=== PATIENT | female | born 1950 | race Caucasian/White ===

== ENCOUNTER → 2016-10-04 | Outpatient (CLI) | payer MEDICAID ==
[2016-10-04 07:48] LABS: Appearance,Urine Clear (Clear); Bilirubin,Urine Negative (Negative); Glucose,Urine (UA) Negative (Negative); Ketones,Urine Negative (Negative); Leukocyte Esterase,Urine Negative (Negative); Nitrite,Urine Negative (Negative); Particle Count 1905; Protein,Urine Negative (Negative); RBC,Urine 4 /hpf (0-5); Specific Gravity,Urine 1.009 (1.001-1.035); Squamous Epithelial Cell,Urine 2 /hpf (0-4); UA Billing (MACRO vs. MICRO) MICRO; Urobilinogen,Urine <2.0 mg/dL (<2.0); WBC,Urine 1 /hpf (0-5)
[2016-10-04 08:01] LABS: ALT 24 U/L (9-52); AST 27 U/L (14-36); Alkaline Phosphatase 74 U/L (38-126); Anion Gap 12 mmol/L; Blood Urea Nitrogen 8 mg/dL (7-17); Calcium 10.1 mg/dL (8.4-10.2); Carbon Dioxide 27 mmol/L (22-30); Chloride 98 mmol/L (98-107); Cholesterol 313 mg/dL (<200); Glucose 89 mg/dL (74-99); HDL Cholesterol 90 mg/dL (40-60); Non-African American GFR(MDRD) >60 (>60 ml/min/1.73 sqM); Potassium 5.2 mmol/L (3.5-5.1); Sodium 137 mmol/L (137-145); Total Bilirubin 0.6 mg/dL (0.2-1.3); Total Protein 8.3 g/dL (6.3-8.2); Triglycerides 191 mg/dL (<150)
[2016-10-04 08:05] LABS: CH 28.3; CHCM 31.3; HCT 33.6 % (34.0-46.0); HDW 2.54; HGB 10.2 gm/dL (11.4-16.0); Hypochromasia Slight; MCH 27.7 pg (25.0-35.0); MCHC 30.5 g/dL (31.0-37.0); MCV 90.7 fL (80.0-100.0); Mean Platelet Volume 6.5; RDW 13.2 % (11.5-15.5); WBC 5.9 k/uL (3.8-10.6)
== END ==
LOC: LABWHC1 07:10
PROVIDERS: ATTEND Internal Medicine
DX: Z00.00 Encounter for general adult medical examination without abnormal findings (principal); I10 Essential (primary) hypertension; M85.80 Other specified disorders of bone density and structure, unspecified site; E78.5 Hyperlipidemia, unspecified; E03.9 Hypothyroidism, unspecified
CPT/HCPCS: 36415; 80053; 80061; 81001; 82306; 84443; 85027

== ENCOUNTER → 2017-10-17 | Outpatient (CLI) | payer MEDICARE ==
[2017-10-17 07:52] LABS: ALT 25 U/L (9-52); AST 22 U/L (14-36); Albumin 4.6 g/dL (3.5-5.0); Alkaline Phosphatase 102 U/L (38-126); Anion Gap 14 mmol/L; Blood Urea Nitrogen 13 mg/dL (7-17); Calcium 9.7 mg/dL (8.4-10.2); Carbon Dioxide 26 mmol/L (22-30); Chloride 106 mmol/L (98-107); Cholesterol 303 mg/dL (<200); Glucose 85 mg/dL (74-99); HDL Cholesterol 66 mg/dL (40-60); LDL Cholesterol,Calculated 188 mg/dL (0-99); Potassium 4.7 mmol/L (3.5-5.1); Sodium 146 mmol/L (137-145); Total Bilirubin 0.5 mg/dL (0.2-1.3); Total Protein 7.9 g/dL (6.3-8.2); Triglycerides 247 mg/dL (<150)
[2017-10-17 07:56] LABS: HCT 39.7 % (34.0-46.0); HGB 12.6 gm/dL (11.4-16.0); MCH 28.4 pg (25.0-35.0); MCHC 31.6 g/dL (31.0-37.0); MCV 89.7 fL (80.0-100.0); Mean Platelet Volume 6.9; Platelet Count 380 k/uL (150-450); RBC 4.43 m/uL (3.80-5.40); WBC 5.6 k/uL (3.8-10.6)
[2017-10-17 08:41] LABS: Appearance,Urine Cloudy (Clear); Bacteria,Urine Occasional /hpf; Bilirubin,Urine Negative (Negative); Blood,Urine Small (Negative); Color,Urine Yellow; Glucose,Urine (UA) Negative (Negative); Hyaline Casts,Urine 7 /lpf (0-2); Ketones,Urine Trace (Negative); Leukocyte Esterase,Urine Trace (Negative); Mucus,Urine Occasional /hpf; Nitrite,Urine Negative (Negative); PH, Urine 6.5 (5.0-8.0); Protein,Urine 1+ (Negative); RBC,Urine 26 /hpf (0-5); Specific Gravity,Urine 1.021 (1.001-1.035); Squamous Epithelial Cell,Urine 10 /hpf (0-4); WBC,Urine 5 /hpf (0-5)
== END | disposition home or self-care (01) ==
LOC: LABWHC1 07:06
PROVIDERS: ATTEND Internal Medicine
DX: Z00.00 Encounter for general adult medical examination without abnormal findings (principal); E78.5 Hyperlipidemia, unspecified; I10 Essential (primary) hypertension
CPT/HCPCS: 36415; 80053; 80061; 81001; 84443; 85027

== ENCOUNTER → 2018-10-16 | Outpatient (CLI) | payer MEDICARE ==
[2018-10-16 08:47] LABS: HCT 39.2 % (34.0-46.0); HGB 12.4 gm/dL (11.4-16.0); MCH 30.1 pg (25.0-35.0); MCHC 31.5 g/dL (31.0-37.0); MCV 95.6 fL (80.0-100.0); Mean Platelet Volume 6.5; Platelet Count 664 k/uL (150-450); RBC 4.11 m/uL (3.80-5.40); RDW 13.2 % (11.5-15.5); WBC 14.5 k/uL (3.8-10.6)
[2018-10-16 12:56] LABS: Appearance,Urine Clear (Clear); Bilirubin,Urine Negative (Negative); Blood,Urine Negative (Negative); Color,Urine Light Yellow; Glucose,Urine (UA) Negative (Negative); Ketones,Urine Negative (Negative); Leukocyte Esterase,Urine Negative (Negative); Nitrite,Urine Negative (Negative); PH, Urine 6.5 (5.0-8.0); Protein,Urine Negative (Negative); Specific Gravity,Urine 1.005 (1.001-1.035); Urobilinogen,Urine <2.0 mg/dL (<2.0)
[2018-10-18 09:42] LABS: Albumin 4.7 g/dL (3.80-4.90); Albumin/Globulin Ratio 1.81 (1.60-3.17); Anion Gap 12.2 mmol/L (4.00-12.00); Calcium 9.4 mg/dL (8.7-10.3); Carbon Dioxide 21.8 mmol/L (21.6-31.8); Globulin 2.6 g/dL (1.6-3.3); LDL Cholesterol,Calculated 119.8 mg/dL (0.0-131.0); Potassium 4.6 mmol/L (3.5-5.5); Total Bilirubin 0.4 mg/dL (0.3-1.2); Total Protein 7.3 g/dL (6.2-8.2); VLDL Calculation 28.2 mg/dL (5.00-40.00)
== END | disposition home or self-care (01) ==
LOC: LABWHC1 08:08
PROVIDERS: ATTEND Internal Medicine
DX: E78.5 Hyperlipidemia, unspecified (principal); I10 Essential (primary) hypertension; E03.9 Hypothyroidism, unspecified
CPT/HCPCS: 36415; 80053; 80061; 81003; 85027

== ENCOUNTER → 2019-08-18 | Outpatient (CLI) | payer MEDICARE ==
--- NOTE | 2019-08-18 15:06 | ECHOS ---
STRESS ECHOCARDIOGRAM DATE OF SERVICE: 08/18/2019 INDICATIONS: Hypertension. MEDICATIONS: BASELINE HEART RATE: 68 BASELINE BLOOD PRESSURE: 134/85 MAXIMUM HEART RATE: 140 MAXIMUM BLOOD PRESSURE: 159/72 85% MPHR: 85 100% MPHR: 100 METS: 8.1 MAXIMUM STAGE REACHED: 2 TOTAL EXERCISE TIME: 7:00 CLINICAL INFORMATION: The patient was exercised for a total period of 7 minutes. Peak heart rate of 140 was achieved. Maximum blood pressure of 159/72 mmHg was noted. Resting EKG shows normal sinus rhythm with normal MI interval and QRS duration and normal ST-T waves. No ST segment depression suggestive of ischemia is noted. The baseline echocardiographic images reveal normal left ventricular chamber size with normal left ventricular systolic function. In the immediate postexercise period, normal increase in the wall thickness and contractility is noted. MMODL / IJN: [id number] /
== END | disposition home or self-care (01) ==
LOC: RADNMMAIN 08:46
PROVIDERS: ATTEND Internal Medicine
DX: I10 Essential (primary) hypertension (principal); E78.5 Hyperlipidemia, unspecified; R07.9 Chest pain, unspecified
CPT/HCPCS: 93351

== ENCOUNTER → 2020-01-16 | Outpatient (CLI) | payer MEDICARE ==
[2020-01-16 08:45] LABS: HCT 51.2 % (34.0-46.0); HGB 16.9 gm/dL (11.4-16.0); Hypochromasia Slight; MCH 33.1 pg (25.0-35.0); MCHC 32.9 g/dL (31.0-37.0); MCV 100.7 fL (80.0-100.0); Macrocytosis Slight; Platelet Count 312 k/uL (150-450); RBC 5.09 m/uL (3.80-5.40); RDW 13.6 % (11.5-15.5); WBC 7.5 k/uL (3.8-10.6)
[2020-01-16 08:58] LABS: Appearance,Urine Clear (Clear); Bilirubin,Urine Negative (Negative); Color,Urine Yellow; Glucose,Urine (UA) Negative (Negative); Ketones,Urine Negative (Negative); Protein,Urine Negative (Negative)
[2020-01-16 08:59] LABS: Blood,Urine Negative (Negative); Leukocyte Esterase,Urine Negative (Negative); Nitrite,Urine Negative (Negative); Urobilinogen,Urine <2.0 mg/dL (<2.0)
[2020-01-16 15:58] LABS: African American GFR (CKD) 76.7 (60.0-200.0); Albumin 4.5 g/dL (3.80-4.90); Albumin/Globulin Ratio 1.61 (1.60-3.17); Anion Gap 10.3 mmol/L (4.00-12.00); BUN/Creat Ratio 12.22 Ratio (12.00-20.00); Calcium 9.4 mg/dL (8.7-10.3); Carbon Dioxide 25.7 mmol/L (21.6-31.8); Chol/HDL Ratio 3.5; Globulin 2.8 g/dL (1.6-3.3); LDL Cholesterol,Calculated 116.2 mg/dL (0.0-131.0); Non-African American GFR(CKD) 66.2 (60.0-200.0); Potassium 4.4 mmol/L (3.5-5.5); Total Bilirubin 0.5 mg/dL (0.3-1.2); Total Protein 7.3 g/dL (6.2-8.2); VLDL Calculation 23.8 mg/dL (5.00-40.00)
== END | disposition home or self-care (01) ==
LOC: LABWHC1 08:08
PROVIDERS: ATTEND Internal Medicine
DX: Z00.00 Encounter for general adult medical examination without abnormal findings (principal); E78.5 Hyperlipidemia, unspecified; I10 Essential (primary) hypertension; R53.83 Other fatigue
CPT/HCPCS: 36415; 80053; 80061; 81003; 84443; 85027

== ENCOUNTER 2020-04-24 10:06 | Inpatient (IN) | payer MEDICARE ==
[2020-04-24] MEDS ORDERED: ONDANSETRON 4 MG/2 ML VIAL IVP STA (10:30)
[2020-04-24 10:54] LABS: Basophils # (A) 0.1 k/uL (0-0.2); Basophils % (A) 1 %; Eosinophils # (A) 0.2 k/uL (0-0.7); Eosinophils % (A) 2 %; HCT 53.3 % (34.0-46.0); HGB 17.2 gm/dL (11.4-16.0); Lymphocytes # (A) 2.7 k/uL (1.0-4.8); Lymphocytes % (A) 23 %; MCH 31.7 pg (25.0-35.0); MCHC 32.2 g/dL (31.0-37.0); MCV 98.4 fL (80.0-100.0); Mean Platelet Volume 7.1; Monocytes % (A) 9 %; Neutrophils # (A) 7.3 k/uL (1.3-7.7); Neutrophils % (A) 63 %; Platelet Count 407 k/uL (150-450); RBC 5.41 m/uL (3.80-5.40); RDW 13.9 % (11.5-15.5); WBC 11.7 k/uL (3.8-10.6)
--- NOTE | 2020-04-24 10:54 | ED ---
General Adult HPI - General Stated complaint: seizures Time Seen by Provider: 04/24/20 10:09 Source: patient, EMS, RN notes reviewed, old records reviewed Mode of arrival: EMS Limitations: no limitations - History of Present Illness Initial comments: 69-year-old female presenting with suspected seizure. Patient was at a local grocery store, had a witnessed seizure with postictal period according to EMS. She has a remote history of seizures, not on any antiepileptic medication. Patient's only complaint at the time of initial evaluation is nausea. She denies focal numbness or weakness. Denies headache. Denies chest pain or abdominal pain. She is able to answer questions but somewhat slow to respond.patient was incontinent of urine. - Related Data Home Medications Medication Instructions Recorded Confirmed Ascorbic Acid [Vitamin C] 500 mg PO DAILY 04/24/20 04/24/20 Benazepril/Hydrochlorothiazide 0.5 tab PO DAILY 04/24/20 04/24/20 [Benazepril-Hctz 20-12.5 mg Tab] Cholecalciferol [Vitamin D3 (25 1,000 unit PO DAILY 04/24/20 04/24/20 Mcg = 1000 Iu)] Folic Acid 0.8 mg PO DAILY 04/24/20 04/24/20 Magnesium Oxide [Magox 400] 400 mg PO DAILY 04/24/20 04/24/20 PARoxetine [Paxil] 20 mg PO DAILY 04/24/20 04/24/20 Allergies Allergy/AdvReac Type Severity Reaction Status Date / Time codeine Allergy Unknown Verified 04/24/20 11:26 Review of Systems ROS Statement: Those systems with pertinent positive or pertinent negative responses have been documented in the HPI. ROS Other: All systems not noted in ROS Statement are negative. Past Medical History Past Medical History: Seizure Disorder History of Any Multi-Drug Resistant Organisms: Unobtainable Past Surgical History: No Surgical Hx Reported Past Psychological History: No Psychological Hx Reported Smoking Status: Current every day smoker Past Alcohol Use History: Daily Past Drug Use History: None Reported General Exam Limitations: no limitations General appearance: lethargic Head exam: Present: atraumatic, normocephalic Eye exam: Present: normal appearance, PERRL ENT exam: Present: mucous membranes dry Neck exam: Present: normal inspection, tenderness Respiratory exam: Present: normal lung sounds bilaterally. Absent: respiratory distress, wheezes Cardiovascular Exam: Present: regular rate, normal rhythm GI/Abdominal exam: Present: soft. Absent: distended, tenderness, guarding Extremities exam: Present: normal inspection, normal capillary refill. Absent: pedal edema, calf tenderness Neurological exam: Present: alert, oriented X3, CN II-XII intact. Absent: motor sensory deficit Psychiatric exam: Present: normal affect, normal mood Skin exam: Present: warm, dry, intact. Absent: cyanosis, diaphoretic Course Vital Signs 04/24/20 04/24/20 10:12 11:05 Temperature 97.4 F L Pulse Rate 106 H 90 Respiratory 18 18 Rate Blood Pressure 149/104 135/96 O2 Sat by Pulse 95 96 Oximetry EKG Findings - EKG Comments: EKG Findings:: EKG: Normal sinus rhythm, ventricular rate of 98, TX interval 162, QRS duration 98, QTC 500 ms, ST segment and T-wave abnormality in the inferior leads, as well as T-wave inversion in V2, V3 V4 no acute ST segment elevation. No recent for comparison. repeat EKG, 1059, normal sinus, prolonged QT, rate of 86, TX interval 170, QRS duration 94, QTC 497, no ST segment elevation. Medical Decision Making - Medical Decision Making 69-year-old female with suspicion for seizure. Patient had urinary incontinence. There was a period of postictal confusion. By the time she arrived she is able answer questions, her only complaint is nausea. 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 EKG in the emergency Department is sinus rhythm without ST segment elevation. Workup reveals mild leukocytosis, hemoglobin 17.2.she has some hyperglycemia, CO2 is 21 likely secondary to seizure. She has is minimal troponin elevation 0.058. Vital signs remained stable while in the emergency department. She has a nonfocal neurologic exam. Head CT is performed which is negative for intracranial hemorrhage or mass effect. Chest x-rays negative for acute cardiopulmonary disease. Given his troponin elevation I did initiate heparin awaiting serial cardiac enzymes and cardiology consultation. Case is discussed with Dr. Álvarez. Patient evaluated by the admitting physician Dr. Marrero while in the emergency department. Neurology has been placed on consult. - Lab Data Result diagrams: 04/24/20 10:35 04/24/20 10:35 Lab Results 04/24/20 04/24/20 04/24/20 Range/Units 10:35 10:35 10:35 WBC 11.7 H (3.8-10.6) k/uL RBC 5.41 H (3.80-5.40) m/uL Hgb 17.2 H (11.4-16.0) gm/dL Hct 53.3 H (34.0-46.0) % MCV 98.4 (80.0-100.0) fL MCH 31.7 (25.0-35.0) pg MCHC 32.2 (31.0-37.0) g/dL RDW 13.9 (11.5-15.5) % Plt Count 407 (150-450) k/uL Neutrophils % 63 % Lymphocytes % 23 % Monocytes % 9 % Eosinophils % 2 % Basophils % 1 % Neutrophils # 7.3 (1.3-7.7) k/uL Lymphocytes # 2.7 (1.0-4.8) k/uL Monocytes # 1.0 (0-1.0) k/uL Eosinophils # 0.2 (0-0.7) k/uL Basophils # 0.1 (0-0.2) k/uL PT 10.3 (9.0-12.0) sec INR 1.0 (<1.2) APTT 21.1 L (22.0-30.0) sec Sodium 136 L (137-145) mmol/L Potassium 4.0 (3.5-5.1) mmol/L Chloride 101 (98-107) mmol/L Carbon Dioxide 21 L (22-30) mmol/L Anion Gap 14 mmol/L BUN 14 (7-17) mg/dL Creatinine 0.81 (0.52-1.04) mg/dL Est GFR (CKD-EPI)AfAm 88 (>60 ml/min/1.73 sqM) Est GFR (CKD-EPI)NonAf 76 (>60 ml/min/1.73 sqM) Glucose 179 H (74-99) mg/dL Calcium 9.5 (8.4-10.2) mg/dL Magnesium 1.9 (1.6-2.3) mg/dL Total Bilirubin 0.6 (0.2-1.3) mg/dL AST 32 (14-36) U/L ALT 16 (4-34) U/L Alkaline Phosphatase 94 (38-126) U/L Troponin I (0.000-0.034) ng/mL Total Protein 7.7 (6.3-8.2) g/dL Albumin 4.4 (3.5-5.0) g/dL 04/24/20 Range/Units 10:35 WBC (3.8-10.6) k/uL RBC (3.80-5.40) m/uL Hgb (11.4-16.0) gm/dL Hct (34.0-46.0) % MCV (80.0-100.0) fL MCH (25.0-35.0) pg MCHC (31.0-37.0) g/dL RDW (11.5-15.5) % Plt Count (150-450) k/uL Neutrophils % % Lymphocytes % % Monocytes % % Eosinophils % % Basophils % % Neutrophils # (1.3-7.7) k/uL Lymphocytes # (1.0-4.8) k/uL Monocytes # (0-1.0) k/uL Eosinophils # (0-0.7) k/uL Basophils # (0-0.2) k/uL PT (9.0-12.0) sec INR (<1.2) APTT (22.0-30.0) sec Sodium (137-145) mmol/L Potassium (3.5-5.1) mmol/L Chloride (98-107) mmol/L Carbon Dioxide (22-30) mmol/L Anion Gap mmol/L BUN (7-17) mg/dL Creatinine (0.52-1.04) mg/dL Est GFR (CKD-EPI)AfAm (>60 ml/min/1.73 sqM) Est GFR (CKD-EPI)NonAf (>60 ml/min/1.73 sqM) Glucose (74-99) mg/dL Calcium (8.4-10.2) mg/dL Magnesium (1.6-2.3) mg/dL Total Bilirubin (0.2-1.3) mg/dL AST (14-36) U/L ALT (4-34) U/L Alkaline Phosphatase (38-126) U/L Troponin I 0.058 H* (0.000-0.034) ng/mL Total Protein (6.3-8.2) g/dL Albumin (3.5-5.0) g/dL Critical Care Time Critical Care Time: Yes Total Critical Care Time: 35 Disposition Clinical Impression: Seizure, Troponin level elevated Disposition: HOME SELF-CARE Condition: Stable Is patient prescribed a controlled substance at d/c from ED?: No Referrals: None,Stated [Primary Care Provider] - 1-2 days Decision to Admit Reason: Admit from EC Decision Date: 04/24/20 Decision Time: 12:00
--- NOTE | 2020-04-24 10:54 | CT ---
EXAMINATION TYPE: CT brain wo con DATE OF EXAM: 04/24/2020 COMPARISON: None INDICATION: seizure DLP: 1040.4 mGycm, Automated exposure control for dose reduction was used. CONTRAST: None CT of the brain is performed utilizing 3 mm thick sections through the posterior fossa and 3 mm thick sections through the remaining calvarium. Study is performed within 24 hours of arrival to the hosp ital. No abnormal hyperdensity is present to suggest an acute intracranial hemorrhage. No mass lesion is evident. No acute infarcts are evident. Ventricles and sulci are appropriate for the patient age. Paranasal sinuses and mastoid air cells within the [id number] are clear. IMPRESSIONS: 1. No acute intracranial process.
--- NOTE | 2020-04-24 11:08 | XR ---
EXAMINATION TYPE: XR chest 1V portable DATE OF EXAM: 04/24/2020 COMPARISON: NONE HISTORY: Chest pain TECHNIQUE: Single frontal view of the chest is obtained. FINDINGS: There is no focal air space opacity, pleural effusion, or pneumothorax seen. The cardiac silhouette size is within normal limits. There are overlying cardiac leads. Patient is rotated. The osseous structures are intact. IMPRESSION: No acute process.
[2020-04-24 11:13] LABS: Prothrombin Time 10.3 sec (9.0-12.0)
[2020-04-24 11:17] LABS: Albumin 4.4 g/dL (3.5-5.0); Calcium 9.5 mg/dL (8.4-10.2); Magnesium 1.9 mg/dL (1.6-2.3); Total Bilirubin 0.6 mg/dL (0.2-1.3); Total Protein 7.7 g/dL (6.3-8.2)
[2020-04-24] MEDS ORDERED: METOCLOPRAMIDE 5 MG/ML 2 ML VIAL IVP STA (11:29)
[2020-04-24] MEDS ORDERED: ACETAMINOPHEN TAB 500 MG TAB PO STA (11:29)
[2020-04-24] MEDS ORDERED: SODIUM CHLORIDE 0.9% 500 ML 500 ML IV ONE (11:30)
[2020-04-24] MEDS ORDERED: ASPIRIN 325 MG TAB PO STA (11:31)
[2020-04-24] MEDS ORDERED: HEPARIN SODIUM,PORCINE 5,000 UNIT/ML 1 ML VIAL IV PRN (11:32)
[2020-04-24] MEDS ORDERED: HEPARIN SODIUM,PORCINE 5,000 UNIT/ML 1 ML VIAL IV ONE (11:32)
[2020-04-24 11:36] LABS: Partial Thromboplastin Time 21.1 sec (22.0-30.0)
[2020-04-24] MEDS ORDERED: NALOXONE 0.4 MG/ML 1 ML VIAL IV PRN (11:44)
[2020-04-24] MEDS: HEPARIN SOD,PORK IN 0.45% NACL 25,000 UNIT in 0.45% NACL 1 250ML.BAG IV SCH (13:47)
--- NOTE | 2020-04-24 13:48 | P.HPIM ---
History of Present Illness 69-year-old female was the bottom with suspected seizure patient was at the grocery store and the patient is found to have some seizure-like activity and loss consciousness patient didn't have any aura-like symptoms are loss of bowel or bladder incontinence or tongue biting. Patient was bit nauseous. Patient denied any weakness numbness. Patient was comparing of some headache which is minimal. Patient the denied any chest pain although apparently there was a concern about some he abnormal EKG that EKG was not found but the EKG that was in the ER was within normal limits except for lead [address] depression was seen although troponin is bit elevated to 0.05 repeated the second troponin which is definitely elevated significantly to 0.5 and with the some T-wave inversions in anterolateral leads and ST depression in lead 3. Patient did get an echocardiogram which showed EF of 40-45% patient probably will be started on IV heparin was some wall motion abnormality in apex. Fasting initial history ordered EEG and a neurology consult as well. Patient had history of seizure about 25 years ago and patient is presently not on antiseizure medications. She does have leukocytosis. Review of Systems REVIEW OF SYSTEMS: CONSTITUTIONAL: No fever, no malaise, no fatigue. HEENT: No recent visual problems or hearing problems. Denied any sore throat. CARDIOVASCULAR: No orthopnea, PND, no palpitations, no syncope. PULMONARY: No shortness of breath, no cough, no hemoptysis. GASTROINTESTINAL: No diarrhea, no nausea, no vomiting, no abdominal pain. NEUROLOGICAL no weakness, no numbness. HEMATOLOGICAL: Denies any bleeding or petechiae. GENITOURINARY: Denies any burning micturition, frequency, or urgency. MUSCULOSKELETAL/RHEUMATOLOGICAL: Denies any joint pain, swelling, or any muscle pain. ENDOCRINE: Denies any polyuria or polydipsia. The rest of the 14-point review of systems is negative. Past Medical History Past Medical History: Seizure Disorder History of Any Multi-Drug Resistant Organisms: Unobtainable Past Surgical History: No Surgical Hx Reported Past Psychological History: No Psychological Hx Reported Smoking Status: Current every day smoker Past Alcohol Use History: Daily Past Drug Use History: None Reported Medications and Allergies Home Medications Medication Instructions Recorded Confirmed Type Ascorbic Acid [Vitamin C] 500 mg PO DAILY 04/24/20 04/24/20 History Benazepril/Hydrochlorothiazide 0.5 tab PO DAILY 04/24/20 04/24/20 History [Benazepril-Hctz 20-12.5 mg Tab] Cholecalciferol [Vitamin D3 (25 1,000 unit PO DAILY 04/24/20 04/24/20 History Mcg = 1000 Iu)] Folic Acid 0.8 mg PO DAILY 04/24/20 04/24/20 History Magnesium Oxide [Magox 400] 400 mg PO DAILY 04/24/20 04/24/20 History PARoxetine [Paxil] 20 mg PO DAILY 04/24/20 04/24/20 History Allergies Allergy/AdvReac Type Severity Reaction Status Date / Time codeine Allergy Unknown Verified 04/24/20 11:26 Physical Exam Vitals: Vital Signs Temp Pulse Resp BP Pulse Ox 04/24/20 11:05 90 18 135/96 96 04/24/20 10:12 97.4 F L 106 H 18 149/104 95 Intake and Output 04/23/20 04/24/20 04/24/20 22:59 06:59 14:59 Other: Weight 53.07 kg PHYSICAL EXAMINATION: GENERAL: The patient is alert and oriented x3, not in any acute distress. Well developed, well nourished. HEENT: Pupils are round and equally reacting to light. EOMI. No scleral icterus. No conjunctival pallor. Normocephalic, atraumatic. No pharyngeal erythema. No thyromegaly. CARDIOVASCULAR: S1 and S2 present. No murmurs, rubs, or gallops. PULMONARY: Chest is clear to auscultation, no wheezing or crackles. ABDOMEN: Soft, nontender, nondistended, normoactive bowel sounds. No palpable organomegaly. MUSCULOSKELETAL: No joint swelling or deformity. EXTREMITIES: No cyanosis, clubbing, or pedal edema. NEUROLOGICAL: Gross neurological examination did not reveal any focal deficits. SKIN: No rashes. Results CBC & Chem 7: 04/24/20 10:35 04/24/20 10:35 Labs: Abnormal Lab Results - Last 24 Hours (Table) 04/24/20 04/24/20 04/24/20 Range/Units 10:35 10:35 10:35 WBC 11.7 H (3.8-10.6) k/uL RBC 5.41 H (3.80-5.40) m/uL Hgb 17.2 H (11.4-16.0) gm/dL Hct 53.3 H (34.0-46.0) % APTT 21.1 L (22.0-30.0) sec Sodium 136 L (137-145) mmol/L Carbon Dioxide 21 L (22-30) mmol/L Glucose 179 H (74-99) mg/dL Troponin I (0.000-0.034) ng/mL 04/24/20 04/24/20 Range/Units 10:35 12:15 WBC (3.8-10.6) k/uL RBC (3.80-5.40) m/uL Hgb (11.4-16.0) gm/dL Hct (34.0-46.0) % APTT (22.0-30.0) sec Sodium (137-145) mmol/L Carbon Dioxide (22-30) mmol/L Glucose (74-99) mg/dL Troponin I 0.058 H* 0.570 H* (0.000-0.034) ng/mL Assessment and Plan Plan: - possibility of non-ST elevation microinfarction: Patient may have any syncope and sync with the introducer seizure rather than primary seizure for non-ST elevation microinfarction patient will be can you done IV heparin cardiology will evaluate the patient. Patient will continued on IV heparin will also add beta jose and a statin -Rule out seizure: We'll obtain EEG neurology was consulted -Leukocytosis reactive from syncope at microinfarction -Depression -Hypertension
[2020-04-24] MEDS: SODIUM CHLORIDE 0.9% 1,000 ML IV SCH ×2 (13:51→23:44)
[2020-04-24 14:21] LABS: Cholesterol 250 mg/dL (<200); HDL Cholesterol 44 mg/dL (40-60); LDL Cholesterol,Calculated 136 mg/dL (0-99); Triglycerides 348 mg/dL (<150)
--- NOTE | 2020-04-24 17:19 | ECHOF ---
Referral Reason:seizure/trop elevation MEASUREMENTS -------- HEIGHT: 165.1 cm WEIGHT: 53.1 kg BP: IVSd: 1.1 cm (0.6 - 1.1) LVIDd: 4.0 cm (3.9 - 5.3) LVPWd: 1.4 cm (0.6 - 1.1) IVSs: 1.2 cm LVIDs: 3.3 cm LVPWs: 1.4 cm LA Diam: 3.6 cm (2.7 - 3.8) LAESV Index (A-L): 27.02 ml/m Ao Diam: 2.0 cm (2.0 - 3.7) AV Cusp: 1.5 cm (1.5 - 2.6) MV EXCURSION: 16.399 mm (> 18.000) MV EF SLOPE: 58 mm/s (70 - 150) EPSS: 0.3 cm MV E Yoel: 0.34 m/s MV DecT: 162 ms MV A Yoel: 0.70 m/s MV E/A Ratio: 0.49 RAP: 5.00 mmHg RVSP: 14.95 mmHg FINDINGS -------- Sinus rhythm. This was a technically good study. The left ventricular size is normal. Left ventricular wall thickness is normal. Overall left vent ricular systolic function is mild-moderately impaired with, an EF between 40 - 45 %. Apical septum LV wall motion is hypokinetic. The right ventricle is normal in size. The left atrial size is normal. The right atrial size is normal. The aortic valve is trileaflet, and appears structurally normal. No aortic stenosis or regurgitation. Mild mitral regurgitation is present. Mild tricuspid regurgitation present. Right ventricular systolic pressure is normal at < 35 mmHg. There is no pulmonic regurgitation present. The aortic root size is normal. There is no pericardial effusion. CONCLUSIONS -------- 1. The left ventricular size is normal. 2. Left ventricular wall thickness is normal. 3. Overall left ventricular systolic function is mild-moderately impaired with, an EF between 40 - 45 %. 4. Apical septum LV wall motion is hypokinetic. 5. The right ventricle is normal in size. 6. The left atrial size is normal. 7. The right atrial size is normal. 8. Mild mitral regurgitation is present. 9. Mild tricuspid regurgitation present. 10. anterior [place] SCI[employer]ACULT[employer] MEMBER: Carolina Cordoba RDCS
[2020-04-24] MEDS: METOPROLOL TARTRATE 25 MG TAB PO SCH ×3 (19:27→22:40)
[2020-04-24] MEDS: THIAMINE 100 MG TAB PO SCH (19:31)
--- NOTE | 2020-04-24 21:24 | P.CNNES ---
History of Present Illness Consult date: 04/24/20 Requesting physician: Mariusz Marrero Reason for Consult: seizure History of Present Illness: This is a 69-year-old right-handed woman with the history of a prior seizure- like episode (20 years ago) that presented to the emergency department on 04/24/2020 for suspected seizure-like activity. Today in morning between 8-9 am she was at grocery store and then had that seizure-like activity witnessed by bystanders. She had loss of consciousness. She does recall that she was at the grocery store but she doesn't recall going into the store or not. Upon waking up she denies any urinary, bowel incontinence. She denies any tongue bite or sorenes of her tongue. According to the daughter she was was informed by EMS that patient had 3 episodes of shaking of her extremity and there are one after another. But the dictated described above was a whole body jerk in or the details of her shaking episodes or the duration of it. Prior to that she can like episodes the patient denies any chest pain any diaphoresis. She does have nausea. Denies any vomiting. She denies any headache prior to the event. She denies of any weakness, numbness, any slurring or speech. Patient drinks 5 small glasses of wine daily and she's been doing it for years. Last drink was yesterday. She said that she does not get withdraws upon stopping drinking. She smokes half a pack a day for past 50 years. Workup in the hospital consisted of: Initial vitals his blood pressure of 149/104, heart rate of 106, temperature of 97.4 Fahrenheit axillary, pulse ox is [address] of the head was reported as no acute intracranial process. I personally reviewed the CT of the head and a showed moderate atrophy of bilateral frontal which is more atrophy than for her age. EKG was reported as normal sinus rhythm. There is a prolonged QT. Ventricular rate was 86. Patient the troponin is elevated and it was a 0.058 and the repeat it is a 0.570. Her initial glucose level the serum was 179. Her white blood cell is 11.7 Regarding the patient's previous episode of seizure-like activity about 20 years ago also she was shopping and that she was told that she had a shaking-like episode. She does not the details of that that. She saw a neurologist and he did a routine EEG and was normal. He placed her on the antiepileptic drug but she couldn't tolerate the vacation since that was making her sleepy and woozy. She does not recall of the antiepileptic medication. She followed up with a primary care doctor and it was felt that her episode was not a seizure-like activity but rather was that because her blood pressure was low so her seizure medication was stopped. Patient denies any seizure episodes as a child or any seizure episodes besides this episode and the one 20 years ago. Regarding the patient's history she said that the she was a product of normal vaginal delivery and was determined there is no complication. There is no family history of seizures. Review of Systems Review of system: The 12 point system was reviewed and apparent positive and negative per HPI. Past Medical History Past Medical History: Seizure Disorder History of Any Multi-Drug Resistant Organisms: Unobtainable Past Surgical History: No Surgical Hx Reported Past Psychological History: No Psychological Hx Reported Smoking Status: Current every day smoker Past Alcohol Use History: Daily Past Drug Use History: None Reported Medications and Allergies Home Medications Medication Instructions Recorded Confirmed Type Ascorbic Acid [Vitamin C] 500 mg PO DAILY 04/24/20 04/24/20 History Benazepril/Hydrochlorothiazide 0.5 tab PO DAILY 04/24/20 04/24/20 History [Benazepril-Hctz 20-12.5 mg Tab] Cholecalciferol [Vitamin D3 (25 1,000 unit PO DAILY 04/24/20 04/24/20 History Mcg = 1000 Iu)] Folic Acid 0.8 mg PO DAILY 04/24/20 04/24/20 History Magnesium Oxide [Magox 400] 400 mg PO DAILY 04/24/20 04/24/20 History PARoxetine [Paxil] 20 mg PO DAILY 04/24/20 04/24/20 History Allergies Allergy/AdvReac Type Severity Reaction Status Date / Time codeine Allergy Unknown Verified 04/24/20 11:26 Physical Examination - Vital Signs Vital Signs: Vital Signs Temp Pulse Resp BP Pulse Ox 04/24/20 11:05 90 18 135/96 96 04/24/20 10:12 97.4 F L 106 H 18 149/104 95 Intake and Output 04/23/20 04/24/20 04/24/20 22:59 06:59 14:59 Other: Weight 53.07 kg GENERAL: The patient is lying in bed and is not in acute distress. CHEST: The heart rate is regular rate rhythm. No murmurs to auscultation. No carotid bruit bilaterally. LUNG: Clear to auscultation bilaterally no wheezing noted throughout. Not labored breathing. ABDOMEN/GI: Bowel sounds present in all 4 quadrants. No tenderness to palpation throughout. NEUROLOGICAL: Higher mental function: The patient is awake, alert, oriented to self, place and time. Patient is following commands. No aphasia and no neglect. Cranial nerves: The pupils are round, equal and reactive to light and ac commodation. Visual yates are full to confrontation throughout. Extraocular movement is intact no nystagmus is noted. Facial sensation is normal to touch throughout. The facial strength is normal throughout. Hearing is normal bilaterally to hand rub. Tongue is midline and moved [id number] without any difficulty. No dysarthria is noted. Shoulder shrug is normal bilaterally. Motor: The strength is 5 over 5 throughout. Normal tone and bulk. Cerebellum: Normal finger to nose heel to chin bilaterally. Sensation: Sensation is normal to touch throughout. Reflexes (right/left): 2+ throughout except at ankles 1+ bilaterally. Plantars are downgoing bilaterally. Results Conduction study the PT is 10.3, INR is 1.0 and PTT is 21.1. - Laboratory Findings CBC and BMP: 04/24/20 10:35 04/24/20 10:35 Abnormal Lab Findings: Abnormal Labs 04/24/20 04/24/20 04/24/20 10:35 10:35 10:35 WBC 11.7 H RBC 5.41 H Hgb 17.2 H Hct 53.3 H APTT 21.1 L Sodium 136 L Carbon Dioxide 21 L Glucose 179 H Troponin I 04/24/20 04/24/20 10:35 12:15 WBC RBC Hgb Hct APTT Sodium Carbon Dioxide Glucose Troponin I 0.058 H* 0.570 H* Assessment and Plan Assessment: Episode of loss of consciousness. Possibly seizure. Another Possibility is cardiac in etiology (elevated troponin). 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 Because the patient had an episode about 20 years ago and another episode today which I cannot rule out seizure. I recommended that the patient to be started on antiepileptic drug but the patient refused. Another possibility is just because she was shaking does not always equate to seizures, possibly this could be cardiac in etiology. Recommend cardiac monitoring. 2-D echo is pending. I'll order vitamin B-12, folate. I'll start the patient on thiamine 100 mg daily. Did MRI of the brain for seizure protocol. Regarding the elevated troponin now we'll defer the management to the cardiology team. The patient was informed she cannot drive for 6 months according to the [place] law until less she is the she does not have any further episodes of loss of consciousness. She is to avoid the swimming unattended. To avoid that climbing heights or using heavy machinery. The patient was counseled on tobacco cessation as well as alcohol cessation. Upon discharge the patient needs to follow-up with a neurologist as an outpatient. Thank you for the consult. Salinas Kovacs M.D. Neuro-hospitalist Time with Patient: Greater than 30
[2020-04-24] MEDS: ATORVASTATIN 40 MG TAB PO SCH (22:22)
--- NOTE | 2020-04-24 23:35 | CONS ---
CONSULTATION Mrs. Steiner is a 69-year-old female with known history of chronic tobacco use and history of hypertension who presented to the emergency room after a seizure event. She was at [employer] when apparently she had a seizure that was witnessed, but there was no evidence of tongue biting or loss of bladder control. The patient woke up in the EMS and came into the emergency room. At the time of my evaluation she is feeling well. She denies any chest pain. She denies any dizziness or palpitation. According to her, she is active physically without any symptoms. She denies any exertional chest pain. She denies any dizziness, palpitation. No PND, orthopnea. No peripheral edema. She has no prior history of obstructive coronary artery disease. She underwent a stress test in July of this year and she had a normal stress echocardiogram. Her coronary risk factors are remarkable for hypertension and chronic tobacco use. She is nondiabetic. Her medication includes benazepril HCT 20/12.5 mg daily, vitamin D, folic acid, magnesium, Paxil and vitamin C. REVIEW OF SYSTEMS: RESPIRATORY SYSTEM: She has no recent wheezing, no cough. No history of obstructive lung disease. GI SYSTEM: No recent GI bleeding. No peptic ulcer disease. SYSTEM: No dysuria or hematuria. NERVOUS SYSTEM: Remote history of seizure, but no recent activity until today. PHYSICAL EXAMINATION: She is a 69-year-old female, alert, oriented, in no apparent distress. Blood pressure 106/80 with a heart rate in the 80s. HEAD: Normocephalic. Eyes: Sclerae anicteric. NECK: Good carotid upstroke. No bruit. No jugular venous distention. LUNGS: Clear to auscultation. HEART: Regular rate and rhythm. S1, S2. No S3. No rub appreciated. ABDOMEN: Soft, nontender. Positive bowel sounds. No organomegaly. EXTREMITIES: No edema. Intact distal pulses. LAB DATA: Cholesterol of 250, LDL of 136. Troponin 0.058 and 0.570. BUN and creatinine of 14 and 0.81. Hemoglobin of 17.2, white blood cells of 11.7. EKG revealed a sinus mechanism, normal axis intervals with nonspecific ST-T wave changes. Chest x-ray shows no evidence of infiltrate. IMPRESSION: 1. Seizure activity, witnessed according to the notes. 2. Troponin elevation. Could be related to the seizure. Rule out [id number]- elevation myocardial infarction. 3. History of hypertension. 4. Chronic tobacco use. 5. Hyperlipidemia. 6. Daily alcohol intake. RECOMMENDATIONS: I will obtain an echocardiogram with Doppler. Patient will be started on IV heparin in addition to aspirin and beta jose. Will follow her enzymes. Depending on the results of the echo, further recommendations will be made. Thank you for this consult. Will follow with you. ALEKSANDRAL / IJN: [id number] /
[2020-04-25 07:34] LABS: African American GFR (CKD) >90 (>60 ml/min/1.73 sqM); Anion Gap 5 mmol/L; Blood Urea Nitrogen 10 mg/dL (7-17); Calcium 8.4 mg/dL (8.4-10.2); Carbon Dioxide 24 mmol/L (22-30); Chloride 109 mmol/L (98-107); Glucose 96 mg/dL (74-99); Non-African American GFR(CKD) 80 (>60 ml/min/1.73 sqM); Potassium 4.1 mmol/L (3.5-5.1); Sodium 138 mmol/L (137-145)
[2020-04-25] MEDS ORDERED: LORazepam 2 MG/ML INJ IV ONE (07:45)
[2020-04-25 08:05] LABS: Basophils # (A) 0.1 k/uL (0-0.2); Basophils % (A) 1 %; Eosinophils # (A) 0.1 k/uL (0-0.7); Eosinophils % (A) 1 %; HCT 46.3 % (34.0-46.0); HGB 14.6 gm/dL (11.4-16.0); Lymphocytes # (A) 1.3 k/uL (1.0-4.8); Lymphocytes % (A) 13 %; MCH 30.7 pg (25.0-35.0); MCHC 31.5 g/dL (31.0-37.0); MCV 97.4 fL (80.0-100.0); Mean Platelet Volume 7.1; Monocytes # (A) 0.7 k/uL (0-1.0); Monocytes % (A) 6 %; Neutrophils # (A) 8.1 k/uL (1.3-7.7); Neutrophils % (A) 78 %; Platelet Count 297 k/uL (150-450); RBC 4.75 m/uL (3.80-5.40); RDW 14.4 % (11.5-15.5); WBC 10.4 k/uL (3.8-10.6)
[2020-04-25] MEDS ORDERED: SODIUM CHLORIDE 0.9% 1,000 ML in EMPTY BAG 1 BAG IV ONE (08:54)
[2020-04-25] MEDS ORDERED: ATORVASTATIN 40 MG TAB PO STA (08:54)
[2020-04-25] MEDS ORDERED: ALPRAZolam 0.25 MG TAB PO PRN (08:54)
[2020-04-25] MEDS ORDERED: ALPRAZolam 0.5 MG TAB PO PRN (08:54)
[2020-04-25] MEDS ORDERED: NITROGLYCERIN SL TABS 0.4 MG TAB SUBLINGUAL PRN (08:54)
[2020-04-25] MEDS ORDERED: ASPIRIN 325 MG TAB PO STA (08:54)
--- NOTE | 2020-04-25 09:30 | MR ---
MR brain without contrast HISTORY: Seizure protocol, seizure Multiplanar multisequence imaging obtained through the brain, correlation to CT brain April 15 Cortical atrophy is again noted. There is no restricted diffusion. Corpus callosum, pituitary, cervic al medullary junction, cerebellopontine angles are normal. Vascular flow voids are unremarkable. The orbits show symmetric appearance. Mild inflammatory change present in the ethmoid air cells, frontal sinus. Periventricular white matter shows some scattered hyperintensities on inversion recovery T2-we ighted sequences, approximately 5 lesions. IMPRESSION: Nonspecific white matter demyelination possibly related to chronic small vessel ischemia, age related atrophy. Mild sinus disease.
[2020-04-25] MEDS: lisinopriL 20 MG TAB PO SCH (09:45)
[2020-04-25] MEDS: MAGNESIUM OXIDE 400 MG TAB PO SCH (09:45)
[2020-04-25] MEDS: THIAMINE 100 MG TAB PO SCH (09:45)
[2020-04-25] MEDS: FOLIC ACID 1 MG TAB PO SCH (09:45)
[2020-04-25] MEDS: PARoxetine 20 MG TAB PO SCH (09:45)
[2020-04-25] MEDS: METOPROLOL TARTRATE 25 MG TAB PO SCH ×2 (09:45→21:08)
[2020-04-25] MEDS: SODIUM CHLORIDE 0.9% 1,000 ML IV SCH ×2 (10:01→17:47)
[2020-04-25] MEDS: ASPIRIN 81 MG PO SCH (10:05)
[2020-04-25] MEDS ORDERED: LIDOCAINE 1% INJ 10MG/ML (20 ML MDV) ONE (11:48)
[2020-04-25] MEDS ORDERED: VERAPAMIL 2.5 MG/ML 2 ML AMP ONE (11:48)
[2020-04-25] MEDS ORDERED: fentaNYL (PF) 50 MCG/ML 2 ML AMP ONE (12:08)
[2020-04-25] MEDS ORDERED: HEPARIN SODIUM 1,000 UN/ML (10ML VL) ONE (12:08)
[2020-04-25] MEDS ORDERED: IV FLUID CONTINUATION 500 ML IV ONE (12:27)
[2020-04-25] MEDS ORDERED: fentaNYL (PF) 50 MCG/ML 2 ML AMP IVP ONE (12:28)
[2020-04-25] MEDS ORDERED: LIDOCAINE 1% INJ 10MG/ML (20 ML MDV) SQ ONE (12:31)
[2020-04-25] MEDS ORDERED: VERAPAMIL SYRINGE (5 MG/10 ML) INTRAARTER ONE (12:32)
[2020-04-25] MEDS ORDERED: HEPARIN SODIUM 1,000 UN/ML (10ML VL) IV ONE (12:44)
[2020-04-25] MEDS ORDERED: IOPAMIDOL-370 125ML BTL INJ ONE (12:48)
[2020-04-25 12:51] LABS: Folate, Serum >24.0 ng/mL
[2020-04-25] MEDS ORDERED: RX INFO: IV CONTRAST WAS GIVEN 1 EACH MISC MISCELLANE PRN (13:09)
[2020-04-25] MEDS ORDERED: HEPARIN SODIUM,PORCINE 5,000 UNIT/ML 1 ML VIAL IV PRN (13:12)
[2020-04-25] MEDS ORDERED: SODIUM CHLORIDE 0.9% 1,000 ML IV SCH (13:15)
--- NOTE | 2020-04-25 13:53 | P.PN ---
Subjective Patient was admitted for evaluation of seizures. Patient is found have elevated troponins it appears like patient had acute myocardial infarction patient is undergoing cardiac catheterization today this occurred microinfarction may have led to syncope which again led to seizures. Patient had an MRI which didn't show any acute abnormality but did show some chronic microvascular ischemic changes Constitutional: Denied any fatigue denied any fever. Cardio vascular: denied any chest pain, palpitations Gastrointestinal denied any nausea vomiting Pulmonary: Denied any shortness of breath cough Neurologic denied any new focal deficits All inpatient medications were reviewed and appropriate changes in these medications as dictated in the interval history and assessment and plan. Objective - Vital Signs Vital signs: Vital Signs Temp 98.1 F 04/25/20 08:00 Pulse 81 04/25/20 08:00 Resp 19 04/25/20 08:00 BP 125/82 04/25/20 08:00 Pulse Ox 95 04/25/20 08:00 Intake & Output 04/24/20 04/25/20 04/25/20 18:59 06:59 18:59 Intake Total 490.299 218.868 Balance 490.299 218.868 Weight 53.07 kg 54.5 kg Intake: IV 150 Intake, IV Titration 490.299 68.868 Amount Heparin Sod,Pork in 0.45% 90.299 68.868 NaCl 25,000 unit In 0.45 % NaCl 1 250ml.bag @ 12 UNITS/KG/HR 6.368 mls/hr IV .Q24H TIARA Rx#: [id number] Sodium Chloride 0.9% 1, 400 000 ml @ 100 mls/hr IV . Q10H TIARA Rx#:[id number] Other: # Voids 1 - Exam PHYSICAL EXAMINATION: GENERAL: The patient is alert and oriented x3, not in any acute distress. Well developed, well nourished. HEENT: Pupils are round and equally reacting to light. EOMI. No scleral icterus. No conjunctival pallor. Normocephalic, atraumatic. No pharyngeal erythema. No thyromegaly. CARDIOVASCULAR: S1 and S2 present. No murmurs, rubs, or gallops. PULMONARY: Chest is clear to auscultation, no wheezing or crackles. ABDOMEN: Soft, nontender, nondistended, normoactive bowel sounds. No palpable organomegaly. MUSCULOSKELETAL: No joint swelling or deformity. EXTREMITIES: No cyanosis, clubbing, or pedal edema. NEUROLOGICAL: Gross neurological examination did not reveal any focal deficits. SKIN: No rashes. - Labs CBC & Chem 7: 04/25/20 07:02 04/25/20 07:02 Labs: Abnormal Lab Results - Last 24 Hours (Table) 04/24/20 04/24/20 04/25/20 Range/Units 10:35 17:46 01:25 Hct (34.0-46.0) % Neutrophils # (1.3-7.7) k/uL APTT 39.1 H (22.0-30.0) sec Chloride (98-107) mmol/L Troponin I 1.350 H* (0.000-0.034) ng/mL Triglycerides 348 H (<150) mg/dL Cholesterol 250 H (<200) mg/dL LDL Cholesterol, Calc 136 H (0-99) mg/dL 04/25/20 04/25/20 04/25/20 Range/Units 07:02 07:02 07:02 Hct 46.3 H (34.0-46.0) % Neutrophils # 8.1 H (1.3-7.7) k/uL APTT 37.9 H (22.0-30.0) sec Chloride 109 H (98-107) mmol/L Troponin I (0.000-0.034) ng/mL Triglycerides (<150) mg/dL Cholesterol (<200) mg/dL LDL Cholesterol, Calc (0-99) mg/dL Assessment and Plan Plan: - possibility of non-ST elevation microinfarction: Patient may have any syncope and sync with the introducer seizure rather than primary seizure for non-ST elevation microinfarction patient will be can you done IV heparin, patient was evaluated by cardiology and patient is undergoing cardiac catheterization ,Patient will continued on IV heparin, beta jose and a statin -Acute systolic heart failure patient doesn't have any pulmonary edema or any heart failure exacerbation is 6 acute systolic dysfunction is probably secondary to [place] -Rule out seizure: MRI as mentioned above EEG results are pending patient probably had a seizure secondary to syncope which is again from [place] -Leukocytosis reactive from syncope and myocardial infarction -Depression -Hypertension
[2020-04-25 14:00] LABS: Prothrombin Time 10.6 sec (9.0-12.0)
--- NOTE | 2020-04-25 15:01 | P.PN ---
Subjective Progress Note Date: 04/25/20 The patient was seen at bedside and she said that she's feeling better today. She denies of any weakness numbness visual disturbance. There is no further episodes of her shaking or passing out. She had a cardiac cath according to her daughter and there were told that patient showed some occlusion in the her arteries. Objective - Vital Signs Vital signs: Vital Signs Temp 98.1 F 04/25/20 08:00 Pulse 81 04/25/20 08:00 Resp 19 04/25/20 08:00 BP 125/82 04/25/20 08:00 Pulse Ox 95 04/25/20 08:00 Intake & Output 04/24/20 04/25/20 04/25/20 18:59 06:59 18:59 Intake Total 490.299 218.868 Balance 490.299 218.868 Weight 53.07 kg 54.5 kg Intake: IV 150 Intake, IV Titration 490.299 68.868 Amount Heparin Sod,Pork in 0.45% 90.299 68.868 NaCl 25,000 unit In 0.45 % NaCl 1 250ml.bag @ 12 UNITS/KG/HR 6.368 mls/hr IV .Q24H TIARA Rx#: [id number] Sodium Chloride 0.9% 1, 400 000 ml @ 100 mls/hr IV . Q10H TIARA Rx#:[id number] Other: # Voids 1 - Exam GENERAL: The patient is lying in bed and is not in acute distress. CHEST: The heart rate is regular rate rhythm. No murmurs to auscultation. No carotid bruit bilaterally. LUNG: Clear to auscultation bilaterally no wheezing noted throughout. Not labored breathing. ABDOMEN/GI: Bowel sounds present in all 4 quadrants. No tenderness to palpation throughout. NEUROLOGICAL: Higher mental function: The patient is awake, alert, oriented to self, place and time. Patient is following commands. No aphasia and no neglect. Cranial nerves: The pupils are round, equal and reactive to light and accommodation. Visual yates are full to confrontation throughout. Extraocular movement is intact no nystagmus is noted. Facial sensation is normal to touch throughout. The facial strength is normal throughout. Hearing is normal bilaterally to hand rub. Tongue is midline and moved [id number] without any difficulty. No dysarthria is noted. Shoulder shrug is normal bilaterally. Motor: The strength is 5 over 5 throughout. Normal tone and bulk. Cerebellum: Normal finger to nose heel to chin bilaterally. Sensation: Sensation is normal to touch throughout. Reflexes (right/left): 2+ throughout except at ankles 1+ bilaterally. Plantars are downgoing bilaterally. - Labs CBC & Chem 7: 04/25/20 07:02 04/25/20 07:02 Labs: Abnormal Lab Results - Last 24 Hours (Table) 04/24/20 04/25/20 04/25/20 Range/Units 17:46 01:25 07:02 Hct 46.3 H (34.0-46.0) % Neutrophils # 8.1 H (1.3-7.7) k/uL APTT 39.1 H (22.0-30.0) sec Chloride (98-107) mmol/L Troponin I 1.350 H* (0.000-0.034) ng/mL 04/25/20 04/25/20 Range/Units 07:02 07:02 Hct (34.0-46.0) % Neutrophils # (1.3-7.7) k/uL APTT 37.9 H (22.0-30.0) sec Chloride 109 H (98-107) mmol/L Troponin I (0.000-0.034) ng/mL Assessment and Plan Assessment: Episode of loss of consciousness. Is cardiac in etiology (elevated troponin). Unlikely seizure. Mild to moderate Bilateral frontal atrophy that seems disproportionate to her age Elevated troponin level Alcohol use Tobacco use Hypertension Plan: EEG: Normal. Did not show any focal slowing, epileptiform discharges or any active seizures. Patient shaken and loss of consciousness is likely due to a cardiac neurology especially with elevated troponin and the coronary occlusion. MRI of the brain (seizure protocol): Nonspecific white matter to my was possibly related to chronic small vessel ischemia, age-related atrophy. Mild sinus disease. CT of the head that seems that the patient has mild to moderate atrophy of bilateral frontal region that seemed disproportionate for age in my opinion. Therefore I feel safe not start the patient on any antiepileptic epileptic drugs. Vitamin B-12: 247 folate: More than 24 and regular blood cell folate is 543. Because the patient has low normal vitamin B12 I will start the patient on 1000 g vitamin B-12 daily. Continue thiamine 100 mg daily. 2-D echo: Was reported as left ventricle wall thickness is normal. Ejection fraction of 40-45%. Apical septal left ventricle wall motion is hypokinetic. Cardiac cath report is pending Recommend cardiac monitoring. The patient was informed she cannot drive for 6 months according to the [place] law until she does not have any further episodes of loss of consciousness (no matter if seizure vs cardiac). She is to avoid the swimming unattended. To avoid that climbing heights or using heavy machinery. The patient was counseled on tobacco cessation as well as alcohol cessation. From a neurology perspective there is no further workup. We'll sign off. Please reconsult as needed Salinas Kovacs M.D. Neuro-hospitalist Time with Patient: Greater than 30
[2020-04-25] MEDS: HEPARIN SOD,PORK IN 0.45% NACL 25,000 UNIT in 0.45% NACL 1 250ML.BAG IV SCH ×3 (16:02→21:00)
[2020-04-25] MEDS: CYANOCOBALAMIN 500 MCG TAB PO SCH (16:21)
[2020-04-25] MEDS: SPIRONOLACTONE 25 MG TAB PO SCH (16:21)
--- NOTE | 2020-04-25 16:48 | P.GSCN ---
History of Present Illness Consult date: 04/25/20 Reason for Consult: Coronary artery disease Requesting physician: Soha Álvarez History of present illness: This is a 69-year-old female patient who does not follow with the primary care physician on an outpatient basis. She has a previous medical history of hypertension, hyperlipidemia, remote seizure history, current chronic tobacco dependence, moderate daily EtOH use, and family history of heart disease. She p resented to [facility] emergency room via EMS after suspected witnessed seizure while grocery shopping. She does not recall the event, states she was picking up vitamins for hugger has been in the next thing she remembers is waking up in the ambulance. Upon presentation to the emergency room a CT of the brain was completed demonstrating no acute process, bilateral ventral lobe atrophy. Chest x-ray demonstrated no acute process, echocardiogram was completed demonstrating hypokinetic apical septum with ejection fraction 40-45%, mild mitral regurgitation, and mild tricuspid regurgitation. EKG demonstrated normal sinus rhythm with nonspecific ST changes. WBC 11.7, hemoglobin 17.2, c reatinine 0.81, troponin was slightly elevated on admission at 0.058 with elevation up to 1.350, cholesterol 250, LDL 136, triglycerides 348. The patient denies any chest pain or shortness of breath or any other symptoms attributable to heart disease. She has remained afebrile and vital signs have been stable, she is oxygenating well on room air. The patient was admitted for evaluation and treatment with consultation placed to cardiology and neurology. Per neurology the patient had a normal EEG without evidence of seizure. MRI of the brain demonstrated chronic small vessel ischemic age-related atrophy. Due to the elevation in her troponin she was recommended to undergo heart catheteriz ation which was completed today and which demonstrated left main stenosis 20%, proximal LAD stenosis 99%. Due to these findings Dr. Owens from cardiothoracic surgery was consulted for surgical revascularization recommendations. Review of Systems Review of systems was completed and was negative except as noted in the HPI Past Medical History Past Medical History: Hyperlipidemia, Hypertension, Seizure Disorder History of Any Multi-Drug Resistant Organisms: Unobtainable Past Surgical History: Appendectomy, Cholecystectomy Additional Past Surgical History / Comment(s): Gall bladder removed 35 years ago. Past Anesthesia/Blood Transfusion Reactions: No Reported Reaction Past Psychological History: Anxiety Smoking Status: Current every day smoker Past Alcohol Use History: Daily Past Drug Use History: None Reported Additional History: Smoked half a pack a day for 50 years, drinks 5-7 vodka drinks daily, denies history of withdrawal - Past Family History Mother Family Medical History: Coronary Artery Disease (CAD) Additional Family Medical History / Comment(s): of heart issues at 84. Father Family Medical History: Coronary Artery Disease (CAD) Additional Family Medical History / Comment(s): in his 70's of heart issues. Brother(s) Family Medical History: Coronary Artery Disease (CAD) Additional Family Medical History / Comment(s): Patient thinks brother was diagnosed with heart disease less than 60 years old Medications and Allergies Home Medications Medication Instructions Recorded Confirmed Type Ascorbic Acid [Vitamin C] 500 mg PO DAILY 04/24/20 04/24/20 History Benazepril/Hydrochlorothiazide 0.5 tab PO DAILY 04/24/20 04/24/20 History [Benazepril-Hctz 20-12.5 mg Tab] Cholecalciferol [Vitamin D3 (25 1,000 unit PO DAILY 04/24/20 04/24/20 History Mcg = 1000 Iu)] Folic Acid 0.8 mg PO DAILY 04/24/20 04/24/20 History Magnesium Oxide [Magox 400] 400 mg PO DAILY 04/24/20 04/24/20 History PARoxetine [Paxil] 20 mg PO DAILY 04/24/20 04/24/20 History Allergies Allergy/AdvReac Type Severity Reaction Status Date / Time codeine Allergy Unknown Verified 04/24/20 11:26 Surgical - Exam Vital Signs Temp Pulse Resp BP Pulse Ox 97.4 F L 106 H 18 149/104 95 04/24/20 10:12 04/24/20 10:12 04/24/20 10:12 04/24/20 10:12 04/24/20 10:12 - General well developed, well nourished, no distress, no pain - Eyes PERRL, normal ocular movement - ENT no hearing loss - Neck no masses, no bruits, trachea midline - Respiratory Lungs sounds diminished bilaterally. Respirations even, nonlabored. Currently on room air with oxygen saturation 95%. No chest wall deformities. No clubbing or cyanosis present. - Cardiovascular S1, S2 present. Regular rhythm, sinus rhythm on telemetry. Palpable peripheral pulses bilaterally. No edema present. No calf pain or tenderness noted. - Abdomen Abdomen: soft, non tender, bowel sounds - Genitourinary Deferred - Rectum Deferred - Integumentary no rash, no growths, no abnormal pigmentation - Neurologic normal coordination, normal sensation - Musculoskeletal normal gait, normal posture - Psychiatric oriented to time, oriented to person, oriented to place, speech is normal Results - Labs 04/25/20 07:02 04/25/20 07:02 Abnormal Lab Results - Last 24 Hours (Table) 04/24/20 04/25/20 04/25/20 Range/Units 17:46 01:25 07:02 Hct 46.3 H (34.0-46.0) % Neutrophils # 8.1 H (1.3-7.7) k/uL APTT 39.1 H (22.0-30.0) sec Chloride (98-107) mmol/L Troponin I 1.350 H* (0.000-0.034) ng/mL 04/25/20 04/25/20 Range/Units 07:02 07:02 Hct (34.0-46.0) % Neutrophils # (1.3-7.7) k/uL APTT 37.9 H (22.0-30.0) sec Chloride 109 H (98-107) mmol/L Troponin I (0.000-0.034) ng/mL Diabetes panel 04/25/20 Range/Units 07:02 Sodium 138 (137-145) mmol/L Potassium 4.1 (3.5-5.1) mmol/L Chloride 109 H (98-107) mmol/L Carbon Dioxide 24 (22-30) mmol/L BUN 10 (7-17) mg/dL Creatinine 0.77 (0.52-1.04) mg/dL Glucose 96 (74-99) mg/dL Calcium 8.4 (8.4-10.2) mg/dL Calcium panel 04/25/20 Range/Units 07:02 Calcium 8.4 (8.4-10.2) mg/dL Pituitary panel 04/25/20 Range/Units 07:02 Sodium 138 (137-145) mmol/L Potassium 4.1 (3.5-5.1) mmol/L Chloride 109 H (98-107) mmol/L Carbon Dioxide 24 (22-30) mmol/L BUN 10 (7-17) mg/dL Creatinine 0.77 (0.52-1.04) mg/dL Glucose 96 (74-99) mg/dL Calcium 8.4 (8.4-10.2) mg/dL Adrenal panel 04/25/20 Range/Units 07:02 Sodium 138 (137-145) mmol/L Potassium 4.1 (3.5-5.1) mmol/L Chloride 109 H (98-107) mmol/L Carbon Dioxide 24 (22-30) mmol/L BUN 10 (7-17) mg/dL Creatinine 0.77 (0.52-1.04) mg/dL Glucose 96 (74-99) mg/dL Calcium 8.4 (8.4-10.2) mg/dL - Imaging EKG: image reviewed Additional studies: Heart catheterization films reviewed with Dr. Owens Assessment and Plan Assessment: 1. Coronary artery disease, proximal LAD 99%, non-STEMI this admission 2. Systolic heart failure, EF 40-45% with hypokinetic apical septum, mild mitral regurgitation, mild tricuspid regurgitation 3. Hypertension 4. Hyperlipidemia, LDL 136, cholesterol 250, triglycerides 348 5. Remote seizure history 6. Current chronic tobacco dependence 7. Moderate daily EtOH use 8. Family history of heart disease Plan: The patient was seen and examined at the bedside with Dr. Owens. Chart/diagnostics reviewed. The usual perioperative course of open heart surgery was discussed in detail the patient and her daughter at the bedside, all risks and benefits were reviewed, all questions answered. The patient is agreeable to surgery. We would like patient to be maximized on medical therapy which she has not previously been on with aspirin, statin, beta jose. In addition we would like several days to have passed without the patient having had any alcohol to avoid with alcohol withdrawal postoperatively. Preoperative testing was initiated. We will calculate STS risk score once testing has been completed. Medical management of other comorbidities per primary care, cardiology. Further recommendations to be made for stenting versus surgery once preoperative testing has been completed. Thank you Dr. Álvarez for this consult. We look forward to working with you in the care of your patient. Time with Patient: Greater than 30
[2020-04-25 17:05] LABS: Magnesium 1.9 mg/dL (1.6-2.3)
--- NOTE | 2020-04-25 17:58 | US ---
EXAMINATION TYPE: US carotid duplex BILAT DATE OF EXAM: 04/25/2020 COMPARISON: NONE CLINICAL HISTORY: Pre-Op Cardiac Surgery. Pre op heart surgery EXAM MEASUREMENTS: RIGHT: Peak Systolic Velocity (PSV) cm/sec ----- Right CCA: 81.3 ----- Right ICA: 71.1 ----- Right ECA: 78.4 ICA/CCA ratio: 0.9 RIGHT: End Diastole cm/sec ----- Right CCA: 28.9 ----- Right ICA: 28.9 ----- Right ECA: 12.9 LEFT: Peak Systolic Velocity (PSV) cm/sec ----- Left CCA: 58.0 ----- Left ICA: 87.1 ----- Left ECA: 79.0 ICA/CCA ratio: 1.5 LEFT: End Diastole cm/sec ----- Left CCA: 20.2 ----- Left ICA: 33.3 ----- Left ECA: 16.0 VERTEBRALS (direction of flow): Right Vertebral: Antegrade Left Vertebral: Antegrade Rhythm: Normal IMPRESSION: There is antegrade flow in the vertebral arteries. There is some bilateral plaque format ion and images and measurements suggest up to 25% stenosis in both internal carotid arteries. Criteria for Assigning % of Stenosis / Diameter reduction (Estimation based on the indirect measurements of the internal carotid artery velocities (ICA PSV). 1. Normal (no stenosis)=ICA PSV < 125 cm/s: ratio < 2.0: ICA EDV<40 cm/s. 2. Less than 50% stenosis=ICA PSV < 125 cm/s: ratio < 2.0: ICA EDV<40 cm/s. 3. 50 to 69% stenosis=ICA PSV of 125 to 230 cm/s: ration 2.0 ? 4.0: ICA EDV 40-100 cm/s. 4. Greater than 70% stenosis to near occlusion= ICA PSV > 230 cm/s: ratio > 4.0: ICA EDV > 100 cm/s. 5. Near occlusion= ICA PSV velocities may be low or undetectable: variable ratio and ICA EDV. 6. Total occlusion=unable to detect flow.
[2020-04-25 19:25] LABS: T4, Free (Free Thyroxine) 1.06 ng/dL (0.78-2.19)
--- NOTE | 2020-04-25 19:39 | CC ---
CARDIAC CATHETERIZATION REPORT Mrs. Steiner is a 69-year-old female with known history of chronic tobacco use and hypertension who presented with a loss of consciousness and possible seizure activity. She had mild troponin elevation and her echocardiogram revealed segmental wall motion abnormality involving the anterior wall. In view of that, recommendation was made regarding cardiac catheterization. The procedure, its risks and complications were discussed with the patient, who was in full understanding and agreement. PROCEDURE DESCRIPTION: Patient was brought to the labor standards director in a fasting, semi-sedated state. After receiving fentanyl and Benadryl and achieving a moderate conscious sedated state, using Xylocaine anesthesia and Seldinger technique, a 6-Micronesian sheath was introduced in the right radial artery. Selective right and left coronary angiography was performed using 5- Micronesian 3-1/2 bend right and left Quincy catheters. Multiple views were taken of the arteries, including hemiaxial views. Following that, a 5-Micronesian tight pigtail catheter was introduced in the left ventricle and a 30-degree MALDONADO view of the left ventricle was obtained. Following that, catheter and sheath were removed. Hemostasis was obtained with deployment of a TR band. There was no immediate complication. Patient was returned to her room in stable condition. Of note, the patient received 3000 units of intravenous heparin as well as intra-arterial verapamil. There was no immediate complication. FINDINGS: FLUOROSCOPY: There was severe calcification involving the proximal and mid LAD. LEFT MAIN: This is a large-sized vessel bifurcating into left circumflex and left anterior descending artery. Left main coronary artery has no evidence of high-grade stenosis. LEFT ANTERIOR DESCENDING ARTERY: This is a large-sized vessel reaching to the apex with a wrap around the apex segment giving rise to a large diagonal branch. Before the takeoff of the diagonal branch there is a 99% stenosis. Subsequently there is severe tortuosity in the vessel with evidence of aneurysmal formation. The diagonal branch has an 80% stenosis. The rest of the vessel has no high-grade stenosis. LEFT CIRCUMFLEX: This is a nondominant vessel giving rise to 2 obtuse marginal branches. The left circumflex as well as its branches have no evidence of obstructive coronary artery disease. RIGHT CORONARY ARTERY: This is a large dominant vessel bifurcating distally into PDA and posterolateral segment and branches. The right coronary artery in mid segment has a 20% to 30% plaque. The rest of the vessel has no high-grade stenosis. LEFT VENTRICULOGRAM: Left ventriculogram was performed in 30-degree MALDONADO view and revealed severe hypokinesis to akinesis, ejection fraction of 30% to 35%. There was arrhythmia-induced mitral regurgitation. HEMODYNAMICS: There was no gradient across the aortic valve. The left ventricular end- diastolic pressure was 20 to 25 mmHg. CONCLUSION: 1. Critical stenosis involving the proximal LAD with post-stenotic dilatation and severe tortuosity with significant disease in the diagonal branch. 2. Calcified LAD. 3. Mild disease in the right coronary artery. RECOMMENDATIONS: In view of findings and anatomy, I have recommended proceeding with evaluation for possible coronary artery bypass grafting with bypass to the LAD and diagonal branch. Otherwise, high-risk angioplasty and stenting can be done. I discussed those findings with the patient and her family. They are in full understanding and agreement. Duration of sedation was 25 minutes. FINESSE / JARRET: [id number] /
[2020-04-25] MEDS: ATORVASTATIN 40 MG TAB PO SCH (21:08)
--- NOTE | 2020-04-26 00:37 | EEG ---
ELECTROENCEPHALOGRAM REPORT DATE OF SERVICE: 04/24/2020. CLINICAL HISTORY: This is a 69-year-old female with history of seizure-like episode 20 years ago that presented to the emergency department on 04/24/2020 for a seizure-like episode while she was at a grocery store. This video EEG was obtained to evaluate for seizure and epileptiform activity. RELEVANT MEDICATION: Not on centrally acting medication. EEG TYPE: A routine 21 channel EEG was performed with video using the 10-20 electrode placement system. DESCRIPTION: Wakefulness is only obtained. During wakefulness, there is a posterior dominant rhythm of [id number] voltage that is well modulated, of 10.5-11.5 hertz activity. There was no physiological stage 2 sleep activity seen. INTERICTAL AND ICTAL: None. ACTIVATION PROCEDURE: Photic stimulation did evoke a posterior driving response at low flash frequency bilaterally. Hyperventilation was not performed because of patient's history. CLINICAL INTERPRETATION: This is a normal routine awake EEG. There are no focal slowing, epileptiform discharges or seizure activity seen during the study. Clinical correlation is recommended. MMBEVERLYL / IJN: [id number] / MTDD
[2020-04-26 03:47] LABS: Hemoglobin A1C 5.7 % (4.0-6.0)
[2020-04-26 04:19] LABS: Hepatitis A Antibody IgM Non-Reactive (Non-Reactive); Hepatitis B Core IgM Non-Reactive (Non-Reactive); Hepatitis B Surface Antigen Non-Reactive (Non-Reactive); Hepatitis C IgG Antibody Non-Reactive (Non-Reactive)
[2020-04-26] MEDS: SODIUM CHLORIDE 0.9% 1,000 ML IV SCH (04:57)
[2020-04-26 05:36] LABS: Basophils # (A) 0.1 k/uL (0-0.2); Basophils % (A) 1 %; Eosinophils # (A) 0.1 k/uL (0-0.7); Eosinophils % (A) 1 %; HCT 45.1 % (34.0-46.0); Lymphocytes # (A) 1.3 k/uL (1.0-4.8); Lymphocytes % (A) 14 %; MCH 30.9 pg (25.0-35.0); MCHC 30.9 g/dL (31.0-37.0); Macrocytosis Slight; Monocytes # (A) 0.7 k/uL (0-1.0); Monocytes % (A) 8 %; Neutrophils # (A) 6.7 k/uL (1.3-7.7); Neutrophils % (A) 75 %; Platelet Count 269 k/uL (150-450); RBC 4.52 m/uL (3.80-5.40); RDW 14.3 % (11.5-15.5); WBC 8.9 k/uL (3.8-10.6)
[2020-04-26 05:56] LABS: Albumin 3.2 g/dL (3.5-5.0); Calcium 8.7 mg/dL (8.4-10.2); Potassium 4.1 mmol/L (3.5-5.1); Total Bilirubin 0.4 mg/dL (0.2-1.3); Total Protein 5.8 g/dL (6.3-8.2)
[2020-04-26 06:39] LABS: Appearance,Urine Cloudy (Clear); Bacteria,Urine Rare /hpf; Bilirubin,Urine Negative (Negative); Blood,Urine Moderate (Negative); Color,Urine Yellow; Glucose,Urine (UA) Negative (Negative); Hyaline Casts,Urine 1 /lpf (0-2); Ketones,Urine Negative (Negative); Leukocyte Esterase,Urine Negative (Negative); Mucus,Urine Rare /hpf; Nitrite,Urine Negative (Negative); Protein,Urine Negative (Negative); RBC,Urine 6 /hpf (0-5); Specific Gravity,Urine 1.016 (1.001-1.035); Squamous Epithelial Cell,Urine 12 /hpf (0-4); Urobilinogen,Urine <2.0 mg/dL (<2.0); WBC,Urine 1 /hpf (0-5)
--- NOTE | 2020-04-26 09:13 | P.PN ---
Subjective Progress Note Date: 04/26/20 Principal diagnosis: Coronary artery disease, proximal LAD 99%, non-STEMI this admission, systolic heart failure, EF 40-45% with hypokinetic apical septum, mild mitral regurgitation, mild tricuspid regurgitation, hypertension, hyperlipidemia, remote seizure history, current chronic tobacco dependence, moderate daily EtOH use, family history of heart disease. Patient is currently sitting up in bed in no acute distress. Denies any chest pain or shortness of breath or any other symptomatology right now. Per nursing patient did have an episode last night of confusion however she is alert and oriented this morning. She was seen and examined yesterday by Dr. Owens, preoperative testing was initiated, Dr. Owens did indicate to the patient and her daughter that we would offer open heart surgery if cardiology does not feel stenting is an option, however surgery would not take place until early next week to allow the patient to keep from going into DTs postoperatively. Objective - Vital Signs Vital signs: Vital Signs Temp 97.8 F 04/25/20 20:46 Pulse 66 04/26/20 03:42 Resp 17 04/26/20 03:42 BP 116/70 04/26/20 03:42 Pulse Ox 98 04/26/20 03:42 Intake & Output 04/25/20 04/26/20 04/26/20 18:59 06:59 18:59 Intake Total 218.868 541.837 120 Balance 218.868 541.837 120 Weight 56.2 kg Intake: IV 150 Intake, IV Titration 68.868 541.837 Amount Heparin Sod,Pork in 0.45% 68.868 NaCl 25,000 unit In 0.45 % NaCl 1 250ml.bag @ 12 UNITS/KG/HR 6.368 mls/hr IV .Q24H TIARA Rx#: [id number] Heparin Sod,Pork in 0.45% 91.837 NaCl 25,000 unit In 0.45 % NaCl 1 250ml.bag @ 12 UNITS/KG/HR 6.54 mls/hr IV .Q24H TIARA Rx#: [id number] Sodium Chloride 0.9% 1, 450 000 ml @ 75 mls/hr IV . [id number] TIARA Rx#:[id number] Oral 120 Other: # Voids 1 0 - Constitutional General appearance: Present: cooperative, no acute distress - Respiratory Details: Lungs sounds diminished bilaterally. Respirations even, nonlabored. Currently on room air with oxygen saturation 98%. - Cardiovascular Details: S1, S2 present. Regular rhythm, sinus rhythm on telemetry. Palpable peripheral pulses bilaterally. No edema present. No calf pain or tenderness noted. - Gastrointestinal Gastrointestinal Comment(s): Abdomen soft, nontender, nondistended. Active bowel sounds present 4 quadrants. Tolerating diet - Genitourinary Genitourinary Comment(s): Continues to void - Integumentary Integumentary Comment(s): Skin is warm and dry with evidence of good perfusion. - Neurologic Neurologic: Present: CNII-XII intact - Musculoskeletal Musculoskeletal: Present: gait normal, strength equal bilaterally - Psychiatric Psychiatric: Present: A&O x's 3, appropriate affect, intact judgment & insight - Allied health notes Allied health notes reviewed: nursing - Labs CBC & Chem 7: 04/26/20 05:00 04/26/20 05:00 Labs: Abnormal Lab Results - Last 24 Hours (Table) 04/25/20 04/25/20 04/26/20 Range/Units 07:02 18:40 05:00 MCHC 30.9 L (31.0-37.0) g/dL APTT 36.2 H (22.0-30.0) sec Sodium (137-145) mmol/L Chloride (98-107) mmol/L Total Protein (6.3-8.2) g/dL Albumin (3.5-5.0) g/dL TSH 6.140 H (0.465-4.680) mIU/L Urine Appearance (Clear) Urine Blood (Negative) Urine RBC (0-5) /hpf Ur Squamous Epith Cells (0-4) /hpf Urine Bacteria (None) /hpf Urine Mucus (None) /hpf 04/26/20 04/26/20 04/26/20 Range/Units 05:00 05:00 06:22 MCHC (31.0-37.0) g/dL APTT 37.4 H (22.0-30.0) sec Sodium 135 L (137-145) mmol/L Chloride 109 H (98-107) mmol/L Total Protein 5.8 L (6.3-8.2) g/dL Albumin 3.2 L (3.5-5.0) g/dL TSH (0.465-4.680) mIU/L Urine Appearance Cloudy H (Clear) Urine Blood Moderate H (Negative) Urine RBC 6 H (0-5) /hpf Ur Squamous Epith Cells 12 H (0-4) /hpf Urine Bacteria Rare H (None) /hpf Urine Mucus Rare H (None) /hpf Assessment and Plan Assessment: 1. Coronary artery disease, proximal LAD 99%, non-STEMI this admission 2. Systolic heart failure, EF 40-45% with hypokinetic apical septum, mild mitral regurgitation, mild tricuspid regurgitation 3. Hypertension 4. Hyperlipidemia, LDL 136, cholesterol 250, triglycerides 348 5. Remote seizure history 6. Current chronic tobacco dependence 7. Moderate daily EtOH use 8. Family history of heart disease Plan: 1. Continue aspirin, statin, beta jose, AYAKA inhibitor, IV heparin 2. Encourage incentive spirometry use. PFT to be completed today 3. Increase activity, ambulate as tolerated 4. We'll calculate STS risk score once testing is been completed 5. CIWA protocol 6. Medical management of other comorbidities per primary care service, cardiology 7. Further recommendations to be made for high risk stenting versus surgery once preoperative testing has been completed and patient is withdraw from monitor daily alcohol usage Time with Patient: Greater than 30
[2020-04-26] MEDS: lisinopriL 20 MG TAB PO SCH (09:19)
[2020-04-26] MEDS: ASPIRIN 81 MG PO SCH (09:19)
[2020-04-26] MEDS: THIAMINE 100 MG TAB PO SCH (09:19)
[2020-04-26] MEDS: CYANOCOBALAMIN 500 MCG TAB PO SCH (09:19)
[2020-04-26] MEDS: PARoxetine 20 MG TAB PO SCH (09:19)
[2020-04-26] MEDS: FOLIC ACID 1 MG TAB PO SCH (09:19)
[2020-04-26] MEDS: METOPROLOL TARTRATE 25 MG TAB PO SCH ×2 (09:19→19:56)
[2020-04-26] MEDS: MAGNESIUM OXIDE 400 MG TAB PO SCH (09:19)
[2020-04-26] MEDS: SPIRONOLACTONE 25 MG TAB PO SCH (09:21)
--- NOTE | 2020-04-26 15:36 | PN ---
PROGRESS NOTE Mrs. Steiner is a 69-year-old female with a history of hypertension, chronic tobacco use, who presented with a possible seizure, had minimal troponin elevation, but her echocardiogram showed segmental wall motion abnormality. She subsequently underwent cardiac catheterization and was found to have a complex lesion in the proximal LAD and a significant lesion in the diagonal branch. She is feeling well this morning. Her breathing is stable. She denies any dizziness or palpitation. There is no arrhythmia on the monitor. She has been evaluated by the cardiovascular surgery team and she is scheduled to undergo surgical intervention early next week. She has continued to be on aspirin once a day, Lipitor 40 mg daily, metoprolol tartrate 25 mg twice a day, lisinopril 20 mg daily, Aldactone 25 mg daily in addition to the IV heparin. PHYSICAL EXAMINATION: Blood pressure 127/70 with a heart rate in the 60s. LUNGS: Clear. HEART: Regular rate and rhythm S1, S2. No S3. No rub. ABDOMEN: Soft nontender. EXTREMITIES: No edema. Evaluation of the carotid duplex scan showed no evidence of high-grade stenosis. LAB DATA: BUN and creatinine 12 and 0.85. Potassium 4.1. IMPRESSION: 1. Probable sudden cardiac with ventricular tachycardia and non ST-segment elevation myocardial infarction. 2. Severe stenosis in the LAD and a complex lesion. 3. Ischemic cardiomyopathy. 4. Chronic tobacco use. 5. History of hypertension. 6. History of alcohol intake. RECOMMENDATION: The plan is to continue on the IV heparin until the surgical intervention. I am hopeful that she will undergo surgery early next week. In the meantime, will continue on the present therapy. MMODL / IJN: [id number] /
[2020-04-26] MEDS: ATORVASTATIN 40 MG TAB PO SCH (19:56)
[2020-04-26] MEDS: HEPARIN SOD,PORK IN 0.45% NACL 25,000 UNIT in 0.45% NACL 1 250ML.BAG IV SCH (19:56)
--- NOTE | 2020-04-26 21:09 | CONS ---
CONSULTATION PULMONARY/CRITICAL CARE CONSULTATION: DATE OF SERVICE: 04/26/2020 REASON FOR CONSULTATION: Preoperative clearance for bypass grafting. This is a 69-year-old female who apparently presented to the emergency room way back on April 24 with seizures. The patient was at a local grocery store and had a witnessed seizure and was postictal according to the EMS. She apparently has a remote history of seizures, and is not on any antiseizure medication. The patient's only complaint at the time of the initial evaluation was nausea. She denied any focal numbness or weakness. She denies any headache. She denies any chest pain or abdominal pain. She was apparently able to answer questions in the ER, but was slow to respond. Apparently the patient has had a significant workup here in the hospital, including coronary arteriography. She was found to have significant disease in the LAD and diagonal coronary artery and she apparently is being considered for bypass grafting next week. I was asked to see her because she may have some underlying COPD. She has smoked at least a pack a day for 50 years. 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 She denies any pulmonary complaints at this time. HOME MEDICATIONS: Her home medications include ascorbic acid, benazepril/hydrochlorothiazide, vitamin D3, folic acid, Mag-Ox and Paxil. ALLERGIES: CODEINE. MEDICAL HISTORY: Medical history is apparently positive only for seizure disorder and hypertension. She may have some underlying COPD. SURGICAL HISTORY: Remote. SOCIAL HISTORY: Positive for current everyday tobacco use. She has been smoking for 50 years at about a pack a day. She does admit to daily alcohol use. No illicit drug use. FAMILY HISTORY: Noncontributory. REVIEW OF SYSTEMS: CONSTITUTIONAL: Negative. NEUROLOGIC: Seizures. HEENT: Negative. CARDIOVASCULAR: Negative. PULMONARY: Negative. GI: Negative. : Negative. RHEUMATOLOGIC: Negative. IMMUNOLOGIC: Negative. ENDOCRINOLOGIC: Negative. DERMATOLOGIC: Negative. PHYSICAL EXAMINATION: VITAL SIGNS: Temperature 96.1, heart rate 64, respiratory rate 15, blood pressure 144/78, mean 100, and room-air saturation is 95%. GENERAL APPEARANCE: Appears in no acute distress. HEENT: Examination is grossly unremarkable. NECK: Supple. Full range of motion. No adenopathy. CARDIOVASCULAR EXAMINATION: Regular rhythm and rate. S1, S2 normal. LUNGS: Lungs reveal relatively clear breath sounds. Breath sounds are equal bilaterally. No wheezes or rhonchi. No crackles. ABDOMEN: Soft. Bowel sounds are heard. EXTREMITIES: Intact. No cyanosis, clubbing or edema. SKIN: Without rash. NEUROLOGIC: Neurologic examination is nonfocal. LABS: The most recent labs show a white count of 8.9, hemoglobin 14, hematocrit 45.1, platelet count normal. PTT is 40.8. Sodium 135, potassium 4.1, chloride 109, CO2 23. Anion gap is 3. BUN and creatinine were 12 and 0.85. The rest of the labs look okay. TSH was 6.140. Coronary catheterization report was reviewed. PFTs have been ordered. ASSESSMENT: 1. Coronary artery disease, with anticipated bypass grafting next week. 2. Seizure disorder, which initially brought the patient to the hospital. 3. Hypertension by history. 4. Rule out chronic obstructive pulmonary disease from chronic tobacco use. PLAN: The patient will have bedside spirometry. Additional recommendations and suggestions are forthcoming. Once the PFTs have been done, I can review them and assign the patient an operative risk. Additional recommendations and suggestions are forthcoming. MMODL / IJN: [id number] / MTDD
[2020-04-27 02:55] LABS: Basophils # (A) 0.1 k/uL (0-0.2); Basophils % (A) 1 %; Eosinophils # (A) 0.2 k/uL (0-0.7); Eosinophils % (A) 2 %; HCT 42.8 % (34.0-46.0); HGB 13.5 gm/dL (11.4-16.0); Lymphocytes # (A) 1.2 k/uL (1.0-4.8); Lymphocytes % (A) 13 %; MCH 30.8 pg (25.0-35.0); MCHC 31.5 g/dL (31.0-37.0); MCV 97.6 fL (80.0-100.0); Mean Platelet Volume 7.2; Monocytes # (A) 0.7 k/uL (0-1.0); Monocytes % (A) 8 %; Neutrophils % (A) 75 %; Platelet Count 236 k/uL (150-450); RBC 4.39 m/uL (3.80-5.40); RDW 13.7 % (11.5-15.5); WBC 9.4 k/uL (3.8-10.6)
[2020-04-27 03:36] LABS: Calcium 8.6 mg/dL (8.4-10.2); Potassium 3.7 mmol/L (3.5-5.1)
[2020-04-27] MEDS: METOPROLOL TARTRATE 25 MG TAB PO SCH ×2 (09:46→20:52)
[2020-04-27] MEDS: PARoxetine 20 MG TAB PO SCH (09:46)
[2020-04-27] MEDS: lisinopriL 20 MG TAB PO SCH (09:46)
[2020-04-27] MEDS: CYANOCOBALAMIN 500 MCG TAB PO SCH (09:46)
[2020-04-27] MEDS: ASPIRIN 81 MG PO SCH (09:46)
[2020-04-27] MEDS: FOLIC ACID 1 MG TAB PO SCH (09:47)
[2020-04-27] MEDS: MAGNESIUM OXIDE 400 MG TAB PO SCH (09:47)
[2020-04-27] MEDS: THIAMINE 100 MG TAB PO SCH (09:47)
[2020-04-27] MEDS: SPIRONOLACTONE 25 MG TAB PO SCH (09:47)
--- NOTE | 2020-04-27 10:02 | P.PN ---
<Ilene Terry - Last Filed: 04/27/20 09:56> Subjective Progress Note Date: 04/27/20 Principal diagnosis: Coronary artery disease, proximal LAD 99%, non-STEMI this admission, systolic heart failure, EF 40-45% with hypokinetic apical septum, mild mitral regurgitation, mild tricuspid regurgitation, hypertension, hyperlipidemia, remote seizure history, current chronic tobacco dependence, moderate daily EtOH use, family history of heart disease. Patient is currently sitting up in bed in no acute distress. Denies any chest pain or shortness of breath or any other symptomatology right now. No new concerns. Objective - Vital Signs Vital signs: Vital Signs Temp 96.8 F L 04/27/20 08:07 Pulse 67 04/27/20 08:07 Resp 13 04/27/20 08:07 BP 143/79 04/27/20 08:07 Pulse Ox 93 L 04/27/20 08:07 Intake & Output 04/26/20 04/27/20 04/27/20 18:59 06:59 18:59 Intake Total 197.28 178.137 0 Output Total 900 900 Balance -702.72 -721.863 0 Weight 56 kg Intake: Intake, IV Titration 77.28 178.137 Amount Heparin Sod,Pork in 0.45% 77.28 178.137 NaCl 25,000 unit In 0.45 % NaCl 1 250ml.bag @ 12 UNITS/KG/HR 6.54 mls/hr IV .Q24H TIARA Rx#: [id number] Oral 120 0 Output: Urine 900 900 Other: # Voids 0 - Constitutional General appearance: Present: cooperative, no acute distress - Respiratory Details: Lungs sounds diminished bilaterally. Respirations even, nonlabored. Currently on room air with oxygen saturation 94%. - Cardiovascular Details: S1, S2 present. Regular rhythm, sinus rhythm on telemetry. Palpable peripheral pulses bilaterally. No edema present. No calf pain or tenderness noted. - Gastrointestinal Gastrointestinal Comment(s): Abdomen soft, nontender, nondistended. Active bowel sounds present 4 quadrants. Tolerating diet - Genitourinary Genitourinary Comment(s): Continues to void - Integumentary Integumentary Comment(s): Skin is warm and dry with evidence of good perfusion. - Neurologic Neurologic: Present: CNII-XII intact - Musculoskeletal Musculoskeletal: Present: gait normal, strength equal bilaterally - Psychiatric Psychiatric: Present: A&O x's 3, appropriate affect, intact judgment & insight - Allied health notes Allied health notes reviewed: nursing - Labs CBC & Chem 7: 04/27/20 02:42 04/27/20 02:42 Labs: Abnormal Lab Results - Last 24 Hours (Table) 04/26/20 04/26/20 04/27/20 Range/Units 12:17 19:02 02:42 APTT 40.8 H 38.2 H (22.0-30.0) sec Chloride 109 H (98-107) mmol/L 04/27/20 Range/Units 02:42 APTT 62.5 H (22.0-30.0) sec Chloride (98-107) mmol/L Microbiology - Last 24 Hours (Table) 04/25/20 18:30 Nasal Screen MRSA/MSSA - Preliminary Nasal Swab Assessment and Plan Assessment: 1. Coronary artery disease, proximal LAD 99%, non-STEMI this admission 2. Systolic heart failure, EF 40-45% with hypokinetic apical septum, mild mitral regurgitation, mild tricuspid regurgitation 3. Hypertension 4. Hyperlipidemia, LDL 136, cholesterol 250, triglycerides 348 5. Remote seizure history 6. Current chronic tobacco dependence 7. Moderate daily EtOH use 8. Family history of heart disease Plan: 1. Continue aspirin, statin, beta jose, AYAKA inhibitor, IV heparin 2. Encourage incentive spirometry use. PFT to be completed today 3. Increase activity, ambulate as tolerated 4. We'll calculate STS risk score once testing is been completed 5. CIWA protocol 6. Medical management of other comorbidities per primary care service, cardiology 7. Our plan is for myocardial revascularization with standby extracorporeal circulation with left internal mammary artery and endoscopic vein harvest with Dr. Owens on Apr. This was discussed with Dr. Álvarez by Dr. Owens, as well as with the patient and her daughter in great length. 8. More recommendations to follow Time with Patient: Greater than 30 <Dino Owens - Last Filed: 04/27/20 13:51> Objective - Vital Signs Vital signs: Vital Signs Temp 97.3 F L 04/27/20 12:02 Pulse 56 L 04/27/20 12:02 Resp 16 04/27/20 12:02 BP 141/81 04/27/20 12:02 Pulse Ox 94 L 04/27/20 12:02 Intake & Output 04/26/20 04/27/20 04/27/20 18:59 06:59 18:59 Intake Total 197.28 178.137 350 Output Total 378 996 6120 Balance -702.72 -721.863 -650 Weight 56 kg Intake: Intake, IV Titration 77.28 178.137 Amount Heparin Sod,Pork in 0.45% 77.28 178.137 NaCl 25,000 unit In 0.45 % NaCl 1 250ml.bag @ 12 UNITS/KG/HR 6.54 mls/hr IV .Q24H TIARA Rx#: [id number] Oral 120 350 Output: Urine 812 606 9702 Other: # Voids 0 - Labs CBC & Chem 7: 04/27/20 02:42 04/27/20 02:42 Labs: Abnormal Lab Results - Last 24 Hours (Table) 04/26/20 04/27/20 04/27/20 Range/Units 19:02 02:42 02:42 APTT 38.2 H 62.5 H (22.0-30.0) sec Chloride 109 H (98-107) mmol/L Microbiology - Last 24 Hours (Table) 04/25/20 18:30 Nasal Screen MRSA/MSSA - Preliminary Nasal Swab Assessment and Plan Plan: As above. Patient at a high risk of post-op DT and I would like at least 7 days of ETOH cessation before proceeding with CABG. Patient stable in the interim, asymptomatic and no arrhythmia. Plan would be to perform the urgeyr on a beating heart to decrease potential neurologic complications in this lady with advanced frontal cerebral atrophy. This was discussed with her son-in-law over the phone who's an oncologist in [facility].
--- NOTE | 2020-04-27 12:29 | PN ---
PROGRESS NOTE Mrs. Steiner is a 69-year-old female who presented with evidence of sudden and was found to have a non ST-segment elevation myocardial infarction. Her echocardiogram showed segmental wall motion abnormality. She subsequently underwent cardiac catheterization and was found to have critical disease in the LAD. She is scheduled to undergo surgical intervention next week, waiting until next week because of prior history of alcohol intake. She continues to be on aspirin once a day, IV heparin, Lipitor 40 mg daily, lisinopril 20 mg daily, metoprolol tartrate 25 mg twice a day and spironolactone 25 mg daily. PHYSICAL EXAMINATION: Blood pressure running in the 130s to 140s with a heart rate in 60s. LUNGS: Clear. HEART; Regular rate and rhythm. S1, S2. No S3. No rub. ABDOMEN: Soft, nontender. EXTREMITIES: No edema. IMPRESSION: 1. Sudden cardiac tests with a non ST-segment elevation myocardial infarction and severe obstructive disease in the LAD and diagonal branch. 2. Ischemic cardiomyopathy. 3. Prior history of smoking. 4. Prior history of alcohol intake. 5. History of hypertension. RECOMMENDATION: We will continue the IV heparin and awaiting surgical intervention next week. MMODL / IJN: [id number] /
--- NOTE | 2020-04-27 14:44 | P.PN ---
Subjective Progress Note Date: 04/27/20 Principal diagnosis: Symptomatic coronary artery disease On 04/27/2020 patient seen in follow-up on selective care unit. Of note patient was admitted to the hospital on 04/24/2020 when she had a witnessed seizure in the local grocery store. Patient does have history of seizures, hypertension, hyperlipidemia, chronic and ongoing tobacco dependence, moderate daily EtOH use, and family history of heart disease. CT of the brain was negative, it did show bilateral ventral lobe atrophy, chest x-ray showed no acute process, echocardiogram revealed severely impaired left ventricular systolic function, and an ejection fraction of 40-45%, mild mitral regurgitation, and mild tricuspid regurgitation, patient had cardiac catheterization which revealed critical stenosis of the proximal LAD of 90% and the diagonal branch. Left main had 20% stenosis, and EF was 35%, with LVEDP of 25. Patient was recommended surgical intervention, CT surgery was consulted, currently patient is undergoing preop evaluation with plans for coronary artery bypass grafting surgery next week. Patient denies any shortness of breath, denies any chest pain currently, she still awaiting a bedside PFT, she's had no acute events overnight. She is not on any maintenance inhalers on outpatient basis, today's labs have been noted, she is on heparin infusion. Objective - Vital Signs Vital signs: Vital Signs Temp 97.3 F L 04/27/20 12:02 Pulse 56 L 04/27/20 12:02 Resp 16 04/27/20 12:02 BP 141/81 04/27/20 12:02 Pulse Ox 94 L 04/27/20 12:02 Intake & Output 04/26/20 04/27/20 04/27/20 18:59 06:59 18:59 Intake Total 197.28 178.137 350 Output Total 684 918 5688 Balance -702.72 -721.863 -650 Weight 56 kg Intake: Intake, IV Titration 77.28 178.137 Amount Heparin Sod,Pork in 0.45% 77.28 178.137 NaCl 25,000 unit In 0.45 % NaCl 1 250ml.bag @ 12 UNITS/KG/HR 6.54 mls/hr IV .Q24H [facility] Rx#: [id number] Oral 120 350 Output: Urine 465 569 4811 Other: # Voids 0 - Exam GENERAL EXAM: Alert, very pleasant, 69-year-old white female, on room air, with pulse ox of 94% comfortable in no apparent distress. HEAD: Normocephalic/atraumatic. EYES: Normal reaction of pupils, equal size. Conjunctiva pink, sclera white. NOSE: Clear with pink turbinates. THROAT: No erythema or exudates. NECK: No masses, no JVD, no thyroid enlargement, no adenopathy. CHEST: No chest wall deformity. Symmetrical expansion. LUNGS: Equal air entry with no crackles, wheeze, rhonchi or dullness. CVS: Regular rate and rhythm, normal S1 and S2, no gallops, no murmurs, no rubs ABDOMEN: Soft, nontender. No hepatosplenomegaly, normal bowel sounds, no guarding or rigidity. EXTREMITIES: No clubbing, no edema, no cyanosis, 2+ pulses and upper and lower extremities. MUSCULOSKELETAL: Muscle strength and tone normal. SPINE: No scoliosis or deformity SKIN: No rashes CENTRAL NERVOUS SYSTEM: Alert and oriented -3. No focal deficits, tone is normal in all 4 extremities. PSYCHIATRIC: Alert and oriented -3. Appropriate affect. Intact judgment and insight. - Labs CBC & Chem 7: 04/27/20 02:42 04/27/20 02:42 Labs: Abnormal Lab Results - Last 24 Hours (Table) 04/26/20 04/27/20 04/27/20 Range/Units 19:02 02:42 02:42 APTT 38.2 H 62.5 H (22.0-30.0) sec Chloride 109 H (98-107) mmol/L Microbiology - Last 24 Hours (Table) 04/25/20 18:30 Nasal Screen MRSA/MSSA - Preliminary Nasal Swab Assessment and Plan Plan: Assessment: #1. Coronary artery disease, with anticipated bypass grafting next week, heart catheterization revealed heavily calcified proximal LAD stenosis of 99%, with significant is involving the diagonal branch, left main 20% stenosis, and severely impaired left ventricular systolic function and EF of 30-35% #2. Episode of witnessed seizure #3. History of seizure disorder #4. Hypertension #5. Possible COPD, not oxygen dependent, not on any maintenance inhalers, patient is a long-time chronic and ongoing smoker, awaiting preop PFT #6. Moderate EtOH use Plan: Continue current medical treatment, awaiting preop PFT. No worsening shortness of breath or chest pain, vital signs have been stable, patient is scheduled for bypass surgery sometime next week, we'll continue to follow I performed a history & physical examination of the patient and discussed their management with my nurse practitioner, Yeimy Jeronimo. I reviewed the nurse practitioner's note and agree with the documented findings and plan of care. Lung sounds are positive for clear breath sounds. The findings and the impression was discussed with the patient. I attest to the documentation by the nurse practitioner. Time with Patient: Less than 30
[2020-04-27] MEDS: HEPARIN SOD,PORK IN 0.45% NACL 25,000 UNIT in 0.45% NACL 1 250ML.BAG IV SCH (17:07)
[2020-04-27] MEDS: MUPIROCIN 2% OINT 22 GM TUBE NASAL SCH (20:52)
[2020-04-27] MEDS: ATORVASTATIN 40 MG TAB PO SCH (20:52)
[2020-04-28 06:18] LABS: Basophils # (A) 0.1 k/uL (0-0.2); Basophils % (A) 1 %; Eosinophils # (A) 0.1 k/uL (0-0.7); Eosinophils % (A) 1 %; HCT 43.6 % (34.0-46.0); Lymphocytes # (A) 0.9 k/uL (1.0-4.8); Lymphocytes % (A) 10 %; MCH 31.4 pg (25.0-35.0); MCHC 32.1 g/dL (31.0-37.0); MCV 97.8 fL (80.0-100.0); Mean Platelet Volume 7.6; Monocytes # (A) 0.7 k/uL (0-1.0); Monocytes % (A) 7 %; Neutrophils # (A) 7.6 k/uL (1.3-7.7); Neutrophils % (A) 79 %; Platelet Count 258 k/uL (150-450); RBC 4.45 m/uL (3.80-5.40); RDW 13.8 % (11.5-15.5); WBC 9.6 k/uL (3.8-10.6)
[2020-04-28] MEDS: ASPIRIN 81 MG PO SCH (09:26)
[2020-04-28] MEDS: METOPROLOL TARTRATE 25 MG TAB PO SCH ×2 (09:26→20:35)
[2020-04-28] MEDS: CYANOCOBALAMIN 500 MCG TAB PO SCH (09:26)
[2020-04-28] MEDS: lisinopriL 20 MG TAB PO SCH (09:27)
[2020-04-28] MEDS: MAGNESIUM OXIDE 400 MG TAB PO SCH (09:27)
[2020-04-28] MEDS: FOLIC ACID 1 MG TAB PO SCH (09:27)
--- NOTE | 2020-04-28 10:09 | P.PN ---
Subjective Progress Note Date: 04/28/20 Principal diagnosis: Coronary artery disease, proximal LAD 99%, non-STEMI this admission, probable ventricular tachycardia prior to admission, systolic heart failure, EF 40-45% with hypokinetic apical septum, mild mitral regurgitation, mild tricuspid regurgitation, hypertension, hyperlipidemia, remote seizure history, current chronic tobacco dependence with preoperative FEV1 81% of predicted, moderate daily EtOH use, family history of heart disease. Patient is currently sitting up in bed in no acute distress. Denies any chest pain or shortness of breath or any other symptomatology right now. Ambulatory in the hallway without any problems. Dr. Owens talked at length to patient's son-in-law who is a physician at [facility] in [facility], verbalizes understanding and agreeable with plan of care. No new concerns. Objective - Vital Signs Vital signs: Vital Signs Temp 97.9 F 04/28/20 03:59 Pulse 57 L 04/28/20 03:59 Resp 18 04/28/20 03:59 BP 126/79 04/28/20 03:59 Pulse Ox 96 04/28/20 03:59 Intake & Output 04/27/20 04/28/20 04/28/20 18:59 06:59 18:59 Intake Total 1342.746 Output Total 1000 Balance 342.746 Weight 56 kg Intake: Intake, IV Titration 152.746 Amount Heparin Sod,Pork in 0.45% 152.746 NaCl 25,000 unit In 0.45 % NaCl 1 250ml.bag @ 12 UNITS/KG/HR 6.54 mls/hr IV .Q24H [facility] Rx#: [id number] Oral 1190 Output: Urine 1000 Other: # Bowel Movements 1 - Constitutional General appearance: Present: cooperative, no acute distress - Respiratory Details: Lungs sounds diminished bilaterally. Respirations even, nonlabored. Currently on room air with oxygen saturation 96%. - Cardiovascular Details: S1, S2 present. Regular rhythm, sinus rhythm on telemetry. Palpable peripheral pulses bilaterally. No edema present. No calf pain or tenderness noted. - Gastrointestinal Gastrointestinal Comment(s): Abdomen soft, nontender, nondistended. Active bowel sounds present 4 qu adrants. Tolerating diet - Genitourinary Genitourinary Comment(s): Continues to void - Integumentary Integumentary Comment(s): Skin is warm and dry with evidence of good perfusion. - Neurologic Neurologic: Present: CNII-XII intact - Musculoskeletal Musculoskeletal: Present: gait normal, strength equal bilaterally - Psychiatric Psychiatric: Present: A&O x's 3, appropriate affect, intact judgment & insight - Allied health notes Allied health notes reviewed: nursing - Labs CBC & Chem 7: 04/28/20 05:55 04/27/20 02:42 Labs: Abnormal Lab Results - Last 24 Hours (Table) 04/28/20 04/28/20 Range/Units 05:55 05:55 Lymphocytes # 0.9 L (1.0-4.8) k/uL APTT 57.8 H (22.0-30.0) sec Microbiology - Last 24 Hours (Table) 04/25/20 18:30 Nasal Screen MRSA/MSSA - Final Nasal Swab Assessment and Plan Assessment: 1. Coronary artery disease, proximal LAD 99%, non-STEMI this admission, probable ventricular tachycardia prior to admission 2. Systolic heart failure, EF 40-45% with hypokinetic apical septum, mild mitral regurgitation, mild tricuspid regurgitation 3. Hypertension 4. Hyperlipidemia, LDL 136, cholesterol 250, triglycerides 348 5. Remote seizure history 6. Current chronic tobacco dependence with preoperative FEV1 81% of predicted 7. Moderate daily EtOH use 8. Family history of heart disease Plan: 1. Continue aspirin, statin, beta jose, AYAKA inhibitor, IV heparin 2. Encourage incentive spirometry use. 3. Increase activity, ambulate as tolerated 4. CIWA protocol 5. 5 m walk test completed, #1 3.94 seconds, #2 4.77 seconds, #3 4.10 seconds 6. Medical management of other comorbidities per primary care service, cardiology 7. Our plan is for myocardial revascularization with standby extracorporeal circulation with left internal mammary artery and endoscopic vein harvest with Dr. Owens on Apr. This was discussed with Dr. Álvarez by Dr. Owens, as well as with the patient, her daughter and her son-in-law who is a physician in [facility] in great length. 8. More recommendations to follow Time with Patient: Greater than 30
[2020-04-28] MEDS: SPIRONOLACTONE 25 MG TAB PO SCH (10:45)
[2020-04-28] MEDS: THIAMINE 100 MG TAB PO SCH (10:46)
[2020-04-28] MEDS: MUPIROCIN 2% OINT 22 GM TUBE NASAL SCH ×2 (10:46→20:35)
[2020-04-28] MEDS: PARoxetine 20 MG TAB PO SCH (10:46)
[2020-04-28] MEDS: HEPARIN SOD,PORK IN 0.45% NACL 25,000 UNIT in 0.45% NACL 1 250ML.BAG IV SCH (10:47)
--- NOTE | 2020-04-28 12:35 | PN ---
PROGRESS NOTE Mrs. Steiner is a 69-year-old female who presented with syncopal episode, questionable seizure, was found to have evidence of coronary artery disease with severe obstructive disease involving the LAD with segmental wall motion abnormality on her LV-gram. She is feeling well today. She is ambulating without difficulty. She denies any chest pain. She denies any dizziness or palpitation. She denies any nausea. She continued to be on IV heparin, aspirin, Lipitor 40 mg daily, lisinopril 20 mg daily, metoprolol tartrate 25 mg twice a day and spironolactone 25 mg daily. PHYSICAL EXAMINATION: Blood pressure running in the 120s with a heart rate in the 60s. LUNGS: Clear. HEART:Regular rate and rhythm. S1, S2. No S3. No rub. ABDOMEN: Soft and nontender. EXTREMITIES: No edema. LAB DATA: Revealed hemoglobin of 14. IMPRESSION: 1. Coronary artery disease with a non ST-segment elevation myocardial infarction and segmental wall motion abnormality associated with probably sudden . 2. Ischemic cardiomyopathy, probably stunned myocardium. 3. History of chronic tobacco use. 4. History of alcohol intake. 5. Remote history of seizure. RECOMMENDATION: From the cardiac standpoint, will continue present therapy. Will continue on physical activity. The plan is to proceed with surgical intervention next week. MMODL / IJN: [id number] /
--- NOTE | 2020-04-28 15:02 | P.PN ---
Subjective Progress Note Date: 04/28/20 Principal diagnosis: Symptomatic coronary artery disease On 04/27/2020 patient seen in follow-up on selective care unit. Of note patient was admitted to the hospital on 04/24/2020 when she had a witnessed seizure in the local grocery store. Patient does have history of seizures, hypertension, hyperlipidemia, chronic and ongoing tobacco dependence, moderate daily EtOH use, and family history of heart disease. CT of the brain was negative, it did show bilateral ventral lobe atrophy, chest x-ray showed no acute process, echocardiogram revealed severely impaired left ventricular systolic function, and an ejection fraction of 40-45%, mild mitral regurgitation, and mild tricuspid regurgitation, patient had cardiac catheterization which revealed critical stenosis of the proximal LAD of 90% and the diagonal branch. Left main had 20% stenosis, and EF was 35%, with LVEDP of 25. Patient was recommended surgical intervention, CT surgery was consulted, currently patient is undergoing preop evaluation with plans for coronary artery bypass grafting surgery next week. Patient denies any shortness of breath, denies any chest pain currently, she still awaiting a bedside PFT, she's had no acute events overnight. She is not on any maintenance inhalers on outpatient basis, today's labs have been noted, she is on heparin infusion. The patient is seen today 04/28/2020 in follow-up on the selective care unit. She is currently sitting up at the bedside having lunch. Awake and alert in no acute distress. Denies any chest pain, palpitations lightheadedness or dizzine ss. No seizure activity. No shortness of breath, cough or congestion. She is maintaining O2 saturations in the mid 90s on room air. She's afebrile. Hemodynamically stable. White count 9.6. Hemoglobin 14.0. Platelet count 258. She remains on a heparin drip. Objective - Vital Signs Vital signs: Vital Signs Temp 97.5 F L 04/28/20 08:00 Pulse 55 L 04/28/20 11:52 Resp 17 04/28/20 11:52 BP 155/85 04/28/20 08:00 Pulse Ox 95 04/28/20 08:00 Intake & Output 04/27/20 04/28/20 04/28/20 18:59 06:59 18:59 Intake Total 1342.746 235.903 Output Total 1000 Balance 342.746 235.903 Weight 56 kg Intake: Intake, IV Titration 152.746 235.903 Amount Heparin Sod,Pork in 0.45% 152.746 235.903 NaCl 25,000 unit In 0.45 % NaCl 1 250ml.bag @ 12 UNITS/KG/HR 6.54 mls/hr IV .Q24H [facility] Rx#: [id number] Oral 1190 Output: Urine 1000 Other: # Voids 10 # Bowel Movements 1 - Exam GENERAL EXAM: Alert, active, pleasant 69-year-old female patient, on room air, comfortable in no apparent distress. HEAD: Normocephalic. EYES: Normal reaction of pupils, equal size. NOSE: Clear with pink turbinates. THROAT: No erythema or exudates. NECK: No masses, no JVD. CHEST: No chest wall deformity. LUNGS: Equal air entry with no crackles, wheeze, rhonchi or dullness. CVS: S1 and S2 normal with no audible murmur, regular rhythm. ABDOMEN: No hepatosplenomegaly, normal bowel sounds, no guarding or rigidity. SPINE: No scoliosis or deformity SKIN: No rashes CENTRAL NERVOUS SYSTEM: No focal deficits, tone is normal in all 4 extremities. EXTREMITIES: There is no peripheral edema. No clubbing, no cyanosis. Peripheral pulses are intact. - Labs CBC & Chem 7: 04/28/20 05:55 04/27/20 02:42 Labs: Abnormal Lab Results - Last 24 Hours (Table) 04/28/20 04/28/20 Range/Units 05:55 05:55 Lymphocytes # 0.9 L (1.0-4.8) k/uL APTT 57.8 H (22.0-30.0) sec Microbiology - Last 24 Hours (Table) 04/25/20 18:30 Nasal Screen MRSA/MSSA - Final Nasal Swab Assessment and Plan Assessment: 1 Coronary artery disease, with anticipated bypass grafting next week, heart catheterization revealed heavily calcified proximal LAD stenosis of 99%, with significant is involving the diagonal branch, left main 20% stenosis, and severely impaired left ventricular systolic function and EF of 30-35% 2 Episode of witnessed seizure 3 History of seizure disorder 4 Hypertension 5 Possible COPD, not oxygen dependent, not on any maintenance inhalers, patient is a long-time chronic and ongoing smoker, awaiting preop PFT 6 Moderate EtOH use Plan: The patient was seen and evaluated by Dr. Fermín Bronson from the pulmonary standpoint PFT reviewed, no concerns Awaiting coronary revascularization We'll continue to follow I, the cosigning physician, performed a history & physical examination of the patient. Lungs sounds are clear. Maintaining good O2 saturations in the 90s on room air. I discussed the assessment and plan of care with my nurse practitioner, Margarita Epstein. I attest to the above note as dictated by her.
[2020-04-28] MEDS: ATORVASTATIN 40 MG TAB PO SCH (20:35)
--- NOTE | 2020-04-29 00:32 | P.PN ---
Subjective Progress Note Date: 04/26/20 Principal diagnosis: Acute non-ST elevated RI Syncope Patient was admitted for evaluation of seizures. Patient is found have elevated troponins it appears like patient had acute myocardial infarction patient is undergoing cardiac catheterization Patient had an MRI which didn't show any acute abnormality but did show some chronic microvascular ischemic changes. EEG was normal. 2-D echo: Was reported as left ventricle wall thickness is normal. Ejection fraction of 40-45%. Apical septal left ventricle wall motion is hypokinetic. 04/26/2020 Patient is currently lying in bed comfortably. No complaints of chest pain or shortness breath. Patient was initially admitted to the hospital with loss of consciousness and possible seizures and elevated troponin level. Patient underwent cardiac catheterization showed critical stenosis involving the proximal LAD with poststenotic dilation and severe tortuosity with significant disease in the diagonal branch. Calcified LAD Mild disease in the right coronary artery. CT surgery was consulted due to severe coronary artery disease and is planning for coronary artery bypass graft. Preoperative testing was initiated. Current medications reviewed. Constitutional: Denied any fatigue denied any fever. Cardio vascular: denied any chest pain, palpitations Gastrointestinal denied any nausea vomiting Pulmonary: Denied any shortness of breath cough Neurologic denied any new focal deficits All inpatient medications were reviewed and appropriate changes in these medications as dictated in the interval history and assessment and plan. Objective - Vital Signs Vital signs: Vital Signs Temp 97.4 F L 04/26/20 16:00 Pulse 63 04/26/20 16:00 Resp 17 04/26/20 16:00 BP 132/76 04/26/20 16:00 Pulse Ox 91 L 04/26/20 16:00 Intake & Output 04/26/20 04/26/20 04/27/20 06:59 18:59 06:59 Intake Total 541.837 197.28 80.731 Output Total 900 Balance 541.837 -702.72 80.731 Weight 56.2 kg Intake: Intake, IV Titration 541.837 77.28 80.731 Amount Heparin Sod,Pork in 0.45% 91.837 77.28 80.731 NaCl 25,000 unit In 0.45 % NaCl 1 250ml.bag @ 12 UNITS/KG/HR 6.54 mls/hr IV .Q24H [facility] Rx#: [id number] Sodium Chloride 0.9% 1, 450 000 ml @ 75 mls/hr IV . [id number] [facility] Rx#:[id number] Oral 120 Output: Urine 900 Other: # Voids 1 0 - Exam PHYSICAL EXAMINATION: GENERAL: The patient is alert and oriented x3, not in any acute distress. Well developed, well nourished. HEENT: Pupils are round and equally reacting to light. EOMI. No scleral icterus. No conjunctival pallor. Normocephalic, atraumatic. No pharyngeal erythema. No thyromegaly. CARDIOVASCULAR: S1 and S2 present. No murmurs, rubs, or gallops. PULMONARY: Chest is clear to auscultation, no wheezing or crackles. ABDOMEN: Soft, nontender, nondistended, normoactive bowel sounds. No palpable organomegaly. MUSCULOSKELETAL: No joint swelling or deformity. EXTREMITIES: No cyanosis, clubbing, or pedal edema. NEUROLOGICAL: Gross neurological examination did not reveal any focal deficits. SKIN: No rashes. - Labs CBC & Chem 7: 04/28/20 05:55 04/27/20 02:42 Labs: Abnormal Lab Results - Last 24 Hours (Table) 04/26/20 04/26/20 04/26/20 Range/Units 05:00 05:00 05:00 MCHC 30.9 L (31.0-37.0) g/dL APTT 37.4 H (22.0-30.0) sec Sodium 135 L (137-145) mmol/L Chloride 109 H (98-107) mmol/L Total Protein 5.8 L (6.3-8.2) g/dL Albumin 3.2 L (3.5-5.0) g/dL Urine Appearance (Clear) Urine Blood (Negative) Urine RBC (0-5) /hpf Ur Squamous Epith Cells (0-4) /hpf Urine Bacteria (None) /hpf Urine Mucus (None) /hpf 04/26/20 04/26/20 04/26/20 Range/Units 06:22 12:17 19:02 MCHC (31.0-37.0) g/dL APTT 40.8 H 38.2 H (22.0-30.0) sec Sodium (137-145) mmol/L Chloride (98-107) mmol/L Total Protein (6.3-8.2) g/dL Albumin (3.5-5.0) g/dL Urine Appearance Cloudy H (Clear) Urine Blood Moderate H (Negative) Urine RBC 6 H (0-5) /hpf Ur Squamous Epith Cells 12 H (0-4) /hpf Urine Bacteria Rare H (None) /hpf Urine Mucus Rare H (None) /hpf Assessment and Plan Assessment: - Acute non-ST elevated RI status post cardiac catheterization showed severe proximal LAD stenosis. Patient will continued on beta jose and a statin Patient is being followed by CT surgery. Initiated preoperatively evaluation. Pulmonary was consulted as well. -Acute systolic heart failure. due to acute systolic dysfunction is probably secondary to RI EF 40-45% with hypokinetic apical septum, mild mitral regurgitation, mild tricuspid regurgitation -Acute syncopal episode likely due to acute RI which may have led to seizures. Patient had MRI and EEG was done. EEG was normal. Seen by neurology. -Leukocytosis reactive from syncope and myocardial infarction. resolved. -Depression -Hypertension -Hyperlipidemia -Ongoing nicotine addiction -Daily alcohol use -Family history of coronary artery disease Time with Patient: Greater than 30
--- NOTE | 2020-04-29 00:34 | P.PN ---
Subjective Progress Note Date: 04/27/20 Principal diagnosis: Acute non-ST elevated MD Syncope Patient was admitted for evaluation of seizures. Patient is found have elevated troponins it appears like patient had acute myocardial infarction patient is undergoing cardiac catheterization Patient had an MRI which didn't show any acute abnormality but did show some chronic microvascular ischemic changes. EEG was normal. 2-D echo: Was reported as left ventricle wall thickness is normal. Ejection fraction of 40-45%. Apical septal left ventricle wall motion is hypokinetic. 04/26/2020 Patient is currently lying in bed comfortably. No complaints of chest pain or shortness breath. Patient was initially admitted to the hospital with loss of consciousness and possible seizures and elevated troponin level. Patient underwent cardiac catheterization showed critical stenosis involving the proximal LAD with poststenotic dilation and severe tortuosity with significant disease in the diagonal branch. Calcified LAD Mild disease in the right coronary artery. CT surgery was consulted due to severe coronary artery disease and is planning for coronary artery bypass graft. Preoperative testing was initiated. Current medications reviewed. 04/27/2020 Patient is currently lying in bed comfortably. No complaints of chest pain or shortness breath. No nausea vomiting or abdominal pain. Patient was seen by pulmonary and is planning for bedside PFTs today. No other acute overnight issues. Patient is being continued on aspirin, statins, metoprolol and lisinopril, Aldactone and is on heparin drip. Cardiology, pulmonary and CT surgery is on board. Constitutional: Denied any fatigue denied any fever. Cardio vascular: denied any chest pain, palpitations Gastrointestinal denied any nausea vomiting Pulmonary: Denied any shortness of breath cough Neurologic denied any new focal deficits All inpatient medications were reviewed and appropriate changes in these medications as dictated in the interval history and assessment and plan. Objective - Vital Signs Vital signs: Vital Signs Temp 97.9 F 04/27/20 16:00 Pulse 63 04/27/20 16:00 Resp 18 04/27/20 16:00 BP 133/86 04/27/20 16:00 Pulse Ox 94 L 04/27/20 16:00 Intake & Output 04/27/20 04/27/20 04/28/20 06:59 18:59 06:59 Intake Total 472.547 0440.746 Output Total 900 1000 Balance -721.863 342.746 Weight 56 kg Intake: Intake, IV Titration 178.137 152.746 Amount Heparin Sod,Pork in 0.45% 178.137 152.746 NaCl 25,000 unit In 0.45 % NaCl 1 250ml.bag @ 12 UNITS/KG/HR 6.54 mls/hr IV .Q24H [facility] Rx#: [id number] Oral 1190 Output: Urine 900 1000 Other: # Bowel Movements 1 - Exam PHYSICAL EXAMINATION: GENERAL: The patient is alert and oriented x3, not in any acute distress. Well developed, well nourished. HEENT: Pupils are round and equally reacting to light. EOMI. No scleral icterus. No conjunctival pallor. Normocephalic, atraumatic. No pharyngeal erythema. No thyromegaly. CARDIOVASCULAR: S1 and S2 present. No murmurs, rubs, or gallops. PULMONARY: Chest is clear to auscultation, no wheezing or crackles. ABDOMEN: Soft, nontender, nondistended, normoactive bowel sounds. No palpable organomegaly. MUSCULOSKELETAL: No joint swelling or deformity. EXTREMITIES: No cyanosis, clubbing, or pedal edema. NEUROLOGICAL: Gross neurological examination did not reveal any focal deficits. SKIN: No rashes. - Labs CBC & Chem 7: 04/28/20 05:55 04/27/20 02:42 Labs: Abnormal Lab Results - Last 24 Hours (Table) 04/27/20 04/27/20 Range/Units 02:42 02:42 APTT 62.5 H (22.0-30.0) sec Chloride 109 H (98-107) mmol/L Microbiology - Last 24 Hours (Table) 04/25/20 18:30 Nasal Screen MRSA/MSSA - Preliminary Nasal Swab Assessment and Plan Assessment: - Acute non-ST elevated MD status post cardiac catheterization showed severe proximal LAD stenosis. Patient will continued on beta jose and a statin Patient is being followed by CT surgery. Initiated preoperatively evaluation. Pulmonary was consulted as well. -Acute systolic heart failure. due to acute systolic dysfunction is probably secondary to MD EF 40-45% with hypokinetic apical septum, mild mitral regurgitation, mild tricuspid regurgitation -Acute syncopal episode likely due to acute MD which may have led to seizures. Patient had MRI and EEG was done. EEG was normal. Seen by neurology. -Leukocytosis reactive from syncope and myocardial infarction. resolved. -Depression -Hypertension -Hyperlipidemia -Ongoing nicotine addiction -Daily alcohol use -Family history of coronary artery disease
[2020-04-29 07:50] LABS: HCT 43.4 % (34.0-46.0); MCH 31.6 pg (25.0-35.0); MCHC 32.3 g/dL (31.0-37.0); MCV 97.8 fL (80.0-100.0); Mean Platelet Volume 7.6; Platelet Count 272 k/uL (150-450); RBC 4.44 m/uL (3.80-5.40); RDW 14.1 % (11.5-15.5); WBC 10.1 k/uL (3.8-10.6)
--- NOTE | 2020-04-29 09:52 | P.PN ---
Subjective Progress Note Date: 04/29/20 Principal diagnosis: Coronary artery disease, proximal LAD 99%, non-STEMI this admission, probable ventricular tachycardia prior to admission, systolic heart failure, EF 40-45% with hypokinetic apical septum, mild mitral regurgitation, mild tricuspid regurgitation, hypertension, hyperlipidemia, remote seizure history, current chronic tobacco dependence with preoperative FEV1 81% of predicted, moderate daily EtOH use, family history of heart disease. Patient is currently sitting up on a seat in the hallway watching out the window in no acute distress. Denies any chest pain or shortness of breath or any other symptomatology right now. She is a bit concerned about an old IV site on her left arm which is a bit red but not painful. Ambulatory in the hallway without any problems. Remains in normal sinus rhythm and hemodynamically stable. No evidence of DTs. No other new concerns. Objective - Vital Signs Vital signs: Vital Signs Temp 97.6 F 04/29/20 03:51 Pulse 71 04/29/20 08:00 Resp 17 04/29/20 08:00 BP 133/80 04/29/20 08:00 Pulse Ox 99 04/29/20 08:00 Intake & Output 04/28/20 04/29/20 04/29/20 18:59 06:59 18:59 Intake Total 840.903 Balance 840.903 Weight 55.2 kg Intake: Intake, IV Titration 235.903 Amount Heparin Sod,Pork in 0.45% 235.903 NaCl 25,000 unit In 0.45 % NaCl 1 250ml.bag @ 12 UNITS/KG/HR 6.54 mls/hr IV .Q24H [facility] Rx#: [id number] Oral 605 Other: # Voids 4 1 # Bowel Movements 1 - Constitutional General appearance: Present: cooperative, no acute distress - Respiratory Details: Lungs sounds diminished bilaterally. Respirations even, nonlabored. Currently on room air with oxygen saturation 95%. Able to achieve 750 mL on incentive spirometry - Cardiovascular Details: S1, S2 present. Regular rhythm, sinus rhythm on telemetry. Palpable peripheral pulses bilaterally. No edema present. No calf pain or tenderness noted. - Gastrointestinal Gastrointestinal Comment(s): Abdomen soft, nontender, nondistended. Active bowel sounds present 4 quadrants. Tolerating diet - Genitourinary Genitourinary Comment(s): Continues to void - Integumentary Integumentary Comment(s): Skin is warm and dry with evidence of good perfusion. - Neurologic Neurologic: Present: CNII-XII intact - Musculoskeletal Musculoskeletal: Present: gait normal, strength equal bilaterally - Psychiatric Psychiatric: Present: A&O x's 3, appropriate affect, intact judgment & insight - Allied health notes Allied health notes reviewed: nursing - Labs CBC & Chem 7: 04/29/20 07:17 04/27/20 02:42 Labs: Abnormal Lab Results - Last 24 Hours (Table) 04/29/20 Range/Units 07:17 APTT 58.1 H (22.0-30.0) sec Assessment and Plan Assessment: 1. Coronary artery disease, proximal LAD 99%, non-STEMI this admission, probable ventricular tachycardia prior to admission 2. Systolic heart failure, EF 40-45% with hypokinetic apical septum, mild mitral regurgitation, mild tricuspid regurgitation 3. Hypertension 4. Hyperlipidemia, LDL 136, cholesterol 250, triglycerides 348 5. Remote seizure history 6. Current chronic tobacco dependence with preoperative FEV1 81% of predicted 7. Moderate daily EtOH use 8. Family history of heart disease Plan: 1. Continue aspirin, statin, beta jose, AYAKA inhibitor, IV heparin 2. Encourage incentive spirometry use. 3. Increase activity, ambulate as tolerated 4. CIWA protocol 5. Medical management of other comorbidities per primary care service, cardiology 6. Our plan is for myocardial revascularization with standby extracorporeal circulation with left internal mammary artery and endoscopic vein harvest with Dr. Owens on Apr. This was discussed with Dr. Álvarez by Dr. Owens, as well as with the patient, her daughter and her son-in-law who is a physician in [facility] in great length. 7. More recommendations to follow Time with Patient: Greater than 30
[2020-04-29] MEDS: PARoxetine 20 MG TAB PO SCH (10:10)
[2020-04-29] MEDS: lisinopriL 20 MG TAB PO SCH (10:10)
[2020-04-29] MEDS: METOPROLOL TARTRATE 25 MG TAB PO SCH ×2 (10:10→20:34)
[2020-04-29] MEDS: ASPIRIN 81 MG PO SCH (10:10)
[2020-04-29] MEDS: FOLIC ACID 1 MG TAB PO SCH (10:10)
[2020-04-29] MEDS: SPIRONOLACTONE 25 MG TAB PO SCH (10:11)
[2020-04-29] MEDS: THIAMINE 100 MG TAB PO SCH (10:11)
[2020-04-29] MEDS: MAGNESIUM OXIDE 400 MG TAB PO SCH (10:11)
[2020-04-29] MEDS: MUPIROCIN 2% OINT 22 GM TUBE NASAL SCH ×2 (10:12→20:34)
--- NOTE | 2020-04-29 10:16 | PN ---
PROGRESS NOTE Mrs. Steiner is a 69-year-old female with a history of chronic tobacco use and alcohol intake who presented with syncope and sudden cardiac tests. She was found to have significant obstructive disease and a complex lesion in the LAD with segmental wall motion abnormality. She is scheduled to undergo surgical intervention next week. She has been ambulating without difficulty. Denying any chest pain. Denies any dizziness or palpitation. Continues to be on IV heparin. Otherwise, she is on aspirin once a day, Lipitor 40 mg daily, lisinopril 20 mg daily, metoprolol tartrate 25 mg twice a day and spironolactone 25 mg daily. PHYSICAL EXAMINATION: Blood pressure 133/80 with a heart rate in the 70s. LUNGS: Clear. HEART: Regular rate and rhythm, S1, S2. No S3. No rub. ABDOMEN: Soft, nontender. EXTREMITIES: No edema. Her hemoglobin is 14. IMPRESSION: 1. Coronary artery disease with ischemic cardiomyopathy and a sudden cardiac . 2. Chronic tobacco use. 3. Prior history of alcohol intake. 4. History of seizure. RECOMMENDATIONS: We will continue present therapy. Continue IV heparin. Awaiting surgical intervention. MMODL / IJN: [id number] /
[2020-04-29] MEDS: CYANOCOBALAMIN 500 MCG TAB PO SCH (10:47)
--- NOTE | 2020-04-29 14:50 | P.PN ---
Subjective Progress Note Date: 04/29/20 Principal diagnosis: Symptomatic coronary artery disease On 04/27/2020 patient seen in follow-up on selective care unit. Of note patient was admitted to the hospital on 04/24/2020 when she had a witnessed seizure in the local grocery store. Patient does have history of seizures, hypertension, hyperlipidemia, chronic and ongoing tobacco dependence, moderate daily EtOH use, and family history of heart disease. CT of the brain was negative, it did show bilateral ventral lobe atrophy, chest x-ray showed no acute process, echocardiogram revealed severely impaired left ventricular systolic function, and an ejection fraction of 40-45%, mild mitral regurgitation, and mild tricuspid regurgitation, patient had cardiac catheterization which revealed critical stenosis of the proximal LAD of 90% and the diagonal branch. Left main had 20% stenosis, and EF was 35%, with LVEDP of 25. Patient was recommended surgical intervention, CT surgery was consulted, currently patient is undergoing preop evaluation with plans for coronary artery bypass grafting surgery next week. Patient denies any shortness of breath, denies any chest pain currently, she still awaiting a bedside PFT, she's had no acute events overnight. She is not on any maintenance inhalers on outpatient basis, today's labs have been noted, she is on heparin infusion. The patient is seen today 04/28/2020 in follow-up on the selective care unit. She is currently sitting up at the bedside having lunch. Awake and alert in no acute distress. Denies any chest pain, palpitations lightheadedness or dizzine ss. No seizure activity. No shortness of breath, cough or congestion. She is maintaining O2 saturations in the mid 90s on room air. She's afebrile. Hemodynamically stable. White count 9.6. Hemoglobin 14.0. Platelet count 258. She remains on a heparin drip. The patient is seen today 04/29/2020 and follow-up on the selective care unit. She is been up ambulating in the hallway. No shortness of breath. No chest pain or palpitations. No worsening shortness of breath cough or congestion. Maintaining good O2 saturations in the mid 90s on room air. She's been afebrile. Continued IV heparin. Surgery pending for of this week. No signs or symptoms of alcohol withdrawal. Objective - Vital Signs Vital signs: Vital Signs Temp 97.5 F L 10/04/20 12:00 Pulse 63 04/29/20 12:00 Resp 18 04/29/20 12:00 BP 123/75 04/29/20 12:00 Pulse Ox 95 04/29/20 12:00 Intake & Output 04/28/20 04/29/20 04/29/20 18:59 06:59 18:59 Intake Total 840.903 Balance 840.903 Weight 55.2 kg Intake: Intake, IV Titration 235.903 Amount Heparin Sod,Pork in 0.45% 235.903 NaCl 25,000 unit In 0.45 % NaCl 1 250ml.bag @ 12 UNITS/KG/HR 6.54 mls/hr IV .Q24H [facility] Rx#: [id number] Oral 605 Other: # Voids 4 1 2 # Bowel Movements 1 - Exam GENERAL EXAM: Alert, active, pleasant 69-year-old female patient, on room air, comfortable in no apparent distress. HEAD: Normocephalic. EYES: Normal reaction of pupils, equal size. NOSE: Clear with pink turbinates. THROAT: No erythema or exudates. NECK: No masses, no JVD. CHEST: No chest wall deformity. LUNGS: Equal air entry with no crackles, wheeze, rhonchi or dullness. CVS: S1 and S2 normal with no audible murmur, regular rhythm. ABDOMEN: No hepatosplenomegaly, normal bowel sounds, no guarding or rigidity. SPINE: No scoliosis or deformity SKIN: No rashes CENTRAL NERVOUS SYSTEM: No focal deficits, tone is normal in all 4 extremities. EXTREMITIES: There is no peripheral edema. No clubbing, no cyanosis. Peripheral pulses are intact. - Labs CBC & Chem 7: 04/29/20 07:17 04/27/20 02:42 Labs: Abnormal Lab Results - Last 24 Hours (Table) 04/29/20 Range/Units 07:17 APTT 58.1 H (22.0-30.0) sec Assessment and Plan Assessment: 1 Coronary artery disease, with anticipated bypass grafting next week, heart catheterization revealed heavily calcified proximal LAD stenosis of 99%, with significant is involving the diagonal branch, left main 20% stenosis, and severely impaired left ventricular systolic function and EF of 30-35% 2 Episode of witnessed seizure 3 History of seizure disorder 4 Hypertension 5 Possible COPD, not oxygen dependent, not on any maintenance inhalers, FEV1 value 81% of predicted 6 Chronic and ongoing smoker 6 Moderate EtOH use Plan: The patient was seen and evaluated by Dr. Fermín Bronson from the pulmonary standpoint She is educated regarding the importance of complete smoking cessation No signs or symptoms of alcohol withdrawal Awaiting coronary revascularization We'll continue to follow I, the cosigning physician, performed a history & physical examination of the patient. Lungs sounds are clear. Maintaining good O2 saturations in the 90s on room air. I discussed the assessment and plan of care with my nurse practitioner, Margarita Epstein. I attest to the above note as dictated by her.
[2020-04-29] MEDS: ATORVASTATIN 40 MG TAB PO SCH (20:34)
--- NOTE | 2020-04-29 21:40 | P.PN ---
Subjective Progress Note Date: 04/28/20 Principal diagnosis: Acute non-ST elevated [place] Syncope Patient was admitted for evaluation of seizures. Patient is found have elevated troponins it appears like patient had acute myocardial infarction patient is undergoing cardiac catheterization Patient had an MRI which didn't show any acute abnormality but did show some chronic microvascular ischemic changes. EEG was normal. 2-D echo: Was reported as left ventricle wall thickness is normal. Ejection fraction of 40-45%. Apical septal left ventricle wall motion is hypokinetic. 04/26/2020 Patient is currently lying in bed comfortably. No complaints of chest pain or shortness breath. Patient was initially admitted to the hospital with loss of consciousness and possible seizures and elevated troponin level. Patient underwent cardiac catheterization showed critical stenosis involving the proximal LAD with poststenotic dilation and severe tortuosity with significant disease in the diagonal branch. Calcified LAD Mild disease in the right coronary artery. CT surgery was consulted due to severe coronary artery disease and is planning for coronary artery bypass graft. Preoperative testing was initiated. Current medications reviewed. 04/27/2020 Patient is currently lying in bed comfortably. No complaints of chest pain or shortness breath. No nausea vomiting or abdominal pain. Patient was seen by pulmonary and is planning for bedside PFTs today. No other acute overnight issues. Patient is being continued on aspirin, statins, metoprolol and lisinopril, Aldactone and is on heparin drip. Cardiology, pulmonary and CT surgery is on board. 04/28/2020 Patient is currently lying in the bed comfortably. Awake alert oriented x3. No complaints of chest pain. No headache or dizziness or lightheadedness. No na usea vomiting or abdominal pain or diarrhea. Patient is being continued on heparin drip. Plan for cardiac surgery early next week. Constitutional: Denied any fatigue denied any fever. Cardio vascular: denied any chest pain, palpitations Gastrointestinal denied any nausea vomiting Pulmonary: Denied any shortness of breath cough Neurologic denied any new focal deficits All inpatient medications were reviewed and appropriate changes in these medications as dictated in the interval history and assessment and plan. Objective - Vital Signs Vital signs: Vital Signs Temp 97.7 F 04/28/20 20:00 Pulse 61 04/28/20 20:00 Resp 17 04/28/20 20:00 BP 121/67 04/28/20 20:00 Pulse Ox 93 L 04/28/20 20:00 Intake & Output 04/28/20 04/28/20 04/29/20 06:59 18:59 06:59 Intake Total 840.903 Balance 840.903 Weight 56 kg Intake: Intake, IV Titration 235.903 Amount Heparin Sod,Pork in 0.45% 235.903 NaCl 25,000 unit In 0.45 % NaCl 1 250ml.bag @ 12 UNITS/KG/HR 6.54 mls/hr IV .Q24H [facility] Rx#: [id number] Oral 605 Other: # Voids 4 - Exam PHYSICAL EXAMINATION: GENERAL: The patient is alert and oriented x3, not in any acute distress. Well developed, well nourished. HEENT: Pupils are round and equally reacting to light. EOMI. No scleral icterus. No conjunctival pallor. Normocephalic, atraumatic. No pharyngeal erythema. No thyromegaly. CARDIOVASCULAR: S1 and S2 present. No murmurs, rubs, or gallops. PULMONARY: Chest is clear to auscultation, no wheezing or crackles. ABDOMEN: Soft, nontender, nondistended, normoactive bowel sounds. No palpable organomegaly. MUSCULOSKELETAL: No joint swelling or deformity. EXTREMITIES: No cyanosis, clubbing, or pedal edema. NEUROLOGICAL: Gross neurological examination did not reveal any focal deficits. SKIN: No rashes. - Labs CBC & Chem 7: 04/29/20 07:17 04/27/20 02:42 Labs: Abnormal Lab Results - Last 24 Hours (Table) 04/28/20 04/28/20 Range/Units 05:55 05:55 Lymphocytes # 0.9 L (1.0-4.8) k/uL APTT 57.8 H (22.0-30.0) sec Microbiology - Last 24 Hours (Table) 04/25/20 18:30 Nasal Screen MRSA/MSSA - Final Nasal Swab Assessment and Plan Assessment: - Acute non-ST elevated [place] status post cardiac catheterization showed severe proximal LAD stenosis. Patient will continued on beta jose and a statin Patient is being followed by CT surgery. Initiated preoperatively evaluation. Pulmonary is following.. -Acute systolic heart failure. due to acute systolic dysfunction is probably secondary to IN EF 40-45% with hypokinetic apical septum, mild mitral regurgitation, mild tricuspid regurgitation -Acute syncopal episode likely due to acute [place] which may have led to seizures. Patient had MRI and EEG was done. EEG was normal. Seen by neurology. -Leukocytosis reactive from syncope and myocardial infarction. resolved. -Depression -Hypertension -Hyperlipidemia -Ongoing nicotine addiction -Daily alcohol use -Family history of coronary artery disease
--- NOTE | 2020-04-29 21:41 | P.PN ---
Subjective Progress Note Date: 04/29/20 Principal diagnosis: Acute non-ST elevated [place] Syncope Patient was admitted for evaluation of seizures. Patient is found have elevated troponins it appears like patient had acute myocardial infarction patient is undergoing cardiac catheterization Patient had an MRI which didn't show any acute abnormality but did show some chronic microvascular ischemic changes. EEG was normal. 2-D echo: Was reported as left ventricle wall thickness is normal. Ejection fraction of 40-45%. Apical septal left ventricle wall motion is hypokinetic. 04/26/2020 Patient is currently lying in bed comfortably. No complaints of chest pain or shortness breath. Patient was initially admitted to the hospital with loss of consciousness and possible seizures and elevated troponin level. Patient underwent cardiac catheterization showed critical stenosis involving the proximal LAD with poststenotic dilation and severe tortuosity with significant disease in the diagonal branch. Calcified LAD Mild disease in the right coronary artery. CT surgery was consulted due to severe coronary artery disease and is planning for coronary artery bypass graft. Preoperative testing was initiated. Current medications reviewed. 04/27/2020 Patient is currently lying in bed comfortably. No complaints of chest pain or shortness breath. No nausea vomiting or abdominal pain. Patient was seen by pulmonary and is planning for bedside PFTs today. No other acute overnight issues. Patient is being continued on aspirin, statins, metoprolol and lisinopril, Aldactone and is on heparin drip. Cardiology, pulmonary and CT surgery is on board. 04/28/2020 Patient is currently lying in the bed comfortably. Awake alert oriented x3. No complaints of chest pain. No headache or dizziness or lightheadedness. No na usea vomiting or abdominal pain or diarrhea. Patient is being continued on heparin drip. Plan for cardiac surgery early next week. 2019 Patient is currently awake alert oriented x3. No complaints of chest pain. Or shortness of breath. No nausea vomiting abdominal pain. Currently on room air. Continued on heparin drip. CT surgery and pulmonary is on board. Cardiac surgery to be scheduled next week. No other acute overnight issues. Constitutional: Denied any fatigue denied any fever. Cardio vascular: denied any chest pain, palpitations Gastrointestinal denied any nausea vomiting Pulmonary: Denied any shortness of breath cough Neurologic denied any new focal deficits All inpatient medications were reviewed and appropriate changes in these medications as dictated in the interval history and assessment and plan. Objective - Vital Signs Vital signs: Vital Signs Temp 96.6 F L 04/29/20 16:00 Pulse 97 04/29/20 16:00 Resp 17 04/29/20 16:00 BP 125/76 04/29/20 16:00 Pulse Ox 97 04/29/20 16:00 Intake & Output 04/29/20 04/29/20 04/30/20 06:59 18:59 06:59 Intake Total 240 Balance 240 Weight 55.2 kg Intake: Oral 240 Other: # Voids 1 3 # Bowel Movements 1 - Exam PHYSICAL EXAMINATION: GENERAL: The patient is alert and oriented x3, not in any acute distress. Well developed, well nourished. HEENT: Pupils are round and equally reacting to light. EOMI. No scleral icterus. No conjunctival pallor. Normocephalic, atraumatic. No pharyngeal erythema. No thyromegaly. CARDIOVASCULAR: S1 and S2 present. No murmurs, rubs, or gallops. PULMONARY: Chest is clear to auscultation, no wheezing or crackles. ABDOMEN: Soft, nontender, nondistended, normoactive bowel sounds. No palpable organomegaly. MUSCULOSKELETAL: No joint swelling or deformity. EXTREMITIES: No cyanosis, clubbing, or pedal edema. NEUROLOGICAL: Gross neurological examination did not reveal any focal deficits. SKIN: No rashes. - Labs CBC & Chem 7: 04/29/20 07:17 04/27/20 02:42 Labs: Abnormal Lab Results - Last 24 Hours (Table) 04/29/20 Range/Units 07:17 APTT 58.1 H (22.0-30.0) sec Assessment and Plan Assessment: - Acute non-ST elevated [place] status post cardiac catheterization showed severe proximal LAD stenosis. Patient will continued on beta jose and a statin Patient is being followed by CT surgery. Initiated preoperatively evaluation. Pulmonary is following.. -Acute systolic heart failure. due to acute systolic dysfunction is probably secondary to [place] EF 40-45% with hypokinetic apical septum, mild mitral regurgitation, mild tricuspid regurgitation -Acute syncopal episode likely due to acute [place] which may have led to seizures. Patient had MRI and EEG was done. EEG was normal. Seen by neurology. -Leukocytosis reactive from syncope and myocardial infarction. resolved. -Depression -Hypertension -Hyperlipidemia -Ongoing nicotine addiction -Daily alcohol use -Family history of coronary artery disease
[2020-04-30 08:06] LABS: HGB 12.4 gm/dL (11.4-16.0); MCH 32.2 pg (25.0-35.0); MCHC 32.7 g/dL (31.0-37.0); MCV 98.4 fL (80.0-100.0); Mean Platelet Volume 8.8; Platelet Count 263 k/uL (150-450); RBC 3.86 m/uL (3.80-5.40); RDW 13.9 % (11.5-15.5)
--- NOTE | 2020-04-30 08:46 | P.PN ---
Subjective Progress Note Date: 04/30/20 Principal diagnosis: Coronary artery disease, proximal LAD 99%, non-STEMI this admission, probable ventricular tachycardia prior to admission, systolic heart failure, EF 40-45% with hypokinetic apical septum, mild mitral regurgitation, mild tricuspid regurgitation, hypertension, hyperlipidemia, remote seizure history, current chronic tobacco dependence with preoperative FEV1 81% of predicted, moderate daily EtOH use, family history of heart disease. Patient is currently ambulating in her room in no acute distress. Denies any chest pain or shortness of breath or any other symptomatology. Remains in normal sinus rhythm and hemodynamically stable. No evidence of DTs. No other new concerns. Objective - Vital Signs Vital signs: Vital Signs Temp 98.4 F 04/30/20 04:00 Pulse 63 04/30/20 04:00 Resp 19 04/30/20 04:00 BP 128/73 04/30/20 04:00 Pulse Ox 95 04/30/20 04:00 Intake & Output 04/29/20 04/30/20 04/30/20 18:59 06:59 18:59 Intake Total 240 Balance 240 Weight 54.7 kg Intake: Oral 240 Other: # Voids 3 1 - Constitutional General appearance: Present: cooperative, no acute distress - Respiratory Details: Lungs sounds diminished bilaterally. Respirations even, nonlabored. Currently on room air with oxygen saturation 95%. Able to achieve 1500 mL on incentive spirometry - Cardiovascular Details: S1, S2 present. Regular rhythm, sinus rhythm on telemetry. Palpable peripheral pulses bilaterally. No edema present. No calf pain or tenderness noted. - Gastrointestinal Gastrointestinal Comment(s): Abdomen soft, nontender, nondistended. Active bowel sounds present 4 quadrants. Tolerating diet - Genitourinary Genitourinary Comment(s): Continues to void - Integumentary Integumentary Comment(s): Skin is warm and dry with evidence of good perfusion. - Neurologic Neurologic: Present: CNII-XII intact - Musculoskeletal Musculoskeletal: Present: gait normal, strength equal bilaterally - Psychiatric Psychiatric: Present: A&O x's 3, appropriate affect, intact judgment & insight - Allied health notes Allied health notes reviewed: nursing - Labs CBC & Chem 7: 04/30/20 06:37 04/27/20 02:42 Labs: Abnormal Lab Results - Last 24 Hours (Table) 04/30/20 Range/Units 06:37 APTT 50.7 H (22.0-30.0) sec Assessment and Plan Assessment: 1. Coronary artery disease, proximal LAD 99%, non-STEMI this admission, probable ventricular tachycardia prior to admission 2. Systolic heart failure, EF 40-45% with hypokinetic apical septum, mild mitral regurgitation, mild tricuspid regurgitation 3. Hypertension 4. Hyperlipidemia, LDL 136, cholesterol 250, triglycerides 348 5. Remote seizure history 6. Current chronic tobacco dependence with preoperative FEV1 81% of predicted 7. Moderate daily EtOH use 8. Family history of heart disease Plan: 1. Continue aspirin, statin, beta jose, AYAKA inhibitor, IV heparin 2. Encourage incentive spirometry use. 3. Increase activity, ambulate as tolerated 4. CIWA protocol 5. Medical management of other comorbidities per primary care service, cardiology 6. Our plan is for myocardial revascularization with standby extracorporeal circulation with left internal mammary artery and endoscopic vein harvest with Dr. Owens on Apr. This was discussed with Dr. Álvarez by Dr. Owens, as well as with the patient, her daughter and her son-in-law who is a physician in [facility] in [place]. 7. More recommendations to follow Time with Patient: Greater than 30
[2020-04-30] MEDS: MAGNESIUM OXIDE 400 MG TAB PO SCH (09:40)
[2020-04-30] MEDS: CYANOCOBALAMIN 500 MCG TAB PO SCH (09:40)
[2020-04-30] MEDS: ASPIRIN 81 MG PO SCH (09:40)
[2020-04-30] MEDS: FOLIC ACID 1 MG TAB PO SCH (09:40)
[2020-04-30] MEDS: METOPROLOL TARTRATE 25 MG TAB PO SCH ×2 (09:41→21:01)
[2020-04-30] MEDS: THIAMINE 100 MG TAB PO SCH (09:42)
[2020-04-30] MEDS: SPIRONOLACTONE 25 MG TAB PO SCH (09:42)
[2020-04-30] MEDS: PARoxetine 20 MG TAB PO SCH (09:42)
[2020-04-30] MEDS ORDERED: CITALOPRAM HYDROBROMIDE 10 MG TAB PO SCH (11:15)
--- NOTE | 2020-04-30 12:35 | P.PN ---
Subjective Acute non-ST elevated OH Syncope Patient was admitted for evaluation of seizures. Patient is found have elevated troponins it appears like patient had acute myocardial infarction patient is undergoing cardiac catheterization Patient had an MRI which didn't show any acute abnormality but did show some chronic microvascular ischemic changes. EEG was normal. 2-D echo: Was reported as left ventricle wall thickness is normal. Ejection fraction of 40-45%. Apical septal left ventricle wall motion is hypokinetic. 04/26/2020 Patient is currently lying in bed comfortably. No complaints of chest pain or shortness breath. Patient was initially admitted to the hospital with loss of consciousness and possible seizures and elevated troponin level. Patient underwent cardiac catheterization showed critical stenosis involving the proximal LAD with poststenotic dilation and severe tortuosity with significant disease in the diagonal branch. Calcified LAD Mild disease in the right coronary artery. CT surgery was consulted due to severe coronary artery disease and is planning for coronary artery bypass graft. Preoperative testing was initiated. Current medications reviewed. 04/27/2020 Patient is currently lying in bed comfortably. No complaints of chest pain or shortness breath. No nausea vomiting or abdominal pain. Patient was seen by isaak rey and is planning for bedside PFTs today. No other acute overnight issues. Patient is being continued on aspirin, statins, metoprolol and lisinopril, Aldactone and is on heparin drip. Cardiology, pulmonary and CT surgery is on board. 04/28/2020 Patient is currently lying in the bed comfortably. Awake alert oriented x3. No complaints of chest pain. No headache or dizziness or lightheadedness. No nausea vomiting or abdominal pain or diarrhea. Patient is being continued on heparin drip. Plan for cardiac surgery early next week. 2019 Patient is currently awake alert oriented x3. No complaints of chest pain. Or shortness of breath. No nausea vomiting abdominal pain. Currently on room air. Continued on heparin drip. CT surgery and pulmonary is on board. Cardiac surgery to be scheduled next week. No other acute overnight issues. 04/30/2020 Patient will undergo coronary artery bypass grafting on . Patient doesn't have any withdrawals at this time patient was having bilateral flank tenderness x-ray of both hips. Constitutional: Denied any fatigue denied any fever. Cardio vascular: denied any chest pain, palpitations Gastrointestinal denied any nausea vomiting Pulmonary: Denied any shortness of breath cough Neurologic denied any new focal deficits All inpatient medications were reviewed and appropriate changes in these medications as dictated in the interval history and assessment and plan. Objective - Vital Signs Vital signs: Vital Signs Temp 98.4 F 04/30/20 04:00 Pulse 63 04/30/20 04:00 Resp 19 04/30/20 04:00 BP 128/73 04/30/20 04:00 Pulse Ox 95 04/30/20 04:00 Intake & Output 04/29/20 04/30/20 04/30/20 18:59 06:59 18:59 Intake Total 240 240 Balance 240 240 Weight 54.7 kg Intake: Oral 240 240 Other: # Voids 3 1 1 - Exam PHYSICAL EXAMINATION: GENERAL: The patient is alert and oriented x3, not in any acute distress. Well developed, well nourished. HEENT: Pupils are round and equally reacting to light. EOMI. No scleral icterus. No conjunctival pallor. Normocephalic, atraumatic. No pharyngeal erythema. No thyromegaly. CARDIOVASCULAR: S1 and S2 present. No murmurs, rubs, or gallops. PULMONARY: Chest is clear to auscultation, no wheezing or crackles. ABDOMEN: Soft, nontender, nondistended, normoactive bowel sounds. No palpable organomegaly. MUSCULOSKELETAL: No joint swelling or deformity. EXTREMITIES: No cyanosis, clubbing, or pedal edema. NEUROLOGICAL: Gross neurological examination did not reveal any focal deficits. SKIN: No rashes. - Labs CBC & Chem 7: 04/30/20 06:37 04/27/20 02:42 Labs: Abnormal Lab Results - Last 24 Hours (Table) 04/30/20 Range/Units 06:37 APTT 50.7 H (22.0-30.0) sec Assessment and Plan Plan: - Acute non-ST elevated OH status post cardiac catheterization showed severe proximal LAD stenosis. Patient will continued on beta jose and a statin patient will undergo coronary artery bypass grafting on -Acute systolic heart failure. due to acute systolic dysfunction is probably secondary to OH EF 40-45% with hypokinetic apical septum, mild mitral regurgitation, mild tricuspid regurgitation -Acute syncopal episode likely due to acute OH which may have led to seizures. Patient had MRI and EEG was done. EEG was normal. Seen by neurology. Patient declined any antiseizure medications which I believe is reasonable as patient most probably had a syncope related seizure -Leukocytosis reactive from syncope and myocardial infarction. resolved. -Alcohol withdraws: Resolved at this time -Depression -Hypertension -Hyperlipidemia -Ongoing nicotine addiction
--- NOTE | 2020-04-30 14:02 | XR ---
Bilateral hips HISTORY: Bilateral hip pain 2 views of each hip are submitted Mild remodeling present at the femoral heads. Joint spaces relatively maintained. Bone mineralization is normal. No fracture or dislocation. IMPRESSION: Suspect some mild arthropathy, correlate for possible femoral acetabular impingement.
--- NOTE | 2020-04-30 14:59 | P.PN ---
<Maria Teresa Godoy - Last Filed: 04/30/20 14:59> Subjective Progress Note Date: 04/30/20 HISTORY OF PRESENT ILLNESS: Patient examined at the bedside with Dr. Garcia. Patient denies chest pain or pressure. She denies shortness of breath. Her daughter is at the bedside and reports the patient has been having issues with her hip and has been limping. Vital signs stable. Telemetry reveals SR. PHYSICAL EXAM: VITAL SIGNS: Reviewed. GENERAL: Well-developed in no acute distress. NECK: Supple. No JVD or thyromegaly LUNGS: Respirations even and unlabored. Lungs essentially clear to auscultation bilaterally. HEART: Regular rate and rhythm. S1 and S2 heard. EXTREMITIES: Normal range of motion. No clubbing or cyanosis. Peripheral pulses intact. No lower extremity edema ASSESSMENT: NSTEMI Coronary artery disease Hypertension Hyperlipidemia Nicotine dependence Daily alcohol use PLAN: Continue current cardiac medications Patient is scheduled for CABG on , May 03, 2020 Further recommendations pending course Nurse practitioner note has been reviewed by physician. Signing provider agrees with the documented findings, assessment, and plan of care. Objective - Vital Signs Vital signs: Vital Signs Temp 98.4 F 04/30/20 04:00 Pulse 63 04/30/20 04:00 Resp 19 04/30/20 04:00 BP 128/73 04/30/20 04:00 Pulse Ox 95 04/30/20 04:00 Intake & Output 04/29/20 04/30/20 04/30/20 18:59 06:59 18:59 Intake Total 240 240 Balance 240 240 Weight 54.7 kg 54.7 kg Intake: Oral 240 240 Other: # Voids 3 1 1 - Labs CBC & Chem 7: 04/30/20 06:37 04/27/20 02:42 Labs: Abnormal Lab Results - Last 24 Hours (Table) 04/30/20 Range/Units 06:37 APTT 50.7 H (22.0-30.0) sec <Mik Garcia - Last Filed: 04/30/20 15:09> Subjective Agree with assessment and plan as above. Patient with mild ischemic cardiomyopathy EF 40-45% however appears euvolemic. Continue with supportive care until definitive CABG. Monitor hgb, platelets on heparin drip. Continue metorpolol. Objective - Vital Signs Vital signs: Vital Signs Temp 98.4 F 04/30/20 04:00 Pulse 63 04/30/20 04:00 Resp 19 04/30/20 04:00 BP 128/73 04/30/20 04:00 Pulse Ox 95 04/30/20 04:00 Intake & Output 04/29/20 04/30/20 04/30/20 18:59 06:59 18:59 Intake Total 240 240 Balance 240 240 Weight 54.7 kg 54.7 kg Intake: Oral 240 240 Other: # Voids 3 1 1 - Labs CBC & Chem 7: 04/30/20 06:37 04/27/20 02:42 Labs: Abnormal Lab Results - Last 24 Hours (Table) 04/30/20 Range/Units 06:37 APTT 50.7 H (22.0-30.0) sec
--- NOTE | 2020-04-30 15:19 | P.PN ---
Subjective Progress Note Date: 04/30/20 Principal diagnosis: Symptomatic coronary artery disease On 04/27/2020 patient seen in follow-up on selective care unit. Of note patient was admitted to the hospital on 04/24/2020 when she had a witnessed seizure in the local grocery store. Patient does have history of seizures, hypertension, hyperlipidemia, chronic and ongoing tobacco dependence, moderate daily EtOH use, and family history of heart disease. CT of the brain was negative, it did show bilateral ventral lobe atrophy, chest x-ray showed no acute process, echocardiogram revealed severely impaired left ventricular systolic function, and an ejection fraction of 40-45%, mild mitral regurgitation, and mild tricuspid regurgitation, patient had cardiac catheterization which revealed critical stenosis of the proximal LAD of 90% and the diagonal branch. Left main had 20% stenosis, and EF was 35%, with LVEDP of 25. Patient was recommended surgical intervention, CT surgery was consulted, currently patient is undergoing preop evaluation with plans for coronary artery bypass grafting surgery next week. Patient denies any shortness of breath, denies any chest pain currently, she still awaiting a bedside PFT, she's had no acute events overnight. She is not on any maintenance inhalers on outpatient basis, today's labs have been noted, she is on heparin infusion. On 04/30/2020 patient seen in follow-up on selective care unit, she is awake and alert, in no acute distress, no complaints of chest pain, no cords of difficulty breathing, preop FEV1 was 1.98 L or 81% of predicted, lung sounds are clear, she has 0.9 infusing at 10 ML per hour, heparin drip is at weight-based protocol. She has been ambulating about the room, in no acute distress, she remains in normal sinus rhythm she's had no acute events overnight Objective - Vital Signs Vital signs: Vital Signs Temp 98.4 F 04/30/20 04:00 Pulse 63 04/30/20 04:00 Resp 19 04/30/20 04:00 BP 128/73 04/30/20 04:00 Pulse Ox 95 04/30/20 04:00 Intake & Output 04/29/20 04/30/20 04/30/20 18:59 06:59 18:59 Intake Total 240 240 Balance 240 240 Weight 54.7 kg 54.7 kg Intake: Oral 240 240 Other: # Voids 3 1 1 - Exam GENERAL EXAM: Alert, very pleasant, 69-year-old white female, on room air, wi th pulse ox of 95% comfortable in no apparent distress. HEAD: Normocephalic/atraumatic. EYES: Normal reaction of pupils, equal size. Conjunctiva pink, sclera white. NOSE: Clear with pink turbinates. THROAT: No erythema or exudates. NECK: No masses, no JVD, no thyroid enlargement, no adenopathy. CHEST: No chest wall deformity. Symmetrical expansion. LUNGS: Equal air entry with no crackles, wheeze, rhonchi or dullness. CVS: Regular rate and rhythm, normal S1 and S2, no gallops, no murmurs, no rubs ABDOMEN: Soft, nontender. No hepatosplenomegaly, normal bowel sounds, no guarding or rigidity. EXTREMITIES: No clubbing, no edema, no cyanosis, 2+ pulses and upper and lower extremities. MUSCULOSKELETAL: Muscle strength and tone normal. SPINE: No scoliosis or deformity SKIN: No rashes CENTRAL NERVOUS SYSTEM: Alert and oriented -3. No focal deficits, tone is normal in all 4 extremities. PSYCHIATRIC: Alert and oriented -3. Appropriate affect. Intact judgment and insight. - Labs CBC & Chem 7: 04/30/20 06:37 04/27/20 02:42 Labs: Abnormal Lab Results - Last 24 Hours (Table) 04/30/20 Range/Units 06:37 APTT 50.7 H (22.0-30.0) sec Assessment and Plan Plan: Assessment: #1. Coronary artery disease, with anticipated bypass grafting next week, heart catheterization revealed heavily calcified proximal LAD stenosis of 99%, with significant is involving the diagonal branch, left main 20% stenosis, and severely impaired left ventricular systolic function and EF of 30-35% #2. Episode of witnessed seizure #3. History of seizure disorder #4. Hypertension #5. Possible COPD, not oxygen dependent, not on any maintenance inhalers, patient is a long-time chronic and ongoing smoker, preop FEV1 of 81% of predicted #6. Moderate EtOH use, no evidence of delirium tremens Plan: Continue current medical treatment, no chest pain, no shortness of breath, preop FEV1 was noted consistent with mild COPD, vitals been stable overnight, surgery scheduled for I performed a history & physical examination of the patient and discussed their management with my nurse practitioner, Yeimy Jeronimo. I reviewed the nurse practitioner's note and agree with the documented findings and plan of care. Lung sounds are positive for clear breath sounds. The findings and the impression was discussed with the patient. I attest to the documentation by the nurse practitioner. Time with Patient: Less than 30
[2020-04-30] MEDS: HEPARIN SOD,PORK IN 0.45% NACL 25,000 UNIT in 0.45% NACL 1 250ML.BAG IV SCH (16:21)
[2020-04-30] MEDS: MUPIROCIN 2% OINT 22 GM TUBE NASAL SCH ×2 (16:27→21:02)
[2020-04-30] MEDS: ATORVASTATIN 40 MG TAB PO SCH (21:01)
--- NOTE | 2020-05-01 07:17 | P.PN ---
Subjective Progress Note Date: 05/01/20 Principal diagnosis: Coronary artery disease, proximal LAD 99%, non-STEMI this admission, probable ventricular tachycardia prior to admission, systolic heart failure, EF 40-45% with hypokinetic apical septum, mild mitral regurgitation, mild tricuspid regurgitation, hypertension, hyperlipidemia, remote seizure history, current chronic tobacco dependence with preoperative FEV1 81% of predicted, moderate daily EtOH use, family history of heart disease. Patient is currently ambulating in her room in no acute distress. Denies any chest pain or shortness of breath or any other symptomatology. Remains in normal sinus rhythm and hemodynamically stable. No evidence of DTs. No other new concerns, anticipates surgery . Objective - Vital Signs Vital signs: Vital Signs Temp 98.1 F 05/01/20 04:00 Pulse 70 05/01/20 04:00 Resp 17 05/01/20 04:00 BP 122/63 05/01/20 04:00 Pulse Ox 98 05/01/20 04:00 Intake & Output 04/30/20 05/01/20 05/01/20 18:59 06:59 18:59 Intake Total 960 Balance 960 Weight 54.7 kg 54.5 kg Intake: Oral 960 Other: # Voids 1 2 - Constitutional General appearance: Present: cooperative, no acute distress - Respiratory Details: Lungs sounds diminished bilaterally. Respirations even, nonlabored. Currently on room air with oxygen saturation 98%. Able to achieve 1500 mL on incentive spirometry - Cardiovascular Details: S1, S2 present. Regular rhythm, sinus rhythm on telemetry. Palpable peripheral pulses bilaterally. No edema present. No calf pain or tenderness noted. - Gastrointestinal Gastrointestinal Comment(s): Abdomen soft, nontender, nondistended. Active bowel sounds present 4 quadrants. Tolerating diet. Positive bowel movement - Genitourinary Genitourinary Comment(s): Continues to void - Integumentary Integumentary Comment(s): Skin is warm and dry with evidence of good perfusion. - Neurologic Neurologic: Present: CNII-XII intact - Musculoskeletal Musculoskeletal: Present: gait normal, strength equal bilaterally - Psychiatric Psychiatric: Present: A&O x's 3, appropriate affect, intact judgment & insight - Allied health notes Allied health notes reviewed: nursing - Labs CBC & Chem 7: 04/30/20 06:37 04/27/20 02:42 Labs: Abnormal Lab Results - Last 24 Hours (Table) 04/30/20 Range/Units 06:37 APTT 50.7 H (22.0-30.0) sec Assessment and Plan Assessment: 1. Coronary artery disease, proximal LAD 99%, non-STEMI this admission, probable ventricular tachycardia prior to admission 2. Systolic heart failure, EF 40-45% with hypokinetic apical septum, mild mitral regurgitation, mild tricuspid regurgitation 3. Hypertension 4. Hyperlipidemia, LDL 136, cholesterol 250, triglycerides 348 5. Remote seizure history 6. Current chronic tobacco dependence with preoperative FEV1 81% of predicted 7. Moderate daily EtOH use 8. Family history of heart disease Plan: 1. Continue aspirin, statin, beta jose, AYAKA inhibitor, IV heparin 2. Encourage incentive spirometry use. 3. Increase activity, ambulate as tolerated 4. CIWA protocol 5. Medical management of other comorbidities per primary care service, cardiology 6. Our plan is for myocardial revascularization with standby extracorporeal circulation with left internal mammary artery and endoscopic vein harvest with Dr. Owens on Apr. This was discussed with Dr. Álvarez by Dr. Owens, as well as with the patient, her daughter and her son-in-law who is a physician in [facility] in [place]. 7. More recommendations to follow Time with Patient: Greater than 30
[2020-05-01 07:22] LABS: HCT 36.2 % (34.0-46.0); HGB 11.7 gm/dL (11.4-16.0); MCH 31.5 pg (25.0-35.0); MCHC 32.5 g/dL (31.0-37.0); Mean Platelet Volume 9.1; Platelet Count 279 k/uL (150-450); RBC 3.73 m/uL (3.80-5.40); WBC 11.6 k/uL (3.8-10.6)
[2020-05-01 07:43] LABS: African American GFR (CKD) >90 (>60 ml/min/1.73 sqM); Anion Gap 8 mmol/L; Blood Urea Nitrogen 13 mg/dL (7-17); Calcium 8.6 mg/dL (8.4-10.2); Carbon Dioxide 23 mmol/L (22-30); Chloride 107 mmol/L (98-107); Glucose 93 mg/dL (74-99); Non-African American GFR(CKD) >90 (>60 ml/min/1.73 sqM); Potassium 3.8 mmol/L (3.5-5.1); Sodium 138 mmol/L (137-145)
[2020-05-01] MEDS: METOPROLOL TARTRATE 25 MG TAB PO SCH ×2 (08:28→20:35)
[2020-05-01] MEDS: MAGNESIUM OXIDE 400 MG TAB PO SCH (08:28)
[2020-05-01] MEDS: ASPIRIN 81 MG PO SCH (08:28)
[2020-05-01] MEDS: PARoxetine 20 MG TAB PO SCH (08:28)
[2020-05-01] MEDS: MUPIROCIN 2% OINT 22 GM TUBE NASAL SCH ×2 (08:29→20:36)
[2020-05-01] MEDS: CYANOCOBALAMIN 500 MCG TAB PO SCH (08:29)
[2020-05-01] MEDS: FOLIC ACID 1 MG TAB PO SCH (08:29)
[2020-05-01] MEDS: THIAMINE 100 MG TAB PO SCH (08:29)
[2020-05-01] MEDS: SPIRONOLACTONE 25 MG TAB PO SCH (08:29)
--- NOTE | 2020-05-01 13:36 | P.PN ---
Subjective Progress Note Date: 05/01/20 On 05/01/2020, the patient is still awaiting her coronary artery bypass surgery. The patient is fairly of any chest pain. She is hemodynamically stable. X-ray of the hip was noted. There is some limited arthritis. There is no difficulty with mobility at this point in time. No fever. No chills. Using incentive spirometer. Objective - Vital Signs Vital signs: Vital Signs Temp 97.6 F 05/01/20 08:00 Pulse 75 05/01/20 08:00 Resp 16 05/01/20 08:00 BP 115/76 05/01/20 08:00 Pulse Ox 94 L 05/01/20 08:00 Intake & Output 04/30/20 05/01/20 05/01/20 18:59 06:59 18:59 Intake Total 960 Balance 960 Weight 54.7 kg 54.5 kg Intake: Oral 960 Other: # Voids 1 2 1 - Exam The patient appeared well nourished and normally developed. Vital signs as do cumented. Head exam is unremarkable. No scleral icterus or corneal arcus noted. Neck is without jugular venous distension, thyromegaly, or carotid bruits. Carotid upstrokes are brisk bilaterally. Lungs are clear to auscultation and percussion. Cardiac exam reveals the PMI to be normally sized and situated. Rhythm is regular. First and second heart sounds normal. No murmurs, rubs or gallops. Abdominal exam reveals normal bowel sounds, no masses, no organomegaly and no aortic enlargement. Extremities are nonedematous and both femoral and pedal pulses are normal. - Labs CBC & Chem 7: 05/01/20 06:33 05/01/20 06:33 Labs: Abnormal Lab Results - Last 24 Hours (Table) 05/01/20 05/01/20 Range/Units 06:33 06:33 WBC 11.6 H (3.8-10.6) k/uL RBC 3.73 L (3.80-5.40) m/uL APTT 50.0 H (22.0-30.0) sec Assessment and Plan Plan: #1. Coronary artery disease, with anticipated bypass grafting next week, heart catheterization revealed heavily calcified proximal LAD stenosis of 99%, with significant is involving the diagonal branch, left main 20% stenosis, and sever wei impaired left ventricular systolic function and EF of 30-35% #2. Episode of witnessed seizure #3. History of seizure disorder #4. Hypertension #5. Possible COPD, not oxygen dependent, not on any maintenance inhalers, patient is a long-time chronic and ongoing smoker, preop FEV1 of 81% of predicted #6. Moderate EtOH use, no evidence of delirium tremens Plan The patient is hemodynamically stable The patient is to have any chest pain Continue using incentive spirometer Awaiting surgery which involved a coronary artery bypass surgery on 05/03/2020. Will be involved in her care postop and manage the mechanical ventilator management for any pulmonary issues or complications. Overall pulmonary risks/ complications risk is low.
--- NOTE | 2020-05-01 13:40 | P.PN ---
Subjective Progress Note Date: 05/01/20 HISTORY OF PRESENT ILLNESS: Patient examined at the bedside with Dr. Garcia. Patient denies chest pain or pressure. She denies shortness of breath. Vital signs stable. Telemetry reveals SR. Hip x-ray performed yesterday negative for fracture or dislocation. PHYSICAL EXAM: VITAL SIGNS: Reviewed. GENERAL: Well-developed in no acute distress. NECK: Supple. No JVD or thyromegaly LUNGS: Respirations even and unlabored. Lungs essentially clear to auscultation bilaterally. HEART: Regular rate and rhythm. S1 and S2 heard. EXTREMITIES: Normal range of motion. No clubbing or cyanosis. Peripheral pulses intact. No lower extremity edema ASSESSMENT: NSTEMI Coronary artery disease Hypertension Hyperlipidemia Nicotine dependence Daily alcohol use PLAN: Continue current cardiac medications Patient is scheduled for CABG on April Further recommendations pending course Nurse practitioner note has been reviewed by physician. Signing provider agrees with the documented findings, assessment, and plan of care. Objective - Vital Signs Vital signs: Vital Signs Temp 97.6 F 05/01/20 08:00 Pulse 75 05/01/20 08:00 Resp 16 05/01/20 08:00 BP 115/76 05/01/20 08:00 Pulse Ox 94 L 05/01/20 08:00 Intake & Output 04/30/20 05/01/20 05/01/20 18:59 06:59 18:59 Intake Total 960 Balance 960 Weight 54.7 kg 54.5 kg Intake: Oral 960 Other: # Voids 1 2 1 - Labs CBC & Chem 7: 05/01/20 06:33 05/01/20 06:33 Labs: Abnormal Lab Results - Last 24 Hours (Table) 05/01/20 05/01/20 Range/Units 06:33 06:33 WBC 11.6 H (3.8-10.6) k/uL RBC 3.73 L (3.80-5.40) m/uL APTT 50.0 H (22.0-30.0) sec
--- NOTE | 2020-05-01 14:45 | P.PN ---
Subjective Acute non-ST elevated MA Syncope Patient was admitted for evaluation of seizures. Patient is found have elevated troponins it appears like patient had acute myocardial infarction patient is undergoing cardiac catheterization Patient had an MRI which didn't show any acute abnormality but did show some chronic microvascular ischemic changes. EEG was normal. 2-D echo: Was reported as left ventricle wall thickness is normal. Ejection fraction of 40-45%. Apical septal left ventricle wall motion is hypokinetic. 04/26/2020 Patient is currently lying in bed comfortably. No complaints of chest pain or shortness breath. Patient was initially admitted to the hospital with loss of consciousness and possible seizures and elevated troponin level. Patient underwent cardiac catheterization showed critical stenosis involving the proximal LAD with poststenotic dilation and severe tortuosity with significant disease in the diagonal branch. Calcified LAD Mild disease in the right coronary artery. CT surgery was consulted due to severe coronary artery disease and is planning for coronary artery bypass graft. Preoperative testing was initiated. Current medications reviewed. 04/27/2020 Patient is currently lying in bed comfortably. No complaints of chest pain or shortness breath. No nausea vomiting or abdominal pain. Patient was seen by isaak rey and is planning for bedside PFTs today. No other acute overnight issues. Patient is being continued on aspirin, statins, metoprolol and lisinopril, Aldactone and is on heparin drip. Cardiology, pulmonary and CT surgery is on board. 04/28/2020 Patient is currently lying in the bed comfortably. Awake alert oriented x3. No complaints of chest pain. No headache or dizziness or lightheadedness. No nausea vomiting or abdominal pain or diarrhea. Patient is being continued on heparin drip. Plan for cardiac surgery early next week. 2019 Patient is currently awake alert oriented x3. No complaints of chest pain. Or shortness of breath. No nausea vomiting abdominal pain. Currently on room air. Continued on heparin drip. CT surgery and pulmonary is on board. Cardiac surgery to be scheduled next week. No other acute overnight issues. 04/30/2020 Patient will undergo coronary artery bypass grafting on . Patient doesn't have any withdrawals at this time patient was having bilateral flank tenderness x-ray of both hips. 05/01/2020 X-ray showed bilateral hip arthropathy which need to be addressed as an outpatient and patient will benefit from physical therapy. Constitutional: Denied any fatigue denied any fever. Cardio vascular: denied any chest pain, palpitations Gastrointestinal denied any nausea vomiting Pulmonary: Denied any shortness of breath cough Neurologic denied any new focal deficits All inpatient medications were reviewed and appropriate changes in these medications as dictated in the interval history and assessment and plan. Objective - Vital Signs Vital signs: Vital Signs Temp 97.6 F 05/01/20 08:00 Pulse 75 05/01/20 08:00 Resp 16 05/01/20 08:00 BP 115/76 05/01/20 08:00 Pulse Ox 94 L 05/01/20 08:00 Intake & Output 04/30/20 05/01/20 05/01/20 18:59 06:59 18:59 Intake Total 960 Balance 960 Weight 54.7 kg 54.5 kg Intake: Oral 960 Other: # Voids 1 2 1 - Exam PHYSICAL EXAMINATION: GENERAL: The patient is alert and oriented x3, not in any acute distress. Well developed, well nourished. HEENT: Pupils are round and equally reacting to light. EOMI. No scleral icterus. No conjunctival pallor. Normocephalic, atraumatic. No pharyngeal erythema. No thyromegaly. CARDIOVASCULAR: S1 and S2 present. No murmurs, rubs, or gallops. PULMONARY: Chest is clear to auscultation, no wheezing or crackles. ABDOMEN: Soft, nontender, nondistended, normoactive bowel sounds. No palpable organomegaly. MUSCULOSKELETAL: No joint swelling or deformity. EXTREMITIES: No cyanosis, clubbing, or pedal edema. NEUROLOGICAL: Gross neurological examination did not reveal any focal deficits. SKIN: No rashes. - Labs CBC & Chem 7: 05/01/20 06:33 05/01/20 06:33 Labs: Abnormal Lab Results - Last 24 Hours (Table) 05/01/20 05/01/20 Range/Units 06:33 06:33 WBC 11.6 H (3.8-10.6) k/uL RBC 3.73 L (3.80-5.40) m/uL APTT 50.0 H (22.0-30.0) sec Assessment and Plan Plan: - Acute non-ST elevated MA status post cardiac catheterization showed severe pr oximal LAD stenosis. Patient will continued on beta jose and a statin patient will undergo coron scot artery bypass grafting on Thursda -Acute systolic heart failure. due to acute systolic dysfunction is probably secondary to MA EF 40-45% with hypokinetic apical septum, mild mitral regurgitation, mild tricuspid regurgitation -Acute syncopal episode likely due to acute MA which may have led to seizures. Patient had MRI and EEG was done. EEG was normal. Seen by neurology. Patient declined any antiseizure medications which I believe is reasonable as patient most probably had a syncope related seizure -Bilateral hip arthropathy: Will benefit from physical therapy as an outpatient -Leukocytosis reactive from syncope and myocardial infarction. resolved. -Alcohol withdraws: Resolved at this time -Depression -Hypertension -Hyperlipidemia -Ongoing nicotine addiction
[2020-05-01] MEDS ORDERED: MD COMMUNICATION TO PHARMACY 1 EACH MISC PO ONE (16:05)
[2020-05-01] MEDS: HEPARIN SOD,PORK IN 0.45% NACL 25,000 UNIT in 0.45% NACL 1 250ML.BAG IV SCH (19:23)
[2020-05-01] MEDS: ACETAMINOPHEN TAB 325 MG TAB PO PRN (19:49)
[2020-05-01] MEDS: ATORVASTATIN 40 MG TAB PO SCH (20:35)
[2020-05-02] MEDS: ACETAMINOPHEN TAB 325 MG TAB PO PRN ×4 (02:27→20:11)
[2020-05-02 06:55] LABS: Basophils % (A) 0 %; Eosinophils # (A) 0.3 k/uL (0-0.7); Eosinophils % (A) 2 %; HCT 36.9 % (34.0-46.0); Lymphocytes # (A) 1.1 k/uL (1.0-4.8); Lymphocytes % (A) 9 %; MCH 31.8 pg (25.0-35.0); MCHC 32.5 g/dL (31.0-37.0); MCV 98.1 fL (80.0-100.0); Mean Platelet Volume 8.7; Monocytes # (A) 0.9 k/uL (0-1.0); Monocytes % (A) 7 %; Neutrophils # (A) 9.5 k/uL (1.3-7.7); Neutrophils % (A) 79 %; Platelet Count 337 k/uL (150-450); RBC 3.76 m/uL (3.80-5.40); RDW 13.7 % (11.5-15.5)
[2020-05-02 07:21] LABS: ALT 23 U/L (4-34); AST 37 U/L (14-36); African American GFR (CKD) >90 (>60 ml/min/1.73 sqM); Albumin 3.7 g/dL (3.5-5.0); Alkaline Phosphatase 62 U/L (38-126); Anion Gap 9 mmol/L; Blood Urea Nitrogen 14 mg/dL (7-17); Calcium 8.9 mg/dL (8.4-10.2); Carbon Dioxide 22 mmol/L (22-30); Chloride 106 mmol/L (98-107); Glucose 105 mg/dL (74-99); Magnesium 1.8 mg/dL (1.6-2.3); Non-African American GFR(CKD) >90 (>60 ml/min/1.73 sqM); Potassium 3.9 mmol/L (3.5-5.1); Sodium 137 mmol/L (137-145); Total Bilirubin 1.1 mg/dL (0.2-1.3); Total Protein 6.5 g/dL (6.3-8.2)
--- NOTE | 2020-05-02 08:11 | XR ---
EXAMINATION TYPE: XR chest 2V DATE OF EXAM: 05/02/2020 CLINICAL HISTORY: Preoperative for open heart surgery TECHNIQUE: Frontal and lateral views of the chest are obtained. COMPARISON: 04/24/2020 chest radiograph FINDINGS: The cardiomediastinal silhouette is within normal limits for size. Pulmonary vasculature i s normal. There is no focal air space opacity, pleural effusion, or pneumothorax seen. The osseous st ructures are intact. IMPRESSION: No acute cardiopulmonary process.
[2020-05-02] MEDS: MAGNESIUM OXIDE 400 MG TAB PO SCH (08:35)
[2020-05-02] MEDS: SPIRONOLACTONE 25 MG TAB PO SCH (08:35)
[2020-05-02] MEDS: CYANOCOBALAMIN 500 MCG TAB PO SCH (08:35)
[2020-05-02] MEDS: THIAMINE 100 MG TAB PO SCH (08:35)
[2020-05-02] MEDS: PARoxetine 20 MG TAB PO SCH (08:36)
[2020-05-02] MEDS: ASPIRIN 81 MG PO SCH (08:36)
[2020-05-02] MEDS: METOPROLOL TARTRATE 25 MG TAB PO SCH ×2 (08:36→20:11)
[2020-05-02] MEDS: FOLIC ACID 1 MG TAB PO SCH (08:36)
[2020-05-02] MEDS: MUPIROCIN 2% OINT 22 GM TUBE NASAL SCH ×2 (08:43→21:00)
--- NOTE | 2020-05-02 09:29 | P.PN ---
Subjective Progress Note Date: 05/02/20 Principal diagnosis: Coronary artery disease, proximal LAD 99%, non-STEMI this admission with troponins as high as 1.350, probable ventricular tachycardia prior to admission, severely impaired left ventricular systolic function and EF of 30-35%, mild mitral valve regurgitation, mild tricuspid valve regurgitation, hypertension, hyperlipidemia, remote seizure history, current chronic tobacco dependence with preoperative FEV1 81% of predicted value, moderate daily EtOH use, family history of heart disease. The patient was seen in follow-up today 05/02/2020 at her bedside on the cardiac stepdown unit. Currently she is sitting up to the bedside chair, she is awake, alert and oriented 3. Denies any complaints of chest pain or shortness of breath, remains hemodynamically stable and is currently on no inotropic or pressor support. Heparin drip remains infusing per protocol. Oxygen saturations are 94% on room air and she is achieving 2000 mL with encouragement on her incentive spirometry. She is complaining of some hip discomfort which is radiating from her pelvic area down the front of her legs and thigh area. An x- ray of her bilateral hips were completed yesterday which showed some mild arthropathy, and possible femoral acetabular impingement. Preoperative teaching has been reinforced with the patient and her questions were answered to the best my ability. Objective - Vital Signs Vital signs: Vital Signs Temp 97.7 F 05/02/20 08:00 Pulse 82 05/02/20 08:00 Resp 18 05/02/20 08:00 BP 129/76 05/02/20 08:00 Pulse Ox 95 05/02/20 08:00 Intake & Output 05/01/20 05/02/20 05/02/20 18:59 06:59 18:59 Intake Total 660 360 Balance 660 360 Weight 55.2 kg Intake: IV 180 0.9 180 Oral 480 360 Other: # Voids 1 1 - Constitutional General appearance: Present: cooperative, no acute distress - EENT Eyes: Present: PERRLA, dentition normal, normal appearance. Absent: scleral icterus ENT: Present: hearing grossly normal - Neck Details: neck is supple, no JVD, no lymphadenopathy. - Respiratory Details: Lungs sounds essentially clear throughout. Respirations are symmetrical and nonlabored. No wheezes, rhonchi or crackles. Oxygen aturations 94% on room air and she is achieving 2000 mL on her incentive spirometry. - Cardiovascular Details: Regular rhythm and rate. S1 and S2 present, negative for S3, gallop or murmur. Remote telemetry showing normal sinus rhythm heart rate 88 BPM. No edema present. - Gastrointestinal Gastrointestinal Comment(s): Abdomen is soft, nontender and nondistended. Active bowel sounds present in all 4 abdominal quadrants. No guarding or rigidity. No organomegaly appreciated. Tolerating oral intake. - Genitourinary Genitourinary Comment(s): Continues to void. - Integumentary Integumentary Comment(s): Skin is warm and dry. No clubbing or cyanosis is present. No rash or abnormal pigmentation is present. - Neurologic Neurologic: Present: CNII-XII intact - Musculoskeletal Musculoskeletal: Present: gait normal, strength equal bilaterally - Psychiatric Psychiatric: Present: A&O x's 3, appropriate affect, intact judgment & insight - Allied health notes Allied health notes reviewed: nursing - Labs CBC & Chem 7: 05/02/20 06:41 05/02/20 06:41 Labs: Abnormal Lab Results - Last 24 Hours (Table) 05/02/20 05/02/20 05/02/20 Range/Units 06:41 06:41 06:41 WBC 12.0 H (3.8-10.6) k/uL RBC 3.76 L (3.80-5.40) m/uL Neutrophils # 9.5 H (1.3-7.7) k/uL APTT (22.0-30.0) sec Glucose 105 H (74-99) mg/dL AST 37 H (14-36) U/L Crossmatch See Detail 05/02/20 Range/Units 06:41 WBC (3.8-10.6) k/uL RBC (3.80-5.40) m/uL Neutrophils # (1.3-7.7) k/uL APTT 45.6 H (22.0-30.0) sec Glucose (74-99) mg/dL AST (14-36) U/L Crossmatch - Imaging and Cardiology Chest x-ray: report reviewed, image reviewed Assessment and Plan Assessment: 1. Coronary artery disease, proximal LAD 99%, non-STEMI this admission, probable ventricular tachycardia prior to admission 2. Severely impaired left ventricular systolic function with an EF of 30-35%, mild mitral valve regurgitation, mild tricuspid valve regurgitation 3. Hypertension 4. Hyperlipidemia, LDL 136, cholesterol 250, triglycerides 348 5. Remote seizure history 6. Current chronic tobacco dependence with a preoperative FEV1 81% of predicted value 7. Moderate daily EtOH use 8. Family history of heart disease Plan: 1. Continue aspirin, statin, beta jose, AYAKA inhibitor, IV heparin. Discontinue heparin drip at 4 AM on 05/03/2020. 2. Encourage incentive spirometry use 10 times every hour while awake. 3. Increase activity, ambulate as tolerated. Out of bed for all meals. 4. Continue CIWA protocol. 5. Medical management of other comorbidities per primary care service, cardiology. 6. She is scheduled for myocardial revascularization with standby extracorporeal circulation with left internal mammary artery and endoscopic vein harvest with Dr. Owens tomorrow Apr. 7. Send urinalysis with reflex culture due to her WBC count trending up, today it is 12.0. The patient remains afebrile. 8. Discussed with the patient the importance of smoking cessation. 9. Nothing by mouth after midnight. 10. More recommendations to follow based on patient's clinical course. Time with Patient: Greater than 30
[2020-05-02] MEDS ORDERED: HYDROcodone/APAP 5-325MG 1 EACH TAB PO PRN (10:28)
[2020-05-02 11:04] LABS: Appearance,Urine Clear (Clear); Bilirubin,Urine Negative (Negative); Blood,Urine Small (Negative); Color,Urine Light Yellow; Glucose,Urine (UA) Negative (Negative); Ketones,Urine Negative (Negative); Leukocyte Esterase,Urine Negative (Negative); Nitrite,Urine Negative (Negative); PH, Urine 6.5 (5.0-8.0); Protein,Urine Negative (Negative); RBC,Urine 1 /hpf (0-5); Specific Gravity,Urine 1.004 (1.001-1.035); Squamous Epithelial Cell,Urine 1 /hpf (0-4); Urobilinogen,Urine <2.0 mg/dL (<2.0); WBC,Urine <1 /hpf (0-5)
--- NOTE | 2020-05-02 11:28 | P.PN ---
Subjective Acute non-ST elevated MT Syncope Patient was admitted for evaluation of seizures. Patient is found have elevated troponins it appears like patient had acute myocardial infarction patient is undergoing cardiac catheterization Patient had an MRI which didn't show any acute abnormality but did show some chronic microvascular ischemic changes. EEG was normal. 2-D echo: Was reported as left ventricle wall thickness is normal. Ejection fraction of 40-45%. Apical septal left ventricle wall motion is hypokinetic. 04/26/2020 Patient is currently lying in bed comfortably. No complaints of chest pain or shortness breath. Patient was initially admitted to the hospital with loss of consciousness and possible seizures and elevated troponin level. Patient underwent cardiac catheterization showed critical stenosis involving the proximal LAD with poststenotic dilation and severe tortuosity with significant disease in the diagonal branch. Calcified LAD Mild disease in the right coronary artery. CT surgery was consulted due to severe coronary artery disease and is planning for coronary artery bypass graft. Preoperative testing was initiated. Current medications reviewed. 04/27/2020 Patient is currently lying in bed comfortably. No complaints of chest pain or shortness breath. No nausea vomiting or abdominal pain. Patient was seen by isaak rey and is planning for bedside PFTs today. No other acute overnight issues. Patient is being continued on aspirin, statins, metoprolol and lisinopril, Aldactone and is on heparin drip. Cardiology, pulmonary and CT surgery is on board. 04/28/2020 Patient is currently lying in the bed comfortably. Awake alert oriented x3. No complaints of chest pain. No headache or dizziness or lightheadedness. No nausea vomiting or abdominal pain or diarrhea. Patient is being continued on heparin drip. Plan for cardiac surgery early next week. 2019 Patient is currently awake alert oriented x3. No complaints of chest pain. Or shortness of breath. No nausea vomiting abdominal pain. Currently on room air. Continued on heparin drip. CT surgery and pulmonary is on board. Cardiac surgery to be scheduled next week. No other acute overnight issues. 04/30/2020 Patient will undergo coronary artery bypass grafting on . Patient doesn't have any withdrawals at this time patient was having bilateral flank tenderness x-ray of both hips. 05/01/2020 X-ray showed bilateral hip arthropathy which need to be addressed as an outpatient and patient will benefit from physical therapy. 05/02/2020 Patient is comparing of a painful in the back which is radiating to back of the thyroid towards the front bilaterally. Patient appears to have either sciatica her degenerative lumbar spine disease. Patient pain significant improved with Tylenol which will be continued and also had [place] for pain on as-needed basis Constitutional: Denied any fatigue denied any fever. Cardio vascular: denied any chest pain, palpitations Gastrointestinal denied any nausea vomiting Pulmonary: Denied any shortness of breath cough Neurologic denied any new focal deficits All inpatient medications were reviewed and appropriate changes in these medications as dictated in the interval history and assessment and plan. Objective - Vital Signs Vital signs: Vital Signs Temp 97.7 F 05/02/20 08:00 Pulse 82 05/02/20 08:00 Resp 18 05/02/20 08:00 BP 129/76 05/02/20 08:00 Pulse Ox 95 05/02/20 08:00 Intake & Output 05/01/20 05/02/20 05/02/20 18:59 06:59 18:59 Intake Total 660 360 240 Balance 660 360 240 Weight 55.2 kg Intake: IV 180 0.9 180 Oral 480 360 240 Other: # Voids 1 1 1 - Exam PHYSICAL EXAMINATION: GENERAL: The patient is alert and oriented x3, not in any acute distress. Well developed, well nourished. HEENT: Pupils are round and equally reacting to light. EOMI. No scleral icterus. No conjunctival pallor. Normocephalic, atraumatic. No pharyngeal erythema. No thyromegaly. CARDIOVASCULAR: S1 and S2 present. No murmurs, rubs, or gallops. PULMONARY: Chest is clear to auscultation, no wheezing or crackles. ABDOMEN: Soft, nontender, nondistended, normoactive bowel sounds. No palpable organomegaly. MUSCULOSKELETAL: No joint swelling or deformity. EXTREMITIES: No cyanosis, clubbing, or pedal edema. NEUROLOGICAL: Gross neurological examination did not reveal any focal deficits. SKIN: No rashes. - Labs CBC & Chem 7: 05/02/20 06:41 05/02/20 06:41 Labs: Abnormal Lab Results - Last 24 Hours (Table) 05/02/20 05/02/20 05/02/20 Range/Units 06:41 06:41 06:41 WBC 12.0 H (3.8-10.6) k/uL RBC 3.76 L (3.80-5.40) m/uL Neutrophils # 9.5 H (1.3-7.7) k/uL APTT (22.0-30.0) sec Glucose 105 H (74-99) mg/dL AST 37 H (14-36) U/L Urine Blood (Negative) Crossmatch See Detail 05/02/20 05/02/20 Range/Units 06:41 10:35 WBC (3.8-10.6) k/uL RBC (3.80-5.40) m/uL Neutrophils # (1.3-7.7) k/uL APTT 45.6 H (22.0-30.0) sec Glucose (74-99) mg/dL AST (14-36) U/L Urine Blood Small H (Negative) Crossmatch Assessment and Plan Plan: - Acute non-ST elevated MT status post cardiac catheterization showed severe proximal LAD stenosis. Patient will continued on beta jose and a statin patient will undergo coronary artery bypass grafting on -Acute systolic heart failure. due to acute systolic dysfunction is probably secondary to MT EF 40-45% with hypokinetic apical septum, mild mitral regurgitation, mild tricuspid regurgitation -Acute syncopal episode likely due to acute MT which may have led to seizures. Patient had MRI and EEG was done. EEG was normal. Seen by neurology. Patient declined any antiseizure medications which I believe is reasonable as patient most probably had a syncope related seizure -Bilateral hip arthropathy: Will benefit from physical therapy as an outpatient -Leukocytosis reactive from syncope and myocardial infarction. resolved. -Alcohol withdraws: Resolved at this time -Depression -Hypertension -Hyperlipidemia -Ongoing nicotine addiction -Chronic low back pain Tylenol as mentioned above
--- NOTE | 2020-05-02 13:00 | P.PN ---
Subjective Progress Note Date: 05/02/20 Principal diagnosis: Symptomatic coronary artery disease On 04/27/2020 patient seen in follow-up on selective care unit. Of note patient was admitted to the hospital on 04/24/2020 when she had a witnessed seizure in the local grocery store. Patient does have history of seizures, hypertension, hyperlipidemia, chronic and ongoing tobacco dependence, moderate daily EtOH use, and family history of heart disease. CT of the brain was negative, it did show bilateral ventral lobe atrophy, chest x-ray showed no acute process, echocardiogram revealed severely impaired left ventricular systolic function, and an ejection fraction of 40-45%, mild mitral regurgitation, and mild tricuspid regurgitation, patient had cardiac catheterization which revealed critical stenosis of the proximal LAD of 90% and the diagonal branch. Left main had 20% stenosis, and EF was 35%, with LVEDP of 25. Patient was recommended surgical intervention, CT surgery was consulted, currently patient is undergoing preop evaluation with plans for coronary artery bypass grafting surgery next week. Patient denies any shortness of breath, denies any chest pain currently, she still awaiting a bedside PFT, she's had no acute events overnight. She is not on any maintenance inhalers on outpatient basis, today's labs have been noted, she is on heparin infusion. On 04/30/2020 patient seen in follow-up on selective care unit, she is awake and alert, in no acute distress, no complaints of chest pain, no cords of difficulty breathing, preop FEV1 was 1.98 L or 81% of predicted, lung sounds are clear, she has 0.9 infusing at 10 ML per hour, heparin drip is at weight-based protocol. She has been ambulating about the room, in no acute distress, she remains in normal sinus rhythm she's had no acute events overnight On 05/02/2020 patient seen in follow-up on selective care unit, no complaint of chest pain, no shortness of breath, she is tolerating ambulation she does have some bilateral hip pain, which was keeping her awake last night, she received some Tylenol with relief, and was finally able to go to sleep. Vital signs have been stable, no acute events overnight, lung sounds are clear, she remains on heparin infusion, he is working on the incentive spirometer, she is achieving 2000 on the today. Objective - Vital Signs Vital signs: Vital Signs Temp 97.4 F L 05/02/20 12:00 Pulse 62 05/02/20 12:00 Resp 17 05/02/20 12:00 BP 121/72 05/02/20 12:00 Pulse Ox 98 05/02/20 12:00 Intake & Output 05/01/20 05/02/20 05/02/20 18:59 06:59 18:59 Intake Total 660 360 240 Balance 660 360 240 Weight 55.2 kg Intake: IV 180 0.9 180 Oral 480 360 240 Other: # Voids 1 1 1 - Exam GENERAL EXAM: Alert, very pleasant, 69-year-old white female, on room air, with pulse ox of 98% comfortable in no apparent distress. HEAD: Normocephalic/atraumatic. EYES: Normal reaction of pupils, equal size. Conjunctiva pink, sclera white. NOSE: Clear with pink turbinates. THROAT: No erythema or exudates. NECK: No masses, no JVD, no thyroid enlargement, no adenopathy. CHEST: No chest wall deformity. Symmetrical expansion. LUNGS: Equal air entry with no crackles, wheeze, rhonchi or dullness. CVS: Regular rate and rhythm, normal S1 and S2, no gallops, no murmurs, no rubs ABDOMEN: Soft, nontender. No hepatosplenomegaly, normal bowel sounds, no guarding or rigidity. EXTREMITIES: No clubbing, no edema, no cyanosis, 2+ pulses and upper and lower extremities. MUSCULOSKELETAL: Muscle strength and tone normal. SPINE: No scoliosis or deformity SKIN: No rashes CENTRAL NERVOUS SYSTEM: Alert and oriented -3. No focal deficits, tone is normal in all 4 extremities. PSYCHIATRIC: Alert and oriented -3. Appropriate affect. Intact judgment and insight. - Labs CBC & Chem 7: 05/02/20 06:41 05/02/20 06:41 Labs: Abnormal Lab Results - Last 24 Hours (Table) 05/02/20 05/02/20 05/02/20 Range/Units 06:41 06:41 06:41 WBC 12.0 H (3.8-10.6) k/uL RBC 3.76 L (3.80-5.40) m/uL Neutrophils # 9.5 H (1.3-7.7) k/uL APTT (22.0-30.0) sec Glucose 105 H (74-99) mg/dL AST 37 H (14-36) U/L Urine Blood (Negative) Crossmatch See Detail 05/02/20 05/02/20 Range/Units 06:41 10:35 WBC (3.8-10.6) k/uL RBC (3.80-5.40) m/uL Neutrophils # (1.3-7.7) k/uL APTT 45.6 H (22.0-30.0) sec Glucose (74-99) mg/dL AST (14-36) U/L Urine Blood Small H (Negative) Crossmatch Assessment and Plan Plan: Assessment: #1. Coronary artery disease, with anticipated bypass grafting next week, heart catheterization revealed heavily calcified proximal LAD stenosis of 99%, with significant is involving the diagonal branch, left main 20% stenosis, and severely impaired left ventricular systolic function and EF of 30-35% #2. Episode of witnessed seizure #3. History of seizure disorder #4. Hypertension #5. Possible COPD, not oxygen dependent, not on any maintenance inhalers, patient is a long-time chronic and ongoing smoker, preop FEV1 of 81% of predicted #6. Moderate EtOH use, no evidence of delirium tremens #7. Bilateral hip discomfort, hip x-ray was obtained showing some mild remodeling at the femoral heads, no fracture or dislocation Plan: Continue current medical treatment, encourage deep breathing and coughing, no acute events overnight, no chest pain or shortness of breath, awaiting surgery tomorrow on 05/03/2020. We'll follow in the intensive care unit in the postoperative period I performed a history & physical examination of the patient and discussed their management with my nurse practitioner, Yeimy Jeronimo. I reviewed the nurse practitioner's note and agree with the documented findings and plan of care. Lung sounds are positive for clear breath sounds. The findings and the impression was discussed with the patient. I attest to the documentation by the nurse practitioner. Time with Patient: Less than 30
--- NOTE | 2020-05-02 13:13 | P.PN ---
Subjective Progress Note Date: 05/02/20 HISTORY OF PRESENT ILLNESS: Patient examined at the bedside with Dr. Garcia. Patient denies chest pain or pressure. She denies shortness of breath. Vital signs stable. Telemetry reveals SR. PHYSICAL EXAM: VITAL SIGNS: Reviewed. GENERAL: Well-developed in no acute distress. NECK: Supple. No JVD or thyromegaly LUNGS: Respirations even and unlabored. Lungs essentially clear to auscultation bilaterally. HEART: Regular rate and rhythm. S1 and S2 heard. EXTREMITIES: Normal range of motion. No clubbing or cyanosis. Peripheral pulses intact. No lower extremity edema ASSESSMENT: NSTEMI Coronary artery disease Hypertension Hyperlipidemia Nicotine dependence Daily alcohol use PLAN: Continue current cardiac medications Patient is scheduled for CABG on April Further recommendations pending course Nurse practitioner note has been reviewed by physician. Signing provider agrees with the documented findings, assessment, and plan of care. Objective - Vital Signs Vital signs: Vital Signs Temp 97.4 F L 05/02/20 12:00 Pulse 62 05/02/20 12:00 Resp 17 05/02/20 12:00 BP 121/72 05/02/20 12:00 Pulse Ox 98 05/02/20 12:00 Intake & Output 05/01/20 05/02/20 05/02/20 18:59 06:59 18:59 Intake Total 660 360 240 Balance 660 360 240 Weight 55.2 kg Intake: IV 180 0.9 180 Oral 480 360 240 Other: # Voids 1 1 1 - Labs CBC & Chem 7: 05/02/20 06:41 05/02/20 06:41 Labs: Abnormal Lab Results - Last 24 Hours (Table) 05/02/20 05/02/20 05/02/20 Range/Units 06:41 06:41 06:41 WBC 12.0 H (3.8-10.6) k/uL RBC 3.76 L (3.80-5.40) m/uL Neutrophils # 9.5 H (1.3-7.7) k/uL APTT (22.0-30.0) sec Glucose 105 H (74-99) mg/dL AST 37 H (14-36) U/L Urine Blood (Negative) Crossmatch See Detail 05/02/20 05/02/20 Range/Units 06:41 10:35 WBC (3.8-10.6) k/uL RBC (3.80-5.40) m/uL Neutrophils # (1.3-7.7) k/uL APTT 45.6 H (22.0-30.0) sec Glucose (74-99) mg/dL AST (14-36) U/L Urine Blood Small H (Negative) Crossmatch
[2020-05-02] MEDS: HEPARIN SOD,PORK IN 0.45% NACL 25,000 UNIT in 0.45% NACL 1 250ML.BAG IV SCH (15:17)
[2020-05-02] MEDS ORDERED: LIDOCAINE 1% (10MG/ML) FOR IV START INTRADERMA PRN (18:07)
[2020-05-02] MEDS ORDERED: LACTATED RINGERS 1,000 ML IV SCH (18:15)
[2020-05-02] MEDS: ATORVASTATIN 40 MG TAB PO SCH (20:11)
[2020-05-03] MEDS: ACETAMINOPHEN TAB 325 MG TAB PO PRN (02:36)
[2020-05-03 04:34] LABS: Glucose,Whole Blood 105 mg/dL (75-99)
[2020-05-03] MEDS ORDERED: ALBUMIN HUMAN 5% 500 ML in EMPTY BAG 1 BAG IVPB ONE ×6 (05:00)
[2020-05-03] MEDS ORDERED: ceFAZolin 1,000 MG in SODIUM CHLORIDE 0.9% IRRIGATIO 1,000 ML IRRIGATION ONE (05:00)
[2020-05-03] MEDS ORDERED: ASPIRIN 325 MG TAB PO ONE (05:00)
[2020-05-03] MEDS ORDERED: CLEVIDIPINE BUTYRATE 25 MG in EMPTY BAG 1 BAG IV SCH (05:00)
[2020-05-03] MEDS ORDERED: ceFAZolin 2,000 MG in SODIUM CHLORIDE 0.9% 30 ML IVPB ONE (05:00)
[2020-05-03] MEDS ORDERED: DEXTROSE 5% IN WATER 1,000 ML with POTASSIUM CHLORIDE 25 MEQ, SODIUM CHLORIDE 2.5MEQ/ML... IV SCH ×6 (05:00)
[2020-05-03] MEDS ORDERED: ALBUMIN HUMAN 25% 50 ML in EMPTY BAG 1 BAG IVPB ONE (05:00)
[2020-05-03] MEDS ORDERED: PHENYLEPHRINE 10 MG/ML VIAL IV ONE (05:00)
[2020-05-03] MEDS ORDERED: DEXTROSE 5% IN WATER 1,000 ML with POTASSIUM CHLORIDE 110 MEQ, MAGNESIUM SULFATE 16 MEQ... IV SCH ×5 (05:00)
[2020-05-03] MEDS ORDERED: PAPAVERINE 360 MG in SODIUM CHLORIDE 0.9% 90 ML IV ONE (05:00)
[2020-05-03] MEDS ORDERED: ATORVASTATIN 10 MG TAB PO ONE (05:00)
[2020-05-03] MEDS ORDERED: CALCIUM CHLORIDE 100 MG/ML 10 ML SYRINGE IVP ONE (05:00)
[2020-05-03] MEDS ORDERED: ceFAZolin 2 GM in SODIUM CHLORIDE 0.9% 30 ML IVPB ONE (05:00)
[2020-05-03] MEDS ORDERED: INSULIN REGULAR 100 UNIT in SODIUM CHLORIDE 0.9% 100 ML IV SCH ×2 (05:00→12:12)
[2020-05-03] MEDS ORDERED: PROTAMINE SULFATE 250 MG in EMPTY BAG 1 BAG IV ONE (05:00)
[2020-05-03] MEDS ORDERED: CHLORHEXIDINE GLUCONATE 15 ML CUP MUCOUS MEM ONE (05:00)
[2020-05-03] MEDS ORDERED: LACTATED RINGERS 1,000 ML IV SCH (05:00)
[2020-05-03] MEDS ORDERED: NITROGLYCERIN-D5W PMX 50 MG in DEXTROSE/WATER 1 250ML.BAG IV SCH (05:00)
[2020-05-03] MEDS ORDERED: PHENYLEPHRINE 40 MG in SODIUM CHLORIDE 0.9% 250 ML IV ONE (05:00)
[2020-05-03] MEDS ORDERED: MAGNESIUM SULFATE SYG 4.06 MEQ/ML SYRINGE IV ONE (05:00)
[2020-05-03] MEDS ORDERED: NOREPINEPHRINE 4 MG in SODIUM CHLORIDE 0.9% 250 ML IV SCH (05:00)
[2020-05-03] MEDS ORDERED: SODIUM BICARB 8.4% 50 ML SYR (1 MEQ/ML) IV ONE (05:00)
[2020-05-03] MEDS ORDERED: PROTAMINE SULFATE 10 MG/ML 25 ML VIAL IV ONE ×2 (05:00→07:30)
[2020-05-03] MEDS ORDERED: HEPARIN SODIUM,PORCINE 5,000 UNIT in SODIUM CHLORIDE 0.9% 500 ML 500 ML IV ONE (05:00)
[2020-05-03] MEDS ORDERED: TRANEXAMIC ACID 2,000 MG in SODIUM CHLORIDE 0.9% 80 ML IV ONE (05:00)
[2020-05-03] MEDS ORDERED: NITROGLYCERIN-D5W PMX 25 MG/250 ML BTL IV ONE (05:00)
[2020-05-03] MEDS ORDERED: METOPROLOL TARTRATE 12.5 MG TAB PO ONE (05:00)
[2020-05-03] MEDS ORDERED: MANNITOL 25% 12.5 GM/50 ML VIAL IV ONE ×2 (05:00)
[2020-05-03] MEDS ORDERED: HEPARIN SODIUM 1,000 UN/ML (10ML VL) IV ONE (05:00)
[2020-05-03] MEDS ORDERED: IV FLUID CONTINUATION 1,000 ML IV ONE (05:54)
[2020-05-03] MEDS ORDERED: POTASSIUM CHLORIDE OPEN HEART 20 MEQ/50 ML BAG IVPB ONE (07:30)
[2020-05-03] MEDS ORDERED: PHENYLEPHRINE-0.9% NACL SYG 1 MG/10 ML SYRINGE ONE (07:30)
[2020-05-03] MEDS ORDERED: NITROGLYCERIN-D5W PMX 50 MG/250 ML BOTTLE IV ONE (07:30)
[2020-05-03] MEDS ORDERED: fentaNYL (PF) 50 MCG/ML 2 ML AMP ONE (07:30)
[2020-05-03] MEDS ORDERED: VECURONIUM 10 MG VIAL IV ONE (07:30)
[2020-05-03] MEDS ORDERED: MIDAZOLAM 2 MG/2 ML VIAL ONE (07:30)
[2020-05-03] MEDS ORDERED: SODIUM CHLORIDE 0.9% IRRIG 1,000 ML BTL IRRIGATION ONE (07:30)
[2020-05-03] MEDS ORDERED: ceFAZolin 1,000 MG VIAL ONE (07:30)
[2020-05-03] MEDS ORDERED: MAGNESIUM SULFATE 4 MEQ/ML 10ML VIAL ONE (07:30)
[2020-05-03] MEDS ORDERED: HEPARIN SODIUM,PORCINE 10,000 UNIT/ML 1 ML VIAL ONE (07:30)
[2020-05-03] MEDS ORDERED: fentaNYL (PF) 50 MCG/ML 50 ML VIAL ONE (07:30)
[2020-05-03] MEDS ORDERED: ALBUMIN HUMAN 5% (25gm) 500 ML VIAL IVPB ONE (07:30)
[2020-05-03] MEDS ORDERED: SODIUM CHLORIDE 0.9% 100 ML BAG ONE (07:30)
[2020-05-03 07:53] LABS: Basophils % (A) 0 %; Eosinophils # (A) 0.2 k/uL (0-0.7); Eosinophils % (A) 2 %; HCT 30.5 % (34.0-46.0); HGB 10.1 gm/dL (11.4-16.0); Lymphocytes % (A) 9 %; MCH 32.1 pg (25.0-35.0); MCHC 33.1 g/dL (31.0-37.0); MCV 97.1 fL (80.0-100.0); Mean Platelet Volume 8.1; Monocytes % (A) 9 %; Neutrophils # (A) 8.9 k/uL (1.3-7.7); Neutrophils % (A) 78 %; Platelet Count 343 k/uL (150-450); RBC 3.14 m/uL (3.80-5.40); RDW 13.9 % (11.5-15.5); WBC 11.3 k/uL (3.8-10.6)
[2020-05-03 08:34] LABS: ABG Base Excess -0.6 mmol/L; ABG Glucose Whole Blood 96 mg/dL (75-99); ABG HCO3 23 mmol/L (21-25); ABG Hematocrit 29 % (34.0-46.0); ABG Ionized Calcium 4.7 mg/dL (4.5-5.3); ABG Lactic Acid Whole Blood 0.6 mmol/L (0.5-1.6); ABG PCO2 35 mmHg (35-45); ABG PH 7.43 (7.35-7.45); ABG PO2 289 mmHg (83-108); ABG Potassium Whole Blood 3.4 mmol/L (3.4-4.5); ABG Sodium Whole Blood 141 mmol/L (135-146); ABG TCO2 25 mmol/L (19-24)
[2020-05-03 09:43] LABS: ABG Base Excess -2.4 mmol/L; ABG Glucose Whole Blood 102 mg/dL (75-99); ABG HCO3 22 mmol/L (21-25); ABG Hematocrit 29 % (34.0-46.0); ABG Ionized Calcium 4.7 mg/dL (4.5-5.3); ABG Lactic Acid Whole Blood 0.6 mmol/L (0.5-1.6); ABG Oxygen Saturation 99.9 % (94-97); ABG PCO2 38 mmHg (35-45); ABG PH 7.38 (7.35-7.45); ABG PO2 240 mmHg (83-108); ABG Potassium Whole Blood 4.5 mmol/L (3.4-4.5); ABG Sodium Whole Blood 140 mmol/L (135-146); ABG TCO2 24 mmol/L (19-24)
[2020-05-03 10:14] LABS: ABG Base Excess -3.5 mmol/L; ABG Glucose Whole Blood 99 mg/dL (75-99); ABG HCO3 21 mmol/L (21-25); ABG Hematocrit 25 % (34.0-46.0); ABG Ionized Calcium 4.4 mg/dL (4.5-5.3); ABG Lactic Acid Whole Blood 0.6 mmol/L (0.5-1.6); ABG Oxygen Saturation 99.9 % (94-97); ABG PCO2 35 mmHg (35-45); ABG PH 7.39 (7.35-7.45); ABG PO2 253 mmHg (83-108); ABG Potassium Whole Blood 3.7 mmol/L (3.4-4.5); ABG Sodium Whole Blood 141 mmol/L (135-146); ABG TCO2 22 mmol/L (19-24)
[2020-05-03 10:40] LABS: ABG Glucose Whole Blood 96 mg/dL (75-99); ABG HCO3 21 mmol/L (21-25); ABG Ionized Calcium 4.4 mg/dL (4.5-5.3); ABG Lactic Acid Whole Blood 0.9 mmol/L (0.5-1.6); ABG Oxygen Saturation 99.6 % (94-97); ABG PCO2 36 mmHg (35-45); ABG PH 7.37 (7.35-7.45); ABG PO2 257 mmHg (83-108); ABG Potassium Whole Blood 4.9 mmol/L (3.4-4.5); ABG Sodium Whole Blood 140 mmol/L (135-146); ABG TCO2 22 mmol/L (19-24)
--- NOTE | 2020-05-03 11:15 | P.VSCSTY ---
Greater Saphenous Vein Mapping This is bilateral lower extremity greater saphenous vein mapping. Date of service: 04/25/2020 Vein quality and ultrasound appearance: We see no intraluminal thrombus or obvious wall changes. Vein size groin right : 5.0 x 4.5 groin left: 7.4 x 6.0 High thigh right: 4.1 x 3.8 high thigh left: 3.2 x 3.0 Mid thigh right: 4.1 x 2.9 mid thigh left: 2.7 x 2.2 Above-knee right: 4.1 x 3.0 above-knee left: 4.3 x 2.7 Below knee right: 6.0 x 2.8 below-knee left: 4.8 x 3.0 Mid calf right: 3.2 x 3.2 mid calf left: 3.2 x 2.6 Ankle right: 2.6 x 1.6 ankle left: 3.6 x 2.5 Impression: Usable bilateral greater saphenous vein..
--- NOTE | 2020-05-03 11:16 | P.ARTDOP ---
Arterial Doppler LOWER EXTREMITY ARTERIAL DOPPLER: DATE OF SERVICE: 04/26/2020 Reason for study: Preop CABG. Doppler waveforms: Multiphasic bilaterally throughout. Pulse volume recording: []. Pressure gradients: None. Ankle-brachial indices: Greater than 1 bilaterally. Toe brachial indices: [] on the right, [] on the left Impression: Normal study.
[2020-05-03 11:26] LABS: ABG Base Excess -4.8 mmol/L; ABG Glucose Whole Blood 95 mg/dL (75-99); ABG HCO3 21 mmol/L (21-25); ABG Ionized Calcium 4.2 mg/dL (4.5-5.3); ABG Lactic Acid Whole Blood 0.5 mmol/L (0.5-1.6); ABG Oxygen Saturation 99.2 % (94-97); ABG PCO2 39 mmHg (35-45); ABG PH 7.34 (7.35-7.45); ABG PO2 142 mmHg (83-108); ABG Potassium Whole Blood 4.1 mmol/L (3.4-4.5); ABG Sodium Whole Blood 141 mmol/L (135-146); ABG TCO2 22 mmol/L (19-24)
[2020-05-03] MEDS: NITROGLYCERIN-D5W PMX 50 MG in DEXTROSE/WATER 1 250ML.BAG IV SCH ×2 (12:00→14:14)
[2020-05-03] MEDS ORDERED: IPRATROPIUM-ALBUTEROL 3 ML NEB INHALATION PRN (12:12)
[2020-05-03] MEDS ORDERED: Magnesium Replacement Protocol 1 EACH MISC MISCELLANE PRN (12:12)
[2020-05-03] MEDS ORDERED: Potassium Replacement Protocol 1 EACH MISC MISCELLANE PRN (12:12)
[2020-05-03] MEDS ORDERED: METOCLOPRAMIDE 5 MG/ML 2 ML VIAL IVP PRN (12:12)
[2020-05-03] MEDS ORDERED: ONDANSETRON 4 MG/2 ML VIAL IVP PRN (12:12)
[2020-05-03] MEDS ORDERED: DEXMEDETOMIDINE/0.9% NACL(PMX) 400 MCG in EMPTY BAG 1 BAG IV SCH (12:12)
[2020-05-03] MEDS ORDERED: hydrALAZINE HCL 20 MG/ML 1 ML VIAL IVP PRN (12:12)
[2020-05-03] MEDS ORDERED: AMIODARONE 300 MG in DEXTROSE 5% IN WATER 250 ML IV PRN ×2 (12:12)
[2020-05-03] MEDS ORDERED: CALCIUM GLUCONATE 2 GM in SODIUM CHLORIDE 0.9% 100 ML IVPB PRN (12:12)
[2020-05-03] MEDS ORDERED: Phosphorus Replacement Protoco 1 EACH MISC MISCELLANE PRN (12:12)
[2020-05-03] MEDS ORDERED: MORPHINE SULFATE 2 MG/ML SYRINGE IVP PRN (12:12)
[2020-05-03] MEDS ORDERED: DEXTROSE 5% IN WATER 100 ML with AMIODARONE 150 MG IV PRN (12:12)
[2020-05-03] MEDS ORDERED: AMIODARONE 360 MG in DEXTROSE 5% IN WATER 200 ML IV PRN ×2 (12:12)
[2020-05-03] MEDS ORDERED: BENZOCAINE/MENTHOL LOZENG 1 EACH LOZENGE MUCOUS MEM PRN (12:12)
[2020-05-03] MEDS ORDERED: ASPIRIN 300 MG SUPP RECTAL ONE (12:12)
[2020-05-03 12:20] LABS: ABG Base Excess -4.5 mmol/L; ABG HCO3 22 mmol/L (21-25); ABG PCO2 45 mmHg (35-45); ABG PO2 349 mmHg (83-108); ABG TCO2 23 mmol/L (19-24)
[2020-05-03 12:21] LABS: Glucose,Whole Blood 101 mg/dL (75-99)
[2020-05-03 12:21] LABS: Allen Test Performed? no
[2020-05-03 12:27] LABS: Ionized Calcium 4.6 mg/dL (4.5-5.3)
[2020-05-03] MEDS: IPRATROPIUM-ALBUTEROL 3 ML NEB INHALATION SCH ×4 (12:32→20:26)
[2020-05-03 12:37] LABS: Allen Test Performed? NO
[2020-05-03 12:38] LABS: ALT 68 U/L (4-34); AST 156 U/L (14-36); African American GFR (CKD) >90 (>60 ml/min/1.73 sqM); Albumin 3.4 g/dL (3.5-5.0); Alkaline Phosphatase 68 U/L (38-126); Anion Gap 8 mmol/L; Blood Urea Nitrogen 10 mg/dL (7-17); Calcium 7.4 mg/dL (8.4-10.2); Carbon Dioxide 22 mmol/L (22-30); Chloride 110 mmol/L (98-107); Glucose 89 mg/dL (74-99); Non-African American GFR(CKD) >90 (>60 ml/min/1.73 sqM); Potassium 4.1 mmol/L (3.5-5.1); Sodium 140 mmol/L (137-145); Total Bilirubin 2.2 mg/dL (0.2-1.3); Total Protein 5.2 g/dL (6.3-8.2)
[2020-05-03 12:39] LABS: ABG Hematocrit 23 % (34.0-46.0)
[2020-05-03 12:40] LABS: ABG Hematocrit 21 % (34.0-46.0)
[2020-05-03 12:49] LABS: Basophils % (A) 0 %; Eosinophils # (A) 0.2 k/uL (0-0.7); Eosinophils % (A) 3 %; HCT 21.2 % (34.0-46.0); Lymphocytes # (A) 0.8 k/uL (1.0-4.8); Lymphocytes % (A) 12 %; MCH 33.6 pg (25.0-35.0); MCHC 32.7 g/dL (31.0-37.0); Macrocytosis Slight; Mean Platelet Volume 8.9; Monocytes # (A) 0.4 k/uL (0-1.0); Monocytes % (A) 6 %; Neutrophils % (A) 78 %; Platelet Count 211 k/uL (150-450); RBC 2.07 m/uL (3.80-5.40); RDW 13.4 % (11.5-15.5); WBC 6.5 k/uL (3.8-10.6)
[2020-05-03 12:50] LABS: Glucose,Whole Blood 96 mg/dL (75-99)
[2020-05-03 12:51] LABS: ABG Base Excess -3.8 mmol/L; ABG HCO3 22 mmol/L (21-25); ABG Oxygen Saturation 99.6 % (94-97); ABG PCO2 40 mmHg (35-45); ABG PH 7.35 (7.35-7.45); ABG PO2 153 mmHg (83-108); ABG TCO2 23 mmol/L (19-24)
[2020-05-03 12:53] LABS: Allen Test Performed? no
[2020-05-03 12:53] LABS: MCV 102.7 fL (80.0-100.0)
[2020-05-03 12:56] LABS: INR 1.2 (<1.2); Partial Thromboplastin Time 33.5 sec (22.0-30.0); Prothrombin Time 11.8 sec (9.0-12.0)
--- NOTE | 2020-05-03 13:03 | XR ---
EXAMINATION TYPE: XR chest 1V portable DATE OF EXAM: 05/03/2020 CLINICAL HISTORY: Postoperative cardiac surgery TECHNIQUE: Supine portable view of the chest COMPARISON: 05/02/2020 chest radiograph FINDINGS: Endotracheal tube distal tip 3.4 cm from the sahara. Enteric tube distal tip over the left upper quadrant over the projected area of the stomach, with side-port above the level of the GE junc tion. Right internal jugular [place]-Hallie catheter. Sternotomy wires and surgical clips. Left chest tube . Mediastinal drain. The cardiomediastinal silhouette is within normal limits for size. Pulmonary vas culature is mildly congested. Small left pleural effusion and/or atelectasis. No large pneumothorax w ithin limitations of supine technique. The osseous structures are intact. IMPRESSION: 1. Tubes and lines as above. 2. Mild pulmonary vascular congestion and left basilar atelectasis and/or small effusion, as expected postoperatively.
[2020-05-03] MEDS: CLEVIDIPINE BUTYRATE 25 MG in EMPTY BAG 1 BAG IV SCH (13:41)
[2020-05-03 13:42] LABS: Glucose,Whole Blood 95 mg/dL (75-99)
--- NOTE | 2020-05-03 13:57 | P.PN ---
Subjective Progress Note Date: 05/03/20 Principal diagnosis: Symptomatic coronary artery disease The patient is seen today 05/03/2020 in follow-up in the intensive care unit. She has status post coronary artery bypass grafting utilizing a BARDALES to the LAD, saphenous vein graft to the diagonal, lower left extremity and endoscopic vein harvest, intraoperative transesophageal echocardiogram. Postoperative day #0. She is seen within 2 hours of returning to the intensive care unit. She remains intubated on the mechanical ventilator. Initial settings were SIMV mode with a respiratory rate of 12, tidal volume 400, FiO2 100% and a PEEP of 5. Blood gases reveal a P O2 of 153, pCO2 40, pH 7.35. White count 6.5. Hemoglobin 7.0. MCV 102.7. INR 1.2. Sodium 140. Potassium 4.1. Creatinine 0.54. AST 156, ALT 68. Blood glucose 101. She's currently on propofol at 25 mcg/kg/m, nitroglycerin drip at 5 mg/m. She's been transitioned to Precedex currently at 0.2 mcg/kg/h. Cardiac output 8.0. Cardiac index 5.0. PA pressures 29/19, CVP 7. Chest x-ray reveals endotracheal tube 2.4 cm above the sahara. Nasogastric tube in place over the stomach at the level of the GE junction, right internal [place]-Hallie catheter in place. Left chest tube and mediastinal drains in place. No evidence of pneumothorax. Objective - Vital Signs Vital signs: Vital Signs Temp 96.1 F L 05/03/20 12:10 Pulse 110 H 05/03/20 13:30 Resp 16 05/03/20 13:30 BP 126/78 05/03/20 06:00 Pulse Ox 98 05/03/20 13:30 Intake & Output 05/02/20 05/03/20 05/03/20 18:59 06:59 18:59 Intake Total 476 470 33 Output Total 1999 800 1030 Balance -5778 -973 -809 Weight 54.7 kg Intake: IV 100 33 Intake, IV Titration 250 Amount Heparin Sod,Pork in 0.45% 250 NaCl 25,000 unit In 0.45 % NaCl 1 250ml.bag @ 12 UNITS/KG/HR 6.54 mls/hr IV .Q24H [facility] Rx#: [id number] Oral 476 120 Output: Urine 2000 800 630 Estimated Blood Loss 400 Other: # Voids 2 1 # Bowel Movements 1 ABP, PAP, CO, CI - Last Documented Arterial Blood Pressure 131/60 Pulmonary Artery Pressure 29/19 Cardiac Output 8 Cardiac Index 5 - Exam GENERAL EXAM: Sedated, intubated 69-year-old female patient, on the mechanical ventilator. No acute distress. Stable. HEAD: Normocephalic. EYES: Normal reaction of pupils, equal size. NOSE: Clear with pink turbinates. THROAT: Oral endotracheal and gastric tubes in place. No erythema or exudates. NECK: [place]-Hallie catheter in place. No masses, no JVD. CHEST: Sternal dressing dry and intact. Mediastinal left pleural chest tubes in place. LUNGS: Equal air entry with faint crackles in the posterior bases CVS: S1 and S2 normal with no audible murmur, regular rhythm. ABDOMEN: No hepatosplenomegaly, normal bowel sounds, no guarding or rigidity. SPINE: No scoliosis or deformity SKIN: No rashes CENTRAL NERVOUS SYSTEM: Sedated, tone is normal in all 4 extremities. EXTREMITIES: There is no peripheral edema. No clubbing, no cyanosis. Peripheral pulses are intact. Bilateral Darron wraps in place. - Labs CBC & Chem 7: 05/03/20 12:10 05/03/20 12:10 Labs: Abnormal Lab Results - Last 24 Hours (Table) 05/02/20 05/03/20 05/03/20 Range/Units 06:41 04:32 07:35 WBC 11.3 H (3.8-10.6) k/uL RBC 3.14 L (3.80-5.40) m/uL Hgb 10.1 L (11.4-16.0) gm/dL Hct 30.5 L (34.0-46.0) % MCV (80.0-100.0) fL Neutrophils # 8.9 H (1.3-7.7) k/uL Lymphocytes # (1.0-4.8) k/uL INR (<1.2) APTT (22.0-30.0) sec ABG pH (7.35-7.45) ABG pO2 (83-108) mmHg ABG Total CO2 (19-24) mmol/L ABG O2 Saturation (94-97) % ABG Hematocrit (34.0-46.0) % ABG Potassium (3.4-4.5) mmol/L ABG Ionized Calcium (4.5-5.3) mg/dL ABG Glucose (75-99) mg/dL Hemoglobin (11.4-16.0) gm/dL Chloride (98-107) mmol/L POC Glucose (mg/dL) 105 H (75-99) mg/dL Calcium (8.4-10.2) mg/dL Total Bilirubin (0.2-1.3) mg/dL AST (14-36) U/L ALT (4-34) U/L Total Protein (6.3-8.2) g/dL Albumin (3.5-5.0) g/dL Arterial Blood Potassium (3.4-4.5) mmol/L Arterial Blood Glucose (75-99) mg/dL Crossmatch See Detail 05/03/20 05/03/20 05/03/20 Range/Units 08:39 09:48 10:19 WBC (3.8-10.6) k/uL RBC (3.80-5.40) m/uL Hgb (11.4-16.0) gm/dL Hct (34.0-46.0) % MCV (80.0-100.0) fL Neutrophils # (1.3-7.7) k/uL Lymphocytes # (1.0-4.8) k/uL INR (<1.2) APTT (22.0-30.0) sec ABG pH (7.35-7.45) ABG pO2 289 H 240 H 253 H (83-108) mmHg ABG Total CO2 25 H (19-24) mmol/L ABG O2 Saturation 100.0 H 99.9 H 99.9 H (94-97) % ABG Hematocrit 29 L 29 L 25 L (34.0-46.0) % ABG Potassium (3.4-4.5) mmol/L ABG Ionized Calcium 4.4 L (4.5-5.3) mg/dL ABG Glucose 102 H (75-99) mg/dL Hemoglobin 9.6 L 9.5 L 8.0 L (11.4-16.0) gm/dL Chloride (98-107) mmol/L POC Glucose (mg/dL) (75-99) mg/dL Calcium (8.4-10.2) mg/dL Total Bilirubin (0.2-1.3) mg/dL AST (14-36) U/L ALT (4-34) U/L Total Protein (6.3-8.2) g/dL Albumin (3.5-5.0) g/dL Arterial Blood Potassium (3.4-4.5) mmol/L Arterial Blood Glucose 102 H (75-99) mg/dL Crossmatch 05/03/20 05/03/20 05/03/20 Range/Units 10:45 11:31 12:10 WBC (3.8-10.6) k/uL RBC 2.07 L (3.80-5.40) m/uL Hgb 7.0 L D (11.4-16.0) gm/dL Hct 21.2 L (34.0-46.0) % MCV 102.7 H D (80.0-100.0) fL Neutrophils # (1.3-7.7) k/uL Lymphocytes # 0.8 L (1.0-4.8) k/uL INR (<1.2) APTT (22.0-30.0) sec ABG pH 7.34 L (7.35-7.45) ABG pO2 257 H 142 H (83-108) mmHg ABG Total CO2 (19-24) mmol/L ABG O2 Saturation 99.6 H 99.2 H (94-97) % ABG Hematocrit 23 L 21 L (34.0-46.0) % ABG Potassium 4.9 H (3.4-4.5) mmol/L ABG Ionized Calcium 4.4 L 4.2 L (4.5-5.3) mg/dL ABG Glucose (75-99) mg/dL Hemoglobin 7.3 L 6.8 L* (11.4-16.0) gm/dL Chloride (98-107) mmol/L POC Glucose (mg/dL) (75-99) mg/dL Calcium (8.4-10.2) mg/dL Total Bilirubin (0.2-1.3) mg/dL AST (14-36) U/L ALT (4-34) U/L Total Protein (6.3-8.2) g/dL Albumin (3.5-5.0) g/dL Arterial Blood Potassium 4.9 H (3.4-4.5) mmol/L Arterial Blood Glucose (75-99) mg/dL Crossmatch 05/03/20 05/03/20 05/03/20 Range/Units 12:10 12:10 12:10 WBC (3.8-10.6) k/uL RBC (3.80-5.40) m/uL Hgb (11.4-16.0) gm/dL Hct (34.0-46.0) % MCV (80.0-100.0) fL Neutrophils # (1.3-7.7) k/uL Lymphocytes # (1.0-4.8) k/uL INR 1.2 H (<1.2) APTT 33.5 H (22.0-30.0) sec ABG pH (7.35-7.45) ABG pO2 (83-108) mmHg ABG Total CO2 (19-24) mmol/L ABG O2 Saturation (94-97) % ABG Hematocrit (34.0-46.0) % ABG Potassium (3.4-4.5) mmol/L ABG Ionized Calcium (4.5-5.3) mg/dL ABG Glucose (75-99) mg/dL Hemoglobin (11.4-16.0) gm/dL Chloride 110 H (98-107) mmol/L POC Glucose (mg/dL) 101 H (75-99) mg/dL Calcium 7.4 L (8.4-10.2) mg/dL Total Bilirubin 2.2 H (0.2-1.3) mg/dL AST 156 H (14-36) U/L ALT 68 H (4-34) U/L Total Protein 5.2 L (6.3-8.2) g/dL Albumin 3.4 L (3.5-5.0) g/dL Arterial Blood Potassium (3.4-4.5) mmol/L Arterial Blood Glucose (75-99) mg/dL Crossmatch 05/03/20 05/03/20 Range/Units 12:12 12:50 WBC (3.8-10.6) k/uL RBC (3.80-5.40) m/uL Hgb (11.4-16.0) gm/dL Hct (34.0-46.0) % MCV (80.0-100.0) fL Neutrophils # (1.3-7.7) k/uL Lymphocytes # (1.0-4.8) k/uL INR (<1.2) APTT (22.0-30.0) sec ABG pH 7.30 L (7.35-7.45) ABG pO2 349 H 153 H (83-108) mmHg ABG Total CO2 (19-24) mmol/L ABG O2 Saturation 100.0 H 99.6 H (94-97) % ABG Hematocrit (34.0-46.0) % ABG Potassium (3.4-4.5) mmol/L ABG Ionized Calcium (4.5-5.3) mg/dL ABG Glucose (75-99) mg/dL Hemoglobin (11.4-16.0) gm/dL Chloride (98-107) mmol/L POC Glucose (mg/dL) (75-99) mg/dL Calcium (8.4-10.2) mg/dL Total Bilirubin (0.2-1.3) mg/dL AST (14-36) U/L ALT (4-34) U/L Total Protein (6.3-8.2) g/dL Albumin (3.5-5.0) g/dL Arterial Blood Potassium (3.4-4.5) mmol/L Arterial Blood Glucose (75-99) mg/dL Crossmatch Assessment and Plan Assessment: 1 Coronary artery disease, with anticipated bypass grafting next week, heart catheterization revealed heavily calcified proximal LAD stenosis of 99%, with significant is involving the diagonal branch, left main 20% stenosis, and severely impaired left ventricular systolic function and EF of 30-35%. Status post coronary artery bypass grafting with a BARDALES to the LAD, saphenous vein graft to the diagonal. Postoperative day #0 2 Episode of witnessed seizure 3 History of seizure disorder 4 Hypertension 5 Possible COPD, not oxygen dependent, not on any maintenance inhalers, FEV1 value 81% of predicted 6 Chronic and ongoing smoker 6 Moderate EtOH use, no evidence of delirium tremens preoperatively 7 Bilateral hip discomfort, no evidence of fracture or dislocation Plan: The patient was seen and evaluated by Dr. Araya Chest x-ray, ABGs, hemodynamics and labs reviewed Convert to assist control, increase rate 16, tidal volume 450, FiO2 to 50% Transitioned from propofol to Precedex Plan for early extubation We'll continue to follow and make further recommendations based on her clinical status. Critical care time 38 minutes, not including procedures I, the cosigning physician, performed a history & physical examination of the patient. Lungs sounds faint crackles in the bilateral posterior bases Maintaining good O2 saturations in the 90s on 50% FiO2 via the mechanical ventilator. I discussed the assessment and plan of care with my nurse practitioner, Margarita Epstein. I attest to the above note as dictated by her. Time with Patient: Greater than 30
[2020-05-03] MEDS: CYANOCOBALAMIN 500 MCG TAB PO SCH (14:12)
[2020-05-03] MEDS: THIAMINE 100 MG TAB PO SCH (14:12)
[2020-05-03] MEDS: FOLIC ACID 1 MG TAB PO SCH (14:12)
[2020-05-03] MEDS: PARoxetine 20 MG TAB PO SCH (14:12)
[2020-05-03] MEDS: SODIUM CHLORIDE 0.9% 1,000 ML IV SCH (14:14)
[2020-05-03] MEDS: KETOROLAC 15 MG/ML 1 ML VIAL IVP SCH ×3 (14:19→23:06)
[2020-05-03 14:21] LABS: Glucose,Whole Blood 115 mg/dL (75-99)
[2020-05-03] MEDS: ACETAMINOPHEN IV (For NPO) 1,000 MG in EMPTY BAG 1 BAG IVPB SCH ×2 (14:33→22:25)
[2020-05-03 14:42] LABS: ABG HCO3 22 mmol/L (21-25); ABG Oxygen Saturation 94.9 % (94-97); ABG PCO2 39 mmHg (35-45); ABG PH 7.36 (7.35-7.45); ABG PO2 74 mmHg (83-108); ABG TCO2 23 mmol/L (19-24)
[2020-05-03 14:44] LABS: Allen Test Performed? no
[2020-05-03 15:08] LABS: Glucose,Whole Blood 107 mg/dL (75-99)
--- NOTE | 2020-05-03 16:04 | P.PN ---
Subjective Acute non-ST elevated PR Syncope Patient was admitted for evaluation of seizures. Patient is found have elevated troponins it appears like patient had acute myocardial infarction patient is undergoing cardiac catheterization Patient had an MRI which didn't show any acute abnormality but did show some chronic microvascular ischemic changes. EEG was normal. 2-D echo: Was reported as left ventricle wall thickness is normal. Ejection fraction of 40-45%. Apical septal left ventricle wall motion is hypokinetic. 04/26/2020 Patient is currently lying in bed comfortably. No complaints of chest pain or shortness breath. Patient was initially admitted to the hospital with loss of consciousness and possible seizures and elevated troponin level. Patient underwent cardiac catheterization showed critical stenosis involving the proximal LAD with poststenotic dilation and severe tortuosity with significant disease in the diagonal branch. Calcified LAD Mild disease in the right coronary artery. CT surgery was consulted due to severe coronary artery disease and is planning for coronary artery bypass graft. Preoperative testing was initiated. Current medications reviewed. 04/27/2020 Patient is currently lying in bed comfortably. No complaints of chest pain or shortness breath. No nausea vomiting or abdominal pain. Patient was seen by isaak rey and is planning for bedside PFTs today. No other acute overnight issues. Patient is being continued on aspirin, statins, metoprolol and lisinopril, Aldactone and is on heparin drip. Cardiology, pulmonary and CT surgery is on board. 04/28/2020 Patient is currently lying in the bed comfortably. Awake alert oriented x3. No complaints of chest pain. No headache or dizziness or lightheadedness. No nausea vomiting or abdominal pain or diarrhea. Patient is being continued on heparin drip. Plan for cardiac surgery early next week. 2019 Patient is currently awake alert oriented x3. No complaints of chest pain. Or shortness of breath. No nausea vomiting abdominal pain. Currently on room air. Continued on heparin drip. CT surgery and pulmonary is on board. Cardiac surgery to be scheduled next week. No other acute overnight issues. 04/30/2020 Patient will undergo coronary artery bypass grafting on . Patient doesn't have any withdrawals at this time patient was having bilateral flank tenderness x-ray of both hips. 05/01/2020 X-ray showed bilateral hip arthropathy which need to be addressed as an outpatient and patient will benefit from physical therapy. 05/02/2020 Patient is comparing of a painful in the back which is radiating to back of the thyroid towards the front bilaterally. Patient appears to have either sciatica her degenerative lumbar spine disease. Patient pain significant improved with Tylenol which will be continued and also had Edgar for pain on as-needed basis 05/03/2020 patient is postoperative coronary artery bypass grafting day 0. Patient is presently on amiodarone drip PVD pain drip does have mediastinal and left sided chest tubes on propofol drip patient went settings are at baseline and doing clinically well and considering her parameters patient probably can be extubated today Of systems: Unable to obtain due to her clinical condition. All inpatient medications were reviewed and appropriate changes in these med ications as dictated in the interval history and assessment and plan. Objective - Vital Signs Vital signs: Vital Signs Temp 96.1 F L 05/03/20 12:10 Pulse 100 05/03/20 15:19 Resp 16 05/03/20 15:15 BP 126/78 05/03/20 06:00 Pulse Ox 95 05/03/20 15:15 Intake & Output 05/02/20 05/03/20 05/03/20 18:59 06:59 18:59 Intake Total 476 470 362.835 Output Total 2000 800 2085 Balance -7041 -330 -1722.165 Weight 54.7 kg 54.7 kg Intake: IV 100 129 0.9 CO/CI 60 0.9 flush 36 Intake, IV Titration 250 233.835 Amount Clevidipine Butyrate 25 8.4 mg In Empty Bag 1 bag @ 1 MG/HR 2 mls/hr IV .Q24H [facility]ARA Rx#:[id number] Dexmedetomidine/0.9% NaCl 8.888 (Pmx) 400 mcg In Empty Bag 1 bag @ Titrate IV . Q0M [facility]ARA Rx#:[id number] Heparin Sod,Pork in 0.45% 250 NaCl 25,000 unit In 0.45 % NaCl 1 250ml.bag @ 12 UNITS/KG/HR 6.54 mls/hr IV .Q24H TIARA Rx#: [id number] Sodium Chloride 0.9% 1, 200 000 ml @ 50 mls/hr IV . Q20H [facility]ARA Rx#:[id number] propofoL 1,000 mg In 16.547 Empty Bag 1 bag @ Titrate IV .Q0M TIARA Rx#: [id number] Oral 476 120 Output: Chest Tube Drainage 440 Chest Tube Left Pleural/ 135 Mediastinal Chest Tube Mediastinal 305 Urine 2000 800 1245 Estimated Blood Loss 400 Other: # Voids 2 1 # Bowel Movements 1 ABP, PAP, CO, CI - Last Documented Arterial Blood Pressure 97/55 Pulmonary Artery Pressure 28/16 Cardiac Output 6.4 Cardiac Index 4 - Exam PHYSICAL EXAMINATION: GENERAL: Intubated sedated HEENT: Pupils are round and equally reacting to light. EOMI. No scleral icterus. No conjunctival pallor. Normocephalic, atraumatic. No pharyngeal erythema. No thyromegaly. CARDIOVASCULAR: S1 and S2 present. No murmurs, rubs, or gallops. PULMONARY: Chest is clear to auscultation, no wheezing or crackles. Chest tubes as mentioned above ABDOMEN: Soft, nontender, nondistended, normoactive bowel sounds. No palpable organomegaly. MUSCULOSKELETAL: No joint swelling or deformity. EXTREMITIES: No cyanosis, clubbing, or pedal edema. NEUROLOGICAL: Sedated SKIN: No rashes. - Labs CBC & Chem 7: 05/03/20 12:10 05/03/20 12:10 Labs: Abnormal Lab Results - Last 24 Hours (Table) 05/02/20 05/03/20 05/03/20 Range/Units 06:41 04:32 07:35 WBC 11.3 H (3.8-10.6) k/uL RBC 3.14 L (3.80-5.40) m/uL Hgb 10.1 L (11.4-16.0) gm/dL Hct 30.5 L (34.0-46.0) % MCV (80.0-100.0) fL Neutrophils # 8.9 H (1.3-7.7) k/uL Lymphocytes # (1.0-4.8) k/uL INR (<1.2) APTT (22.0-30.0) sec ABG pH (7.35-7.45) ABG pO2 (83-108) mmHg ABG Total CO2 (19-24) mmol/L ABG O2 Saturation (94-97) % ABG Hematocrit (34.0-46.0) % ABG Potassium (3.4-4.5) mmol/L ABG Ionized Calcium (4.5-5.3) mg/dL ABG Glucose (75-99) mg/dL Hemoglobin (11.4-16.0) gm/dL Chloride (98-107) mmol/L POC Glucose (mg/dL) 105 H (75-99) mg/dL Calcium (8.4-10.2) mg/dL Total Bilirubin (0.2-1.3) mg/dL AST (14-36) U/L ALT (4-34) U/L Total Protein (6.3-8.2) g/dL Albumin (3.5-5.0) g/dL Arterial Blood Potassium (3.4-4.5) mmol/L Arterial Blood Glucose (75-99) mg/dL Crossmatch See Detail 05/03/20 05/03/20 05/03/20 Range/Units 08:39 09:48 10:19 WBC (3.8-10.6) k/uL RBC (3.80-5.40) m/uL Hgb (11.4-16.0) gm/dL Hct (34.0-46.0) % MCV (80.0-100.0) fL Neutrophils # (1.3-7.7) k/uL Lymphocytes # (1.0-4.8) k/uL INR (<1.2) APTT (22.0-30.0) sec ABG pH (7.35-7.45) ABG pO2 289 H 240 H 253 H (83-108) mmHg ABG Total CO2 25 H (19-24) mmol/L ABG O2 Saturation 100.0 H 99.9 H 99.9 H (94-97) % ABG Hematocrit 29 L 29 L 25 L (34.0-46.0) % ABG Potassium (3.4-4.5) mmol/L ABG Ionized Calcium 4.4 L (4.5-5.3) mg/dL ABG Glucose 102 H (75-99) mg/dL Hemoglobin 9.6 L 9.5 L 8.0 L (11.4-16.0) gm/dL Chloride (98-107) mmol/L POC Glucose (mg/dL) (75-99) mg/dL Calcium (8.4-10.2) mg/dL Total Bilirubin (0.2-1.3) mg/dL AST (14-36) U/L ALT (4-34) U/L Total Protein (6.3-8.2) g/dL Albumin (3.5-5.0) g/dL Arterial Blood Potassium (3.4-4.5) mmol/L Arterial Blood Glucose 102 H (75-99) mg/dL Crossmatch 05/03/20 05/03/20 05/03/20 Range/Units 10:45 11:31 12:10 WBC (3.8-10.6) k/uL RBC 2.07 L (3.80-5.40) m/uL Hgb 7.0 L D (11.4-16.0) gm/dL Hct 21.2 L (34.0-46.0) % MCV 102.7 H D (80.0-100.0) fL Neutrophils # (1.3-7.7) k/uL Lymphocytes # 0.8 L (1.0-4.8) k/uL INR (<1.2) APTT (22.0-30.0) sec ABG pH 7.34 L (7.35-7.45) ABG pO2 257 H 142 H (83-108) mmHg ABG Total CO2 (19-24) mmol/L ABG O2 Saturation 99.6 H 99.2 H (94-97) % ABG Hematocrit 23 L 21 L (34.0-46.0) % ABG Potassium 4.9 H (3.4-4.5) mmol/L ABG Ionized Calcium 4.4 L 4.2 L (4.5-5.3) mg/dL ABG Glucose (75-99) mg/dL Hemoglobin 7.3 L 6.8 L* (11.4-16.0) gm/dL Chloride (98-107) mmol/L POC Glucose (mg/dL) (75-99) mg/dL Calcium (8.4-10.2) mg/dL Total Bilirubin (0.2-1.3) mg/dL AST (14-36) U/L ALT (4-34) U/L Total Protein (6.3-8.2) g/dL Albumin (3.5-5.0) g/dL Arterial Blood Potassium 4.9 H (3.4-4.5) mmol/L Arterial Blood Glucose (75-99) mg/dL Crossmatch 05/03/20 05/03/20 05/03/20 Range/Units 12:10 12:10 12:10 WBC (3.8-10.6) k/uL RBC (3.80-5.40) m/uL Hgb (11.4-16.0) gm/dL Hct (34.0-46.0) % MCV (80.0-100.0) fL Neutrophils # (1.3-7.7) k/uL Lymphocytes # (1.0-4.8) k/uL INR 1.2 H (<1.2) APTT 33.5 H (22.0-30.0) sec ABG pH (7.35-7.45) ABG pO2 (83-108) mmHg ABG Total CO2 (19-24) mmol/L ABG O2 Saturation (94-97) % ABG Hematocrit (34.0-46.0) % ABG Potassium (3.4-4.5) mmol/L ABG Ionized Calcium (4.5-5.3) mg/dL ABG Glucose (75-99) mg/dL Hemoglobin (11.4-16.0) gm/dL Chloride 110 H (98-107) mmol/L POC Glucose (mg/dL) 101 H (75-99) mg/dL Calcium 7.4 L (8.4-10.2) mg/dL Total Bilirubin 2.2 H (0.2-1.3) mg/dL AST 156 H (14-36) U/L ALT 68 H (4-34) U/L Total Protein 5.2 L (6.3-8.2) g/dL Albumin 3.4 L (3.5-5.0) g/dL Arterial Blood Potassium (3.4-4.5) mmol/L Arterial Blood Glucose (75-99) mg/dL Crossmatch 05/03/20 05/03/20 05/03/20 Range/Units 12:12 12:50 14:17 WBC (3.8-10.6) k/uL RBC (3.80-5.40) m/uL Hgb (11.4-16.0) gm/dL Hct (34.0-46.0) % MCV (80.0-100.0) fL Neutrophils # (1.3-7.7) k/uL Lymphocytes # (1.0-4.8) k/uL INR (<1.2) APTT (22.0-30.0) sec ABG pH 7.30 L (7.35-7.45) ABG pO2 349 H 153 H (83-108) mmHg ABG Total CO2 (19-24) mmol/L ABG O2 Saturation 100.0 H 99.6 H (94-97) % ABG Hematocrit (34.0-46.0) % ABG Potassium (3.4-4.5) mmol/L ABG Ionized Calcium (4.5-5.3) mg/dL ABG Glucose (75-99) mg/dL Hemoglobin (11.4-16.0) gm/dL Chloride (98-107) mmol/L POC Glucose (mg/dL) 115 H (75-99) mg/dL Calcium (8.4-10.2) mg/dL Total Bilirubin (0.2-1.3) mg/dL AST (14-36) U/L ALT (4-34) U/L Total Protein (6.3-8.2) g/dL Albumin (3.5-5.0) g/dL Arterial Blood Potassium (3.4-4.5) mmol/L Arterial Blood Glucose (75-99) mg/dL Crossmatch 05/03/20 05/03/20 Range/Units 14:41 15:07 WBC (3.8-10.6) k/uL RBC (3.80-5.40) m/uL Hgb (11.4-16.0) gm/dL Hct (34.0-46.0) % MCV (80.0-100.0) fL Neutrophils # (1.3-7.7) k/uL Lymphocytes # (1.0-4.8) k/uL INR (<1.2) APTT (22.0-30.0) sec ABG pH (7.35-7.45) ABG pO2 74 L (83-108) mmHg ABG Total CO2 (19-24) mmol/L ABG O2 Saturation (94-97) % ABG Hematocrit (34.0-46.0) % ABG Potassium (3.4-4.5) mmol/L ABG Ionized Calcium (4.5-5.3) mg/dL ABG Glucose (75-99) mg/dL Hemoglobin (11.4-16.0) gm/dL Chloride (98-107) mmol/L POC Glucose (mg/dL) 107 H (75-99) mg/dL Calcium (8.4-10.2) mg/dL Total Bilirubin (0.2-1.3) mg/dL AST (14-36) U/L ALT (4-34) U/L Total Protein (6.3-8.2) g/dL Albumin (3.5-5.0) g/dL Arterial Blood Potassium (3.4-4.5) mmol/L Arterial Blood Glucose (75-99) mg/dL Crossmatch Assessment and Plan Plan: - Acute non-ST elevated PR status post cardiac catheterization showed severe proximal LAD stenosis. Status post CABG further management as per cardiothoracic surgery, patient has chest tubes at this time presently intubated -Acute respiratory failure post cardiac arrest surgery probably can be extubated now. -Acute systolic heart failure. due to acute systolic dysfunction is probably secondary to PR EF 40-45% with hypokinetic apical septum, mild mitral regurgitation, mild tricuspid regurgitation -Acute syncopal episode likely due to acute PR which may have led to seizures. Patient had MRI and EEG was done. EEG was normal. Seen by neurology. Patient declined any antiseizure medications which I believe is reasonable as patient most probably had a syncope related seizure -Alcohol withdraws and was treated for these on admission -Depression -Hypertension -Hyperlipidemia -Ongoing nicotine addiction -Chronic low back pain Tylenol as mentioned above
[2020-05-03 16:13] LABS: Glucose,Whole Blood 103 mg/dL (75-99)
--- NOTE | 2020-05-03 16:37 | OP ---
OPERATIVE REPORT DATE OF SURGERY: 05/03/2020. SURGEON: Dr. Dino Owens. ASSISTANTS: 1. SHAKIRA Ambrocio. 2. SHAKIRA Scott. PREOPERATIVE DIAGNOSES: 1. Gjm-JZ-flyefvdxl myocardial infarction. 2. Preserved left ventricular function. 3. Questionable ventricular tachycardia. 4. Hypertension. 5. Hyperlipidemia. 6. Varicose veins. 7. Cerebral atrophy. 8. ETOH abuse. POSTOPERATIVE DIAGNOSES: 1. Taf-GB-qjveqrtyh myocardial infarction. 2. Preserved left ventricular function. 3. Questionable ventricular tachycardia. 4. Hypertension. 5. Hyperlipidemia. 6. Varicose veins. 7. Cerebral atrophy. 8. ETOH abuse. PROCEDURE: 1. Double off-pump coronary artery bypass grafting using the left internal mammary artery to the left anterior descending artery, reverse saphenous vein graft connected to the aorta using the Passport device connected distally to the first diagonal artery. 2. Endoscopic harvesting the left greater saphenous vein from groin to just below knee level. 3. Intraoperative transesophageal echocardiogram and epiaortic scanning. 4. Intraoperative graft flow measurements using the Ambassadorstim system. INDICATION FOR SURGERY: Patient is a 69-year-old lady who presented with a picture of ACS and was found to have a vla-AE-lzvakvukm myocardial infarction. Cardiac catheterization followed and that showed a complex proximal LAD disease involving also the takeoff of the diagonal artery, and she was deemed a surgical candidate. The patient, as above, has a history of current EtOH abuse with at least 5 hard liquor cocktails per day. Her CT scan done initially had showed also advanced frontal lobe and remaining of the brain atrophied disproportional to the patient's age. We elected to wait at least one week before proceeding with elective coronary artery bypass grafting that we were planned to do on a beating heart in order to decrease the incidence of cerebrovascular events in this particular lady. The STS risk was discussed with her. She understood it and agreed to proceed. On the morning of the surgery, the patient was noted to have ecchymosis in the anterior abdominal wall and had dropped her hemoglobin by around 2 grams. Discussion followed, and this lady had her cath done through the radial arteries, so there was no fear of any retroperitoneal hematoma. Being that any postponement of surgery would still warrant having the patient on IV heparin, we decided to proceed with surgery. DESCRIPTION OF PROCEDURE: With the patient in supine position, right internal jugular [place]-Hallie catheter and right radial arterial line were placed. She had excellent cardiac index and normal PA pressure. She was brought to the operating room, where general endotracheal anesthesia was induced uneventfully. Jain catheter was inserted. The chest, abdomen and both lower extremities were prepped and draped using ChloraPrep. Ioban was used to cover the skin. Patient received 2 grams of cefazolin intravenously. Transesophageal echocardiogram confirmed the preoperative finding of preserved left ventricular function and no significant valvular abnormalities. A midline sternotomy was performed and the bone was moderately osteopenic and osteoporotic. The left hemisternum was elevated. The left internal mammary artery was harvested in a somewhat skeletonized fashion. The left pleura was intentionally opened in the process and drained with a 19-Armenian Jesse drain. We made a small breach in the right pleura to decompress a visible small pneumothorax, and the right pleura was not drained per se. The patient was given 5000 units of heparin. The mammary artery was double-clipped distally and transected. It had an excellent pulsatile flow in it and was around 1.7 mm in diameter. In the same setting, the left greater saphenous vein was harvested endoscopically from groin to just below knee level after administration of 2500 units of heparin. All the branches were tied. The leg incisions were closed over a drain. The Acrobat system along with the Xpose device and the Mister/Blower were used to perform the surgery on a beating heart. Mediastinal fat was transected between 2 ties and epiaortic scanning revealed some wall disease, but no protruding atheroma in the aorta. Pericardium was opened in an inverted T-fashion and a pericardial cradle was created. Findings included a normal short aorta, soft, and a normal-sized heart. IV heparin was administered to achieve an ACT above 250 seconds. The ACT was repeated every 15 to 20 minutes and additional heparin given if needed. The first distal anastomosis was between the in situ left internal mammary artery and the mid to distal aspect of the left anterior descending artery which was opened, had profuse flow in it, and accepted a 1.5 mm shunt using Prolene 7-0 in continuous fashion. The shunt was removed before completing the anastomosis, which was well tolerated. The mammary artery veins were affixed on either side to the epicardium using Prolene 6-0 suture. At this point, we measured the distance between the diagonal artery and the aorta. A piece of vein was fashioned accordingly and loaded on a Passport device and deployed on the mid lateral aspect of the ascending aorta with perfect hemostasis of the stapled proximal anastomosis. Excellent flow in the distal end. The Xpose device was used to expose the diagonal artery. The second distal anastomosis was between that vein and the diagonal artery, which was opened, had reasonable flow in it and accepted a 1.5 mm shunt using Prolene 7-0 in continuous fashion. The vein was de-aired and the shunt was removed before completing the anastomosis, which also was well tolerated. At this point we proceeded with graft flow measurements using the Ambassadorstim system. The flow into the left internal mammary artery to the left anterior descending artery was 41 mL/minute, pulsatility index of 2.1 and diastolic filling of 73%, showing an excellent functioning graft. The flow into the vein graft going to the diagonal artery was 58 mL/minute, pulsatility index of 1, diastolic filling of 67%, also showing an excellent functioning graft. The patient was given a test dose, then only half dose protamine. One 19-Armenian Jesse drain was left substernally. A groove was made in the left pleura pericardial fat to accommodate the mammary artery medial to the lung and away from the posterior sternal table. Mediastinal fat was approximated over the aorta and the graft and a little bit of pericardial fat was approximated over the RV. After ensuring adequate hemostasis and hemodynamics and after correct sponge, instrument and needle counts, the sternum was closed using 6 interrupted stainless steel wires after interposing Fibrillar between the sternal edges. Thorough irrigation with cefazolin followed. The rest of the closure proceeded in layers. Skin glue was applied. The patient did not receive any blood bank product and did not receive any Cell Saver blood. Her hemodynamics were excellent tension and she had a normal EKG on low-dose nitroglycerin when she was transferred to the ICU. MMODL / IJN: [id number] /
[2020-05-03 17:10] LABS: Glucose,Whole Blood 96 mg/dL (75-99)
[2020-05-03] MEDS: ASCORBIC ACID 500 MG TAB PO SCH (17:16)
[2020-05-03] MEDS: FERROUS SULFATE 325 MG TAB PO SCH (17:16)
[2020-05-03 18:02] LABS: Glucose,Whole Blood 92 mg/dL (75-99)
[2020-05-03 18:13] LABS: Basophils % (A) 0 %; Eosinophils % (A) 1 %; HCT 22.3 % (34.0-46.0); HGB 7.3 gm/dL (11.4-16.0); Lymphocytes # (A) 0.5 k/uL (1.0-4.8); Lymphocytes % (A) 8 %; MCH 33.4 pg (25.0-35.0); MCHC 32.6 g/dL (31.0-37.0); MCV 102.6 fL (80.0-100.0); Macrocytosis Slight; Mean Platelet Volume 9.1; Monocytes # (A) 0.4 k/uL (0-1.0); Monocytes % (A) 6 %; Neutrophils # (A) 5.3 k/uL (1.3-7.7); Neutrophils % (A) 83 %; Platelet Count 258 k/uL (150-450); RBC 2.17 m/uL (3.80-5.40); RDW 13.5 % (11.5-15.5); WBC 6.4 k/uL (3.8-10.6)
[2020-05-03 18:16] LABS: ALT 81 U/L (4-34); AST 150 U/L (14-36); African American GFR (CKD) >90 (>60 ml/min/1.73 sqM); Albumin 3.4 g/dL (3.5-5.0); Alkaline Phosphatase 99 U/L (38-126); Anion Gap 8 mmol/L; Blood Urea Nitrogen 10 mg/dL (7-17); Calcium 7.9 mg/dL (8.4-10.2); Carbon Dioxide 22 mmol/L (22-30); Chloride 109 mmol/L (98-107); Glucose 92 mg/dL (74-99); Non-African American GFR(CKD) >90 (>60 ml/min/1.73 sqM); Potassium 3.7 mmol/L (3.5-5.1); Sodium 139 mmol/L (137-145); Total Bilirubin 2.5 mg/dL (0.2-1.3); Total Protein 5.2 g/dL (6.3-8.2)
[2020-05-03] MEDS: POTASSIUM CHLORIDE 10 MEQ in WATER FOR INJECTION 1 100ML.BAG IVPB SCH ×2 (18:41→20:11)
[2020-05-03 18:56] LABS: Glucose,Whole Blood 85 mg/dL (75-99)
[2020-05-03 20:06] LABS: Glucose,Whole Blood 122 mg/dL (75-99)
[2020-05-03] MEDS ORDERED: METOPROLOL TARTRATE 12.5 MG TAB PO SCH (21:00)
[2020-05-03 21:03] LABS: Glucose,Whole Blood 138 mg/dL (75-99)
[2020-05-03] MEDS: HEPARIN SODIUM,PORCINE 5,000 UNIT/ML 1 ML VIAL SQ SCH (21:12)
[2020-05-03 21:56] LABS: Glucose,Whole Blood 130 mg/dL (75-99)
[2020-05-03] MEDS ORDERED: METOPROLOL TARTRATE 12.5 MG TAB PO STA (22:48)
[2020-05-03 23:01] LABS: Glucose,Whole Blood 120 mg/dL (75-99)
[2020-05-04 00:12] LABS: Glucose,Whole Blood 107 mg/dL (75-99)
[2020-05-04] MEDS: ALBUMIN HUMAN 5% 250 ML in EMPTY BAG 1 BAG IVPB PRN ×2 (00:51→01:29)
[2020-05-04 01:08] LABS: Glucose,Whole Blood 106 mg/dL (75-99)
[2020-05-04] MEDS ORDERED: HYDROcodone/APAP 5-325MG 1 EACH TAB PO PRN (02:00)
[2020-05-04 02:08] LABS: Glucose,Whole Blood 97 mg/dL (75-99)
[2020-05-04 03:12] LABS: Glucose,Whole Blood 98 mg/dL (75-99)
[2020-05-04 04:11] LABS: Glucose,Whole Blood 102 mg/dL (75-99)
[2020-05-04 04:31] LABS: Basophils % (A) 0 %; Eosinophils # (A) 0.1 k/uL (0-0.7); Eosinophils % (A) 2 %; HCT 22.1 % (34.0-46.0); HGB 7.1 gm/dL (11.4-16.0); Lymphocytes # (A) 0.6 k/uL (1.0-4.8); Lymphocytes % (A) 14 %; MCH 32.9 pg (25.0-35.0); Macrocytosis Slight; Mean Platelet Volume 9.2; Monocytes # (A) 0.3 k/uL (0-1.0); Monocytes % (A) 8 %; Neutrophils # (A) 3.2 k/uL (1.3-7.7); Neutrophils % (A) 73 %; Platelet Count 232 k/uL (150-450); RBC 2.15 m/uL (3.80-5.40); RDW 13.5 % (11.5-15.5); WBC 4.4 k/uL (3.8-10.6)
[2020-05-04 04:36] LABS: Ionized Calcium 4.9 mg/dL (4.5-5.3)
[2020-05-04 04:43] LABS: ALT 43 U/L (4-34); AST 64 U/L (14-36); African American GFR (CKD) >90 (>60 ml/min/1.73 sqM); Albumin 3.2 g/dL (3.5-5.0); Alkaline Phosphatase 79 U/L (38-126); Anion Gap 6 mmol/L; Blood Urea Nitrogen 11 mg/dL (7-17); Calcium 8.1 mg/dL (8.4-10.2); Carbon Dioxide 21 mmol/L (22-30); Chloride 110 mmol/L (98-107); Glucose 93 mg/dL (74-99); Non-African American GFR(CKD) >90 (>60 ml/min/1.73 sqM); Potassium 4.5 mmol/L (3.5-5.1); Sodium 137 mmol/L (137-145); Total Bilirubin 1.2 mg/dL (0.2-1.3)
[2020-05-04] MEDS: HEPARIN SODIUM,PORCINE 5,000 UNIT/ML 1 ML VIAL SQ SCH ×3 (04:59→20:33)
[2020-05-04] MEDS: KETOROLAC 15 MG/ML 1 ML VIAL IVP SCH ×3 (05:01→18:28)
[2020-05-04 05:16] LABS: Glucose,Whole Blood 99 mg/dL (75-99)
[2020-05-04] MEDS: HYDROcodone/APAP 5-325MG 1 EACH TAB PO PRN ×2 (05:30→21:41)
[2020-05-04] MEDS: FERROUS SULFATE 325 MG TAB PO SCH ×2 (06:48→16:35)
[2020-05-04] MEDS: ASCORBIC ACID 500 MG TAB PO SCH ×2 (06:48→16:34)
[2020-05-04 06:55] LABS: Glucose,Whole Blood 99 mg/dL (75-99)
[2020-05-04] MEDS: IPRATROPIUM-ALBUTEROL 3 ML NEB INHALATION SCH ×4 (07:55→21:19)
--- NOTE | 2020-05-04 08:16 | XR ---
EXAMINATION TYPE: XR chest 1V portable DATE OF EXAM: 05/04/2020 COMPARISON: Prior chest x-ray 05/03/2020 HISTORY: Postop cardiac surgery TECHNIQUE: Single frontal view of the chest is obtained. FINDINGS: Patient is post median sternotomy. Right jugular central venous catheter, median sternal d rain, left chest tube remain in place. Endotracheal tube orogastric tube has been removed. No evident pneumothorax. There is overlying artifact. Heart remains enlarged. There is improvement in the inter stitium and lung aeration. IMPRESSION: Improvement in patient's volume status, aeration. Interval extubation.
[2020-05-04] MEDS: THIAMINE 100 MG TAB PO SCH (08:33)
[2020-05-04] MEDS: ASPIRIN 325 MG TAB PO SCH (08:33)
[2020-05-04] MEDS: CYANOCOBALAMIN 500 MCG TAB PO SCH (08:33)
[2020-05-04] MEDS: CLOPIDOGREL 75 MG TAB PO SCH (08:33)
[2020-05-04] MEDS: PARoxetine 20 MG TAB PO SCH (08:33)
[2020-05-04] MEDS: FOLIC ACID 1 MG TAB PO SCH (08:33)
[2020-05-04] MEDS: ATORVASTATIN 40 MG TAB PO SCH (08:34)
[2020-05-04] MEDS: SODIUM CHLORIDE 0.9% 1,000 ML IV SCH (08:35)
[2020-05-04] MEDS: PANTOPRAZOLE 40 MG TABLET PO SCH (08:37)
[2020-05-04 08:46] LABS: Glucose,Whole Blood 165 mg/dL (75-99)
[2020-05-04] MEDS ORDERED: METOPROLOL TARTRATE 12.5 MG TAB PO SCH (09:00)
[2020-05-04] MEDS ORDERED: bisacodyL 10 MG SUPP RECTAL PRN (09:00)
[2020-05-04] MEDS ORDERED: METOPROLOL TARTRATE 25 MG TAB PO SCH (09:00)
[2020-05-04] MEDS ORDERED: PANTOPRAZOLE 40 MG/10 ML VIAL IVP SCH (09:00)
[2020-05-04] MEDS ORDERED: MAGNESIUM HYDROXIDE 2,400 MG/10 ML CUP PO PRN (09:00)
--- NOTE | 2020-05-04 09:54 | P.PN ---
Subjective Progress Note Date: 05/04/20 Principal diagnosis: Coronary artery disease, proximal LAD 99%, non-STEMI this admission with troponins as high as 1.350, questionable ventricular tachycardia prior to admission, severely impaired left ventricular systolic function and EF of 30- 35%, mild mitral valve regurgitation, mild tricuspid valve regurgitation, hypertension, hyperlipidemia, remote seizure history, current chronic tobacco dependence with preoperative FEV1 81% of predicted value, moderate daily EtOH use, family history of heart disease. POD #1 double off-pump coronary artery bypass grafting using the left internal mammary artery to left anterior descending coronary artery, a reverse greater saphenous vein graft connected to the aorta using the PAS-port device and connected distally to the first diagonal coronary artery. Endoscopic harvesting of the left greater saphenous vein from the groin to just below the lead level, intraoperative transesophageal echocardiogram and epi-aortic scanning, in traoperative graft flow measurements using the Or[employer] system. Postoperative acute blood loss anemia, an expected outcome due to hemodilution. The patient is seen in follow-up today on postoperative day #1, she is sitting up to the bedside chair, is awake, alert and oriented 3. She is in no acute distress, remains hemodynamically stable and is currently on no inotropic or pressor support. Right IJ Cordis with Sinton-Hallie catheter remains in place with current hemodynamics showing a cardiac output of 4.6, cardiac index 2.9, PA pressures 38/12 and a CVP 6 mmHg. Currently denies any complaints of shortness of breath, although is complaining of some surgical type pain to her left chest tube insertion site. Bedside telemetry showing normal sinus rhythm heart rate 89. Mediastinal and left pleural chest tubes remain in place to low continuous wall suction -20 cm H2O. No air leak is present. Mediastinal chest tube draining thin serosanguineous drainage with 50 mL output in the last 8 hours and 330 mL output since surgery. Left pleural chest tube draining thin serosanguineous drainage with 310 mL output in the last 8 hours and 800 mL output since surgery. The patient was successfully extubated yesterday 05/03/2020@2:50 PM, current oxygen saturations are 100% on 3 L nasal cannula and she is achieving 500 mL on her incentive spirometry. Objective - Vital Signs Vital signs: Vital Signs Temp 98.6 F 05/04/20 08:00 Pulse 86 05/04/20 08:08 Resp 11 L 05/04/20 08:00 BP 103/72 05/04/20 06:30 Pulse Ox 100 05/04/20 08:00 Intake & Output 05/03/20 05/04/20 05/04/20 18:59 06:59 18:59 Intake Total 770.906 9570 539 Output Total 2285 1385 65 Balance -1611.565 448 474 Weight 54.7 kg 60.4 kg Intake: IV 186 1563 59 0.9 535 50 0.9 CO/CI 90 159 0.9 flush 63 119 9 ACETAMINOPHEN IV (For NPO 100 ) 1,000 mg In Empty Bag 1 bag @ 400 mls/hr IVPB Q6H [facility] Rx#:[id number] Albumin Human 5% 250 ml 500 In Empty Bag 1 bag @ 250 mls/hr IVPB Q1HR PRN Rx#: [id number] Potassium Chloride 10 meq 100 In Water For Injection 1 100ml.bag @ 100 mls/hr IVPB Q1H [facility]ARA Rx#: [id number] ceFAZolin 2 gm In Sodium 50 Chloride 0.9% 50 ml @ 100 mls/hr IVPB Q8HR [facility]ARA Rx# :[id number] Intake, IV Titration 487.435 150 Amount Clevidipine Butyrate 25 12.0 mg In Empty Bag 1 bag @ 1 MG/HR 2 mls/hr IV .Q24H [facility]ARA Rx#:[id number] Dexmedetomidine/0.9% NaCl 8.888 (Pmx) 400 mcg In Empty Bag 1 bag @ Titrate IV . Q0M [facility]ARA Rx#:[id number] Potassium Chloride 10 meq 100 In Water For Injection 1 100ml.bag @ 100 mls/hr IVPB Q1H [facility]ARA Rx#: [id number] Sodium Chloride 0.9% 1, 350 50 000 ml @ 50 mls/hr IV . Q20H [facility]ARA Rx#:[id number] ceFAZolin 2 gm In Sodium 100 Chloride 0.9% 50 ml @ 100 mls/hr IVPB Q8HR [facility] Rx# :[id number] propofoL 1,000 mg In 16.547 Empty Bag 1 bag @ Titrate IV .Q0M [facility]ARA Rx#: [id number] Oral 120 480 Output: Chest Tube Drainage 515 625 20 Chest Tube Left Pleural/ 185 500 20 Mediastinal Chest Tube Mediastinal 330 125 0 Urine 1370 760 45 Estimated Blood Loss 400 Other: Voiding Method Indwelling Catheter ABP, PAP, CO, CI - Last Documented Arterial Blood Pressure 130/58 Pulmonary Artery Pressure 22/9 Cardiac Output 4.6 Cardiac Index 2.9 - Constitutional General appearance: Present: average body habitus, cooperative, no acute dis tress - EENT Eyes: Present: PERRLA, dentition normal, normal appearance. Absent: scleral icterus ENT: Present: hearing grossly normal - Neck Details: Neck is supple, no JVD. No lymphadenopathy. - Respiratory Details: Lung sounds essentially clear throughout, few scattered crackles to her left lower lobe. No wheezes, or rhonchi. Respirations are symmetrical and nonlabored. Oxygen saturation is 100% on 3 L nasal cannula and she is achieving 500 mL on her incentive spirometry with encouragement. Mediastinal and left pleural chest tubes remain in place to low continuous wall suction -20 cm H2O. No air leak is present. Mediastinal chest tube draining thin serosanguineous drainage with 50 mL output in the last 8 hours and 330 mL output since surgery. Left pleural chest tube draining thin serosanguineous drainage with 310 mL output in the last 8 hours and 800 mL output since surgery. - Cardiovascular Details: Regular rhythm and rate. S1 and S2 present, negative for S3, gallop or murmur. Sternum is stable. Bedside telemetry showing normal sinus rhythm heart rate 89. Heart hugger is in place and she is demonstrating appropriate use. Knee-high KAT hose and sequential compression devices in place to bilateral lower extremities. Right IJ Cordis with Sinton-Hallie catheter remains in place with c urrent hemodynamics showing a cardiac output of 4.6, cardiac index 2.9, PA pressures 38/12 and a CVP 6 mmHg. No edema present. - Gastrointestinal Gastrointestinal Comment(s): Abdomen is soft, nontender and nondistended. Hypoactive bowel sounds present in all 4 abdominal quadrants. No guarding or rigidity. No organomegaly appreciated. Tolerating oral intake. - Genitourinary Genitourinary Comment(s): Jain catheter for accurate I&O. Draining clear jeanie urine. 655 mL output in the last 8 hours. - Integumentary Integumentary Comment(s): Skin is warm and dry. No clubbing or cyanosis is present. Midline sternal incision is clean, dry and approximated. No drainage or redness is present. Left lower extremity EVH site is clean, dry and approximated. No drainage or redness is present. - Neurologic Neurologic: Present: CNII-XII intact - Musculoskeletal Musculoskeletal: Present: gait normal, generalized weakness, strength equal bilaterally - Psychiatric Psychiatric: Present: A&O x's 3, appropriate affect, intact judgment & insight - Allied health notes Allied health notes reviewed: nursing - Labs CBC & Chem 7: 05/04/20 04:10 05/04/20 04:10 Labs: Abnormal Lab Results - Last 24 Hours (Table) 05/02/20 05/03/20 05/03/20 Range/Units 06:41 08:39 09:48 RBC (3.80-5.40) m/uL Hgb (11.4-16.0) gm/dL Hct (34.0-46.0) % MCV (80.0-100.0) fL Lymphocytes # (1.0-4.8) k/uL INR (<1.2) APTT (22.0-30.0) sec ABG pH (7.35-7.45) ABG pO2 289 H 240 H (83-108) mmHg ABG Total CO2 25 H (19-24) mmol/L ABG O2 Saturation 100.0 H 99.9 H (94-97) % ABG Hematocrit 29 L 29 L (34.0-46.0) % ABG Potassium (3.4-4.5) mmol/L ABG Ionized Calcium (4.5-5.3) mg/dL ABG Glucose 102 H (75-99) mg/dL Hemoglobin 9.6 L 9.5 L (11.4-16.0) gm/dL Chloride (98-107) mmol/L Carbon Dioxide (22-30) mmol/L POC Glucose (mg/dL) (75-99) mg/dL Calcium (8.4-10.2) mg/dL Total Bilirubin (0.2-1.3) mg/dL AST (14-36) U/L ALT (4-34) U/L Total Protein (6.3-8.2) g/dL Albumin (3.5-5.0) g/dL Arterial Blood Potassium (3.4-4.5) mmol/L Arterial Blood Glucose 102 H (75-99) mg/dL Crossmatch See Detail 10/08/20 10/08/20 10/08/20 Range/Units 10:19 10:45 11:31 RBC (3.80-5.40) m/uL Hgb (11.4-16.0) gm/dL Hct (34.0-46.0) % MCV (80.0-100.0) fL Lymphocytes # (1.0-4.8) k/uL INR (<1.2) APTT (22.0-30.0) sec ABG pH 7.34 L (7.35-7.45) ABG pO2 253 H 257 H 142 H (83-108) mmHg ABG Total CO2 (19-24) mmol/L ABG O2 Saturation 99.9 H 99.6 H 99.2 H (94-97) % ABG Hematocrit 25 L 23 L 21 L (34.0-46.0) % ABG Potassium 4.9 H (3.4-4.5) mmol/L ABG Ionized Calcium 4.4 L 4.4 L 4.2 L (4.5-5.3) mg/dL ABG Glucose (75-99) mg/dL Hemoglobin 8.0 L 7.3 L 6.8 L* (11.4-16.0) gm/dL Chloride (98-107) mmol/L Carbon Dioxide (22-30) mmol/L POC Glucose (mg/dL) (75-99) mg/dL Calcium (8.4-10.2) mg/dL Total Bilirubin (0.2-1.3) mg/dL AST (14-36) U/L ALT (4-34) U/L Total Protein (6.3-8.2) g/dL Albumin (3.5-5.0) g/dL Arterial Blood Potassium 4.9 H (3.4-4.5) mmol/L Arterial Blood Glucose (75-99) mg/dL Crossmatch 05/03/20 05/03/20 05/03/20 Range/Units 12:10 12:10 12:10 RBC 2.07 L (3.80-5.40) m/uL Hgb 7.0 L D (11.4-16.0) gm/dL Hct 21.2 L (34.0-46.0) % MCV 102.7 H D (80.0-100.0) fL Lymphocytes # 0.8 L (1.0-4.8) k/uL INR 1.2 H (<1.2) APTT 33.5 H (22.0-30.0) sec ABG pH (7.35-7.45) ABG pO2 (83-108) mmHg ABG Total CO2 (19-24) mmol/L ABG O2 Saturation (94-97) % ABG Hematocrit (34.0-46.0) % ABG Potassium (3.4-4.5) mmol/L ABG Ionized Calcium (4.5-5.3) mg/dL ABG Glucose (75-99) mg/dL Hemoglobin (11.4-16.0) gm/dL Chloride 110 H (98-107) mmol/L Carbon Dioxide (22-30) mmol/L POC Glucose (mg/dL) (75-99) mg/dL Calcium 7.4 L (8.4-10.2) mg/dL Total Bilirubin 2.2 H (0.2-1.3) mg/dL AST 156 H (14-36) U/L ALT 68 H (4-34) U/L Total Protein 5.2 L (6.3-8.2) g/dL Albumin 3.4 L (3.5-5.0) g/dL Arterial Blood Potassium (3.4-4.5) mmol/L Arterial Blood Glucose (75-99) mg/dL Crossmatch 05/03/20 05/03/20 05/03/20 Range/Units 12:10 12:12 12:50 RBC (3.80-5.40) m/uL Hgb (11.4-16.0) gm/dL Hct (34.0-46.0) % MCV (80.0-100.0) fL Lymphocytes # (1.0-4.8) k/uL INR (<1.2) APTT (22.0-30.0) sec ABG pH 7.30 L (7.35-7.45) ABG pO2 349 H 153 H (83-108) mmHg ABG Total CO2 (19-24) mmol/L ABG O2 Saturation 100.0 H 99.6 H (94-97) % ABG Hematocrit (34.0-46.0) % ABG Potassium (3.4-4.5) mmol/L ABG Ionized Calcium (4.5-5.3) mg/dL ABG Glucose (75-99) mg/dL Hemoglobin (11.4-16.0) gm/dL Chloride (98-107) mmol/L Carbon Dioxide (22-30) mmol/L POC Glucose (mg/dL) 101 H (75-99) mg/dL Calcium (8.4-10.2) mg/dL Total Bilirubin (0.2-1.3) mg/dL AST (14-36) U/L ALT (4-34) U/L Total Protein (6.3-8.2) g/dL Albumin (3.5-5.0) g/dL Arterial Blood Potassium (3.4-4.5) mmol/L Arterial Blood Glucose (75-99) mg/dL Crossmatch 05/03/20 05/03/20 05/03/20 Range/Units 14:17 14:41 15:07 RBC (3.80-5.40) m/uL Hgb (11.4-16.0) gm/dL Hct (34.0-46.0) % MCV (80.0-100.0) fL Lymphocytes # (1.0-4.8) k/uL INR (<1.2) APTT (22.0-30.0) sec ABG pH (7.35-7.45) ABG pO2 74 L (83-108) mmHg ABG Total CO2 (19-24) mmol/L ABG O2 Saturation (94-97) % ABG Hematocrit (34.0-46.0) % ABG Potassium (3.4-4.5) mmol/L ABG Ionized Calcium (4.5-5.3) mg/dL ABG Glucose (75-99) mg/dL Hemoglobin (11.4-16.0) gm/dL Chloride (98-107) mmol/L Carbon Dioxide (22-30) mmol/L POC Glucose (mg/dL) 115 H 107 H (75-99) mg/dL Calcium (8.4-10.2) mg/dL Total Bilirubin (0.2-1.3) mg/dL AST (14-36) U/L ALT (4-34) U/L Total Protein (6.3-8.2) g/dL Albumin (3.5-5.0) g/dL Arterial Blood Potassium (3.4-4.5) mmol/L Arterial Blood Glucose (75-99) mg/dL Crossmatch 05/03/20 05/03/20 05/03/20 Range/Units 16:11 16:15 18:00 RBC 2.17 L (3.80-5.40) m/uL Hgb 7.3 L (11.4-16.0) gm/dL Hct 22.3 L (34.0-46.0) % MCV 102.6 H (80.0-100.0) fL Lymphocytes # 0.5 L (1.0-4.8) k/uL INR (<1.2) APTT (22.0-30.0) sec ABG pH (7.35-7.45) ABG pO2 (83-108) mmHg ABG Total CO2 (19-24) mmol/L ABG O2 Saturation (94-97) % ABG Hematocrit (34.0-46.0) % ABG Potassium (3.4-4.5) mmol/L ABG Ionized Calcium (4.5-5.3) mg/dL ABG Glucose (75-99) mg/dL Hemoglobin (11.4-16.0) gm/dL Chloride 109 H (98-107) mmol/L Carbon Dioxide (22-30) mmol/L POC Glucose (mg/dL) 103 H (75-99) mg/dL Calcium 7.9 L (8.4-10.2) mg/dL Total Bilirubin 2.5 H (0.2-1.3) mg/dL AST 150 H (14-36) U/L ALT 81 H (4-34) U/L Total Protein 5.2 L (6.3-8.2) g/dL Albumin 3.4 L (3.5-5.0) g/dL Arterial Blood Potassium (3.4-4.5) mmol/L Arterial Blood Glucose (75-99) mg/dL Crossmatch 05/03/20 05/03/20 05/03/20 Range/Units 20:05 21:02 21:54 RBC (3.80-5.40) m/uL Hgb (11.4-16.0) gm/dL Hct (34.0-46.0) % MCV (80.0-100.0) fL Lymphocytes # (1.0-4.8) k/uL INR (<1.2) APTT (22.0-30.0) sec ABG pH (7.35-7.45) ABG pO2 (83-108) mmHg ABG Total CO2 (19-24) mmol/L ABG O2 Saturation (94-97) % ABG Hematocrit (34.0-46.0) % ABG Potassium (3.4-4.5) mmol/L ABG Ionized Calcium (4.5-5.3) mg/dL ABG Glucose (75-99) mg/dL Hemoglobin (11.4-16.0) gm/dL Chloride (98-107) mmol/L Carbon Dioxide (22-30) mmol/L POC Glucose (mg/dL) 122 H 138 H 130 H (75-99) mg/dL Calcium (8.4-10.2) mg/dL Total Bilirubin (0.2-1.3) mg/dL AST (14-36) U/L ALT (4-34) U/L Total Protein (6.3-8.2) g/dL Albumin (3.5-5.0) g/dL Arterial Blood Potassium (3.4-4.5) mmol/L Arterial Blood Glucose (75-99) mg/dL Crossmatch 05/03/20 05/04/20 05/04/20 Range/Units 23:00 00:11 01:06 RBC (3.80-5.40) m/uL Hgb (11.4-16.0) gm/dL Hct (34.0-46.0) % MCV (80.0-100.0) fL Lymphocytes # (1.0-4.8) k/uL INR (<1.2) APTT (22.0-30.0) sec ABG pH (7.35-7.45) ABG pO2 (83-108) mmHg ABG Total CO2 (19-24) mmol/L ABG O2 Saturation (94-97) % ABG Hematocrit (34.0-46.0) % ABG Potassium (3.4-4.5) mmol/L ABG Ionized Calcium (4.5-5.3) mg/dL ABG Glucose (75-99) mg/dL Hemoglobin (11.4-16.0) gm/dL Chloride (98-107) mmol/L Carbon Dioxide (22-30) mmol/L POC Glucose (mg/dL) 120 H 107 H 106 H (75-99) mg/dL Calcium (8.4-10.2) mg/dL Total Bilirubin (0.2-1.3) mg/dL AST (14-36) U/L ALT (4-34) U/L Total Protein (6.3-8.2) g/dL Albumin (3.5-5.0) g/dL Arterial Blood Potassium (3.4-4.5) mmol/L Arterial Blood Glucose (75-99) mg/dL Crossmatch 05/04/20 05/04/20 05/04/20 Range/Units 04:07 04:10 04:10 RBC 2.15 L (3.80-5.40) m/uL Hgb 7.1 L (11.4-16.0) gm/dL Hct 22.1 L (34.0-46.0) % MCV 103.0 H (80.0-100.0) fL Lymphocytes # 0.6 L (1.0-4.8) k/uL INR (<1.2) APTT (22.0-30.0) sec ABG pH (7.35-7.45) ABG pO2 (83-108) mmHg ABG Total CO2 (19-24) mmol/L ABG O2 Saturation (94-97) % ABG Hematocrit (34.0-46.0) % ABG Potassium (3.4-4.5) mmol/L ABG Ionized Calcium (4.5-5.3) mg/dL ABG Glucose (75-99) mg/dL Hemoglobin (11.4-16.0) gm/dL Chloride 110 H (98-107) mmol/L Carbon Dioxide 21 L (22-30) mmol/L POC Glucose (mg/dL) 102 H (75-99) mg/dL Calcium 8.1 L (8.4-10.2) mg/dL Total Bilirubin (0.2-1.3) mg/dL AST 64 H (14-36) U/L ALT 43 H (4-34) U/L Total Protein 5.0 L (6.3-8.2) g/dL Albumin 3.2 L (3.5-5.0) g/dL Arterial Blood Potassium (3.4-4.5) mmol/L Arterial Blood Glucose (75-99) mg/dL Crossmatch - Imaging and Cardiology Chest x-ray: report reviewed, image reviewed Assessment and Plan Assessment: 1. Coronary artery disease, proximal LAD 99%, status post 2 vessel coronary artery bypass grafting surgery 2. Non-STEMI this admission 3. Questionable ventricular tachycardia prior to admission 4 Severely impaired left ventricular systolic function with an EF of 30-35%, mild mitral valve regurgitation, mild tricuspid valve regurgitation 5. Hypertension 6. Hyperlipidemia, LDL 136, cholesterol 250, triglycerides 348 7. Remote seizure history 8. Current chronic tobacco dependence with a preoperative FEV1 81% of predicted value 9. Moderate daily EtOH use 10. Family history of heart disease 11. Postoperative acute blood loss anemia, expected Plan: 1. Continue aspirin, statin, Plavix and beta jose. Increase metoprolol tartrate 25 mg by mouth twice a day. 2. Discontinue IV nitroglycerin. 3. Wean O2 as tolerated. Encourage incentive spirometry is 10 times every hour while awake. Bronchodilators per pulmonology management. 4. Increase activity, ambulate as tolerated. PT/OT/cardiac rehab consulted. 5. Will monitor daily labs and chest x-rays. Electrolyte replacement per protocol. No transfusion. 6. GI/DVT prophylaxis. 7. Insulin management per primary care service. Patient is not diabetic, preoperative hemoglobin A1c 5.7% 8. Pain control current medication regimen. 9. Discontinue Sinton. Connect Cordis to continue CVP monitoring. 10. Continue chest tubes for another 24 hours. Continue to record accurate I's and O's. 11. Continue Jain catheter for another 24 hours for strict accurate intake and output. Daily weights. 12. Lisinopril 2.5 mg by mouth daily added for afterload reduction. 13. No diuresis today. 14. More recommendations to follow based on patient's clinical course. Time with Patient: Greater than 30
[2020-05-04 10:08] LABS: Glucose,Whole Blood 139 mg/dL (75-99)
--- NOTE | 2020-05-04 11:08 | P.PN ---
<Kim Shane A - Last Filed: 05/04/20 10:53> Subjective This is a pleasant 69-year-old female past medical history significant for hypertension, dyslipidemia, chronic nicotine dependence and daily alcohol intake. She underwent coronary artery bypass grafting yesterday with BARDALES to LAD and SVG to diagonal with Dr. Owens. She is seen and examined this morning sitting up in the chair in no acute distress. Heart hugger is in place. She has 2 chest tubes still in place and a right IJ cordis with a [place]-Hallie catheter . She is hemodynamically stable. Cardiac output 4.6 and CVP 6 mmHg. Blood pressure 130/58 heart rate 87 afebrile maintaining oxygen saturation on nasal cannula. Laboratory data reviewed, WBC 4.4, hemoglobin 7.1, platelets 232, sodium 137, potassium 4.5, creatinine 0.68 and magnesium 2.0. She is currently maintained on aspirin 325 mg daily, atorvastatin 40 mg daily, Plavix 75 mg daily, lisinopril 2.5 mg daily and metoprolol 25 mg twice a day. GENERAL: Well-appearing, well-nourished and in no acute distress. NECK: Supple without JVD or thyromegaly. LUNGS: Breath sounds clear to auscultation bilaterally. Respiration equal and unlabored. No wheezes, rales or rhonchi. Diminished bilaterally. HEART: Regular rate and rhythm without murmurs, rubs or gallops. S1 and S2 heard. EXTREMITIES: Normal range of motion, no edema. No clubbing or cyanosis. Peripheral pulses intact. ASSESSMENT Non-ST elevated myocardial infarction Ischemic cardiomyopathy Hypertension Dyslipidemia Chronic nicotine dependence Daily alcohol intake PLAN Continue current medical regimen. Encourage regular incentive spirometer use. Nurse Practitioner note has been reviewed, I agree with a documented findings an d plan of care. Patient was seen and examined. Objective - Vital Signs Vital signs: Vital Signs Temp 98.6 F 05/04/20 08:00 Pulse 86 05/04/20 08:08 Resp 11 L 05/04/20 08:00 BP 103/72 05/04/20 06:30 Pulse Ox 100 05/04/20 08:00 Intake & Output 05/03/20 05/04/20 05/04/20 18:59 06:59 18:59 Intake Total 172.406 6085 539 Output Total 2285 1385 65 Balance -1611.565 448 474 Weight 54.7 kg 60.4 kg Intake: IV 186 1563 59 0.9 535 50 0.9 CO/CI 90 159 0.9 flush 63 119 9 ACETAMINOPHEN IV (For NPO 100 ) 1,000 mg In Empty Bag 1 bag @ 400 mls/hr IVPB Q6H [facility] Rx#:[id number] Albumin Human 5% 250 ml 500 In Empty Bag 1 bag @ 250 mls/hr IVPB Q1HR PRN Rx#: [id number] Potassium Chloride 10 meq 100 In Water For Injection 1 100ml.bag @ 100 mls/hr IVPB Q1H [facility] Rx#: [id number] ceFAZolin 2 gm In Sodium 50 Chloride 0.9% 50 ml @ 100 mls/hr IVPB Q8HR [facility] Rx# :[id number] Intake, IV Titration 487.435 150 Amount Clevidipine Butyrate 25 12.0 mg In Empty Bag 1 bag @ 1 MG/HR 2 mls/hr IV .Q24H [facility] Rx#:[id number] Dexmedetomidine/0.9% NaCl 8.888 (Pmx) 400 mcg In Empty Bag 1 bag @ Titrate IV . Q0M [facility] Rx#:[id number] Potassium Chloride 10 meq 100 In Water For Injection 1 100ml.bag @ 100 mls/hr IVPB Q1H [facility] Rx#: [id number] Sodium Chloride 0.9% 1, 350 50 000 ml @ 50 mls/hr IV . Q20H [facility] Rx#:[id number] ceFAZolin 2 gm In Sodium 100 Chloride 0.9% 50 ml @ 100 mls/hr IVPB Q8HR [facility] Rx# :[id number] propofoL 1,000 mg In 16.547 Empty Bag 1 bag @ Titrate IV .Q0M [facility] Rx#: [id number] Oral 120 480 Output: Chest Tube Drainage 515 625 20 Chest Tube Left Pleural/ 185 500 20 Mediastinal Chest Tube Mediastinal 330 125 0 Urine 1370 760 45 Estimated Blood Loss 400 Other: Voiding Method Indwelling Catheter ABP, PAP, CO, CI - Last Documented Arterial Blood Pressure 130/58 Pulmonary Artery Pressure 22/9 Cardiac Output 4.6 Cardiac Index 2.9 - Labs CBC & Chem 7: 05/04/20 04:10 05/04/20 04:10 Labs: Abnormal Lab Results - Last 24 Hours (Table) 05/02/20 05/03/20 05/03/20 Range/Units 06:41 08:39 09:48 RBC (3.80-5.40) m/uL Hgb (11.4-16.0) gm/dL Hct (34.0-46.0) % MCV (80.0-100.0) fL Lymphocytes # (1.0-4.8) k/uL INR (<1.2) APTT (22.0-30.0) sec ABG pH (7.35-7.45) ABG pO2 289 H 240 H (83-108) mmHg ABG Total CO2 25 H (19-24) mmol/L ABG O2 Saturation 100.0 H 99.9 H (94-97) % ABG Hematocrit 29 L 29 L (34.0-46.0) % ABG Potassium (3.4-4.5) mmol/L ABG Ionized Calcium (4.5-5.3) mg/dL ABG Glucose 102 H (75-99) mg/dL Hemoglobin 9.6 L 9.5 L (11.4-16.0) gm/dL Chloride (98-107) mmol/L Carbon Dioxide (22-30) mmol/L POC Glucose (mg/dL) (75-99) mg/dL Calcium (8.4-10.2) mg/dL Total Bilirubin (0.2-1.3) mg/dL AST (14-36) U/L ALT (4-34) U/L Total Protein (6.3-8.2) g/dL Albumin (3.5-5.0) g/dL Arterial Blood Potassium (3.4-4.5) mmol/L Arterial Blood Glucose 102 H (75-99) mg/dL Crossmatch See Detail 05/03/20 05/03/20 05/03/20 Range/Units 10:19 10:45 11:31 RBC (3.80-5.40) m/uL Hgb (11.4-16.0) gm/dL Hct (34.0-46.0) % MCV (80.0-100.0) fL Lymphocytes # (1.0-4.8) k/uL INR (<1.2) APTT (22.0-30.0) sec ABG pH 7.34 L (7.35-7.45) ABG pO2 253 H 257 H 142 H (83-108) mmHg ABG Total CO2 (19-24) mmol/L ABG O2 Saturation 99.9 H 99.6 H 99.2 H (94-97) % ABG Hematocrit 25 L 23 L 21 L (34.0-46.0) % ABG Potassium 4.9 H (3.4-4.5) mmol/L ABG Ionized Calcium 4.4 L 4.4 L 4.2 L (4.5-5.3) mg/dL ABG Glucose (75-99) mg/dL Hemoglobin 8.0 L 7.3 L 6.8 L* (11.4-16.0) gm/dL Chloride (98-107) mmol/L Carbon Dioxide (22-30) mmol/L POC Glucose (mg/dL) (75-99) mg/dL Calcium (8.4-10.2) mg/dL Total Bilirubin (0.2-1.3) mg/dL AST (14-36) U/L ALT (4-34) U/L Total Protein (6.3-8.2) g/dL Albumin (3.5-5.0) g/dL Arterial Blood Potassium 4.9 H (3.4-4.5) mmol/L Arterial Blood Glucose (75-99) mg/dL Crossmatch 05/03/20 05/03/20 05/03/20 Range/Units 12:10 12:10 12:10 RBC 2.07 L (3.80-5.40) m/uL Hgb 7.0 L D (11.4-16.0) gm/dL Hct 21.2 L (34.0-46.0) % MCV 102.7 H D (80.0-100.0) fL Lymphocytes # 0.8 L (1.0-4.8) k/uL INR 1.2 H (<1.2) APTT 33.5 H (22.0-30.0) sec ABG pH (7.35-7.45) ABG pO2 (83-108) mmHg ABG Total CO2 (19-24) mmol/L ABG O2 Saturation (94-97) % ABG Hematocrit (34.0-46.0) % ABG Potassium (3.4-4.5) mmol/L ABG Ionized Calcium (4.5-5.3) mg/dL ABG Glucose (75-99) mg/dL Hemoglobin (11.4-16.0) gm/dL Chloride 110 H (98-107) mmol/L Carbon Dioxide (22-30) mmol/L POC Glucose (mg/dL) (75-99) mg/dL Calcium 7.4 L (8.4-10.2) mg/dL Total Bilirubin 2.2 H (0.2-1.3) mg/dL AST 156 H (14-36) U/L ALT 68 H (4-34) U/L Total Protein 5.2 L (6.3-8.2) g/dL Albumin 3.4 L (3.5-5.0) g/dL Arterial Blood Potassium (3.4-4.5) mmol/L Arterial Blood Glucose (75-99) mg/dL Crossmatch 05/03/20 05/03/20 05/03/20 Range/Units 12:10 12:12 12:50 RBC (3.80-5.40) m/uL Hgb (11.4-16.0) gm/dL Hct (34.0-46.0) % MCV (80.0-100.0) fL Lymphocytes # (1.0-4.8) k/uL INR (<1.2) APTT (22.0-30.0) sec ABG pH 7.30 L (7.35-7.45) ABG pO2 349 H 153 H (83-108) mmHg ABG Total CO2 (19-24) mmol/L ABG O2 Saturation 100.0 H 99.6 H (94-97) % ABG Hematocrit (34.0-46.0) % ABG Potassium (3.4-4.5) mmol/L ABG Ionized Calcium (4.5-5.3) mg/dL ABG Glucose (75-99) mg/dL Hemoglobin (11.4-16.0) gm/dL Chloride (98-107) mmol/L Carbon Dioxide (22-30) mmol/L POC Glucose (mg/dL) 101 H (75-99) mg/dL Calcium (8.4-10.2) mg/dL Total Bilirubin (0.2-1.3) mg/dL AST (14-36) U/L ALT (4-34) U/L Total Protein (6.3-8.2) g/dL Albumin (3.5-5.0) g/dL Arterial Blood Potassium (3.4-4.5) mmol/L Arterial Blood Glucose (75-99) mg/dL Crossmatch 05/03/20 05/03/20 05/03/20 Range/Units 14:17 14:41 15:07 RBC (3.80-5.40) m/uL Hgb (11.4-16.0) gm/dL Hct (34.0-46.0) % MCV (80.0-100.0) fL Lymphocytes # (1.0-4.8) k/uL INR (<1.2) APTT (22.0-30.0) sec ABG pH (7.35-7.45) ABG pO2 74 L (83-108) mmHg ABG Total CO2 (19-24) mmol/L ABG O2 Saturation (94-97) % ABG Hematocrit (34.0-46.0) % ABG Potassium (3.4-4.5) mmol/L ABG Ionized Calcium (4.5-5.3) mg/dL ABG Glucose (75-99) mg/dL Hemoglobin (11.4-16.0) gm/dL Chloride (98-107) mmol/L Carbon Dioxide (22-30) mmol/L POC Glucose (mg/dL) 115 H 107 H (75-99) mg/dL Calcium (8.4-10.2) mg/dL Total Bilirubin (0.2-1.3) mg/dL AST (14-36) U/L ALT (4-34) U/L Total Protein (6.3-8.2) g/dL Albumin (3.5-5.0) g/dL Arterial Blood Potassium (3.4-4.5) mmol/L Arterial Blood Glucose (75-99) mg/dL Crossmatch 05/03/20 05/03/20 05/03/20 Range/Units 16:11 16:15 18:00 RBC 2.17 L (3.80-5.40) m/uL Hgb 7.3 L (11.4-16.0) gm/dL Hct 22.3 L (34.0-46.0) % MCV 102.6 H (80.0-100.0) fL Lymphocytes # 0.5 L (1.0-4.8) k/uL INR (<1.2) APTT (22.0-30.0) sec ABG pH (7.35-7.45) ABG pO2 (83-108) mmHg ABG Total CO2 (19-24) mmol/L ABG O2 Saturation (94-97) % ABG Hematocrit (34.0-46.0) % ABG Potassium (3.4-4.5) mmol/L ABG Ionized Calcium (4.5-5.3) mg/dL ABG Glucose (75-99) mg/dL Hemoglobin (11.4-16.0) gm/dL Chloride 109 H (98-107) mmol/L Carbon Dioxide (22-30) mmol/L POC Glucose (mg/dL) 103 H (75-99) mg/dL Calcium 7.9 L (8.4-10.2) mg/dL Total Bilirubin 2.5 H (0.2-1.3) mg/dL AST 150 H (14-36) U/L ALT 81 H (4-34) U/L Total Protein 5.2 L (6.3-8.2) g/dL Albumin 3.4 L (3.5-5.0) g/dL Arterial Blood Potassium (3.4-4.5) mmol/L Arterial Blood Glucose (75-99) mg/dL Crossmatch 05/03/20 05/03/20 05/03/20 Range/Units 20:05 21:02 21:54 RBC (3.80-5.40) m/uL Hgb (11.4-16.0) gm/dL Hct (34.0-46.0) % MCV (80.0-100.0) fL Lymphocytes # (1.0-4.8) k/uL INR (<1.2) APTT (22.0-30.0) sec ABG pH (7.35-7.45) ABG pO2 (83-108) mmHg ABG Total CO2 (19-24) mmol/L ABG O2 Saturation (94-97) % ABG Hematocrit (34.0-46.0) % ABG Potassium (3.4-4.5) mmol/L ABG Ionized Calcium (4.5-5.3) mg/dL ABG Glucose (75-99) mg/dL Hemoglobin (11.4-16.0) gm/dL Chloride (98-107) mmol/L Carbon Dioxide (22-30) mmol/L POC Glucose (mg/dL) 122 H 138 H 130 H (75-99) mg/dL Calcium (8.4-10.2) mg/dL Total Bilirubin (0.2-1.3) mg/dL AST (14-36) U/L ALT (4-34) U/L Total Protein (6.3-8.2) g/dL Albumin (3.5-5.0) g/dL Arterial Blood Potassium (3.4-4.5) mmol/L Arterial Blood Glucose (75-99) mg/dL Crossmatch 05/03/20 05/04/20 05/04/20 Range/Units 23:00 00:11 01:06 RBC (3.80-5.40) m/uL Hgb (11.4-16.0) gm/dL Hct (34.0-46.0) % MCV (80.0-100.0) fL Lymphocytes # (1.0-4.8) k/uL INR (<1.2) APTT (22.0-30.0) sec ABG pH (7.35-7.45) ABG pO2 (83-108) mmHg ABG Total CO2 (19-24) mmol/L ABG O2 Saturation (94-97) % ABG Hematocrit (34.0-46.0) % ABG Potassium (3.4-4.5) mmol/L ABG Ionized Calcium (4.5-5.3) mg/dL ABG Glucose (75-99) mg/dL Hemoglobin (11.4-16.0) gm/dL Chloride (98-107) mmol/L Carbon Dioxide (22-30) mmol/L POC Glucose (mg/dL) 120 H 107 H 106 H (75-99) mg/dL Calcium (8.4-10.2) mg/dL Total Bilirubin (0.2-1.3) mg/dL AST (14-36) U/L ALT (4-34) U/L Total Protein (6.3-8.2) g/dL Albumin (3.5-5.0) g/dL Arterial Blood Potassium (3.4-4.5) mmol/L Arterial Blood Glucose (75-99) mg/dL Crossmatch 05/04/20 05/04/20 05/04/20 Range/Units 04:07 04:10 04:10 RBC 2.15 L (3.80-5.40) m/uL Hgb 7.1 L (11.4-16.0) gm/dL Hct 22.1 L (34.0-46.0) % MCV 103.0 H (80.0-100.0) fL Lymphocytes # 0.6 L (1.0-4.8) k/uL INR (<1.2) APTT (22.0-30.0) sec ABG pH (7.35-7.45) ABG pO2 (83-108) mmHg ABG Total CO2 (19-24) mmol/L ABG O2 Saturation (94-97) % ABG Hematocrit (34.0-46.0) % ABG Potassium (3.4-4.5) mmol/L ABG Ionized Calcium (4.5-5.3) mg/dL ABG Glucose (75-99) mg/dL Hemoglobin (11.4-16.0) gm/dL Chloride 110 H (98-107) mmol/L Carbon Dioxide 21 L (22-30) mmol/L POC Glucose (mg/dL) 102 H (75-99) mg/dL Calcium 8.1 L (8.4-10.2) mg/dL Total Bilirubin (0.2-1.3) mg/dL AST 64 H (14-36) U/L ALT 43 H (4-34) U/L Total Protein 5.0 L (6.3-8.2) g/dL Albumin 3.2 L (3.5-5.0) g/dL Arterial Blood Potassium (3.4-4.5) mmol/L Arterial Blood Glucose (75-99) mg/dL Crossmatch 05/04/20 05/04/20 Range/Units 08:45 10:06 RBC (3.80-5.40) m/uL Hgb (11.4-16.0) gm/dL Hct (34.0-46.0) % MCV (80.0-100.0) fL Lymphocytes # (1.0-4.8) k/uL INR (<1.2) APTT (22.0-30.0) sec ABG pH (7.35-7.45) ABG pO2 (83-108) mmHg ABG Total CO2 (19-24) mmol/L ABG O2 Saturation (94-97) % ABG Hematocrit (34.0-46.0) % ABG Potassium (3.4-4.5) mmol/L ABG Ionized Calcium (4.5-5.3) mg/dL ABG Glucose (75-99) mg/dL Hemoglobin (11.4-16.0) gm/dL Chloride (98-107) mmol/L Carbon Dioxide (22-30) mmol/L POC Glucose (mg/dL) 165 H 139 H (75-99) mg/dL Calcium (8.4-10.2) mg/dL Total Bilirubin (0.2-1.3) mg/dL AST (14-36) U/L ALT (4-34) U/L Total Protein (6.3-8.2) g/dL Albumin (3.5-5.0) g/dL Arterial Blood Potassium (3.4-4.5) mmol/L Arterial Blood Glucose (75-99) mg/dL Crossmatch <Mik Garcia - Last Filed: 05/04/20 12:14> Subjective Acute blood loss anemia likely multifactorial from CABG surgery as well as abdominal hematoma with stable echymosis of lower abdomen. Monitor hgb and transfuse as needed. CO 4.6. Continue to monitor closely. Objective - Vital Signs Vital signs: Vital Signs Temp 98.6 F 05/04/20 08:00 Pulse 94 05/04/20 12:08 Resp 16 05/04/20 11:00 BP 103/72 05/04/20 06:30 Pulse Ox 96 05/04/20 11:00 Intake & Output 05/03/20 05/04/20 05/04/20 18:59 06:59 18:59 Intake Total 077.846 7778 1055 Output Total 2285 1385 495 Balance -1611.565 448 560 Weight 54.7 kg 60.4 kg Intake: IV 186 1563 335 0.9 535 160 0.9 CO/CI 90 159 30 0.9 flush 63 119 45 ACETAMINOPHEN IV (For NPO 100 ) 1,000 mg In Empty Bag 1 bag @ 400 mls/hr IVPB Q6H [facility] Rx#:[id number] Albumin Human 5% 250 ml 500 In Empty Bag 1 bag @ 250 mls/hr IVPB Q1HR PRN Rx#: [id number] Potassium Chloride 10 meq 100 In Water For Injection 1 100ml.bag @ 100 mls/hr IVPB Q1H [facility] Rx#: [id number] ceFAZolin 2 gm In Sodium 50 100 Chloride 0.9% 50 ml @ 100 mls/hr IVPB Q8HR [facility] Rx# :[id number] Intake, IV Titration 487.435 150 Amount Clevidipine Butyrate 25 12.0 mg In Empty Bag 1 bag @ 1 MG/HR 2 mls/hr IV .Q24H [facility] Rx#:[id number] Dexmedetomidine/0.9% NaCl 8.888 (Pmx) 400 mcg In Empty Bag 1 bag @ Titrate IV . Q0M [facility] Rx#:[id number] Potassium Chloride 10 meq 100 In Water For Injection 1 100ml.bag @ 100 mls/hr IVPB Q1H [facility] Rx#: [id number] Sodium Chloride 0.9% 1, 350 50 000 ml @ 50 mls/hr IV . Q20H [facility] Rx#:[id number] ceFAZolin 2 gm In Sodium 100 Chloride 0.9% 50 ml @ 100 mls/hr IVPB Q8HR [facility] Rx# :[id number] propofoL 1,000 mg In 16.547 Empty Bag 1 bag @ Titrate IV .Q0M [facility] Rx#: [id number] Oral 120 720 Output: Chest Tube Drainage 515 625 50 Chest Tube Left Pleural/ 185 500 40 Mediastinal Chest Tube Mediastinal 330 125 10 Urine 1370 760 445 Estimated Blood Loss 400 Other: Voiding Method Indwelling Catheter ABP, PAP, CO, CI - Last Documented Arterial Blood Pressure 133/59 Pulmonary Artery Pressure 31/18 Cardiac Output 4.6 Cardiac Index 2.9 - Labs CBC & Chem 7: 05/04/20 04:10 05/04/20 04:10 Labs: Abnormal Lab Results - Last 24 Hours (Table) 05/02/20 05/03/2020 Range/Units 06:41 08:39 09:48 RBC (3.80-5.40) m/uL Hgb (11.4-16.0) gm/dL Hct (34.0-46.0) % MCV (80.0-100.0) fL Lymphocytes # (1.0-4.8) k/uL INR (<1.2) APTT (22.0-30.0) sec ABG pH (7.35-7.45) ABG pO2 289 H 240 H (83-108) mmHg ABG Total CO2 25 H (19-24) mmol/L ABG O2 Saturation 100.0 H 99.9 H (94-97) % ABG Hematocrit 29 L 29 L (34.0-46.0) % ABG Potassium (3.4-4.5) mmol/L ABG Ionized Calcium (4.5-5.3) mg/dL ABG Glucose 102 H (75-99) mg/dL Hemoglobin 9.6 L 9.5 L (11.4-16.0) gm/dL Chloride (98-107) mmol/L Carbon Dioxide (22-30) mmol/L POC Glucose (mg/dL) (75-99) mg/dL Calcium (8.4-10.2) mg/dL Total Bilirubin (0.2-1.3) mg/dL AST (14-36) U/L ALT (4-34) U/L Total Protein (6.3-8.2) g/dL Albumin (3.5-5.0) g/dL Arterial Blood Potassium (3.4-4.5) mmol/L Arterial Blood Glucose 102 H (75-99) mg/dL Crossmatch See Detail 05/03/20 05/03/20 05/03/20 Range/Units 10:19 10:45 11:31 RBC (3.80-5.40) m/uL Hgb (11.4-16.0) gm/dL Hct (34.0-46.0) % MCV (80.0-100.0) fL Lymphocytes # (1.0-4.8) k/uL INR (<1.2) APTT (22.0-30.0) sec ABG pH 7.34 L (7.35-7.45) ABG pO2 253 H 257 H 142 H (83-108) mmHg ABG Total CO2 (19-24) mmol/L ABG O2 Saturation 99.9 H 99.6 H 99.2 H (94-97) % ABG Hematocrit 25 L 23 L 21 L (34.0-46.0) % ABG Potassium 4.9 H (3.4-4.5) mmol/L ABG Ionized Calcium 4.4 L 4.4 L 4.2 L (4.5-5.3) mg/dL ABG Glucose (75-99) mg/dL Hemoglobin 8.0 L 7.3 L 6.8 L* (11.4-16.0) gm/dL Chloride (98-107) mmol/L Carbon Dioxide (22-30) mmol/L POC Glucose (mg/dL) (75-99) mg/dL Calcium (8.4-10.2) mg/dL Total Bilirubin (0.2-1.3) mg/dL AST (14-36) U/L ALT (4-34) U/L Total Protein (6.3-8.2) g/dL Albumin (3.5-5.0) g/dL Arterial Blood Potassium 4.9 H (3.4-4.5) mmol/L Arterial Blood Glucose (75-99) mg/dL Crossmatch 05/03/20 05/03/20 05/03/20 Range/Units 12:10 12:10 12:10 RBC 2.07 L (3.80-5.40) m/uL Hgb 7.0 L D (11.4-16.0) gm/dL Hct 21.2 L (34.0-46.0) % MCV 102.7 H D (80.0-100.0) fL Lymphocytes # 0.8 L (1.0-4.8) k/uL INR 1.2 H (<1.2) APTT 33.5 H (22.0-30.0) sec ABG pH (7.35-7.45) ABG pO2 (83-108) mmHg ABG Total CO2 (19-24) mmol/L ABG O2 Saturation (94-97) % ABG Hematocrit (34.0-46.0) % ABG Potassium (3.4-4.5) mmol/L ABG Ionized Calcium (4.5-5.3) mg/dL ABG Glucose (75-99) mg/dL Hemoglobin (11.4-16.0) gm/dL Chloride 110 H (98-107) mmol/L Carbon Dioxide (22-30) mmol/L POC Glucose (mg/dL) (75-99) mg/dL Calcium 7.4 L (8.4-10.2) mg/dL Total Bilirubin 2.2 H (0.2-1.3) mg/dL AST 156 H (14-36) U/L ALT 68 H (4-34) U/L Total Protein 5.2 L (6.3-8.2) g/dL Albumin 3.4 L (3.5-5.0) g/dL Arterial Blood Potassium (3.4-4.5) mmol/L Arterial Blood Glucose (75-99) mg/dL Crossmatch 05/03/20 05/03/20 05/03/20 Range/Units 12:10 12:12 12:50 RBC (3.80-5.40) m/uL Hgb (11.4-16.0) gm/dL Hct (34.0-46.0) % MCV (80.0-100.0) fL Lymphocytes # (1.0-4.8) k/uL INR (<1.2) APTT (22.0-30.0) sec ABG pH 7.30 L (7.35-7.45) ABG pO2 349 H 153 H (83-108) mmHg ABG Total CO2 (19-24) mmol/L ABG O2 Saturation 100.0 H 99.6 H (94-97) % ABG Hematocrit (34.0-46.0) % ABG Potassium (3.4-4.5) mmol/L ABG Ionized Calcium (4.5-5.3) mg/dL ABG Glucose (75-99) mg/dL Hemoglobin (11.4-16.0) gm/dL Chloride (98-107) mmol/L Carbon Dioxide (22-30) mmol/L POC Glucose (mg/dL) 101 H (75-99) mg/dL Calcium (8.4-10.2) mg/dL Total Bilirubin (0.2-1.3) mg/dL AST (14-36) U/L ALT (4-34) U/L Total Protein (6.3-8.2) g/dL Albumin (3.5-5.0) g/dL Arterial Blood Potassium (3.4-4.5) mmol/L Arterial Blood Glucose (75-99) mg/dL Crossmatch 05/03/20 05/03/20 05/03/20 Range/Units 14:17 14:41 15:07 RBC (3.80-5.40) m/uL Hgb (11.4-16.0) gm/dL Hct (34.0-46.0) % MCV (80.0-100.0) fL Lymphocytes # (1.0-4.8) k/uL INR (<1.2) APTT (22.0-30.0) sec ABG pH (7.35-7.45) ABG pO2 74 L (83-108) mmHg ABG Total CO2 (19-24) mmol/L ABG O2 Saturation (94-97) % ABG Hematocrit (34.0-46.0) % ABG Potassium (3.4-4.5) mmol/L ABG Ionized Calcium (4.5-5.3) mg/dL ABG Glucose (75-99) mg/dL Hemoglobin (11.4-16.0) gm/dL Chloride (98-107) mmol/L Carbon Dioxide (22-30) mmol/L POC Glucose (mg/dL) 115 H 107 H (75-99) mg/dL Calcium (8.4-10.2) mg/dL Total Bilirubin (0.2-1.3) mg/dL AST (14-36) U/L ALT (4-34) U/L Total Protein (6.3-8.2) g/dL Albumin (3.5-5.0) g/dL Arterial Blood Potassium (3.4-4.5) mmol/L Arterial Blood Glucose (75-99) mg/dL Crossmatch 05/03/20 05/03/20 05/03/20 Range/Units 16:11 16:15 18:00 RBC 2.17 L (3.80-5.40) m/uL Hgb 7.3 L (11.4-16.0) gm/dL Hct 22.3 L (34.0-46.0) % MCV 102.6 H (80.0-100.0) fL Lymphocytes # 0.5 L (1.0-4.8) k/uL INR (<1.2) APTT (22.0-30.0) sec ABG pH (7.35-7.45) ABG pO2 (83-108) mmHg ABG Total CO2 (19-24) mmol/L ABG O2 Saturation (94-97) % ABG Hematocrit (34.0-46.0) % ABG Potassium (3.4-4.5) mmol/L ABG Ionized Calcium (4.5-5.3) mg/dL ABG Glucose (75-99) mg/dL Hemoglobin (11.4-16.0) gm/dL Chloride 109 H (98-107) mmol/L Carbon Dioxide (22-30) mmol/L POC Glucose (mg/dL) 103 H (75-99) mg/dL Calcium 7.9 L (8.4-10.2) mg/dL Total Bilirubin 2.5 H (0.2-1.3) mg/dL AST 150 H (14-36) U/L ALT 81 H (4-34) U/L Total Protein 5.2 L (6.3-8.2) g/dL Albumin 3.4 L (3.5-5.0) g/dL Arterial Blood Potassium (3.4-4.5) mmol/L Arterial Blood Glucose (75-99) mg/dL Crossmatch 05/03/20 05/03/20 05/03/20 Range/Units 20:05 21:02 21:54 RBC (3.80-5.40) m/uL Hgb (11.4-16.0) gm/dL Hct (34.0-46.0) % MCV (80.0-100.0) fL Lymphocytes # (1.0-4.8) k/uL INR (<1.2) APTT (22.0-30.0) sec ABG pH (7.35-7.45) ABG pO2 (83-108) mmHg ABG Total CO2 (19-24) mmol/L ABG O2 Saturation (94-97) % ABG Hematocrit (34.0-46.0) % ABG Potassium (3.4-4.5) mmol/L ABG Ionized Calcium (4.5-5.3) mg/dL ABG Glucose (75-99) mg/dL Hemoglobin (11.4-16.0) gm/dL Chloride (98-107) mmol/L Carbon Dioxide (22-30) mmol/L POC Glucose (mg/dL) 122 H 138 H 130 H (75-99) mg/dL Calcium (8.4-10.2) mg/dL Total Bilirubin (0.2-1.3) mg/dL AST (14-36) U/L ALT (4-34) U/L Total Protein (6.3-8.2) g/dL Albumin (3.5-5.0) g/dL Arterial Blood Potassium (3.4-4.5) mmol/L Arterial Blood Glucose (75-99) mg/dL Crossmatch 05/03/20 05/04/20 05/04/20 Range/Units 23:00 00:11 01:06 RBC (3.80-5.40) m/uL Hgb (11.4-16.0) gm/dL Hct (34.0-46.0) % MCV (80.0-100.0) fL Lymphocytes # (1.0-4.8) k/uL INR (<1.2) APTT (22.0-30.0) sec ABG pH (7.35-7.45) ABG pO2 (83-108) mmHg ABG Total CO2 (19-24) mmol/L ABG O2 Saturation (94-97) % ABG Hematocrit (34.0-46.0) % ABG Potassium (3.4-4.5) mmol/L ABG Ionized Calcium (4.5-5.3) mg/dL ABG Glucose (75-99) mg/dL Hemoglobin (11.4-16.0) gm/dL Chloride (98-107) mmol/L Carbon Dioxide (22-30) mmol/L POC Glucose (mg/dL) 120 H 107 H 106 H (75-99) mg/dL Calcium (8.4-10.2) mg/dL Total Bilirubin (0.2-1.3) mg/dL AST (14-36) U/L ALT (4-34) U/L Total Protein (6.3-8.2) g/dL Albumin (3.5-5.0) g/dL Arterial Blood Potassium (3.4-4.5) mmol/L Arterial Blood Glucose (75-99) mg/dL Crossmatch 05/04/20 05/04/20 05/04/20 Range/Units 04:07 04:10 04:10 RBC 2.15 L (3.80-5.40) m/uL Hgb 7.1 L (11.4-16.0) gm/dL Hct 22.1 L (34.0-46.0) % MCV 103.0 H (80.0-100.0) fL Lymphocytes # 0.6 L (1.0-4.8) k/uL INR (<1.2) APTT (22.0-30.0) sec ABG pH (7.35-7.45) ABG pO2 (83-108) mmHg ABG Total CO2 (19-24) mmol/L ABG O2 Saturation (94-97) % ABG Hematocrit (34.0-46.0) % ABG Potassium (3.4-4.5) mmol/L ABG Ionized Calcium (4.5-5.3) mg/dL ABG Glucose (75-99) mg/dL Hemoglobin (11.4-16.0) gm/dL Chloride 110 H (98-107) mmol/L Carbon Dioxide 21 L (22-30) mmol/L POC Glucose (mg/dL) 102 H (75-99) mg/dL Calcium 8.1 L (8.4-10.2) mg/dL Total Bilirubin (0.2-1.3) mg/dL AST 64 H (14-36) U/L ALT 43 H (4-34) U/L Total Protein 5.0 L (6.3-8.2) g/dL Albumin 3.2 L (3.5-5.0) g/dL Arterial Blood Potassium (3.4-4.5) mmol/L Arterial Blood Glucose (75-99) mg/dL Crossmatch 05/04/20 05/04/20 05/04/20 Range/Units 08:45 10:06 11:34 RBC (3.80-5.40) m/uL Hgb (11.4-16.0) gm/dL Hct (34.0-46.0) % MCV (80.0-100.0) fL Lymphocytes # (1.0-4.8) k/uL INR (<1.2) APTT (22.0-30.0) sec ABG pH (7.35-7.45) ABG pO2 (83-108) mmHg ABG Total CO2 (19-24) mmol/L ABG O2 Saturation (94-97) % ABG Hematocrit (34.0-46.0) % ABG Potassium (3.4-4.5) mmol/L ABG Ionized Calcium (4.5-5.3) mg/dL ABG Glucose (75-99) mg/dL Hemoglobin (11.4-16.0) gm/dL Chloride (98-107) mmol/L Carbon Dioxide (22-30) mmol/L POC Glucose (mg/dL) 165 H 139 H 105 H (75-99) mg/dL Calcium (8.4-10.2) mg/dL Total Bilirubin (0.2-1.3) mg/dL AST (14-36) U/L ALT (4-34) U/L Total Protein (6.3-8.2) g/dL Albumin (3.5-5.0) g/dL Arterial Blood Potassium (3.4-4.5) mmol/L Arterial Blood Glucose (75-99) mg/dL Crossmatch
[2020-05-04] MEDS: CLEVIDIPINE BUTYRATE 25 MG in EMPTY BAG 1 BAG IV SCH (11:30)
[2020-05-04 11:37] LABS: Glucose,Whole Blood 105 mg/dL (75-99)
[2020-05-04] MEDS: INSULIN ASPART (NovoLOG) 100 UNIT/ML VIAL SQ SCH ×3 (11:39→20:48)
--- NOTE | 2020-05-04 13:46 | P.PN ---
Subjective Progress Note Date: 05/04/20 On 05/04/2020, the patient is postop day #1 following bypass surgery. The patient is doing extremely well. The patient was extubated yesterday without any major difficulties. She was extubated that 1459. She is currently on room 4 L of oxygen by nasal cannula. The patient using incentive spirometer. She is on no pressors. Note the nitroglycerin drip has been discontinued. BP is under good control. Surgical wound site is dry clean and intact. Chest tubes are still in place and the patient is a normal sinus rhythm. She is ambulating. Denies having any respiratory distress. Chest x-ray shows adequate expansion of both lungs. No evidence of any pneumothorax. No evidence of any pleural effusion. Cardiac rhythm remains sinus. Objective - Vital Signs Vital signs: Vital Signs Temp 97.9 F 05/04/20 12:00 Pulse 100 05/04/20 13:30 Resp 14 05/04/20 13:30 BP 103/72 05/04/20 06:30 Pulse Ox 93 L 05/04/20 13:30 Intake & Output 05/03/20 05/04/20 05/04/20 18:59 06:59 18:59 Intake Total 211.677 8944 1467 Output Total 2285 1385 835 Balance -1611.565 448 632 Weight 54.7 kg 60.4 kg Intake: IV 186 1563 387 0.9 535 200 0.9 CO/CI 90 159 30 0.9 flush 63 119 57 ACETAMINOPHEN IV (For NPO 100 ) 1,000 mg In Empty Bag 1 bag @ 400 mls/hr IVPB Q6H [facility] Rx#:[id number] Albumin Human 5% 250 ml 500 In Empty Bag 1 bag @ 250 mls/hr IVPB Q1HR PRN Rx#: [id number] Potassium Chloride 10 meq 100 In Water For Injection 1 100ml.bag @ 100 mls/hr IVPB Q1H [facility] Rx#: [id number] ceFAZolin 2 gm In Sodium 50 100 Chloride 0.9% 50 ml @ 100 mls/hr IVPB Q8HR [facility] Rx# :[id number] Intake, IV Titration 487.435 150 Amount Clevidipine Butyrate 25 12.0 mg In Empty Bag 1 bag @ 1 MG/HR 2 mls/hr IV .Q24H [facility] Rx#:[id number] Dexmedetomidine/0.9% NaCl 8.888 (Pmx) 400 mcg In Empty Bag 1 bag @ Titrate IV . Q0M [facility] Rx#:[id number] Potassium Chloride 10 meq 100 In Water For Injection 1 100ml.bag @ 100 mls/hr IVPB Q1H [facility] Rx#: [id number] Sodium Chloride 0.9% 1, 350 50 000 ml @ 50 mls/hr IV . Q20H [facility] Rx#:[id number] ceFAZolin 2 gm In Sodium 100 Chloride 0.9% 50 ml @ 100 mls/hr IVPB Q8HR [facility] Rx# :[id number] propofoL 1,000 mg In 16.547 Empty Bag 1 bag @ Titrate IV .Q0M [facility] Rx#: [id number] Oral 120 1080 Output: Chest Tube Drainage 515 625 185 Chest Tube Left Pleural/ 185 500 140 Mediastinal Chest Tube Mediastinal 330 125 45 Urine 1370 760 650 Estimated Blood Loss 400 Other: Voiding Method Indwelling Catheter ABP, PAP, CO, CI - Last Documented Arterial Blood Pressure 120/57 Pulmonary Artery Pressure 31/18 Cardiac Output 4.6 Cardiac Index 2.9 - Exam - Constitutional General appearance: Present: average body habitus, cooperative, no acute distress - EENT Eyes: Present: PERRLA, dentition normal, normal appearance. Absent: scleral icterus ENT: Present: hearing grossly normal - Neck Details: Neck is supple, no JVD. No lymphadenopathy. - Respiratory Details: Lung sounds essentially clear throughout, few scattered crackles to her left lower lobe. No wheezes, or rhonchi. Respirations are symmetrical and nonlabored. Oxygen saturation is 100% on 3 L nasal cannula and she is achieving 500 mL on her incentive spirometry with encouragement. Mediastinal and left pleural chest tubes remain in place to low continuous wall suction -20 cm H2O. No air leak is present. Mediastinal chest tube draining thin serosanguineous drainage with 50 mL output in the last 8 hours and 330 mL output since surgery. Left pleural chest tube draining thin serosanguineous drainage with 310 mL output in the last 8 hours and 800 mL output since surgery. - Cardiovascular Details: Regular rhythm and rate. S1 and S2 present, negative for S3, gallop or murmur. Sternum is stable. Bedside telemetry showing normal sinus rhythm heart rate 89. Heart hugger is in place and she is demonstrating appropriate use. Knee-high KAT hose and sequential compression devices in place to bilateral lower extremities. Right IJ Cordis with [place]-Hallie catheter remains in place with current hemodynamics showing a cardiac output of 4.6, cardiac index 2.9, PA pressures 38/12 and a CVP 6 mmHg. No edema present. - Gastrointestinal Gastrointestinal Comment(s): Abdomen is soft, nontender and nondistended. Hypoactive bowel sounds present in all 4 abdominal quadrants. No guarding or rigidity. No organomegaly a ppreciated. Tolerating oral intake. - Genitourinary Genitourinary Comment(s): Jain catheter for accurate I&O. Draining clear jeanie urine. 655 mL output in the last 8 hours. - Integumentary Integumentary Comment(s): Skin is warm and dry. No clubbing or cyanosis is present. Midline sternal incision is clean, dry and approximated. No drainage or redness is present. Left lower extremity EVH site is clean, dry and approximated. No drainage or redness is present. - Neurologic Neurologic: Present: CNII-XII intact - Musculoskeletal Musculoskeletal: Present: gait normal, generalized weakness, strength equal bilaterally - Labs CBC & Chem 7: 05/04/20 04:10 05/04/20 04:10 Labs: Abnormal Lab Results - Last 24 Hours (Table) 05/02/20 05/03/20 05/03/20 Range/Units 06:41 14:17 14:41 RBC (3.80-5.40) m/uL Hgb (11.4-16.0) gm/dL Hct (34.0-46.0) % MCV (80.0-100.0) fL Lymphocytes # (1.0-4.8) k/uL ABG pO2 74 L (83-108) mmHg Chloride (98-107) mmol/L Carbon Dioxide (22-30) mmol/L POC Glucose (mg/dL) 115 H (75-99) mg/dL Calcium (8.4-10.2) mg/dL Total Bilirubin (0.2-1.3) mg/dL AST (14-36) U/L ALT (4-34) U/L Total Protein (6.3-8.2) g/dL Albumin (3.5-5.0) g/dL Crossmatch See Detail 05/03/20 05/03/20 05/03/20 Range/Units 15:07 16:11 16:15 RBC (3.80-5.40) m/uL Hgb (11.4-16.0) gm/dL Hct (34.0-46.0) % MCV (80.0-100.0) fL Lymphocytes # (1.0-4.8) k/uL ABG pO2 (83-108) mmHg Chloride 109 H (98-107) mmol/L Carbon Dioxide (22-30) mmol/L POC Glucose (mg/dL) 107 H 103 H (75-99) mg/dL Calcium 7.9 L (8.4-10.2) mg/dL Total Bilirubin 2.5 H (0.2-1.3) mg/dL AST 150 H (14-36) U/L ALT 81 H (4-34) U/L Total Protein 5.2 L (6.3-8.2) g/dL Albumin 3.4 L (3.5-5.0) g/dL Crossmatch 05/03/20 05/03/20 05/03/20 Range/Units 18:00 20:05 21:02 RBC 2.17 L (3.80-5.40) m/uL Hgb 7.3 L (11.4-16.0) gm/dL Hct 22.3 L (34.0-46.0) % MCV 102.6 H (80.0-100.0) fL Lymphocytes # 0.5 L (1.0-4.8) k/uL ABG pO2 (83-108) mmHg Chloride (98-107) mmol/L Carbon Dioxide (22-30) mmol/L POC Glucose (mg/dL) 122 H 138 H (75-99) mg/dL Calcium (8.4-10.2) mg/dL Total Bilirubin (0.2-1.3) mg/dL AST (14-36) U/L ALT (4-34) U/L Total Protein (6.3-8.2) g/dL Albumin (3.5-5.0) g/dL Crossmatch 05/03/20 05/03/20 05/04/20 Range/Units 21:54 23:00 00:11 RBC (3.80-5.40) m/uL Hgb (11.4-16.0) gm/dL Hct (34.0-46.0) % MCV (80.0-100.0) fL Lymphocytes # (1.0-4.8) k/uL ABG pO2 (83-108) mmHg Chloride (98-107) mmol/L Carbon Dioxide (22-30) mmol/L POC Glucose (mg/dL) 130 H 120 H 107 H (75-99) mg/dL Calcium (8.4-10.2) mg/dL Total Bilirubin (0.2-1.3) mg/dL AST (14-36) U/L ALT (4-34) U/L Total Protein (6.3-8.2) g/dL Albumin (3.5-5.0) g/dL Crossmatch 05/04/20 05/04/20 05/04/20 Range/Units 01:06 04:07 04:10 RBC 2.15 L (3.80-5.40) m/uL Hgb 7.1 L (11.4-16.0) gm/dL Hct 22.1 L (34.0-46.0) % MCV 103.0 H (80.0-100.0) fL Lymphocytes # 0.6 L (1.0-4.8) k/uL ABG pO2 (83-108) mmHg Chloride (98-107) mmol/L Carbon Dioxide (22-30) mmol/L POC Glucose (mg/dL) 106 H 102 H (75-99) mg/dL Calcium (8.4-10.2) mg/dL Total Bilirubin (0.2-1.3) mg/dL AST (14-36) U/L ALT (4-34) U/L Total Protein (6.3-8.2) g/dL Albumin (3.5-5.0) g/dL Crossmatch 05/04/20 05/04/20 05/04/20 Range/Units 04:10 08:45 10:06 RBC (3.80-5.40) m/uL Hgb (11.4-16.0) gm/dL Hct (34.0-46.0) % MCV (80.0-100.0) fL Lymphocytes # (1.0-4.8) k/uL ABG pO2 (83-108) mmHg Chloride 110 H (98-107) mmol/L Carbon Dioxide 21 L (22-30) mmol/L POC Glucose (mg/dL) 165 H 139 H (75-99) mg/dL Calcium 8.1 L (8.4-10.2) mg/dL Total Bilirubin (0.2-1.3) mg/dL AST 64 H (14-36) U/L ALT 43 H (4-34) U/L Total Protein 5.0 L (6.3-8.2) g/dL Albumin 3.2 L (3.5-5.0) g/dL Crossmatch 05/04/20 Range/Units 11:34 RBC (3.80-5.40) m/uL Hgb (11.4-16.0) gm/dL Hct (34.0-46.0) % MCV (80.0-100.0) fL Lymphocytes # (1.0-4.8) k/uL ABG pO2 (83-108) mmHg Chloride (98-107) mmol/L Carbon Dioxide (22-30) mmol/L POC Glucose (mg/dL) 105 H (75-99) mg/dL Calcium (8.4-10.2) mg/dL Total Bilirubin (0.2-1.3) mg/dL AST (14-36) U/L ALT (4-34) U/L Total Protein (6.3-8.2) g/dL Albumin (3.5-5.0) g/dL Crossmatch Assessment and Plan Plan: #1. Coronary artery bypass surgery and the patient is postop day #1. Noted the patient had heavily calcified proximal LAD stenosis of 99%, with significant is involving the diagonal branch, left main 20% stenosis, and severely impaired left ventricular systolic function and EF of 30-35%. The patient is also status post non-STEMI at time of admission. #2. Post thoracotomy, patient is currently extubated on nasal cannula oxygen and using incentive spirometer. Chest x-ray showed no evidence of any pneumothorax. Chest tubes are still in place. #3. History of seizure disorder #4. Hypertension #5. Possible COPD, not oxygen dependent, not on any maintenance inhalers, patient is a long-time chronic and ongoing smoker, preop FEV1 of 81% of predicted #6. Moderate EtOH use, no evidence of delirium tremens #7 hyperlipidemia 8 postoperative acute blood loss anemia, expected outcome of surgery Plan Monitor the output from the chest tubes Continue using incentive spirometer Ambulate in the hallway Continue aspirin and Plavix and beta blockers in the form of metoprolol 25 mg by mouth twice a day Nitroglycerin drip has been discontinued Keep the Jain catheter in place Lisinopril was added at a dose of 2.5 mg by mouth daily we'll continue to follow
--- NOTE | 2020-05-04 14:37 | P.PN ---
Subjective Acute non-ST elevated MA Syncope Patient was admitted for evaluation of seizures. Patient is found have elevated troponins it appears like patient had acute myocardial infarction patient is undergoing cardiac catheterization Patient had an MRI which didn't show any acute abnormality but did show some chronic microvascular ischemic changes. EEG was normal. 2-D echo: Was reported as left ventricle wall thickness is normal. Ejection fraction of 40-45%. Apical septal left ventricle wall motion is hypokinetic. 04/26/2020 Patient is currently lying in bed comfortably. No complaints of chest pain or shortness breath. Patient was initially admitted to the hospital with loss of consciousness and possible seizures and elevated troponin level. Patient underwent cardiac catheterization showed critical stenosis involving the proximal LAD with poststenotic dilation and severe tortuosity with significant disease in the diagonal branch. Calcified LAD Mild disease in the right coronary artery. CT surgery was consulted due to severe coronary artery disease and is planning for coronary artery bypass graft. Preoperative testing was initiated. Current medications reviewed. 04/27/2020 Patient is currently lying in bed comfortably. No complaints of chest pain or shortness breath. No nausea vomiting or abdominal pain. Patient was seen by isaak rey and is planning for bedside PFTs today. No other acute overnight issues. Patient is being continued on aspirin, statins, metoprolol and lisinopril, Aldactone and is on heparin drip. Cardiology, pulmonary and CT surgery is on board. 04/28/2020 Patient is currently lying in the bed comfortably. Awake alert oriented x3. No complaints of chest pain. No headache or dizziness or lightheadedness. No nausea vomiting or abdominal pain or diarrhea. Patient is being continued on heparin drip. Plan for cardiac surgery early next week. 2019 Patient is currently awake alert oriented x3. No complaints of chest pain. Or shortness of breath. No nausea vomiting abdominal pain. Currently on room air. Continued on heparin drip. CT surgery and pulmonary is on board. Cardiac surgery to be scheduled next week. No other acute overnight issues. 04/30/2020 Patient will undergo coronary artery bypass grafting on . Patient doesn't have any withdrawals at this time patient was having bilateral flank tenderness x-ray of both hips. 05/01/2020 X-ray showed bilateral hip arthropathy which need to be addressed as an outpatient and patient will benefit from physical therapy. 05/02/2020 Patient is comparing of a painful in the back which is radiating to back of the thyroid towards the front bilaterally. Patient appears to have either sciatica her degenerative lumbar spine disease. Patient pain significant improved with Tylenol which will be continued and also had [place] for pain on as-needed basis 05/03/2020 patient is postoperative coronary artery bypass grafting day 0. Patient is presently on amiodarone drip PVD pain drip does have mediastinal and left sided chest tubes on propofol drip patient went settings are at baseline and doing clinically well and considering her parameters patient probably can be extubated today 05/04/2020 Patient is extubated today presently not on any drips IV insulin was discontinued and patient is on a scale insulin at this time. Patient is postoperative day 1. She is presently on 4 dysfunction. Patient Continues to have chest use mediastinal and left chest chest tube, continues to have significant drainage from those. Chest x-ray no evidence of increased pleural effusions or pneumothorax Of systems: Unable to obtain due to her clinical condition. All inpatient medications were reviewed and appropriate changes in these medications as dictated in the interval history and assessment and plan. Objective - Vital Signs Vital signs: Vital Signs Temp 97.9 F 05/04/20 12:00 Pulse 100 05/04/20 13:30 Resp 14 05/04/20 13:30 BP 103/72 05/04/20 06:30 Pulse Ox 93 L 05/04/20 13:30 Intake & Output 05/03/20 05/04/20 05/04/20 18:59 06:59 18:59 Intake Total 389.920 7713 1467 Output Total 2285 1385 835 Balance -1611.565 448 632 Weight 54.7 kg 60.4 kg Intake: IV 186 1563 387 0.9 535 200 0.9 CO/CI 90 159 30 0.9 flush 63 119 57 ACETAMINOPHEN IV (For NPO 100 ) 1,000 mg In Empty Bag 1 bag @ 400 mls/hr IVPB Q6H [facility] Rx#:[id number] Albumin Human 5% 250 ml 500 In Empty Bag 1 bag @ 250 mls/hr IVPB Q1HR PRN Rx#: [id number] Potassium Chloride 10 meq 100 In Water For Injection 1 100ml.bag @ 100 mls/hr IVPB Q1H [facility] Rx#: [id number] ceFAZolin 2 gm In Sodium 50 100 Chloride 0.9% 50 ml @ 100 mls/hr IVPB Q8HR [facility] Rx# :[id number] Intake, IV Titration 487.435 150 Amount Clevidipine Butyrate 25 12.0 mg In Empty Bag 1 bag @ 1 MG/HR 2 mls/hr IV .Q24H [facility] Rx#:[id number] Dexmedetomidine/0.9% NaCl 8.888 (Pmx) 400 mcg In Empty Bag 1 bag @ Titrate IV . Q0M [facility] Rx#:[id number] Potassium Chloride 10 meq 100 In Water For Injection 1 100ml.bag @ 100 mls/hr IVPB Q1H [facility] Rx#: [id number] Sodium Chloride 0.9% 1, 350 50 000 ml @ 50 mls/hr IV . Q20H [facility] Rx#:[id number] ceFAZolin 2 gm In Sodium 100 Chloride 0.9% 50 ml @ 100 mls/hr IVPB Q8HR [facility] Rx# :[id number] propofoL 1,000 mg In 16.547 Empty Bag 1 bag @ Titrate IV .Q0M [facility] Rx#: [id number] Oral 120 1080 Output: Chest Tube Drainage 515 625 185 Chest Tube Left Pleural/ 185 500 140 Mediastinal Chest Tube Mediastinal 330 125 45 Urine 1370 760 650 Estimated Blood Loss 400 Other: Voiding Method Indwelling Catheter ABP, PAP, CO, CI - Last Documented Arterial Blood Pressure 120/57 Pulmonary Artery Pressure 31/18 Cardiac Output 4.6 Cardiac Index 2.9 - Exam PHYSICAL EXAMINATION: GENERAL: Awake alert oriented 3 not in respiratory distress. HEENT: Pupils are round and equally reacting to light. EOMI. No scleral icterus. No conjunctival pallor. Normocephalic, atraumatic. No pharyngeal erythema. No thyromegaly. CARDIOVASCULAR: S1 and S2 present. No murmurs, rubs, or gallops. PULMONARY: Chest is clear to auscultation, no wheezing or crackles. Chest tubes as mentioned above ABDOMEN: Soft, nontender, nondistended, normoactive bowel sounds. No palpable organomegaly. MUSCULOSKELETAL: No joint swelling or deformity. EXTREMITIES: No cyanosis, clubbing, or pedal edema. NEUROLOGICAL: No new focal deficits SKIN: No rashes. - Labs CBC & Chem 7: 05/04/20 04:10 05/04/20 04:10 Labs: Abnormal Lab Results - Last 24 Hours (Table) 05/02/20 05/03/20 05/03/20 Range/Units 06:41 14:41 15:07 RBC (3.80-5.40) m/uL Hgb (11.4-16.0) gm/dL Hct (34.0-46.0) % MCV (80.0-100.0) fL Lymphocytes # (1.0-4.8) k/uL ABG pO2 74 L (83-108) mmHg Chloride (98-107) mmol/L Carbon Dioxide (22-30) mmol/L POC Glucose (mg/dL) 107 H (75-99) mg/dL Calcium (8.4-10.2) mg/dL Total Bilirubin (0.2-1.3) mg/dL AST (14-36) U/L ALT (4-34) U/L Total Protein (6.3-8.2) g/dL Albumin (3.5-5.0) g/dL Crossmatch See Detail 05/03/20 05/03/20 05/03/20 Range/Units 16:11 16:15 18:00 RBC 2.17 L (3.80-5.40) m/uL Hgb 7.3 L (11.4-16.0) gm/dL Hct 22.3 L (34.0-46.0) % MCV 102.6 H (80.0-100.0) fL Lymphocytes # 0.5 L (1.0-4.8) k/uL ABG pO2 (83-108) mmHg Chloride 109 H (98-107) mmol/L Carbon Dioxide (22-30) mmol/L POC Glucose (mg/dL) 103 H (75-99) mg/dL Calcium 7.9 L (8.4-10.2) mg/dL Total Bilirubin 2.5 H (0.2-1.3) mg/dL AST 150 H (14-36) U/L ALT 81 H (4-34) U/L Total Protein 5.2 L (6.3-8.2) g/dL Albumin 3.4 L (3.5-5.0) g/dL Crossmatch 05/03/20 05/03/20 05/03/20 Range/Units 20:05 21:02 21:54 RBC (3.80-5.40) m/uL Hgb (11.4-16.0) gm/dL Hct (34.0-46.0) % MCV (80.0-100.0) fL Lymphocytes # (1.0-4.8) k/uL ABG pO2 (83-108) mmHg Chloride (98-107) mmol/L Carbon Dioxide (22-30) mmol/L POC Glucose (mg/dL) 122 H 138 H 130 H (75-99) mg/dL Calcium (8.4-10.2) mg/dL Total Bilirubin (0.2-1.3) mg/dL AST (14-36) U/L ALT (4-34) U/L Total Protein (6.3-8.2) g/dL Albumin (3.5-5.0) g/dL Crossmatch 05/03/20 05/04/20 05/04/20 Range/Units 23:00 00:11 01:06 RBC (3.80-5.40) m/uL Hgb (11.4-16.0) gm/dL Hct (34.0-46.0) % MCV (80.0-100.0) fL Lymphocytes # (1.0-4.8) k/uL ABG pO2 (83-108) mmHg Chloride (98-107) mmol/L Carbon Dioxide (22-30) mmol/L POC Glucose (mg/dL) 120 H 107 H 106 H (75-99) mg/dL Calcium (8.4-10.2) mg/dL Total Bilirubin (0.2-1.3) mg/dL AST (14-36) U/L ALT (4-34) U/L Total Protein (6.3-8.2) g/dL Albumin (3.5-5.0) g/dL Crossmatch 05/04/20 05/04/20 05/04/20 Range/Units 04:07 04:10 04:10 RBC 2.15 L (3.80-5.40) m/uL Hgb 7.1 L (11.4-16.0) gm/dL Hct 22.1 L (34.0-46.0) % MCV 103.0 H (80.0-100.0) fL Lymphocytes # 0.6 L (1.0-4.8) k/uL ABG pO2 (83-108) mmHg Chloride 110 H (98-107) mmol/L Carbon Dioxide 21 L (22-30) mmol/L POC Glucose (mg/dL) 102 H (75-99) mg/dL Calcium 8.1 L (8.4-10.2) mg/dL Total Bilirubin (0.2-1.3) mg/dL AST 64 H (14-36) U/L ALT 43 H (4-34) U/L Total Protein 5.0 L (6.3-8.2) g/dL Albumin 3.2 L (3.5-5.0) g/dL Crossmatch 05/04/20 05/04/20 05/04/20 Range/Units 08:45 10:06 11:34 RBC (3.80-5.40) m/uL Hgb (11.4-16.0) gm/dL Hct (34.0-46.0) % MCV (80.0-100.0) fL Lymphocytes # (1.0-4.8) k/uL ABG pO2 (83-108) mmHg Chloride (98-107) mmol/L Carbon Dioxide (22-30) mmol/L POC Glucose (mg/dL) 165 H 139 H 105 H (75-99) mg/dL Calcium (8.4-10.2) mg/dL Total Bilirubin (0.2-1.3) mg/dL AST (14-36) U/L ALT (4-34) U/L Total Protein (6.3-8.2) g/dL Albumin (3.5-5.0) g/dL Crossmatch Assessment and Plan Plan: - Acute non-ST elevated MA status post cardiac catheterization showed severe proximal LAD stenosis. Status post CABG further management as per cardiothoracic surgery, patient has chest tubes at this time presently intubated -Acute respiratory failure post cardiac arrest surgery probably can be extubated now. -Acute systolic heart failure. due to acute systolic dysfunction is probably secondary to MA EF 40-45% with hypokinetic apical septum, mild mitral regurgitation, mild tricuspid regurgitation -Acute syncopal episode likely due to acute MA which may have led to seizures. Patient had MRI and EEG was done. EEG was normal. Seen by neurology. Patient declined any antiseizure medications which I believe is reasonable as patient most probably had a syncope related seizure -We will do blood sugars patient is not diabetic patient with sliding scale insulin at this time. -Alcohol withdraws and was treated for these on admission -Depression -Hypertension -Hyperlipidemia -Ongoing nicotine addiction -Chronic low back pain Tylenol as mentioned above
[2020-05-04] MEDS: METOPROLOL TARTRATE 25 MG TAB PO SCH ×2 (16:35→21:42)
[2020-05-04 16:50] LABS: Glucose,Whole Blood 115 mg/dL (75-99)
[2020-05-04 20:48] LABS: Glucose,Whole Blood 119 mg/dL (75-99)
[2020-05-04] MEDS: SENNOSIDES-DOCUSATE SODIUM 1 EACH TAB PO SCH (21:41)
[2020-05-05] MEDS: KETOROLAC 15 MG/ML 1 ML VIAL IVP SCH ×4 (00:12→17:34)
[2020-05-05] MEDS: SODIUM CHLORIDE 0.9% 1,000 ML IV SCH (04:00)
[2020-05-05] MEDS: HEPARIN SODIUM,PORCINE 5,000 UNIT/ML 1 ML VIAL SQ SCH ×3 (04:29→22:16)
[2020-05-05 04:35] LABS: Basophils % (A) 0 %; Eosinophils # (A) 0.3 k/uL (0-0.7); Eosinophils % (A) 4 %; HCT 23.2 % (34.0-46.0); HGB 7.5 gm/dL (11.4-16.0); Lymphocytes # (A) 0.9 k/uL (1.0-4.8); Lymphocytes % (A) 13 %; MCH 32.8 pg (25.0-35.0); MCHC 32.4 g/dL (31.0-37.0); MCV 101.4 fL (80.0-100.0); Macrocytosis Slight; Monocytes # (A) 0.4 k/uL (0-1.0); Monocytes % (A) 7 %; Neutrophils # (A) 4.9 k/uL (1.3-7.7); Neutrophils % (A) 74 %; Platelet Count 290 k/uL (150-450); RBC 2.29 m/uL (3.80-5.40); RDW 13.4 % (11.5-15.5); WBC 6.6 k/uL (3.8-10.6)
[2020-05-05 04:53] LABS: ALT 19 U/L (4-34); AST 28 U/L (14-36); African American GFR (CKD) >90 (>60 ml/min/1.73 sqM); Alkaline Phosphatase 81 U/L (38-126); Anion Gap 5 mmol/L; Blood Urea Nitrogen 14 mg/dL (7-17); Calcium 8.4 mg/dL (8.4-10.2); Carbon Dioxide 21 mmol/L (22-30); Chloride 110 mmol/L (98-107); Glucose 92 mg/dL (74-99); Non-African American GFR(CKD) 86 (>60 ml/min/1.73 sqM); Potassium 3.9 mmol/L (3.5-5.1); Sodium 136 mmol/L (137-145)
[2020-05-05] MEDS ORDERED: POTASSIUM CHLORIDE ER 20 MEQ TAB.ER PO SCH (05:00)
[2020-05-05 06:50] LABS: Glucose,Whole Blood 98 mg/dL (75-99)
[2020-05-05] MEDS: INSULIN ASPART (NovoLOG) 100 UNIT/ML VIAL SQ SCH ×4 (06:56→22:05)
--- NOTE | 2020-05-05 07:04 | XR ---
EXAMINATION TYPE: XR chest 1V portable DATE OF EXAM: 05/05/2020 COMPARISON: 05/04/2020 HISTORY: Postop cardiac surgery TECHNIQUE: Single frontal view of the chest is obtained. FINDINGS: Patient is post median sternotomy. [place]-Hallie catheter has been removed, median sternal gabby in, left chest tube remain in place. Endotracheal tube orogastric tube has been removed. No evident p neumothorax. There is overlying artifact. Heart remains enlarged. There is stable appearance of the i nterstitium and lung aeration. Subsegmental consolidation at both lung bases. Suspect underlying COPD . IMPRESSION: 1. Postoperative change with cardiomegaly and subsegmental consolidation most typical of atelectasis. 2. Interval removal [place]-Hallie catheter no sizable.
[2020-05-05] MEDS ORDERED: ACETAMINOPHEN TAB 500 MG TAB PO PRN (08:09)
[2020-05-05] MEDS: ASPIRIN 325 MG TAB PO SCH (08:18)
[2020-05-05] MEDS: PANTOPRAZOLE 40 MG TABLET PO SCH (08:18)
[2020-05-05] MEDS: ASCORBIC ACID 500 MG TAB PO SCH ×2 (08:18→17:34)
[2020-05-05] MEDS: CYANOCOBALAMIN 500 MCG TAB PO SCH (08:19)
[2020-05-05] MEDS: FOLIC ACID 1 MG TAB PO SCH (08:19)
[2020-05-05] MEDS: THIAMINE 100 MG TAB PO SCH (08:19)
[2020-05-05] MEDS: FERROUS SULFATE 325 MG TAB PO SCH ×2 (08:19→17:34)
[2020-05-05] MEDS: ATORVASTATIN 40 MG TAB PO SCH (08:19)
[2020-05-05] MEDS: CLOPIDOGREL 75 MG TAB PO SCH (08:19)
[2020-05-05] MEDS: PARoxetine 20 MG TAB PO SCH (08:20)
[2020-05-05] MEDS: METOPROLOL TARTRATE 50 MG TAB PO SCH ×2 (08:21→22:17)
[2020-05-05] MEDS ORDERED: FUROSEMIDE 10 MG/ML 2 ML VIAL IV ONE (08:46)
--- NOTE | 2020-05-05 08:47 | P.PN ---
Subjective Progress Note Date: 05/05/20 Principal diagnosis: Coronary artery disease, proximal LAD 99%, non-STEMI this admission with troponins as high as 1.350, questionable ventricular tachycardia prior to admission, severely impaired left ventricular systolic function and EF of 30- 35%, mild mitral valve regurgitation, mild tricuspid valve regurgitation, hypertension, hyperlipidemia, remote seizure history, current chronic tobacco dependence with preoperative FEV1 81% of predicted value, moderate daily EtOH use, family history of heart disease. POD #2 double off-pump coronary artery bypass grafting using the left internal mammary artery to left anterior descending coronary artery, a reverse greater saphenous vein graft connected to the aorta using the PAS-port device and connected distally to the first diagonal coronary artery. Endoscopic harvesting of the left greater saphenous vein from the groin to just below the lead level, intraoperative transesophageal echocardiogram and epi-aortic scanning, in traoperative graft flow measurements using the [employer] system. Postoperative acute blood loss anemia, an expected outcome due to hemodilution. The patient is seen in follow-up today on postoperative on 05/05/2020, she is sitting up to the bedside chair, is awake, alert and oriented 3. She is in no acute distress, remains hemodynamically stable and is currently on no inotropic or pressor support. Currently denies any complaints of shortness breath or pain. She reports that her pain is much more controlled today than yesterday. Her bedside nurse reports that the patient ambulated in the intensive care unit hallway twice yesterday achieving 100 feet the first walk and 150 feet the secon d walk. Oxygen saturations are 94% on room air and she is achieving 1000 mL on her incentive spirometry. Mediastinal and left pleural chest tubes remain in place to low continuous wall suction -20 cm H2O. No air leak is present. Mediastinal chest tube drained 10 mL of thin serosanguineous output in the last 8 hours and 100 mL output in the last 24 hours. Left pleural chest tube drained 60 mL of thin serosanguineous drainage in the last 8 hours and 280 mL output in the last 24 hours. Right IJ cordis remains in place with continuous CVP monitoring current CVP pressure 4 mmHg. Objective - Vital Signs Vital signs: Vital Signs Temp 98.5 F 05/05/20 04:00 Pulse 96 05/05/20 07:00 Resp 22 05/05/20 07:00 BP 123/71 05/05/20 07:00 Pulse Ox 93 L 05/05/20 07:00 Intake & Output 05/04/20 05/05/20 05/05/20 18:59 06:59 18:59 Intake Total 1983 686 Output Total 1455 960 Balance 528 -274 Weight 60.6 kg Intake: IV 543 286 0.9 320 220 0.9 CO/CI 30 0.9 NaCl- for pressure 93 66 bag ceFAZolin 2 gm In Sodium 100 Chloride 0.9% 50 ml @ 100 mls/hr IVPB Q8HR [facility] Rx# :[id number] Oral 1440 400 Output: Chest Tube Drainage 280 130 Chest Tube Left Pleural/ 200 100 Mediastinal Chest Tube Mediastinal 80 30 Urine 1175 830 Other: Voiding Method Indwelling Catheter Indwelling Catheter ABP, PAP, CO, CI - Last Documented Arterial Blood Pressure 150/68 Pulmonary Artery Pressure 31/18 Cardiac Output 4.5 Cardiac Index 2.8 - Constitutional General appearance: Present: average body habitus, cooperative, no acute distress - EENT Eyes: Present: PERRLA, dentition normal, normal appearance. Absent: scleral icterus - Neck Details: Neck is supple, no JVD. Right IJ cordis remains in place with continuous CVP monitoring, current CVP pressure 4 mmHg. - Respiratory Details: Lung sounds are essentially clear throughout. No wheezes, rhonchi or crackles. Respirations are symmetrical and nonlabored. Oxygen saturation is 94% on room air. Achieving 1000 mL on his incentive spirometry. Mediastinal and left pleural chest tubes remain in place to low continuous wall suction -20 cm H2O. No air leak is present. Mediastinal chest tube drained 10 mL of thin serosanguineous output in the last 8 hours and 100 mL output in the last 24 hours. Left pleural chest tube drained 60 mL of thin serosanguineous drainage in the last 8 hours and 280 mL output in the last 24 hours. - Cardiovascular Details: Regular rhythm and rate. S1 and S2 present, negative for S3, gallop or murmur. Sternum is stable. Bedside telemetry showing normal sinus rhythm heart rate 95. Heart hugger is in place and she is demonstrating appropriate use. Knee-high KAT hose and sequential compression devices in place to bilateral lower extremities. - Gastrointestinal Gastrointestinal Comment(s): Abdomen is soft, nontender and nondistended. Active bowel sounds present in all 4 abdominal quadrants. No guarding or rigidity. No organomegaly appreciated. Tolerating oral intake. Passing flatus. - Genitourinary Genitourinary Comment(s): Jain catheter for accurate I&O. Draining clear yellow urine. 645 mL output last 8 hours. - Integumentary Integumentary Comment(s): Skin is warm and dry. No clubbing or cyanosis is present. Midline sternal incision is clean, dry and approximated. No drainage or redness is present. Left lower extremity EVH site is clean, dry and approximated. No drainage or redness is present. - Neurologic Neurologic: Present: CNII-XII intact - Musculoskeletal Musculoskeletal: Present: gait normal, strength equal bilaterally - Psychiatric Psychiatric: Present: A&O x's 3, appropriate affect, intact judgment & insight - Allied health notes Allied health notes reviewed: nursing - Labs CBC & Chem 7: 05/05/20 04:25 05/05/20 04:25 Labs: Abnormal Lab Results - Last 24 Hours (Table) 05/04/20 05/04/20 05/04/20 Range/Units 08:45 10:06 11:34 RBC (3.80-5.40) m/uL Hgb (11.4-16.0) gm/dL Hct (34.0-46.0) % MCV (80.0-100.0) fL Lymphocytes # (1.0-4.8) k/uL Sodium (137-145) mmol/L Chloride (98-107) mmol/L Carbon Dioxide (22-30) mmol/L POC Glucose (mg/dL) 165 H 139 H 105 H (75-99) mg/dL Total Protein (6.3-8.2) g/dL Albumin (3.5-5.0) g/dL 05/04/20 05/04/20 05/05/20 Range/Units 16:49 20:46 04:25 RBC 2.29 L (3.80-5.40) m/uL Hgb 7.5 L (11.4-16.0) gm/dL Hct 23.2 L (34.0-46.0) % MCV 101.4 H (80.0-100.0) fL Lymphocytes # 0.9 L (1.0-4.8) k/uL Sodium (137-145) mmol/L Chloride (98-107) mmol/L Carbon Dioxide (22-30) mmol/L POC Glucose (mg/dL) 115 H 119 H (75-99) mg/dL Total Protein (6.3-8.2) g/dL Albumin (3.5-5.0) g/dL 05/05/20 Range/Units 04:25 RBC (3.80-5.40) m/uL Hgb (11.4-16.0) gm/dL Hct (34.0-46.0) % MCV (80.0-100.0) fL Lymphocytes # (1.0-4.8) k/uL Sodium 136 L (137-145) mmol/L Chloride 110 H (98-107) mmol/L Carbon Dioxide 21 L (22-30) mmol/L POC Glucose (mg/dL) (75-99) mg/dL Total Protein 5.0 L (6.3-8.2) g/dL Albumin 3.0 L (3.5-5.0) g/dL - Imaging and Cardiology Chest x-ray: report reviewed, image reviewed Assessment and Plan Assessment: 1. Coronary artery disease, proximal LAD 99%, status post 2 vessel coronary artery bypass grafting surgery 2. Non-STEMI this admission 3. Questionable ventricular tachycardia prior to admission 4 Severely impaired left ventricular systolic function with an EF of 30-35%, mild mitral valve regurgitation, mild tricuspid valve regurgitation 5. Hypertension 6. Hyperlipidemia, LDL 136, cholesterol 250, triglycerides 348 7. Remote seizure history 8. Current chronic tobacco dependence with a preoperative FEV1 81% of predicted value 9. Moderate daily EtOH use 10. Family history of heart disease 11. Postoperative acute blood loss anemia, expected Plan: 1. Continue aspirin, statin, Plavix and beta jose. Increase metoprolol tartrate 50mg by mouth twice a day. 2. Discontinue Jain catheter, right radial arterial line and right IJ Cordis. 3. Wean O2 as tolerated. Encourage incentive spirometry is 10 times every hour while awake. Bronchodilators per pulmonology management. 4. Increase activity, ambulate as tolerated. PT/OT/cardiac rehab following. 5. Will monitor daily labs and chest x-rays. Electrolyte replacement per protocol. No transfusion. 6. GI/DVT prophylaxis. 7. Insulin management per primary care service. Patient is not diabetic, preoperative hemoglobin A1c 5.7% 8. Pain control current medication regimen. 9. Discontinue mediastinal and left pleural chest tubes. 10. Continue lisinopril 2.5 mg by mouth daily for afterload reduction. 11. Continue daily weights. Lasix 20 mg IV 1 now. 12. Transfer orders placed for the patient to go to the cardiac stepdown unit. 13. Discharge planning is in place, anticipate discharge home with home health care in the next 48 hours. 14. More recommendations to follow based on patient's clinical course. Time with Patient: Greater than 30
--- NOTE | 2020-05-05 09:24 | P.PN ---
Subjective Progress Note Date: 05/05/20 This is a pleasant 69-year-old female past medical history significant for hypertension, dyslipidemia, chronic nicotine dependence and daily alcohol intake. She underwent coronary artery bypass grafting yesterday with BARDALES to LAD and SVG to diagonal with Dr. Owens. Patient seen and examined. Patient is in good spirits and denies any chest pain or pressure. [place]-Hallie catheter was removed yesterday. Plan for right IJ Cordis removal today. She was able to walk the halls yesterday with mild dyspnea at the end of her walk. Hemoglobin 7.5 today, creatinine 0.7. Chest x-ray this morning shows postoperative changes and atelectasis. GENERAL: Well-appearing, well-nourished and in no acute distress. NECK: Supple without JVD or thyromegaly. LUNGS: Breath sounds clear to auscultation bilaterally. Respiration equal and unlabored. No wheezes, rales or rhonchi. Diminished bilaterally. HEART: Regular rate and rhythm without murmurs, rubs or gallops. S1 and S2 heard. EXTREMITIES: Normal range of motion, no edema. No clubbing or cyanosis. Peripheral pulses intact. ASSESSMENT Non-ST elevated myocardial infarction Ischemic cardiomyopathy Hypertension Dyslipidemia Chronic nicotine dependence Daily alcohol intake Loss of consciousness, possible seizure-like activity. Suspicious for car diogenic syncope in the setting of non-STEMI PLAN Continue current medical regimen. Encourage regular incentive spirometer use. Continue lisinopril, metoprolol. Continue aspirin and Plavix given non-STEMI. Continue supportive care. Objective - Vital Signs Vital signs: Vital Signs Temp 98.2 F 05/05/20 08:00 Pulse 102 H 05/05/20 08:00 Resp 20 05/05/20 08:00 BP 127/78 05/05/20 08:00 Pulse Ox 93 L 05/05/20 08:00 Intake & Output 05/04/20 05/05/20 05/05/20 18:59 06:59 18:59 Intake Total 8361 816 26 Output Total 7497 800 75 Balance 528 -274 -49 Weight 60.6 kg Intake: IV 543 286 26 0.9 320 220 20 0.9 CO/CI 30 0.9 NaCl- for pressure 93 66 6 bag ceFAZolin 2 gm In Sodium 100 Chloride 0.9% 50 ml @ 100 mls/hr IVPB Q8HR [facility] Rx# :[id number] Oral 1440 400 Output: Chest Tube Drainage 280 130 Chest Tube Left Pleural/ 200 100 Mediastinal Chest Tube Mediastinal 80 30 Urine 1175 830 75 Other: Voiding Method Indwelling Catheter Indwelling Catheter ABP, PAP, CO, CI - Last Documented Arterial Blood Pressure 158/80 Pulmonary Artery Pressure 31/18 Cardiac Output 4.5 Cardiac Index 2.8 - Labs CBC & Chem 7: 05/05/20 04:25 05/05/20 04:25 Labs: Abnormal Lab Results - Last 24 Hours (Table) 05/04/20 05/04/20 05/04/20 Range/Units 10:06 11:34 16:49 RBC (3.80-5.40) m/uL Hgb (11.4-16.0) gm/dL Hct (34.0-46.0) % MCV (80.0-100.0) fL Lymphocytes # (1.0-4.8) k/uL Sodium (137-145) mmol/L Chloride (98-107) mmol/L Carbon Dioxide (22-30) mmol/L POC Glucose (mg/dL) 139 H 105 H 115 H (75-99) mg/dL Total Protein (6.3-8.2) g/dL Albumin (3.5-5.0) g/dL 05/04/20 05/05/20 05/05/20 Range/Units 20:46 04:25 04:25 RBC 2.29 L (3.80-5.40) m/uL Hgb 7.5 L (11.4-16.0) gm/dL Hct 23.2 L (34.0-46.0) % MCV 101.4 H (80.0-100.0) fL Lymphocytes # 0.9 L (1.0-4.8) k/uL Sodium 136 L (137-145) mmol/L Chloride 110 H (98-107) mmol/L Carbon Dioxide 21 L (22-30) mmol/L POC Glucose (mg/dL) 119 H (75-99) mg/dL Total Protein 5.0 L (6.3-8.2) g/dL Albumin 3.0 L (3.5-5.0) g/dL
[2020-05-05] MEDS: IPRATROPIUM-ALBUTEROL 3 ML NEB INHALATION SCH ×4 (10:13→20:13)
[2020-05-05 12:02] LABS: Glucose,Whole Blood 104 mg/dL (75-99)
--- NOTE | 2020-05-05 12:16 | P.PN ---
Subjective Progress Note Date: 05/05/20 On 05/05/2020 the patient is postop day #2. Doing well. No specific complaints. Ambulating. Chest x-ray shows adequate expansion of both lungs. No evidence of a pneumothorax. Chest tubes are in place. The [place]-Hallie catheter has been removed. The patient has no fever. No chills. Using incenti ve spirometer. No signs of any delirium tremens. The [place]-Hallie catheter has been removed. The patient is producing adequate amount of urine output. Cardiac rhythm is still sinus. The patient is putting minimal amount of output through the chest tubes. The mediastinal chest tube with a 10 mL of serous embolus output over the past 8 hours and 100 mL over the past 24 hours. Left pleural chest tube with a 60 mL over the past 8 hours and to 80 mL over the past 24 hours. The patient is ambulating in the intensive care unit. No altered mentation. No other complaints otherwise for now. Objective - Vital Signs Vital signs: Vital Signs Temp 97.9 F 05/05/20 12:00 Pulse 76 05/05/20 12:00 Resp 20 05/05/20 12:00 BP 114/71 05/05/20 12:00 Pulse Ox 93 L 05/05/20 12:00 Intake & Output 05/04/20 05/05/20 05/05/20 18:59 06:59 18:59 Intake Total 1982 686 52 Output Total 1455 960 925 Balance 528 -274 -873 Weight 60.6 kg Intake: IV 543 286 52 0.9 320 220 40 0.9 CO/CI 30 0.9 NaCl- for pressure 93 66 12 bag ceFAZolin 2 gm In Sodium 100 Chloride 0.9% 50 ml @ 100 mls/hr IVPB Q8HR [facility] Rx# :[id number] Oral 1440 400 Output: Chest Tube Drainage 280 130 Chest Tube Left Pleural/ 200 100 Mediastinal Chest Tube Mediastinal 80 30 Urine 1175 830 925 Other: Voiding Method Indwelling Catheter Indwelling Catheter Toilet # Voids 1 # Bowel Movements 1 ABP, PAP, CO, CI - Last Documented Arterial Blood Pressure 158/80 Pulmonary Artery Pressure 31/18 Cardiac Output 4.5 Cardiac Index 2.8 - Exam - Constitutional General appearance: Present: average body habitus, cooperative, no acute distress - EENT Eyes: Present: PERRLA, dentition normal, normal appearance. Absent: scleral icterus - Neck Details: Neck is supple, no JVD. Right IJ cordis remains in place with continuous CVP monitoring, current CVP pressure 4 mmHg. - Respiratory Details: Lung sounds are essentially clear throughout. No wheezes, rhonchi or crackles. Respirations are symmetrical and nonlabored. Oxygen saturation is 94% on room air. Achieving 1000 mL on his incentive spirometry. Mediastinal and left pleural chest tubes remain in place to low continuous wall suction -20 cm H2O. No air leak is present. Mediastinal chest tube drained 10 mL of thin serosanguineous output in the last 8 hours and 100 mL output in the last 24 hours. Left pleural chest tube drained 60 mL of thin serosanguineous drainage in the last 8 hours and 280 mL output in the last 24 hours. - Cardiovascular Details: Regular rhythm and rate. S1 and S2 present, negative for S3, gallop or murmur. Sternum is stable. Bedside telemetry showing normal sinus rhythm heart rate 95. Heart hugger is in place and she is demonstrating appropriate use. Knee-high T ED hose and sequential compression devices in place to bilateral lower extremities. - Gastrointestinal Gastrointestinal Comment(s): Abdomen is soft, nontender and nondistended. Active bowel sounds present in all 4 abdominal quadrants. No guarding or rigidity. No organomegaly appreciated. Tolerating oral intake. Passing flatus. - Genitourinary Genitourinary Comment(s): Jain catheter for accurate I&O. Draining clear yellow urine. 645 mL output last 8 hours. - Integumentary Integumentary Comment(s): Skin is warm and dry. No clubbing or cyanosis is present. Midline sternal incision is clean, dry and approximated. No drainage or redness is present. Left lower extremity EVH site is clean, dry and approximated. No drainage or redness is present. - Neurologic Neurologic: Present: CNII-XII intact - Musculoskeletal Musculoskeletal: Present: gait normal, strength equal bilaterally - Psychiatric Psychiatric: Present: A&O x's 3, appropriate affect, intact judgment & insight - Labs CBC & Chem 7: 05/05/20 04:25 05/05/20 04:25 Labs: Abnormal Lab Results - Last 24 Hours (Table) 05/04/20 05/04/20 05/05/20 Range/Units 16:49 20:46 04:25 RBC 2.29 L (3.80-5.40) m/uL Hgb 7.5 L (11.4-16.0) gm/dL Hct 23.2 L (34.0-46.0) % MCV 101.4 H (80.0-100.0) fL Lymphocytes # 0.9 L (1.0-4.8) k/uL Sodium (137-145) mmol/L Chloride (98-107) mmol/L Carbon Dioxide (22-30) mmol/L POC Glucose (mg/dL) 115 H 119 H (75-99) mg/dL Total Protein (6.3-8.2) g/dL Albumin (3.5-5.0) g/dL 05/05/20 05/05/20 Range/Units 04:25 12:01 RBC (3.80-5.40) m/uL Hgb (11.4-16.0) gm/dL Hct (34.0-46.0) % MCV (80.0-100.0) fL Lymphocytes # (1.0-4.8) k/uL Sodium 136 L (137-145) mmol/L Chloride 110 H (98-107) mmol/L Carbon Dioxide 21 L (22-30) mmol/L POC Glucose (mg/dL) 104 H (75-99) mg/dL Total Protein 5.0 L (6.3-8.2) g/dL Albumin 3.0 L (3.5-5.0) g/dL Assessment and Plan Plan: #1. Coronary artery bypass surgery and the patient is postop day #2. Noted the patient had heavily calcified proximal LAD stenosis of 99%, with significant is involving the diagonal branch, left main 20% stenosis, and severely impaired left ventricular systolic function and EF of 30-35%. The patient is also status post non-STEMI at time of admission. #2. Post thoracotomy, patient is currently extubated on nasal cannula oxygen and using incentive spirometer. Chest x-ray showed no evidence of any pneumothorax. Chest tubes are still in place. #3. History of seizure disorder #4. Hypertension #5. Possible COPD, not oxygen dependent, not on any maintenance inhalers, patient is a long-time chronic and ongoing smoker, preop FEV1 of 81% of predicted #6. Moderate EtOH use, no evidence of delirium tremens #7 hyperlipidemia 8 postoperative acute blood loss anemia, expected outcome of surgery Plan We'll remove the chest tubes today Given a dose of Lasix 20 mg IV push Continue using incentive spirometer Continue pulmonary toileting Continue the combination of aspirin and Plavix and beta blockers Chest x-ray was reviewed. We'll continue to follow
--- NOTE | 2020-05-05 14:38 | P.PN ---
Subjective Acute non-ST elevated MS Syncope Patient was admitted for evaluation of seizures. Patient is found have elevated troponins it appears like patient had acute myocardial infarction patient is undergoing cardiac catheterization Patient had an MRI which didn't show any acute abnormality but did show some chronic microvascular ischemic changes. EEG was normal. 2-D echo: Was reported as left ventricle wall thickness is normal. Ejection fraction of 40-45%. Apical septal left ventricle wall motion is hypokinetic. 04/26/2020 Patient is currently lying in bed comfortably. No complaints of chest pain or shortness breath. Patient was initially admitted to the hospital with loss of consciousness and possible seizures and elevated troponin level. Patient underwent cardiac catheterization showed critical stenosis involving the proximal LAD with poststenotic dilation and severe tortuosity with significant disease in the diagonal branch. Calcified LAD Mild disease in the right coronary artery. CT surgery was consulted due to severe coronary artery disease and is planning for coronary artery bypass graft. Preoperative testing was initiated. Current medications reviewed. 04/27/2020 Patient is currently lying in bed comfortably. No complaints of chest pain or shortness breath. No nausea vomiting or abdominal pain. Patient was seen by isaak rey and is planning for bedside PFTs today. No other acute overnight issues. Patient is being continued on aspirin, statins, metoprolol and lisinopril, Aldactone and is on heparin drip. Cardiology, pulmonary and CT surgery is on board. 04/28/2020 Patient is currently lying in the bed comfortably. Awake alert oriented x3. No complaints of chest pain. No headache or dizziness or lightheadedness. No nausea vomiting or abdominal pain or diarrhea. Patient is being continued on heparin drip. Plan for cardiac surgery early next week. 2019 Patient is currently awake alert oriented x3. No complaints of chest pain. Or shortness of breath. No nausea vomiting abdominal pain. Currently on room air. Continued on heparin drip. CT surgery and pulmonary is on board. Cardiac surgery to be scheduled next week. No other acute overnight issues. 04/30/2020 Patient will undergo coronary artery bypass grafting on . Patient doesn't have any withdrawals at this time patient was having bilateral flank tenderness x-ray of both hips. 05/01/2020 X-ray showed bilateral hip arthropathy which need to be addressed as an outpatient and patient will benefit from physical therapy. 05/02/2020 Patient is comparing of a painful in the back which is radiating to back of the thyroid towards the front bilaterally. Patient appears to have either sciatica her degenerative lumbar spine disease. Patient pain significant improved with Tylenol which will be continued and also had [place] for pain on as-needed basis 05/03/2020 patient is postoperative coronary artery bypass grafting day 0. Patient is presently on amiodarone drip PVD pain drip does have mediastinal and left sided chest tubes on propofol drip patient went settings are at baseline and doing clinically well and considering her parameters patient probably can be extubated today 05/04/2020 Patient is extubated today presently not on any drips IV insulin was discontinued and patient is on a scale insulin at this time. Patient is postoperative day 1. She is presently on 4 dysfunction. Patient Continues to have chest use mediastinal and left chest chest tube, continues to have significant drainage from those. Chest x-ray no evidence of increased pleural effusions or pneumothorax. 05/05/2020 Patient is postoperative day 2 clinically doing well and bleeding in the hallways had a bowel movement. Patient's chest tubes are out patient probably will be discharged tomorrow Of systems: Unable to obtain due to her clinical condition. All inpatient medications were reviewed and appropriate changes in these medications as dictated in the interval history and assessment and plan. Objective - Vital Signs Vital signs: Vital Signs Temp 97.9 F 05/05/20 12:00 Pulse 84 05/05/20 12:31 Resp 20 05/05/20 12:00 BP 114/71 05/05/20 12:00 Pulse Ox 93 L 05/05/20 12:00 Intake & Output 05/04/20 05/05/20 05/05/20 18:59 06:59 18:59 Intake Total 1982 686 52 Output Total 1455 960 925 Balance 077 -389 -133 Weight 60.6 kg Intake: IV 543 286 52 0.9 320 220 40 0.9 CO/CI 30 0.9 NaCl- for pressure 93 66 12 bag ceFAZolin 2 gm In Sodium 100 Chloride 0.9% 50 ml @ 100 mls/hr IVPB Q8HR [facility] Rx# :[id number] Oral 1440 400 Output: Chest Tube Drainage 280 130 Chest Tube Left Pleural/ 200 100 Mediastinal Chest Tube Mediastinal 80 30 Urine 1175 830 925 Other: Voiding Method Indwelling Catheter Indwelling Catheter Toilet # Voids 1 # Bowel Movements 1 ABP, PAP, CO, CI - Last Documented Arterial Blood Pressure 158/80 Pulmonary Artery Pressure 31/18 Cardiac Output 4.5 Cardiac Index 2.8 - Exam PHYSICAL EXAMINATION: GENERAL: Awake alert oriented 3 not in respiratory distress. HEENT: Pupils are round and equally reacting to light. EOMI. No scleral icterus. No conjunctival pallor. Normocephalic, atraumatic. No pharyngeal erythema. No thyromegaly. CARDIOVASCULAR: S1 and S2 present. No murmurs, rubs, or gallops. PULMONARY: Chest is clear to auscultation, no wheezing or crackles. ABDOMEN: Soft, nontender, nondistended, normoactive bowel sounds. No palpable organomegaly. MUSCULOSKELETAL: No joint swelling or deformity. EXTREMITIES: No cyanosis, clubbing, or pedal edema. NEUROLOGICAL: No new focal deficits SKIN: No rashes. - Labs CBC & Chem 7: 05/05/20 04:25 05/05/20 04:25 Labs: Abnormal Lab Results - Last 24 Hours (Table) 05/04/20 05/04/20 05/05/20 Range/Units 16:49 20:46 04:25 RBC 2.29 L (3.80-5.40) m/uL Hgb 7.5 L (11.4-16.0) gm/dL Hct 23.2 L (34.0-46.0) % MCV 101.4 H (80.0-100.0) fL Lymphocytes # 0.9 L (1.0-4.8) k/uL Sodium (137-145) mmol/L Chloride (98-107) mmol/L Carbon Dioxide (22-30) mmol/L POC Glucose (mg/dL) 115 H 119 H (75-99) mg/dL Total Protein (6.3-8.2) g/dL Albumin (3.5-5.0) g/dL 05/05/20 05/05/20 Range/Units 04:25 12:01 RBC (3.80-5.40) m/uL Hgb (11.4-16.0) gm/dL Hct (34.0-46.0) % MCV (80.0-100.0) fL Lymphocytes # (1.0-4.8) k/uL Sodium 136 L (137-145) mmol/L Chloride 110 H (98-107) mmol/L Carbon Dioxide 21 L (22-30) mmol/L POC Glucose (mg/dL) 104 H (75-99) mg/dL Total Protein 5.0 L (6.3-8.2) g/dL Albumin 3.0 L (3.5-5.0) g/dL Assessment and Plan Plan: - Acute non-ST elevated MS status post cardiac catheterization showed severe proximal LAD stenosis. Status post CABG further management as per cardiotho racic surgery, patient is clinically doing well patient chest tubes were removed -Acute respiratory failure post cardiac thoracic surgery as CABG resolved patient was extubated couple days ago -Acute systolic heart failure. due to acute systolic dysfunction is probably secondary to MS EF 40-45% with hypokinetic apical septum, mild mitral regurgitation, mild tricuspid regurgitation -Acute syncopal episode likely due to acute MS which may have led to seizures. Patient had MRI and EEG was done. EEG was normal. Seen by neurology. Patient declined any antiseizure medications which I believe is reasonable as patient most probably had a syncope related seizure -Elevated blood sugars patient is not diabetic patient with sliding scale insulin at this time. Will not require any medications for diabetes upon discharge -Alcohol withdraws and was treated for these on admission -Depression -Hypertension -Hyperlipidemia -Ongoing nicotine addiction -Chronic low back pain Tylenol as mentioned above
[2020-05-05 17:16] LABS: Glucose,Whole Blood 114 mg/dL (75-99)
[2020-05-05 20:39] LABS: Glucose,Whole Blood 105 mg/dL (75-99)
[2020-05-05] MEDS: SENNOSIDES-DOCUSATE SODIUM 1 EACH TAB PO SCH (22:16)
[2020-05-06] MEDS: KETOROLAC 15 MG/ML 1 ML VIAL IVP SCH ×3 (02:05→12:03)
[2020-05-06] MEDS: HEPARIN SODIUM,PORCINE 5,000 UNIT/ML 1 ML VIAL SQ SCH ×2 (04:13→12:03)
[2020-05-06 04:19] LABS: HCT 23.9 % (34.0-46.0); HGB 7.9 gm/dL (11.4-16.0); MCH 33.4 pg (25.0-35.0); Mean Platelet Volume 7.3; Platelet Count 427 k/uL (150-450); RBC 2.36 m/uL (3.80-5.40); RDW 13.4 % (11.5-15.5); WBC 8.2 k/uL (3.8-10.6)
[2020-05-06 04:39] LABS: ALT 17 U/L (4-34); AST 27 U/L (14-36); African American GFR (CKD) >90 (>60 ml/min/1.73 sqM); Albumin 3.2 g/dL (3.5-5.0); Alkaline Phosphatase 76 U/L (38-126); Anion Gap 6 mmol/L; Blood Urea Nitrogen 18 mg/dL (7-17); Calcium 8.7 mg/dL (8.4-10.2); Carbon Dioxide 24 mmol/L (22-30); Chloride 107 mmol/L (98-107); Glucose 91 mg/dL (74-99); Non-African American GFR(CKD) 86 (>60 ml/min/1.73 sqM); Sodium 137 mmol/L (137-145); Total Bilirubin 1.1 mg/dL (0.2-1.3); Total Protein 5.4 g/dL (6.3-8.2)
[2020-05-06 06:48] LABS: Glucose,Whole Blood 100 mg/dL (75-99)
[2020-05-06] MEDS: INSULIN ASPART (NovoLOG) 100 UNIT/ML VIAL SQ SCH ×2 (06:49→13:21)
[2020-05-06] MEDS: ASPIRIN 325 MG TAB PO SCH (08:08)
[2020-05-06] MEDS: PANTOPRAZOLE 40 MG TABLET PO SCH (08:08)
[2020-05-06] MEDS: ASCORBIC ACID 500 MG TAB PO SCH (08:17)
[2020-05-06] MEDS: THIAMINE 100 MG TAB PO SCH (08:17)
[2020-05-06] MEDS: CLOPIDOGREL 75 MG TAB PO SCH (08:18)
[2020-05-06] MEDS: FERROUS SULFATE 325 MG TAB PO SCH (08:18)
[2020-05-06] MEDS: PARoxetine 20 MG TAB PO SCH (08:18)
[2020-05-06] MEDS: CYANOCOBALAMIN 500 MCG TAB PO SCH (08:26)
[2020-05-06] MEDS: FOLIC ACID 1 MG TAB PO SCH ×2 (08:27→08:33)
[2020-05-06] MEDS: ATORVASTATIN 40 MG TAB PO SCH (08:27)
[2020-05-06] MEDS: IPRATROPIUM-ALBUTEROL 3 ML NEB INHALATION SCH ×2 (08:58→10:49)
[2020-05-06] MEDS ORDERED: lisinopriL 5 MG TAB PO SCH (09:00)
[2020-05-06] MEDS ORDERED: METOPROLOL TARTRATE 25 MG TAB PO SCH (09:00)
--- NOTE | 2020-05-06 09:12 | P.DS ---
Providers Date of admission: 04/24/20 11:44 Expected date of discharge: 05/06/20 Attending physician: Dino Owens Consults: 04/24/20 11:42 Consult Physician Routine Consulting Provider: Salinas Kovacs Consult Reason/Comments: Seizures Do you want consulting provider notified?: Yes 04/24/20 11:44 Consult Physician Routine Consulting Provider: Soha Álvarez Consult Reason/Comments: troponin elevation, concern for ACS Do you want consulting provider notified?: Already Contacted 04/25/20 13:11 Consult Physician Routine Consulting Provider: Dino Owens Consult Reason/Comments: cabg Do you want consulting provider notified?: Already Contacted 04/26/20 09:13 Consult Physician Routine Consulting Provider: Antonio Kovacs Consult Reason/Comments: Preoperative open heart Do you want consulting provider notified?: Yes 05/03/20 12:12 Consult Physician Routine Consulting Provider: Mariusz Marrero Consult Reason/Comments: med mgt Do you want consulting provider notified?: Already Contacted Primary care physician: Stated None Hospital Course: FINAL DIAGNOSIS: 1. Coronary artery disease, proximal LAD 99%, status post 2 vessel coronary artery bypass grafting surgery 2. Non-STEMI this admission 3. Questionable ventricular tachycardia prior to admission 4. Severely impaired left ventricular systolic function with an ejection fraction of 30-35% 5. Mild mitral valve regurgitation 6. Mild tricuspid valve regurgitation 7. Hypertension 8. Hyperlipidemia, LDL 136, cholesterol 250, triglycerides 348 9. Remote seizure history 10. Current chronic tobacco dependence with a preoperative FEV1 81% of predicted value 11. Moderate daily EtOH use 12. Family history of heart disease 13. Postoperative acute blood loss anemia, expected PRINCIPAL PROCEDURE: 1. Selective right and left coronary angiography with left ventriculogram performed by Dr. Álvarez. 2. Urgent double vessel off-pump coronary artery bypass grafting using the left internal mammary artery to left anterior descending coronary artery, a reverse greater saphenous vein graft connected to the aorta using the PAS-port device and connected distally to the first diagonal coronary artery. 3. Endoscopic harvesting of the left greater saphenous vein from groin to just below the knee level. 4. Intraoperative transesophageal echocardiogram. 5. Intraoperative epi-aortic scanning. 6. Intraoperative graft flow measurements using the [employer] system. HISTORY OF PRESENT ILLNESS: This is a 69-year-old female patient who does not follow with a primary care physician on a regular basis. She is a past medical history significant for hypertension, hyperlipidemia, remote seizure history, chronic ongoing tobacco dependence, moderate daily EtOH use, and family history of heart disease. She presented to the emergency department here at [facility] on 04/24/2020 after she had a suspected witnessed seizure at a local grocery store. The patient had no recollection of the event. While in the emergency department a computed tomography scan of her brain was completed which demonstrated no acute process, and bilateral ventral lobe atrophy. A chest x-ray was also completed which showed no acute cardiopulmonary process. Her initial laboratory results showed a WBC count of 11.7, hemoglobin 17.2, creatinine 0.81, elevated troponin of 0.058 with elevation up to 1.350, cholesterol 250, LDL 136, and triglycerides 348. A 12-lead EKG was completed which showed normal sinus rhythm with nonspecific ST changes. Due to the patient's presenting symptoms cardiology was consulted as well as neurology for further evaluation and treatment recommendations. HOSPITAL COURSE: The patient was admitted to the hospital and underwent a 2-D echocardiogram which showed hypokinetic apical septum with an ejection fraction of 40-45%, mild mitral valve regurgitation and mild tricuspid valve regurgitation. She also underwent a heart catheterization which demonstrated a 20% stenosis to her left main coronary artery, and a 99% stenosis to her proximal left anterior descending coronary artery. Due to the findings on the heart catheterization a consult was placed to Dr. Dino Owens from cardiothoracic surgery who discussed the findings on the cardiac catheterization films with the patient and treatment options were discussed including myocardial revascularization surgery. Knowing the risks and benefits of myocardial revascularization surgery including the STS risk score the patient wished to proceed with the surgical option. Consent for myocardial revascularization surgery was obtained, and the patient was brought to the preoperative area on 05/03/2020, prepared in the usual fashion and was subsequently taken to the operating room where Dr. Dino Owens performed an urgent double vessel off-pump coronary artery bypass grafting surgery using the left internal mammary artery to left anterior descending coronary artery, a reverse greater saphenous vein graft connected to the aorta using the PAS-port device and connected distally to the first diagonal coronary artery. She also underwent endoscopic harvesting of the left greater saphenous vein from the groin to just below the knee, intraoperative transesophageal echocardiogram, epi-aortic scanning and graft flow measurements using the [employer] system. Upon completion of the surgery the patient was transferred to cardiovascular intensive care unit where she was recovered, monitored hemodynamically and where she progressed cardiac rehabilitation phase 1. She was extubated, all lines, tubes and supportive drips were discontinued when appropriate and transfer orders were placed for the cardiac stepdown unit. Due to lack of bed availability on the cardiac stepdown unit the patient remained in the intensive care unit as a stepdown patient until discharge. Her oxygen was titrated down, she continued to work with physical/occupational therapy and cardiac rehab, she was tolerating oral diet, her pain was well-controlled and she was ready to be discharged home with [facility] on postoperative day #3. She has received written and verbal instructions regarding her medications, activity restrictions, signs and symptoms requiring physician out of medication and her follow-up appointments. COMPLICATIONS: There were no postoperative complications. Patient Condition at Discharge: Stable Plan - Discharge Summary Discharge Rx Participant: Yes New Discharge Prescriptions: New Aspirin 325 mg PO DAILY #30 tab Ferrous Sulfate [Iron (65 MG Elemental)] 325 mg PO BID-W/MEALS #14 tab Atorvastatin [Lipitor] 40 mg PO DAILY #30 tab Metoprolol Tartrate [Lopressor] 75 mg PO BID #180 tab Clopidogrel [Plavix] 75 mg PO DAILY #30 tab Pantoprazole [Protonix] 40 mg PO AC-BRKFST #30 tablet. Acetaminophen Tab [Tylenol] 1,000 mg PO Q6HR PRN tab PRN Reason: Fever And/ Or Pain Thiamine [Vitamin B-1] 100 mg PO DAILY #30 tab lisinopriL [Zestril] 5 mg PO DAILY #30 tab Continue PARoxetine [Paxil] 20 mg PO DAILY Folic Acid 0.8 mg PO DAILY Cholecalciferol [Vitamin D3 (25 Mcg = 1000 Iu)] 1,000 unit PO DAILY Ascorbic Acid [Vitamin C] 500 mg PO DAILY Magnesium Oxide [Magox 400] 400 mg PO DAILY Discontinued Benazepril/Hydrochlorothiazide [Benazepril-Hctz 20-12.5 mg Tab] 0.5 tab PO DAILY Discharge Medication List Ascorbic Acid [Vitamin C] 500 mg PO DAILY 04/24/20 [History] Cholecalciferol [Vitamin D3 (25 Mcg = 1000 Iu)] 1,000 unit PO DAILY 04/24/20 [History] Folic Acid 0.8 mg PO DAILY 04/24/20 [History] Magnesium Oxide [Magox 400] 400 mg PO DAILY 04/24/20 [History] PARoxetine [Paxil] 20 mg PO DAILY 04/24/20 [History] Acetaminophen Tab [Tylenol] 1,000 mg PO Q6HR PRN tab 05/06/20 [Rx] Aspirin 325 mg PO DAILY #30 tab 05/06/20 [Rx] Atorvastatin [Lipitor] 40 mg PO DAILY #30 tab 05/06/20 [Rx] Clopidogrel [Plavix] 75 mg PO DAILY #30 tab 05/06/20 [Rx] Ferrous Sulfate [Iron (65 MG Elemental)] 325 mg PO BID-W/MEALS #14 tab 05/06/20 [Rx] Metoprolol Tartrate [Lopressor] 75 mg PO BID #180 tab 05/06/20 [Rx] Pantoprazole [Protonix] 40 mg PO AC-BRKFST #30 tablet.dr 05/06/20 [Rx] Thiamine [Vitamin B-1] 100 mg PO DAILY #30 tab 05/06/20 [Rx] lisinopriL [Zestril] 5 mg PO DAILY #30 tab 05/06/20 [Rx] Follow up Appointment(s)/Referral(s): Ilene Terry NPC [Nurse Practitioner] - 1 Week Soha Álvarez MD [STAFF PHYSICIAN] - 1 Week Dino Owens MD [STAFF PHYSICIAN] - 1 Week None,Stated [Primary Care Provider] - 1-2 days Harris Araya MD [STAFF PHYSICIAN] - 1 Week Ambulatory/Diagnostic Orders: Complete Blood Count w/diff [LAB.AMB] Time Frame: 05/09/20, Facility: [facility], Location: Laboratory [facility] Comprehensive Metabolic Panel [LAB.AMB] Time Frame: 05/09/20, Facility: [facility], Location: [facility] Activity/Diet/Wound Care/Special Instructions: DISCHARGE INSTRUCTIONS: 1. No driving for 4 weeks, or until physician gives their ok. 2. The patient should sleep in their own bed, no medical bed needed. 3. Stairs are not an issue. If the bedroom is upstairs, it is advised that the patient go up at night and down in the morning for the first week. Go slowly, using handrail and take 1 step at a time. 4. KAT hose are to be worn for 30 days or until physician discontinues. 5. Heart hugger is to be worn 100% of the time until physician discontinues.(except when showering) 6. No lifting, pushing, or pulling more than 10 pounds for 12 weeks. The physician will advise of any restriction changes. 7. The patient is expected to continue the prescribed walking program. 8. Continue pain control per as needed orders. 9. Continue with incentive spirometry and splinting/heart hugger until othe rwise directed by the physician. 10. Must shower daily using liquid antibacterial soap and a separate white washcloth for each individual incision. 11. Routine sternal incision care. No powders, lotions, ointments on incisions. No dressings are necessary on incisions unless they are draining. Dermabond tape is to remain on sternal incision until surgeon follow-up. 12. Please call surgeon/WOOD CARVING LATHE OPERATOR for temp greater than 101 F or purulent drainage from incisions. 13. All prescriptions given by surgeon for 30 days. Refills need to be filled through sports medicine coordinator/primary care physician. 14. A Red armband has been placed on the patient. It should be worn for 30 days post surgery and will be removed by the cardiac surgeons. If an ER visit is necessary, please make sure the number on the Red armband is called. 15. You have been referred to and are expected to begin Cardiac Rehab in approximately 4-6 weeks. HOME HEALTH SERVICES TO PROVIDE: RN SKILLED HOME CARE SERVICES FOR POST-OP SURGICAL PATIENTS WITH THE FOLLOWING: Coronary Artery Bypass Surgery (CABG), Mitral Valve Replacement/Repair ( MVR), Aortic Valve Replacement/Repair (AVR) RN TO CONTINUE EDUCATION FROM ``ROAD TO A HEALTH HEART PATIENT EDUCATION MANUAL (GIVEN TO PATIENT IN THE HOSPITAL) MEDICATION RECONCILIATION WITH EDUCATION NEEDED ON FIRST HOME VISIT EMPHASIZE IMPORTANCE OF WEARING BREAST SUPPORT/HEART HUGGER ENCOURAGE USE OF INCENTIVE SPIROMETER 10 X EVERY HOUR WHILE AWAKE ENCOURAGE UTILIZATION OF LOWER EXTREMITY COMPRESSION STOCKINGS/KAT HOSE and ELEVATE LEGS ABOVE LEVEL OF HEART WHILE AT REST. ENCOURAGE AMBULATION 3-5x/day INCREASING TOLERATES, WHILE AVOIDING EXTREMES IN TEMPERATURE FREQUENCY: RN TO OPEN THE PATIENT WITHIN 24 HOURS OF DISCHARGE FROM THE HOSPITAL WITH TELEHEALTH INSTALLED AT [facility], RN TO VISIT 2-3 X A WEEK FOR 4 WEEKS ESTABLISHED BY PATIENT NEEDS. LABORATORY: CBC, CMP TO BE DRAWN ON THE THIRD DAY HOME, (RAN STAT) FAX RESULTS TO [phone]. TELEHEALTH PARAMETERS: WEIGHT: NOTIFY MD OF WEIGHT GAIN OF 2 LBS IN 24 HOURS OR 5 LBS IN ONE WEEK HR: NOTIFY MD OF HR <55 BPM OR HR>100 BPM BP: NOTIFY MD IF BP <90/55 OR BP>140/100 O2 SAT: NOTIFY MD IF PO2<93% ON ROOM AIR SEND TELEHEALTH REPORT TO LABORER CHEMICAL PROCESSING AND CARDIOVASCULAR SURGEON THE FIRST WEEK OF CARE AND THEN BI-WEEKLY. PLEASE ADDITIONALLY COMMUNICATE ANY ABNORMALS AND NEW FINDINGS TO THE SURGEONS OFFICE. For any questions or concerns please call intravenous therapy nurse Ilene @ or Bernardino @ Discharge Disposition: HOME WITH HOME HEALTH SERVICES
--- NOTE | 2020-05-06 10:14 | XR ---
EXAMINATION TYPE: XR chest 2V DATE OF EXAM: 05/06/2020 HISTORY: Shortness of breath. COMPARISON: 05/05/2020 TECHNIQUE: Single view of the chest is submitted. FINDINGS: Left basilar chest tube has been removed without evidence for pneumothorax. There is no evidence for focal infiltrate. Basilar linear atelectasis persists. The heart is stable. Hilar and mediastinal structures are within normal limits. Degenerative changes are seen of the dorsal spine. IMPRESSION: 1. Chronic changes without evidence for acute pulmonary disease.
--- NOTE | 2020-05-06 10:14 | P.PN ---
Subjective Progress Note Date: 05/06/20 This is a pleasant 69-year-old female past medical history significant for hypertension, dyslipidemia, chronic nicotine dependence and daily alcohol intake. She underwent coronary artery bypass grafting yesterday with BARDALES to LAD and SVG to diagonal with Dr. Owens. Patient seen and examined. Cordis and chest tubes were removed yesterday. Patient denies any chest pain or pressure. Denies any shortness breath. Patient is hoping she can go home today. Hemoglobin stable at 7.9. GENERAL: Well-appearing, well-nourished and in no acute distress. NECK: Supple without JVD or thyromegaly. LUNGS: Breath sounds clear to auscultation bilaterally. Respiration equal and unlabored. No wheezes, rales or rhonchi. Diminished bilaterally. HEART: Regular rate and rhythm without murmurs, rubs or gallops. S1 and S2 heard. + Midline sternotomy EXTREMITIES: Normal range of motion, no edema. No clubbing or cyanosis. Peripheral pulses intact. ASSESSMENT Non-ST elevated myocardial infarction Ischemic cardiomyopathy with ejection fraction 40-45% Hypertension Dyslipidemia Chronic nicotine dependence Daily alcohol intake Loss of consciousness, possible seizure-like activity. Suspicious for card iogenic syncope in the setting of non-STEMI PLAN Continue current medical regimen with lisinopril, metoprolol. Continue aspirin and Plavix given non-STEMI. She appears to be healing well from her surgery. Patient appears stable for discharge home with outpatient follow-up with Dr. Álvarez in 1-2 weeks. Objective - Vital Signs Vital signs: Vital Signs Temp 977 F H 05/06/20 08:00 Pulse 91 05/06/20 08:00 Resp 15 05/06/20 08:00 BP 142/85 05/06/20 08:00 Pulse Ox 92 L 05/06/20 04:00 Intake & Output 05/05/20 05/06/20 05/06/20 18:59 06:59 18:59 Intake Total 1234 400 Output Total 1125 1075 300 Balance 109 -675 -300 Weight 59.4 kg Intake: IV 52 0.9 40 0.9 NaCl- for pressure 12 bag Oral 1182 400 Output: Urine 1125 1075 300 Other: Voiding Method Toilet Toilet Toilet # Voids 0 # Bowel Movements 1 ABP, PAP, CO, CI - Last Documented Arterial Blood Pressure 158/80 Pulmonary Artery Pressure 31/18 Cardiac Output 4.5 Cardiac Index 2.8 - Labs CBC & Chem 7: 05/06/20 04:09 05/06/20 04:09 Labs: Abnormal Lab Results - Last 24 Hours (Table) 05/05/20 05/05/20 05/05/20 Range/Units 12:01 17:15 20:38 RBC (3.80-5.40) m/uL Hgb (11.4-16.0) gm/dL Hct (34.0-46.0) % MCV (80.0-100.0) fL BUN (7-17) mg/dL POC Glucose (mg/dL) 104 H 114 H 105 H (75-99) mg/dL Total Protein (6.3-8.2) g/dL Albumin (3.5-5.0) g/dL 05/06/20 05/06/20 05/06/20 Range/Units 04:09 04:09 06:46 RBC 2.36 L (3.80-5.40) m/uL Hgb 7.9 L (11.4-16.0) gm/dL Hct 23.9 L (34.0-46.0) % MCV 101.0 H (80.0-100.0) fL BUN 18 H (7-17) mg/dL POC Glucose (mg/dL) 100 H (75-99) mg/dL Total Protein 5.4 L (6.3-8.2) g/dL Albumin 3.2 L (3.5-5.0) g/dL
--- NOTE | 2020-05-06 11:35 | P.PN ---
Subjective Progress Note Date: 05/06/20 On 05/06/2020, the patient is postop day #3. The patient will specific complaints. The patient is awake and alert and comfortable. No respiratory difficulties. No cough sputum production chest answer wheezing. Cardiac rhythm is sinus. Chest tubes are out. Hemodynamically stable. His likely the patient may be able to go home today. She is ambulating. Objective - Vital Signs Vital signs: Vital Signs Temp 977 F H 05/06/20 08:00 Pulse 72 05/06/20 11:01 Resp 15 05/06/20 08:00 BP 142/85 05/06/20 08:00 Pulse Ox 92 L 05/06/20 04:00 Intake & Output 05/05/20 05/06/20 05/06/20 18:59 06:59 18:59 Intake Total 1234 400 Output Total 1125 1075 300 Balance 109 -675 -300 Weight 59.4 kg Intake: IV 52 0.9 40 0.9 NaCl- for pressure 12 bag Oral 1182 400 Output: Urine 1125 1075 300 Other: Voiding Method Toilet Toilet Toilet # Voids 0 # Bowel Movements 1 ABP, PAP, CO, CI - Last Documented Arterial Blood Pressure 158/80 Pulmonary Artery Pressure 31/18 Cardiac Output 4.5 Cardiac Index 2.8 - Exam The patient appeared well nourished and normally developed. Vital signs as documented. Head exam is unremarkable. No scleral icterus or corneal arcus noted. Neck is without jugular venous distension, thyromegaly, or carotid bruits. Carotid upstrokes are brisk bilaterally. Lungs are clear to auscultation and percussion. Cardiac exam reveals the PMI to be normally sized and situated. Rhythm is regular. First and second heart sounds normal. No murmurs, rubs or gallops. thoracotomy scar is dry clean and intact and the patient is using incentive spirometer without any major difficulties. Abdominal exam reveals normal bowel sounds, no masses, no organomegaly and no aortic enlargement. Extremities are nonedematous and both femoral and pedal pulses are normal. - Labs CBC & Chem 7: 05/06/20 04:09 05/06/20 04:09 Labs: Abnormal Lab Results - Last 24 Hours (Table) 05/05/20 05/05/20 05/05/20 Range/Units 12:01 17:15 20:38 RBC (3.80-5.40) m/uL Hgb (11.4-16.0) gm/dL Hct (34.0-46.0) % MCV (80.0-100.0) fL BUN (7-17) mg/dL POC Glucose (mg/dL) 104 H 114 H 105 H (75-99) mg/dL Total Protein (6.3-8.2) g/dL Albumin (3.5-5.0) g/dL 05/06/20 05/06/20 05/06/20 Range/Units 04:09 04:09 06:46 RBC 2.36 L (3.80-5.40) m/uL Hgb 7.9 L (11.4-16.0) gm/dL Hct 23.9 L (34.0-46.0) % MCV 101.0 H (80.0-100.0) fL BUN 18 H (7-17) mg/dL POC Glucose (mg/dL) 100 H (75-99) mg/dL Total Protein 5.4 L (6.3-8.2) g/dL Albumin 3.2 L (3.5-5.0) g/dL Assessment and Plan Plan: #1. Coronary artery bypass surgery and the patient is postop day #3. Noted the patient had heavily calcified proximal LAD stenosis of 99%, with significant is involving the diagonal branch, left main 20% stenosis, and severely impaired left ventricular systolic function and EF of 30-35%. The patient is also status post non-STEMI at time of admission. #2. Post thoracotomy, patient is currently extubated on nasal cannula oxygen and using incentive spirometer. Chest x-ray showed no evidence of any pneumothorax. Chest tubes removed and the patient has a clean surgical scar and the patient is using incentive spirometer. No pleural effusion.#3. History of seizure disorder #4. Hypertension #5. Possible COPD, not oxygen dependent, not on any maintenance inhalers, patient is a long-time chronic and ongoing smoker, preop FEV1 of 81% of predicted #6. Moderate EtOH use, no evidence of delirium tremens #7 hyperlipidemia 8 postoperative acute blood loss anemia, expected outcome of surgery, hemoglobin is improved and felt to 7.9. Plan Continue using incentive spirometer Continue pulmonary toileting Continue the combination of aspirin and Plavix and beta blockers The patient can be discharged home today. Discharge planning is in progress. We'll continue to follow
[2020-05-06 13:21] VITALS: PULSE 97; RESP 24; TEMP 97.8
[2020-05-06 13:22] VITALS: BP 145/88
--- NOTE | 2020-05-06 13:48 | P.PN ---
Subjective Acute non-ST elevated PA Syncope Patient was admitted for evaluation of seizures. Patient is found have elevated troponins it appears like patient had acute myocardial infarction patient is undergoing cardiac catheterization Patient had an MRI which didn't show any acute abnormality but did show some chronic microvascular ischemic changes. EEG was normal. 2-D echo: Was reported as left ventricle wall thickness is normal. Ejection fraction of 40-45%. Apical septal left ventricle wall motion is hypokinetic. 04/26/2020 Patient is currently lying in bed comfortably. No complaints of chest pain or shortness breath. Patient was initially admitted to the hospital with loss of consciousness and possible seizures and elevated troponin level. Patient underwent cardiac catheterization showed critical stenosis involving the proximal LAD with poststenotic dilation and severe tortuosity with significant disease in the diagonal branch. Calcified LAD Mild disease in the right coronary artery. CT surgery was consulted due to severe coronary artery disease and is planning for coronary artery bypass graft. Preoperative testing was initiated. Current medications reviewed. 04/27/2020 Patient is currently lying in bed comfortably. No complaints of chest pain or shortness breath. No nausea vomiting or abdominal pain. Patient was seen by isaak rey and is planning for bedside PFTs today. No other acute overnight issues. Patient is being continued on aspirin, statins, metoprolol and lisinopril, Aldactone and is on heparin drip. Cardiology, pulmonary and CT surgery is on board. 04/28/2020 Patient is currently lying in the bed comfortably. Awake alert oriented x3. No complaints of chest pain. No headache or dizziness or lightheadedness. No nausea vomiting or abdominal pain or diarrhea. Patient is being continued on heparin drip. Plan for cardiac surgery early next week. 2019 Patient is currently awake alert oriented x3. No complaints of chest pain. Or shortness of breath. No nausea vomiting abdominal pain. Currently on room air. Continued on heparin drip. CT surgery and pulmonary is on board. Cardiac surgery to be scheduled next week. No other acute overnight issues. 04/30/2020 Patient will undergo coronary artery bypass grafting on . Patient doesn't have any withdrawals at this time patient was having bilateral flank tenderness x-ray of both hips. 05/01/2020 X-ray showed bilateral hip arthropathy which need to be addressed as an outpatient and patient will benefit from physical therapy. 05/02/2020 Patient is comparing of a painful in the back which is radiating to back of the thyroid towards the front bilaterally. Patient appears to have either sciatica her degenerative lumbar spine disease. Patient pain significant improved with Tylenol which will be continued and also had [place] for pain on as-needed basis 05/03/2020 patient is postoperative coronary artery bypass grafting day 0. Patient is presently on amiodarone drip PVD pain drip does have mediastinal and left sided chest tubes on propofol drip patient went settings are at baseline and doing clinically well and considering her parameters patient probably can be extubated today 05/04/2020 Patient is extubated today presently not on any drips IV insulin was discontinued and patient is on a scale insulin at this time. Patient is postoperative day 1. She is presently on 4 dysfunction. Patient Continues to have chest use mediastinal and left chest chest tube, continues to have significant drainage from those. Chest x-ray no evidence of increased pleural effusions or pneumothorax. 05/05/2020 Patient is postoperative day 2 clinically doing well and bleeding in the hallways had a bowel movement. Patient's chest tubes are out patient probably will be discharged tomorrow 05/06/2020 Patient is postoperative day 3 and clinically doing well and is actually being discharged patient will not need anything for elevated blood sugars which were temporary patient is not diabetic Constitutional: Denied any fatigue denied any fever. Cardio vascular: denied any chest pain, palpitations Gastrointestinal denied any nausea vomiting Pulmonary: Denied any shortness of breath cough Neurologic denied any new focal deficits All inpatient medications were reviewed and appropriate changes in these medications as dictated in the interval history and assessment and plan. Objective - Vital Signs Vital signs: Vital Signs Temp 97.8 F 05/06/20 12:00 Pulse 97 05/06/20 13:00 Resp 24 05/06/20 13:00 BP 145/88 05/06/20 12:00 Pulse Ox 95 05/06/20 12:00 Intake & Output 05/05/20 05/06/20 05/06/20 18:59 06:59 18:59 Intake Total 1234 400 Output Total 1125 1075 300 Balance 109 -675 -300 Weight 59.4 kg Intake: IV 52 0.9 40 0.9 NaCl- for pressure 12 bag Oral 1182 400 Output: Urine 1125 1075 300 Other: Voiding Method Toilet Toilet Toilet # Voids 0 2 # Bowel Movements 1 ABP, PAP, CO, CI - Last Documented Arterial Blood Pressure 158/80 Pulmonary Artery Pressure 31/18 Cardiac Output 4.5 Cardiac Index 2.8 - Exam PHYSICAL EXAMINATION: GENERAL: Awake alert oriented 3 not in respiratory distress. HEENT: Pupils are round and equally reacting to light. EOMI. No scleral icterus. No conjunctival pallor. Normocephalic, atraumatic. No pharyngeal erythema. No thyromegaly. CARDIOVASCULAR: S1 and S2 present. No murmurs, rubs, or gallops. PULMONARY: Chest is clear to auscultation, no wheezing or crackles. ABDOMEN: Soft, nontender, nondistended, normoactive bowel sounds. No palpable organomegaly. MUSCULOSKELETAL: No joint swelling or deformity. EXTREMITIES: No cyanosis, clubbing, or pedal edema. NEUROLOGICAL: No new focal deficits SKIN: No rashes. - Labs CBC & Chem 7: 05/06/20 04:09 05/06/20 04:09 Labs: Abnormal Lab Results - Last 24 Hours (Table) 05/05/20 05/05/20 05/06/20 Range/Units 17:15 20:38 04:09 RBC 2.36 L (3.80-5.40) m/uL Hgb 7.9 L (11.4-16.0) gm/dL Hct 23.9 L (34.0-46.0) % MCV 101.0 H (80.0-100.0) fL BUN (7-17) mg/dL POC Glucose (mg/dL) 114 H 105 H (75-99) mg/dL Total Protein (6.3-8.2) g/dL Albumin (3.5-5.0) g/dL 05/06/20 05/06/20 Range/Units 04:09 06:46 RBC (3.80-5.40) m/uL Hgb (11.4-16.0) gm/dL Hct (34.0-46.0) % MCV (80.0-100.0) fL BUN 18 H (7-17) mg/dL POC Glucose (mg/dL) 100 H (75-99) mg/dL Total Protein 5.4 L (6.3-8.2) g/dL Albumin 3.2 L (3.5-5.0) g/dL Assessment and Plan Plan: - Acute non-ST elevated PA status post cardiac catheterization showed severe proximal LAD stenosis. Status post CABG further management as per cardiothoracic surgery, patient is clinically doing well she is being discharged today -Acute respiratory failure post cardiac thoracic surgery as CABG resolved -Acute systolic heart failure. due to acute systolic dysfunction is probably secondary to PA EF 40-45% with hypokinetic apical septum, mild mitral regurgitation, mild tricuspid regurgitation - syncopal episode likely due to acute PA on admission which may have led to seizures. Patient had MRI and EEG was done. EEG was normal. Seen by neurology. Patient declined any antiseizure medications which I believe is reasonable as patient most probably had a syncope related seizure -Alcohol withdraws and was treated for these on admission -Depression -Hypertension -Hyperlipidemia -Ongoing nicotine addiction -Chronic low back pain
== END 2020-05-06 13:33 | disposition home health service (06) | DRG 233 ==
LOC: EC 10:06 → 3SCARD 11:44 → 2SICU 05-03 07:44
PROVIDERS: ADMIT Internal Medicine; ATTEND Surgery
PROC: B2111ZZ Fluoroscopy of Multiple Coronary Arteries using Low Osmolar Contrast (ICD-10-PCS; 2020-04-25)
PROC: 4A023N7 Measurement of Cardiac Sampling and Pressure, Left Heart, Percutaneous Approach (ICD-10-PCS; 2020-04-25)
PROC: B2151ZZ Fluoroscopy of Left Heart using Low Osmolar Contrast (ICD-10-PCS; 2020-04-25)
PROC: B44HZZZ Ultrasonography of Bilateral Lower Extremity Arteries (ICD-10-PCS; 2020-04-26)
PROC: B54DZZZ Ultrasonography of Bilateral Lower Extremity Veins (ICD-10-PCS; 2020-04-26)
PROC: 021009W Bypass Coronary Artery, One Artery from Aorta with Autologous Venous Tissue, Open Approach (ICD-10-PCS; principal; 2020-05-03 08:00)
PROC: 02100Z9 Bypass Coronary Artery, One Artery from Left Internal Mammary, Open Approach (ICD-10-PCS; principal; 2020-05-03 08:00)
PROC: 06BQ4ZZ Excision of Left Saphenous Vein, Percutaneous Endoscopic Approach (ICD-10-PCS; principal; 2020-05-03 08:00)
DX: I21.4 Non-ST elevation (NSTEMI) myocardial infarction (principal); I46.2 Cardiac arrest due to underlying cardiac condition; I50.21 Acute systolic (congestive) heart failure; I47.2 Ventricular tachycardia; D62 Acute posthemorrhagic anemia; Z20.828 Contact with and (suspected) exposure to other viral communicable diseases; I11.0 Hypertensive heart disease with heart failure; J44.9 Chronic obstructive pulmonary disease, unspecified; G31.9 Degenerative disease of nervous system, unspecified; G40.909 Epilepsy, unspecified, not intractable, without status epilepticus; F17.210 Nicotine dependence, cigarettes, uncomplicated; I25.10 Atherosclerotic heart disease of native coronary artery without angina pectoris; I25.5 Ischemic cardiomyopathy; I25.84 Coronary atherosclerosis due to calcified coronary lesion; E78.5 Hyperlipidemia, unspecified; I83.90 Asymptomatic varicose veins of unspecified lower extremity; F10.10 Alcohol abuse, uncomplicated; R73.9 Hyperglycemia, unspecified; F32.9 Major depressive disorder, single episode, unspecified; D72.829 Elevated white blood cell count, unspecified; M16.0 Bilateral primary osteoarthritis of hip; G89.29 Other chronic pain; M51.16 Intervertebral disc disorders with radiculopathy, lumbar region; I08.1 Rheumatic disorders of both mitral and tricuspid valves; F41.9 Anxiety disorder, unspecified; Z71.6 Tobacco abuse counseling; Z71.3 Dietary counseling and surveillance; Z79.899 Other long term (current) drug therapy; Z90.49 Acquired absence of other specified parts of digestive tract; Z88.5 Allergy status to narcotic agent; Z82.49 Family history of ischemic heart disease and other diseases of the circulatory system
CPT/HCPCS: 36415; 70450; 70551; 71045; 71046; 73521; 80048; 80053; 80061; 80074; 81001; 82330; 82607; 82746; 82747; 82805; 83036; 83735; 84132; 84439; 84443; 84484; 85025; 85027; 85520; 85610; 85730; 86850; 86891; 86900; 86901; 86920; 87070; 93005; 93306; 93458; 93880; 93922; 93970; 94002; 94150; 94640; 95816; 96361; 96365; 96366; 96375; 99291

== ENCOUNTER → 2020-06-25 | Outpatient (CLI) | payer MEDICARE ==
[2020-06-25 15:41] LABS: African American GFR (CKD) 87.8 (60.0-200.0); Albumin 4.4 g/dL (3.80-4.90); Albumin/Globulin Ratio 1.69 (1.60-3.17); Anion Gap 6.8 mmol/L (4.00-12.00); BUN/Creat Ratio 23.75 Ratio (12.00-20.00); Calcium 9.7 mg/dL (8.7-10.3); Carbon Dioxide 27.2 mmol/L (21.6-31.8); Chol/HDL Ratio 3.49; Globulin 2.6 g/dL (1.6-3.3); LDL Cholesterol,Calculated 67.2 mg/dL (0.0-131.0); Non-African American GFR(CKD) 75.8 (60.0-200.0); Potassium 4.5 mmol/L (3.5-5.5); Total Bilirubin 0.4 mg/dL (0.3-1.2); VLDL Calculation 29.8 mg/dL (5.00-40.00)
== END | disposition home or self-care (01) ==
LOC: LABWHC1 07:50
PROVIDERS: ATTEND Internal Medicine Interventional Cardiology
DX: E78.2 Mixed hyperlipidemia (principal)
CPT/HCPCS: 36415; 80053; 80061

== ENCOUNTER → 2020-10-22 | Outpatient (CLI) | payer MEDICARE ==
[2020-10-22 11:09] LABS: Chol/HDL Ratio 2.86; LDL Cholesterol,Calculated 67.6 mg/dL (0.0-131.0); VLDL Calculation 27.4 mg/dL (5.00-40.00)
== END | disposition home or self-care (01) ==
LOC: LABWHC1 07:05
PROVIDERS: ATTEND Internal Medicine Interventional Cardiology
DX: E78.2 Mixed hyperlipidemia (principal)
CPT/HCPCS: 36415; 80061; 84450; 84460

== ENCOUNTER → 2022-02-10 | Outpatient (CLI) | payer MEDICARE ==
[2022-02-10 11:14] LABS: ALT 10 U/L (8-44); AST 16 U/L (13-35); Chol/HDL Ratio 2.97 Ratio; LDL Cholesterol,Calculated 61.2 mg/dL (0.0-131.0); Uric Acid 6.7 mg/dL (2.9-7.7)
[2022-02-10 21:49] LABS: Cyclic Citrull Pep IgG Unit 130.3 U/mL; Cyclic Citrullinated Pep IgG POSITIVE (NEGATIVE)
[2022-02-11 04:51] LABS: Rheumatoid Factor, Qnt 150 IU/mL (0-15)
== END | disposition home or self-care (01) ==
LOC: LABWHC1 07:18
PROVIDERS: ATTEND Internal Medicine Interventional Cardiology
DX: E78.2 Mixed hyperlipidemia (principal); M79.643 Pain in unspecified hand
CPT/HCPCS: 36415; 80061; 84450; 84460; 84550; 86200; 86431

== ENCOUNTER 2022-04-19 10:22 | Inpatient (IN) | payer MEDICARE ==
[2022-04-19] MEDS ORDERED: SODIUM CHLORIDE 0.9% 500 ML 500 ML IV ONE (11:07)
[2022-04-19] MEDS ORDERED: ONDANSETRON 4 MG/2 ML VIAL IVP STA (11:15)
--- NOTE | 2022-04-19 11:19 | ED ---
General Adult HPI - General Chief complaint: Altered Mental Status Stated complaint: weakness Time Seen by Provider: 04/19/22 10:35 Source: patient, RN notes reviewed, old records reviewed Mode of arrival: EMS Limitations: no limitations - History of Present Illness Initial comments: This is a 71-year-old female presents emergency Department via EMS. The report was that the patient went to [facility] and she needed to use the bathroom she walked out of a gas station use the bathroom and had quite a bit of diarrhea according to the patient. Patient states she doesn't recall walking over to the gas station to use the bathroom. Patient then could not find her car so the police were called the shoe sewing machine operator and tender showed up and thought the patient was altered so they called EMS and EMS brought her to us. According to the patient now she is alert she is oriented 3 daughter agree she is alert and oriented 3 and at her baseline. Patient does have history of a heart attack high blood pressure and bypass surgery. Daughter states the last time she had a heart attack she was slightly altered at one point had a period where she didn't remember and was very nauseated. Patient states she is very nauseated currently and the symptoms are very similar to the last time she had a heart attack. Patient denies any chest pain difficulty breathing shortest breath. Patient denies any recent fever chills or cough. - Related Data Home Medications Medication Instructions Recorded Confirmed Ascorbic Acid [Vitamin C] 500 mg PO DAILY 04/24/20 04/24/20 Cholecalciferol [Vitamin D3 (25 1,000 unit PO DAILY 04/24/20 04/24/20 Mcg = 1000 Iu)] Folic Acid 0.8 mg PO DAILY 04/24/20 04/24/20 Magnesium Oxide [Magox 400] 400 mg PO DAILY 04/24/20 04/24/20 PARoxetine [Paxil] 20 mg PO DAILY 04/24/20 04/24/20 Previous Rx's Medication Instructions Recorded Acetaminophen Tab [Tylenol] 1,000 mg PO Q6HR PRN tab 05/06/20 Aspirin 325 mg PO DAILY #30 tab 05/06/20 Atorvastatin [Lipitor] 40 mg PO DAILY #30 tab 05/06/20 Clopidogrel [Plavix] 75 mg PO DAILY #30 tab 05/06/20 Ferrous Sulfate [Iron (65 MG 325 mg PO BID-W/MEALS #14 tab 05/06/20 Elemental)] Metoprolol Tartrate [Lopressor] 75 mg PO BID #180 tab 05/06/20 Pantoprazole [Protonix] 40 mg PO AC-BRKFST #30 tablet. 05/06/20 Thiamine [Vitamin B-1] 100 mg PO DAILY #30 tab 05/06/20 lisinopriL [Zestril] 5 mg PO DAILY #30 tab 05/06/20 Allergies Allergy/AdvReac Type Severity Reaction Status Date / Time codeine Allergy Unknown Verified 04/19/22 10:23 Review of Systems ROS Statement: Those systems with pertinent positive or pertinent negative responses have been documented in the HPI. ROS Other: All systems not noted in ROS Statement are negative. Past Medical History Past Medical History: Hyperlipidemia, Hypertension, Seizure Disorder History of Any Multi-Drug Resistant Organisms: Unobtainable Past Surgical History: Appendectomy, Cholecystectomy Additional Past Surgical History / Comment(s): Gall bladder removed 35 years ago. Past Anesthesia/Blood Transfusion Reactions: No Reported Reaction Past Psychological History: Anxiety Smoking Status: Current every day smoker Past Alcohol Use History: Daily Past Drug Use History: None Reported - Past Family History Mother Family Medical History: Coronary Artery Disease (CAD) Additional Family Medical History / Comment(s): of heart issues at 84. Father Family Medical History: Coronary Artery Disease (CAD) Additional Family Medical History / Comment(s): in his 70's of heart i ssues. Brother(s) Family Medical History: Coronary Artery Disease (CAD) Additional Family Medical History / Comment(s): Patient thinks brother was diagnosed with heart disease less than 60 years old General Exam - General Exam Comments Initial Comments: GENERAL: Patient is well-developed and well-nourished. Patient is nontoxic and well- hydrated and is in no acute distress ENT: Neck is soft and supple. No significant lymphadenopathy is noted. Oropharynx is clear. Moist mucous membranes. Neck has full range of motion without eliciting any pain. EYES: The sclera were anicteric and conjunctiva were pink and moist. Extraocular movements were intact and pupils were equal round and reactive to light. Eyelids were unremarkable. PULMONARY: Unlabored respirations. Good breath sounds bilaterally. No audible rales rhonchi or wheezing was noted. CARDIOVASCULAR: There is a regular rate and rhythm without any murmurs gallops or rubs. ABDOMEN: Soft and nontender with normal bowel sounds. No palpable organomegaly was noted. There is no palpable pulsatile mass. SKIN: Skin is clear with no lesions or rashes and otherwise unremarkable. NEUROLOGIC: Patient is alert and oriented x3. Cranial nerves II through XII are grossly intact. Motor and sensory are also intact. Normal speech, volume and content. Symmetrical smile. MUSCULOSKELETAL: Normal extremities with adequate strength and full range of motion. No lower extremity swelling or edema. No calf tenderness. LYMPHATICS: No significant lymphadenopathy is noted PSYCHIATRIC: Normal psychiatric evaluation. Limitations: no limitations Course Vital Signs 04/19/22 04/19/22 04/19/22 10:23 10:35 11:00 Temperature 98 F Pulse Rate 100 95 73 Respiratory 18 22 12 Rate Blood Pressure 150/83 126/105 150/83 O2 Sat by Pulse 100 98 99 Oximetry 04/19/22 04/19/22 11:39 12:18 Temperature Pulse Rate 100 70 Respiratory 20 16 Rate Blood Pressure 151/98 130/84 O2 Sat by Pulse 99 98 Oximetry Medical Decision Making - Medical Decision Making EKG shows sinus rhythm with a PAC every other beat. Heart rate is 114 bpm QRS is 88 QT interval 348 QTC is 416. Patient's MA interval is [address] segment elevation or depression is noted. Patient was feeling little dizzy so EKG was repeated and it showed sinus rhythm with multiple PVCs and bigeminy.. Heart rate was 108 bpm QRS is 90 QT interval 352 QTC is 4:15. Patient's EKG shows no ST segment elevation or depression. Patient's chest x-ray showed no acute abnormality. Patient's troponin was elevated so started the patient on heparin because of the description that the previous IA causes same exact symptoms per the patient and the daughter. I spoke with sounds physician's agreed to admit the patient admitted the patient I wrote admitting orders - Lab Data Result diagrams: 04/19/22 11:33 04/19/22 11:33 Lab Results 04/19/22 04/19/22 04/19/22 Range/Units 11:33 11:33 11:33 WBC 12.6 H (3.8-10.6) k/uL RBC 3.92 (3.80-5.40) m/uL Hgb 11.5 (11.4-16.0) gm/dL Hct 35.9 (34.0-46.0) % MCV 91.6 (80.0-100.0) fL MCH 29.3 (25.0-35.0) pg MCHC 32.0 (31.0-37.0) g/dL RDW 15.4 (11.5-15.5) % Plt Count 382 (150-450) k/uL MPV 7.5 Neutrophils % 80 % Lymphocytes % 15 % Monocytes % 3 % Eosinophils % 1 % Basophils % 0 % Neutrophils # 10.0 H (1.3-7.7) k/uL Lymphocytes # 1.9 (1.0-4.8) k/uL Monocytes # 0.4 (0-1.0) k/uL Eosinophils # 0.1 (0-0.7) k/uL Basophils # 0.1 (0-0.2) k/uL PT 9.7 (9.0-12.0) sec INR 0.9 (<1.2) APTT 19.5 L (22.0-30.0) sec Sodium 136 L (137-145) mmol/L Potassium 3.7 (3.5-5.1) mmol/L Chloride 98 (98-107) mmol/L Carbon Dioxide 27 (22-30) mmol/L Anion Gap 11 mmol/L BUN 17 (7-17) mg/dL Creatinine 0.88 (0.52-1.04) mg/dL Est GFR (CKD-EPI)AfAm 78 (>60 ml/min/1.73 sqM) Est GFR (CKD-EPI)NonAf 68 (>60 ml/min/1.73 sqM) Glucose 78 (74-99) mg/dL Calcium 8.8 (8.4-10.2) mg/dL Total Bilirubin 0.4 (0.2-1.3) mg/dL AST 39 H (14-36) U/L ALT 70 H (4-34) U/L Alkaline Phosphatase 79 (38-126) U/L Troponin I (0.000-0.034) ng/mL Total Protein 6.4 (6.3-8.2) g/dL Albumin 4.1 (3.5-5.0) g/dL Urine Color Urine Appearance (Clear) Urine pH (5.0-8.0) Ur Specific [place] (1.001-1.035) Urine Protein (Negative) Urine Glucose (UA) (Negative) Urine Ketones (Negative) Urine Blood (Negative) Urine Nitrite (Negative) Urine Bilirubin (Negative) Urine Urobilinogen (<2.0) mg/dL Ur Leukocyte Esterase (Negative) Urine RBC (0-5) /hpf Urine WBC (0-5) /hpf Ur Squamous Epith Cells (0-4) /hpf Urine Bacteria (None) /hpf Hyaline Casts (0-2) /lpf Urine Mucus (None) /hpf Urine Opiates Screen (NotDetected) Ur Oxycodone Screen (NotDetected) Urine Methadone Screen (NotDetected) Ur Propoxyphene Screen (NotDetected) Ur Barbiturates Screen (NotDetected) U Tricyclic Antidepress (NotDetected) Ur Phencyclidine Scrn (NotDetected) Ur Amphetamines Screen (NotDetected) U Methamphetamines Scrn (NotDetected) U Benzodiazepines Scrn (NotDetected) Urine Cocaine Screen (NotDetected) U Marijuana (THC) Screen (NotDetected) 04/19/22 04/19/22 04/19/22 Range/Units 11:33 12:15 12:15 WBC (3.8-10.6) k/uL RBC (3.80-5.40) m/uL Hgb (11.4-16.0) gm/dL Hct (34.0-46.0) % MCV (80.0-100.0) fL MCH (25.0-35.0) pg MCHC (31.0-37.0) g/dL RDW (11.5-15.5) % Plt Count (150-450) k/uL MPV Neutrophils % % Lymphocytes % % Monocytes % % Eosinophils % % Basophils % % Neutrophils # (1.3-7.7) k/uL Lymphocytes # (1.0-4.8) k/uL Monocytes # (0-1.0) k/uL Eosinophils # (0-0.7) k/uL Basophils # (0-0.2) k/uL PT (9.0-12.0) sec INR (<1.2) APTT (22.0-30.0) sec Sodium (137-145) mmol/L Potassium (3.5-5.1) mmol/L Chloride (98-107) mmol/L Carbon Dioxide (22-30) mmol/L Anion Gap mmol/L BUN (7-17) mg/dL Creatinine (0.52-1.04) mg/dL Est GFR (CKD-EPI)AfAm (>60 ml/min/1.73 sqM) Est GFR (CKD-EPI)NonAf (>60 ml/min/1.73 sqM) Glucose (74-99) mg/dL Calcium (8.4-10.2) mg/dL Total Bilirubin (0.2-1.3) mg/dL AST (14-36) U/L ALT (4-34) U/L Alkaline Phosphatase (38-126) U/L Troponin I 0.060 H* (0.000-0.034) ng/mL Total Protein (6.3-8.2) g/dL Albumin (3.5-5.0) g/dL Urine Color Yellow Urine Appearance Clear (Clear) Urine pH 5.5 (5.0-8.0) Ur Specific [place] 1.015 (1.001-1.035) Urine Protein Trace H (Negative) Urine Glucose (UA) Negative (Negative) Urine Ketones Negative (Negative) Urine Blood Trace H (Negative) Urine Nitrite Negative (Negative) Urine Bilirubin Negative (Negative) Urine Urobilinogen <2.0 (<2.0) mg/dL Ur Leukocyte Esterase Small H (Negative) Urine RBC 3 (0-5) /hpf Urine WBC 10 H (0-5) /hpf Ur Squamous Epith Cells 3 (0-4) /hpf Urine Bacteria Rare H (None) /hpf Hyaline Casts 16 H (0-2) /lpf Urine Mucus Rare H (None) /hpf Urine Opiates Screen Not Detected (NotDetected) Ur Oxycodone Screen Not Detected (NotDetected) Urine Methadone Screen Not Detected (NotDetected) Ur Propoxyphene Screen Not Detected (NotDetected) Ur Barbiturates Screen Not Detected (NotDetected) U Tricyclic Antidepress Not Detected (NotDetected) Ur Phencyclidine Scrn Not Detected (NotDetected) Ur Amphetamines Screen Not Detected (NotDetected) U Methamphetamines Scrn Not Detected (NotDetected) U Benzodiazepines Scrn Not Detected (NotDetected) Urine Cocaine Screen Not Detected (NotDetected) U Marijuana (THC) Screen Not Detected (NotDetected) Critical Care Time Critical Care Time: Yes Total Critical Care Time: 35 Disposition Clinical Impression: Altered mental status, Elevated troponin, Anginal equivalent Disposition: ADMITTED IP TO THIS HOSP Referrals: None,Stated [Primary Care Provider] - 1-2 days Time of Disposition: 13:18
[2022-04-19 11:44] LABS: Basophils # (A) 0.1 k/uL (0-0.2); Basophils % (A) 0 %; Eosinophils # (A) 0.1 k/uL (0-0.7); Eosinophils % (A) 1 %; HCT 35.9 % (34.0-46.0); HGB 11.5 gm/dL (11.4-16.0); Lymphocytes # (A) 1.9 k/uL (1.0-4.8); Lymphocytes % (A) 15 %; MCH 29.3 pg (25.0-35.0); MCV 91.6 fL (80.0-100.0); Mean Platelet Volume 7.5; Monocytes # (A) 0.4 k/uL (0-1.0); Monocytes % (A) 3 %; Neutrophils % (A) 80 %; Platelet Count 382 k/uL (150-450); RBC 3.92 m/uL (3.80-5.40); RDW 15.4 % (11.5-15.5); WBC 12.6 k/uL (3.8-10.6)
[2022-04-19 11:55] LABS: Albumin 4.1 g/dL (3.5-5.0); Calcium 8.8 mg/dL (8.4-10.2); Potassium 3.7 mmol/L (3.5-5.1); Total Bilirubin 0.4 mg/dL (0.2-1.3); Total Protein 6.4 g/dL (6.3-8.2)
[2022-04-19 11:58] LABS: INR 0.9 (<1.2); Prothrombin Time 9.7 sec (9.0-12.0)
[2022-04-19] MEDS ORDERED: HEPARIN SODIUM 1,000 UN/ML (10ML VL) IV ONE (12:21)
[2022-04-19 12:24] LABS: Partial Thromboplastin Time 19.5 sec (22.0-30.0)
[2022-04-19] MEDS ORDERED: HEPARIN SOD,PORK IN 0.45% NACL 25,000 UNIT in 0.45% NACL 1 250ML.BAG IV SCH (12:30)
[2022-04-19 12:53] LABS: Appearance,Urine Clear (Clear); Bacteria,Urine Rare /hpf; Bilirubin,Urine Negative (Negative); Blood,Urine Trace (Negative); Color,Urine Yellow; Glucose,Urine (UA) Negative (Negative); Hyaline Casts,Urine 16 /lpf (0-2); Ketones,Urine Negative (Negative); Leukocyte Esterase,Urine Small (Negative); Mucus,Urine Rare /hpf; Nitrite,Urine Negative (Negative); PH, Urine 5.5 (5.0-8.0); Protein,Urine Trace (Negative); RBC,Urine 3 /hpf (0-5); Specific Gravity,Urine 1.015 (1.001-1.035); Squamous Epithelial Cell,Urine 3 /hpf (0-4); Urobilinogen,Urine <2.0 mg/dL (<2.0); WBC,Urine 10 /hpf (0-5)
[2022-04-19 13:01] LABS: Amphetamine Screen,Urine Not Detected (NotDetected); Barbiturate Screen,Urine Not Detected (NotDetected); Benzodiazepines Screen,Urine Not Detected (NotDetected); Cocaine Screen,Urine Not Detected (NotDetected); Methadone Screen, Urine Not Detected (NotDetected); Opiate Screen,Urine Not Detected (NotDetected); Oxycodone Screen, Urine Not Detected (NotDetected); Phencyclidine Screen,Urine Not Detected (NotDetected); Tricyclic Antidepressant,Urine Not Detected (NotDetected); Urn Cannabinoid Scrn Not Detected (NotDetected)
--- NOTE | 2022-04-19 13:04 | XR ---
EXAMINATION TYPE: XR chest 2V DATE OF EXAM: 04/19/2022 COMPARISON: 05/06/2020 HISTORY: Shortness of breath TECHNIQUE: Frontal and lateral views of the chest are obtained. FINDINGS: Scattered senescent parenchymal changes noted. Hyperinflation compatible with COPD. No evidence for infiltrate. No evidence for atelectasis. Heart size is stable. Mediastinal structures are stable and grossly unremarkable. No evidence for hilar prominence. Degenerative changes dorsal spine. IMPRESSION: 1. No evidence for acute pulmonary disease.
[2022-04-19] MEDS ORDERED: NITROGLYCERIN SL TABS 0.4 MG TAB SUBLINGUAL PRN (13:25)
--- NOTE | 2022-04-19 15:14 | P.HPIM ---
History of Present Illness H&P Date: 04/19/22 Chief Complaint: Confusion Patient is a 71-year-old female with a past medical history of coronary artery disease status post CABG, rheumatoid arthritis, anxiety and depression, hyperlipidemia, hypertension who was brought in by EMS to be evaluated for altered mental status. Patient was at [facility] and apprently she then walked over to the gas station and went to the restroom and had a large episode of diarrhea. When she came out of the gas station she could not find her car. Patient could not recall going to the gas station. So the police were called. The police found her to be confused so they called the ambulance who brought her in. In the ED patient was back to her baseline. ED physician did speak to the daughter who confirmed the patient is back to her baseline. However per daughter when patient had her last heart attack she was altered. Patient states that when she had her last heart attack she was initially admitted to the hospital for seizure workup. However they then found that she had a heart attack. I reviewed patient's previous records and it appears that she had been admitted in March 2020 for evaluation of seizure-like activity and transient confusion where patient could not recall going into the grocery store. She was found to have elevated troponin and she had further investigation with a heart catheterization that showed critical stenosis of the LAD. In the ED patient's troponin was 0.060. She was started on a heparin drip. Review of Systems 10 ROS reviewed and are negative except as noted in HPI Past Medical History Past Medical History: Hyperlipidemia, Hypertension, Seizure Disorder Additional Past Medical History / Comment(s): "seizure" activity in 2019. EEG did not show seizures. History of Any Multi-Drug Resistant Organisms: None Reported Past Surgical History: Appendectomy, Cholecystectomy Additional Past Surgical History / Comment(s): Gall bladder removed 35 years ago. CABG 2019 Past Anesthesia/Blood Transfusion Reactions: No Reported Reaction Past Psychological History: Anxiety Additional Psychological History / Comment(s): on Paxil. Smoking Status: Former smoker Past Alcohol Use History: Daily Past Drug Use History: None Reported - Past Family History Mother Family Medical History: Coronary Artery Disease (CAD) Additional Family Medical History / Comment(s): of heart issues at 84. Father Family Medical History: Coronary Artery Disease (CAD) Additional Family Medical History / Comment(s): in his 70's of heart issues. Brother(s) Family Medical History: Coronary Artery Disease (CAD) Additional Family Medical History / Comment(s): Patient thinks brother was diagnosed with heart disease less than 60 years old Medications and Allergies Home Medications Medication Instructions Recorded Confirmed Type PARoxetine [Paxil] 20 mg PO DAILY 04/24/20 04/19/22 History Ezetimibe [Zetia] 10 mg PO DAILY 04/19/22 04/19/22 History Folic Acid 1 mg PO DAILY 04/19/22 04/19/22 History Metoprolol Tartrate [Lopressor] 25 mg PO DAILY 04/19/22 04/19/22 History Rosuvastatin [Crestor] 10 mg PO DAILY 04/19/22 04/19/22 History lisinopriL 2.5 mg PO DAILY 04/19/22 04/19/22 History metHOTREXate sodium [Methotrexate] 12.5 mg PO WE 04/19/22 04/19/22 History predniSONE 0.5 mg PO DAILY 04/19/22 04/19/22 History Allergies Allergy/AdvReac Type Severity Reaction Status Date / Time codeine Allergy Unknown Verified 04/19/22 13:51 Physical Exam Osteopathic Statement: *. No significant issues noted on an osteopathic structural exam other than those noted in the History and Physical/Consult. Vitals: Vital Signs Temp Pulse Pulse Resp BP BP Pulse Ox 04/19/22 14:54 97.9 F 68 16 109/68 97 04/19/22 14:23 84 16 130/81 98 04/19/22 14:03 68 16 130/68 98 04/19/22 12:18 70 16 130/84 98 04/19/22 11:39 100 20 151/98 99 04/19/22 11:00 73 12 150/83 99 04/19/22 10:35 95 22 126/105 98 04/19/22 10:23 98 F 100 18 150/83 100 Intake and Output 04/19/22 04/19/22 04/19/22 06:59 14:59 22:59 Other: Weight 53.07 kg General: [Alert and oriented, well nourished, no acute distress]. Eye: [PERRL, EOMI, normal conjunctiva]. HENT: [Normocephalic, clear tympanic membranes, normal hearing, moist oral mucosa, no scleral icterus, no sinus tenderness]. Neck: [Supple, non-tender, no carotid bruits, no JVD, no lymphadenopathy]. Lungs: [Clear to auscultation and percussion, non-labored respiration]. Heart: [Normal rate, regular rhythm, no murmur, gallop or edema]. Abdomen: [Soft, non-tender, non-distended, normal bowel sounds, no masses]. Musculoskeletal: [Normal range of motion and strength, no tenderness or swelling]. Skin: [Skin is warm, dry and pink, no rashes or lesions]. Neurologic: [Awake, alert, and oriented X3, CN II-XII intact]. Psychiatric: [Cooperative, appropriate mood and affect]. Results CBC & Chem 7: 04/19/22 11:33 04/19/22 11:33 Labs: Abnormal Lab Results - Last 24 Hours (Table) 04/19/22 04/19/22 04/19/22 Range/Units 11:33 11:33 11:33 WBC 12.6 H (3.8-10.6) k/uL Neutrophils # 10.0 H (1.3-7.7) k/uL APTT 19.5 L (22.0-30.0) sec Sodium 136 L (137-145) mmol/L AST 39 H (14-36) U/L ALT 70 H (4-34) U/L Troponin I (0.000-0.034) ng/mL Urine Protein (Negative) Urine Blood (Negative) Ur Leukocyte Esterase (Negative) Urine WBC (0-5) /hpf Urine Bacteria (None) /hpf Hyaline Casts (0-2) /lpf Urine Mucus (None) /hpf 04/19/22 04/19/22 04/19/22 Range/Units 11:33 12:15 13:54 WBC (3.8-10.6) k/uL Neutrophils # (1.3-7.7) k/uL APTT (22.0-30.0) sec Sodium (137-145) mmol/L AST (14-36) U/L ALT (4-34) U/L Troponin I 0.060 H* 0.258 H* (0.000-0.034) ng/mL Urine Protein Trace H (Negative) Urine Blood Trace H (Negative) Ur Leukocyte Esterase Small H (Negative) Urine WBC 10 H (0-5) /hpf Urine Bacteria Rare H (None) /hpf Hyaline Casts 16 H (0-2) /lpf Urine Mucus Rare H (None) /hpf Thrombosis Risk Factor Assmnt - Choose All That Apply Each Risk Factor Represents 2 Points: Age 61-74 years Thrombosis Risk Factor Assessment Total Risk Factor Score: 2 Thrombosis Risk Factor Assessment Level: Low Risk Assessment and Plan Assessment: Non-ST elevation [place] Patient had some confusion prior to coming in. When patient had at last heart attack she also presented with confusion. Trend troponins really Resume heparin drip Resume aspirin and statin Consult cardiology Transient amnesia Patient currently back to her baseline. Rheumatoid arthritis Resume home dose steroids Hypertension Resume metoprolol, lisinopril Anxiety and depression Resume Paxil Hyperlipidemia Resume statin and Zetia FULL CODE DVT ppx; heparin ggt
--- NOTE | 2022-04-19 16:28 | P.CRDCN ---
History of Present Illness Consult date: 04/19/22 History of present illness: History of Present Illness: The patient is a 71-year-old female with a known history of CAD who presents after an episode confusion. She was at [employer] shopping when she doesn't remember walking daily gas station, going to the bathroom having diarrhea and subsequently became confused about the location of her car. She subsequently walked back to her car, EMS was called and was brought in to the emergency room. The patient denies any chest discomfort, change in the breathing, palpitations or syncope. She had COVID infection week ago but was treated as an outpatient. She has been vaccinated in the past. She denies any peripheral edema, palpitations or syncope. In 2019 she presented with an episode of confusion and syncope and found to have severe obstructive disease in the LAD and underwent CABG to the LAD and diagonal. She has done well since that time. She recently had an episode of which she describes as cramping in the chest, occurred at rest and was not activity related. She had no history of heart failure, malignant arrhythmia recently or any evidence of ischemia. She has a history of rheumatoid arthritis and has been maintained on prednisone and methotrexate. In the emergency room her troponin was 0.06 Medications: Lisinopril 20 half milligrams daily, Crestor 10 mg daily, Lopressor 25 mg daily, Paxil, prednisone, methotrexate, Zetia 10 mg daily Review of Systems: Respiratory: No history of asthma, bronchitis or recent cough. GI: No nausea or vomiting . No history of peptic ulcer disease. No recent GI bleed. : No hematuria or dysuria. Nervous System: No stroke or seizure. Physical Examination: She is a 71-year-old female, alert and oriented no apparent distress,Blood pressure 109/60, Heart rate 68, back to baseline Head: Normocephalic. Eyes: Sclerae nonicteric. Neck: Good carotid upstroke, no bruit, no jugular venous distention. Lungs: Clear to auscultation. Heart: Regular rate and rhythm, S1-S2, no S3, no rub. Systolic ejection murmur. Abdomen: Soft nontender, positive bowel sounds no organomegaly. Extremities: No edema, intact distal pulses. Labs: Potassium 3.7, BUN 17, creatinine 0.88, troponin 0.06 and 0.258. White blood cell of 12.6, hemoglobin 11.5. Chest x-ray shows no acute infiltrate EKG: Sinus mechanism with atrial bigeminy and nonspecific ST T wave changes Impression: 1. Episodes of confusion, etiology unclear 2. Troponin elevation, rule out non-STEMI in a patient with known history of CAD 3. Status post CABG 4. History of hyperlipidemia 5. Recent COVID positive test Plan: 1. Continue cardiac medication 2. Obtain an echocardiogram with Doppler 3. Follow cardiac enzymes 4. Probably proceed with repeat cardiac catheterization tomorrow to rule out progression of disease 5. Depending on her progress further recommendations will be made 6. Thank you for this consult we will follow with you. Past Medical History Past Medical History: Hyperlipidemia, Hypertension, Seizure Disorder Additional Past Medical History / Comment(s): "seizure" activity in 2019. EEG did not show seizures. History of Any Multi-Drug Resistant Organisms: None Reported Past Surgical History: Appendectomy, Cholecystectomy Additional Past Surgical History / Comment(s): Gall bladder removed 35 years ago. CABG 2019 Past Anesthesia/Blood Transfusion Reactions: No Reported Reaction Past Psychological History: Anxiety Additional Psychological History / Comment(s): on Paxil. Smoking Status: Former smoker Past Alcohol Use History: Daily Past Drug Use History: None Reported - Past Family History Mother Family Medical History: Coronary Artery Disease (CAD) Additional Family Medical History / Comment(s): of heart issues at 84. Father Family Medical History: Coronary Artery Disease (CAD) Additional Family Medical History / Comment(s): in his 70's of heart issues. Brother(s) Family Medical History: Coronary Artery Disease (CAD) Additional Family Medical History / Comment(s): Patient thinks brother was diagnosed with heart disease less than 60 years old Medications and Allergies Home Medications Medication Instructions Recorded Confirmed Type PARoxetine [Paxil] 20 mg PO DAILY 04/24/20 04/19/22 History Ezetimibe [Zetia] 10 mg PO DAILY 04/19/22 04/19/22 History Folic Acid 1 mg PO DAILY 04/19/22 04/19/22 History Metoprolol Tartrate [Lopressor] 25 mg PO DAILY 04/19/22 04/19/22 History Rosuvastatin [Crestor] 10 mg PO DAILY 04/19/22 04/19/22 History lisinopriL 2.5 mg PO DAILY 04/19/22 04/19/22 History metHOTREXate sodium [Methotrexate] 12.5 mg PO WE 04/19/22 04/19/22 History predniSONE 0.5 mg PO DAILY 04/19/22 04/19/22 History Allergies Allergy/AdvReac Type Severity Reaction Status Date / Time codeine Allergy Unknown Verified 04/19/22 13:51 Physical Exam Vitals: Vital Signs Temp Pulse Pulse Resp BP BP Pulse Ox 04/19/22 15:31 68 04/19/22 14:54 97.9 F 68 16 109/68 97 04/19/22 14:23 84 16 130/81 98 04/19/22 14:03 68 16 130/68 98 04/19/22 12:18 70 16 130/84 98 04/19/22 11:39 100 20 151/98 99 04/19/22 11:00 73 12 150/83 99 04/19/22 10:35 95 22 126/105 98 04/19/22 10:23 98 F 100 18 150/83 100 Intake and Output 04/19/22 04/19/22 04/19/22 06:59 14:59 22:59 Other: Weight 53.07 kg Results 04/19/22 11:33 04/19/22 11:33 Cardiac Enzymes 04/19/22 04/19/22 04/19/22 Range/Units 11:33 11:33 13:54 AST 39 H (14-36) U/L Troponin I 0.060 H* 0.258 H* (0.000-0.034) ng/mL Coagulation 04/19/22 Range/Units 11:33 PT 9.7 (9.0-12.0) sec APTT 19.5 L (22.0-30.0) sec CBC 04/19/22 Range/Units 11:33 WBC 12.6 H (3.8-10.6) k/uL RBC 3.92 (3.80-5.40) m/uL Hgb 11.5 (11.4-16.0) gm/dL Hct 35.9 (34.0-46.0) % Plt Count 382 (150-450) k/uL Comprehensive Metabolic Panel 04/19/22 Range/Units 11:33 Sodium 136 L (137-145) mmol/L Potassium 3.7 (3.5-5.1) mmol/L Chloride 98 (98-107) mmol/L Carbon Dioxide 27 (22-30) mmol/L BUN 17 (7-17) mg/dL Creatinine 0.88 (0.52-1.04) mg/dL Glucose 78 (74-99) mg/dL Calcium 8.8 (8.4-10.2) mg/dL AST 39 H (14-36) U/L ALT 70 H (4-34) U/L Alkaline Phosphatase 79 (38-126) U/L Total Protein 6.4 (6.3-8.2) g/dL Albumin 4.1 (3.5-5.0) g/dL Current Medications Generic Name Dose Route Start Last Admin Trade Name Freq PRN Reason Stop Dose Admin Aspirin 325 mg 04/20/22 09:00 Aspirin 325 Mg Tab PO DAILY [facility] Atorvastatin Calcium 20 mg 04/20/22 09:00 Atorvastatin 20 Mg Tab PO DAILY [facility] Ezetimibe 10 mg 04/20/22 09:00 Ezetimibe 10 Mg Tab PO DAILY [facility] Folic Acid 1 mg 04/20/22 09:00 Folic Acid 1 Mg Tab PO DAILY [facility] Heparin Sodium/Sodium Chloride 250 mls @ 6.368 mls/hr 04/19/22 12:30 04/19/22 12:31 25,000 unit/ Sodium Chloride IV 12 units/kg/hr .Q24H [facility]ARA 6.368 mls/hr Administration Protocol 12 UNITS/KG/HR Lisinopril 2.5 mg 04/20/22 09:00 Lisinopril 2.5 Mg Tab PO DAILY [facility] Metoprolol Tartrate 25 mg 04/20/22 09:00 Metoprolol Tartrate 25 Mg Tab PO DAILY [facility] Nitroglycerin 0.4 mg 04/19/22 13:25 Nitroglycerin Sl Tabs 0.4 Mg Tab SUBLINGUAL Q5M PRN Chest Pain Nitroglycerin 1 inch 04/19/22 18:00 Nitroglycerin Oint 1 Inch/Gm Packet TOPICAL Q6HR [facility] Paroxetine HCl 20 mg 04/20/22 09:00 Paroxetine 20 Mg Tab PO DAILY [facility] Prednisone 0.5 mg 04/20/22 09:00 Prednisone 1 Mg Tab PO DAILY [facility] Intake and Output 04/19/22 04/19/22 04/19/22 06:59 14:59 22:59 Other: Weight 53.07 kg Patient Weight 04/20/22 06:59 Weight 53.07 kg 04/19/22 11:33 04/19/22 11:33
[2022-04-19] MEDS: NITROGLYCERIN OINT 1 INCH/GM PACKET TOPICAL SCH ×2 (17:14→22:50)
[2022-04-19] MEDS ORDERED: ACETAMINOPHEN TAB 325 MG TAB PO PRN (21:16)
[2022-04-19] MEDS ORDERED: HEPARIN SODIUM 1,000 UN/ML (10ML VL) IV PRN (22:34)
[2022-04-20 06:12] LABS: Calcium 8.4 mg/dL (8.4-10.2)
[2022-04-20] MEDS: ASPIRIN 81 MG PO SCH (06:37)
[2022-04-20] MEDS: FOLIC ACID 1 MG TAB PO SCH (06:37)
[2022-04-20] MEDS: METOPROLOL TARTRATE 25 MG TAB PO SCH (06:37)
[2022-04-20] MEDS: ATORVASTATIN 20 MG TAB PO SCH (06:37)
[2022-04-20] MEDS: EZETIMIBE 10 MG TAB PO SCH (06:37)
[2022-04-20] MEDS: PARoxetine 20 MG TAB PO SCH (06:40)
[2022-04-20] MEDS: NITROGLYCERIN OINT 1 INCH/GM PACKET TOPICAL SCH (07:17)
[2022-04-20] MEDS: predniSONE 1 MG TAB PO SCH (08:47)
[2022-04-20] MEDS ORDERED: ASPIRIN 325 MG TAB PO SCH (09:00)
[2022-04-20 11:20] LABS: Chol/HDL Ratio 3.76 Ratio; LDL Cholesterol,Calculated 125.5 mg/dL (0.0-131.0)
--- NOTE | 2022-04-20 11:28 | P.PN ---
Subjective Progress Note Date: 04/20/22 PROGRESS NOTE The patient is a 71-year-old female with a history of hyperlipidemia, CAD, hypertension who presented with an episode of confusion but no associated symptoms. She's feeling well this morning, denies any chest discomfort, dizziness or palpitations. She is ambulating without difficulty. She is COVID positive which could explain her mild troponin elevation and her confusion. There is no evidence to suggest acute coronary syndrome Medications: Aspirin, Zestril 20 half milligrams twice a day, metoprolol 25 mg daily, Lipitor 20 mg daily, Paxil, Zetia 10 mg daily PHYSICAL EXAMINATION: Blood pressure 97/50 heart rate 60 LUNGS: Clear to auscultation HEART: Regular rate and rhythm, S1, S2. No S3. systolic ejection murmur ABDOMEN: Soft, nontender, no organomegaly EXTREMETIES: No edema LAB: Potassium 4.0 BUN 15, creatinine 0.89 IMPRESSION: 1. Episode of confusion with no evidence to suggest CVA, no arrhythmia 2. Mild troponin elevation with no symptoms of ischemia, probably related to COVID 19 infection 3. Hyperlipidemia 4. Recent COVID infection PLAN: 1. Stop heparin 2. Continue telemetry 3. Obtain an echocardiogram with Doppler 4. If stable probable discharged home in 24 hours to 48 hours and follow-up as an outpatient Objective - Vital Signs Vital signs: Vital Signs Temp 97.9 F 04/20/22 08:46 Pulse 63 04/20/22 08:46 Resp 15 04/20/22 08:46 BP 91/59 04/20/22 08:46 Pulse Ox 100 04/20/22 08:46 FiO2 Intake & Output 04/19/22 04/20/22 04/20/22 18:59 06:59 18:59 Intake Total 360 65.803 0 Balance 360 65.803 0 Weight 53.07 kg Intake: Intake, IV Titration 65.803 Amount Heparin Sod,Pork in 0.45% 65.803 NaCl 25,000 unit In 0.45 % NaCl 1 250ml.bag @ 12 UNITS/KG/HR 6.368 mls/hr IV .Q24H [facility]ARA Rx#: [id number] Oral 360 0 Other: # Voids 2 1 - Labs CBC & Chem 7: 04/19/22 11:33 04/20/22 05:28 Labs: Abnormal Lab Results - Last 24 Hours (Table) 04/19/22 04/19/22 04/19/22 Range/Units 11:33 11:33 11:33 WBC 12.6 H (3.8-10.6) k/uL Neutrophils # 10.0 H (1.3-7.7) k/uL APTT 19.5 L (22.0-30.0) sec Sodium 136 L (137-145) mmol/L AST 39 H (14-36) U/L ALT 70 H (4-34) U/L Troponin I (0.000-0.034) ng/mL Triglycerides (0.00-149.00) mg/dL Cholesterol (0.00-200.00) mg/dL Urine Protein (Negative) Urine Blood (Negative) Ur Leukocyte Esterase (Negative) Urine WBC (0-5) /hpf Urine Bacteria (None) /hpf Hyaline Casts (0-2) /lpf Urine Mucus (None) /hpf Coronavirus (PCR) (Not Detectd) 04/19/22 04/19/22 04/19/22 Range/Units 11:33 12:15 13:54 WBC (3.8-10.6) k/uL Neutrophils # (1.3-7.7) k/uL APTT (22.0-30.0) sec Sodium (137-145) mmol/L AST (14-36) U/L ALT (4-34) U/L Troponin I 0.060 H* 0.258 H* (0.000-0.034) ng/mL Triglycerides (0.00-149.00) mg/dL Cholesterol (0.00-200.00) mg/dL Urine Protein Trace H (Negative) Urine Blood Trace H (Negative) Ur Leukocyte Esterase Small H (Negative) Urine WBC 10 H (0-5) /hpf Urine Bacteria Rare H (None) /hpf Hyaline Casts 16 H (0-2) /lpf Urine Mucus Rare H (None) /hpf Coronavirus (PCR) (Not Detectd) 04/19/22 04/19/22 04/20/22 Range/Units 16:45 16:47 05:28 WBC (3.8-10.6) k/uL Neutrophils # (1.3-7.7) k/uL APTT (22.0-30.0) sec Sodium (137-145) mmol/L AST (14-36) U/L ALT (4-34) U/L Troponin I 0.298 H* (0.000-0.034) ng/mL Triglycerides 154.00 H (0.00-149.00) mg/dL Cholesterol 213.00 H (0.00-200.00) mg/dL Urine Protein (Negative) Urine Blood (Negative) Ur Leukocyte Esterase (Negative) Urine WBC (0-5) /hpf Urine Bacteria (None) /hpf Hyaline Casts (0-2) /lpf Urine Mucus (None) /hpf Coronavirus (PCR) Detected A (Not Detectd) 04/20/22 04/20/22 Range/Units 05:28 05:28 WBC (3.8-10.6) k/uL Neutrophils # (1.3-7.7) k/uL APTT 43.3 H (22.0-30.0) sec Sodium 135 L (137-145) mmol/L AST (14-36) U/L ALT (4-34) U/L Troponin I (0.000-0.034) ng/mL Triglycerides (0.00-149.00) mg/dL Cholesterol (0.00-200.00) mg/dL Urine Protein (Negative) Urine Blood (Negative) Ur Leukocyte Esterase (Negative) Urine WBC (0-5) /hpf Urine Bacteria (None) /hpf Hyaline Casts (0-2) /lpf Urine Mucus (None) /hpf Coronavirus (PCR) (Not Detectd)
--- NOTE | 2022-04-20 12:24 | P.PN ---
Subjective Progress Note Date: 04/20/22 This morning patient is denying any chest pain. She has no acute complaints. Objective - Vital Signs Vital signs: Vital Signs Temp 97.9 F 04/20/22 08:46 Pulse 55 L 04/20/22 12:00 Resp 18 04/20/22 12:00 BP 99/58 04/20/22 12:00 Pulse Ox 99 04/20/22 12:00 FiO2 Intake & Output 04/19/22 04/20/22 04/20/22 18:59 06:59 18:59 Intake Total 360 65.803 0 Balance 360 65.803 0 Weight 53.07 kg Intake: Intake, IV Titration 65.803 Amount Heparin Sod,Pork in 0.45% 65.803 NaCl 25,000 unit In 0.45 % NaCl 1 250ml.bag @ 12 UNITS/KG/HR 6.368 mls/hr IV .Q24H [facility] Rx#: [id number] Oral 360 0 Other: # Voids 2 1 - Exam General examination - Alert and Oriented 3 in NAD Heart - + S1S2 no murmurs Lungs - Clear to auscultation Abdomen soft NT ND +ve BS Extremities - No edema [employer] - Moving all 4 extremities spontaneously Psych - Calm and cooperative - Labs CBC & Chem 7: 04/19/22 11:33 04/20/22 05:28 Labs: Abnormal Lab Results - Last 24 Hours (Table) 04/19/22 04/19/22 04/19/22 Range/Units 11:33 12:15 13:54 APTT 19.5 L (22.0-30.0) sec Sodium (137-145) mmol/L Troponin I 0.258 H* (0.000-0.034) ng/mL Triglycerides (0.00-149.00) mg/dL Cholesterol (0.00-200.00) mg/dL Urine Protein Trace H (Negative) Urine Blood Trace H (Negative) Ur Leukocyte Esterase Small H (Negative) Urine WBC 10 H (0-5) /hpf Urine Bacteria Rare H (None) /hpf Hyaline Casts 16 H (0-2) /lpf Urine Mucus Rare H (None) /hpf Coronavirus (PCR) (Not Detectd) 04/19/22 04/19/22 04/20/22 Range/Units 16:45 16:47 05:28 APTT (22.0-30.0) sec Sodium (137-145) mmol/L Troponin I 0.298 H* (0.000-0.034) ng/mL Triglycerides 154.00 H (0.00-149.00) mg/dL Cholesterol 213.00 H (0.00-200.00) mg/dL Urine Protein (Negative) Urine Blood (Negative) Ur Leukocyte Esterase (Negative) Urine WBC (0-5) /hpf Urine Bacteria (None) /hpf Hyaline Casts (0-2) /lpf Urine Mucus (None) /hpf Coronavirus (PCR) Detected A (Not Detectd) 04/20/22 04/20/22 Range/Units 05:28 05:28 APTT 43.3 H (22.0-30.0) sec Sodium 135 L (137-145) mmol/L Troponin I (0.000-0.034) ng/mL Triglycerides (0.00-149.00) mg/dL Cholesterol (0.00-200.00) mg/dL Urine Protein (Negative) Urine Blood (Negative) Ur Leukocyte Esterase (Negative) Urine WBC (0-5) /hpf Urine Bacteria (None) /hpf Hyaline Casts (0-2) /lpf Urine Mucus (None) /hpf Coronavirus (PCR) (Not Detectd) Assessment and Plan Assessment: Non-ST elevation [place] Patient had some confusion prior to coming in. When patient had her last heart attack she also presented with confusion. Troponins trending up Per cardiology okay to discontinue heparin drip as elevated troponin likely due to COVID-19 Resume aspirin and statin Echocardiogram pending Consult cardiology Transient amnesia Patient currently back to her baseline. Rheumatoid arthritis Resume home dose steroids Hypertension Resume metoprolol, lisinopril Anxiety and depression Resume Paxil Hyperlipidemia Resume statin and Zetia COVID-19 Patient completed outpatient treatment. Patient states that she was home positive more than 7 days ago She is currently asymptomatic Per CDC guidelines no need for isolation FULL CODE DVT ppx; heparin ggt
[2022-04-20 23:55] VITALS: RESP 18
[2022-04-21] MEDS: PARoxetine 20 MG TAB PO SCH (08:53)
[2022-04-21] MEDS: FOLIC ACID 1 MG TAB PO SCH (08:53)
[2022-04-21] MEDS: ATORVASTATIN 20 MG TAB PO SCH (08:53)
[2022-04-21] MEDS: ASPIRIN 81 MG PO SCH (08:53)
[2022-04-21] MEDS: METOPROLOL TARTRATE 25 MG TAB PO SCH (08:53)
[2022-04-21] MEDS: EZETIMIBE 10 MG TAB PO SCH (08:53)
[2022-04-21] MEDS: predniSONE 1 MG TAB PO SCH (08:53)
[2022-04-21 09:20] LABS: Calcium 8.8 mg/dL (8.4-10.2); Potassium 4.1 mmol/L (3.5-5.1)
--- NOTE | 2022-04-21 11:45 | P.PN ---
Subjective The patient is a 71-year-old female with a history of hyperlipidemia, coronary artery disease s/p prior CABG, hypertension, hyperlipidemia, seizure disorder, former tobacco use. She follows with Dr. Álvarez.We were consulted for elevated troponin. Patient presented with an episode of confusion but no associated symptoms. She is COVID positive which could explain her mild troponin elevation and her confusion. There is no evidence to suggest acute coronary syndrome 04/21 Patient seen and examined at bedside, no distress. Alert and oriented 3. She denies any chest pain, shortness of breath, lightheadedness, dizziness, palpitations. Blood pressure 105/71, heart rate 80. Echocardiogram pending GENERAL: Well-appearing, well-nourished and in no acute distress. NECK: Supple without JVD LUNGS: Breath sounds clear to auscultation bilaterally. Respiration equal and unlabored. No wheezes, rales or rhonchi. HEART: Regular rate and , systolic ejection murmur at apex, norubs or gallops. S1 and S2 heard. EXTREMITIES: Normal range of motion, no edema. No clubbing or cyanosis. Peripheral pulses intact. ASSESSMENT Episode of confusion with no evidence to suggest CVA, no arrhythmia Covid 19 infection Mild troponin elevation with no symptoms of ischemia, probably related to COVID 19 infection Coronary artery disease status post prior CABG History of hypertension Hyperlipidemia PLAN 2D echocardiogram pending From cardiology perspective, no further changes at this time. On discharge recommend Follow up outpatient with Dr. Álvarez. Continue home cardiac medications Nurse Practitioner note has been reviewed, I agree with a documented findings and plan of care. Patient was seen and examined. Objective - Vital Signs Vital signs: Vital Signs Temp 98.1 F 04/21/22 08:15 Pulse 83 04/21/22 08:15 Resp 18 04/21/22 08:15 BP 105/71 04/21/22 08:15 Pulse Ox 94 L 04/21/22 08:15 FiO2 Intake & Output 04/20/22 04/21/22 04/21/22 18:59 06:59 18:59 Intake Total 720 Balance 720 Intake: Oral 720 Other: # Voids 1 - Labs CBC & Chem 7: 04/19/22 11:33 04/21/22 08:23 Labs: Abnormal Lab Results - Last 24 Hours (Table) 04/20/22 04/21/22 Range/Units 05:28 08:23 Sodium 134 L (137-145) mmol/L Glucose 144 H (74-99) mg/dL Triglycerides 154.00 H (0.00-149.00) mg/dL Cholesterol 213.00 H (0.00-200.00) mg/dL
[2022-04-21 12:10] VITALS: BP 112/63; PULSE 61; TEMP 97
--- NOTE | 2022-04-21 12:39 | CA ---
Transthoracic Echo Report Name: Dina Steiner Age: 71 Gender: F : 1950 Exam Date: 04/21/2022 09:21 Exam Location: [facility] [place] [facility] Ht (in): 65 Wt (lb): 117 Ordering Physician: Stephanie Singh MD Attending/Referring Phys: Hall Clerk Yasmin Foote RDCS Procedure CPT: Indications: elevated troponin Cardiac Hx: Technical Quality: Fair Contrast 1: Total Dose (mL): Contrast 2: Total Dose (mL): MEASUREMENTS (Male / Female) Normal Values 2D ECHO LV Diastolic Diameter PLAX 2.5 cm 4.2 - 5.9 / 3.9 - 5.3 cm LV Systolic Diameter PLAX 1.8 cm IVS Diastolic Thickness 1.5 cm 0.6 - 1.0 / 0.6 - 0.9 cm LVPW Diastolic Thickness 1.7 cm 0.6 - 1.0 / 0.6 - 0.9 cm LV Relative Wall Thickness 1.3 RV Internal Dim ED PLAX 3.2 cm LA Volume 29.4 cm??? 18 - 58 / 22 - 52 cm??? M-MODE Aortic Root Diameter MM 3.1 cm LA Systolic Diameter MM 3.8 cm LA Ao Ratio MM 1.2 AV Cusp Separation MM 1.8 cm DOPPLER MV Area PHT 3.6 cm??? Mitral E Point Velocity 28.3 cm/s Mitral A Point Velocity 59.6 cm/s Mitral E to A Ratio 0.5 MV Deceleration Time 212.2 ms MV E' Velocity 5.8 cm/s Mitral E to MV E' Ratio 4.8 TR Peak Velocity 179.4 cm/s TR Peak Gradient 12.9 mmHg Right Ventricular Systolic Press 17.9 mmHg FINDINGS Left Ventricle Moderately increased left ventricular wall thickness. Normal left ventricular systolic function with no obvious regional wall motion abnormalities. Left ventricular ejection fraction is estimated at 55-60 %. Right Ventricle Normal right ventricular size and function. Right ventricular systolic pressure within normal limits. Right Atrium Normal right atrial size. Left Atrium Normal left atrial size. Mitral Valve Mild mitral annular calcification. Mitral valve thickened. Trace to mild mitral regurgitation. Aortic Valve Trileaflet aortic valve. No aortic stenosis. No aortic regurgitation. Aortic valve sclerosis. Tricuspid Valve Structurally normal tricuspid valve. Mild tricuspid regurgitation. Pulmonic Valve Structurally normal pulmonic valve. Pericardium No pericardial effusion. Aorta Normal size aortic root and proximal ascending aorta. CONCLUSIONS Normal left ventricular dimension and systolic function Previewed by: Dr. Brian Vela MD (Electronically Signed) Final Date: 21 April 2022 12:38
--- NOTE | 2022-04-21 14:23 | P.DS ---
Providers Date of admission: 04/19/22 18:20 Expected date of discharge: 04/21/22 Attending physician: Stephanie Singh MD Consults: 04/19/22 13:25 Consult Physician Urgent Consulting Provider: [facility] Consult Reason/Comments: Elevated troponin, anginal equivalent Do you want consulting provider notified?: Yes Primary care physician: Stated None Hospital Course: Discharge Diagnosis: Non-ST elevation IL likely due to COVID-19 per cardiology Transient amnesia Rheumatoid arthritis Hypertension Anxiety and depression Hyperlipidemia COVID-19 Hospital Course: Patient is a 71-year-old female with a past medical history of coronary disease status post CABG, hypertension, anxiety and depression, hyperlipidemia and recently diagnosed with COVID-19 who was brought into the ED by EMS for altered mental status. [place] and police found her confused so they called the ambulance for further evaluation. In the ED patient was back to her baseline. Daughter also confirmed the patient is back to baseline. Daughter states that when patient had her last heart attack she was also confused. In the ED patient had mild troponin elevation so she was started on heparin drip and admitted for further evaluation. Patient was followed by cardiology during hospitalization. Per cardiology the elevated troponins likely due to COVID-19. Patient's echocardiogram was unremarkable. Cardiology discontinued the heparin drip and recommended to follow up outpatient. During hospitalization patient never complained of any chest pain. Patient deemed stable for discharge with close follow-up with cardiology. Off note patient was asymptomatic for COVID-19 so no treatment was required. Patient seen and examined at bedside.[] Vital signs reviewed and stable. General: [non toxic], [no distress], [appears at stated age] Derm: [warm], [dry] Head: [atraumatic], [normocephalic], [symmetric] Eyes: [EOMI], [no lid lag], [anicteric sclera] Mouth: [no lip lesion], [mucus membranes moist] Cardiovascular: [S1S2 reg], [no murmur], [positive posterior tibial pulse bilateral], Lungs: [CTA bilateral], [no rhonchi, no rales] , [no accessory muscle use] Abdominal: [soft], [ nontender to palpation], [no guarding], [no appreciable organomegaly] Ext: [no gross muscle atrophy], [no edema], [no contractures] Neuro: [ CN II-XI grossly intact], [no focal neuro deficits] Psych: [Alert], [oriented], [appropriate affect] A total of [33] minutes of time were spent preparing this complex discharge summary . Plan - Discharge Summary Discharge Rx Participant: No New Discharge Prescriptions: New Aspirin 81 mg PO DAILY 30 Days #30 tab Continue PARoxetine [Paxil] 20 mg PO DAILY lisinopriL 2.5 mg PO DAILY Rosuvastatin [Crestor] 10 mg PO DAILY predniSONE 0.5 mg PO DAILY Ezetimibe [Zetia] 10 mg PO DAILY Metoprolol Tartrate [Lopressor] 25 mg PO DAILY Folic Acid 1 mg PO DAILY metHOTREXate sodium [Methotrexate] 12.5 mg PO WE Discharge Medication List PARoxetine [Paxil] 20 mg PO DAILY 04/24/20 [History] Ezetimibe [Zetia] 10 mg PO DAILY 04/19/22 [History] Folic Acid 1 mg PO DAILY 04/19/22 [History] Metoprolol Tartrate [Lopressor] 25 mg PO DAILY 04/19/22 [History] Rosuvastatin [Crestor] 10 mg PO DAILY 04/19/22 [History] lisinopriL 2.5 mg PO DAILY 04/19/22 [History] metHOTREXate sodium [Methotrexate] 12.5 mg PO WE 04/19/22 [History] predniSONE 0.5 mg PO DAILY 04/19/22 [History] Aspirin 81 mg PO DAILY 30 Days #30 tab 04/21/22 [Rx] Follow up Appointment(s)/Referral(s): None,Stated [Primary Care Provider] - 1-2 days Soha Álvarez MD [STAFF PHYSICIAN] - 1 Week Discharge Disposition: HOME SELF-CARE
--- NOTE | 2022-04-23 06:38 | CDI ---
Documentation Clarification Form Date: 04/23/2022 06:23:00 AM From: Patsy Torres Admit Date: 04/19/2022 06:20:00 PM Patient Name: Dina Steiner Visit Number: [id number] Discharge Date: 04/21/2022 03:49:00 PM ATTENTION: The Clinical Documentation Specialists (CDI) and [facility] Coding Staff appreciate your assistance in clarifying documentation. Please respond to the clarification below the line at the bottom and electronically sign. The CDI & [facility] Coding staff will review the response and follow-up if needed. Please note: Queries are made part of the Legal Health Record. If you have any questions, please contact the author of this message via ITS. Dr. Stephanie Singh Per DCS diagnosis NSTEMI likely due to Covid 19 per cardilogy. In Hospital Course of DCS "Per cardiology the elevated troponins are likely due to NSTEMI. Please clarify if patient had an NSTEMI was it a Type II MS, NSTEMI or only elevated troponins. Additional clarification regarding the type of MS is requested. History/Risk Factors: previous history of MS, family history of MS, CAD, CABG, HTN, HLD Clinical Indicators: Troponin: .060, .258, .298 EKG Results: Atrial fib, abnormal EKG Treatment: Heparin drip Please clarify the type of MS, if known: [ ] Elevated troponins NSTEMI ruled out [ ] NSTEMI (type 1) [ ] Type II MS due to Covid 19 [ ] Unable to determine [ ] Other Condition, please specify MTDD
--- NOTE | 2022-04-23 10:05 | CDI ---
Documentation Clarification Form Date: 04/23/2022 06:23:00 AM From: Patsy Torres Admit Date: 04/19/2022 06:20:00 PM Patient Name: Dina Steiner Visit Number: [id number] Discharge Date: 04/21/2022 03:49:00 PM ATTENTION: The Clinical Documentation Specialists (CDI) and [facility] Coding Staff appreciate your assistance in clarifying documentation. Please respond to the clarification below the line at the bottom and electronically sign. The CDI & [facility] Coding staff will review the response and follow-up if needed. Please note: Queries are made part of the Legal Health Record. If you have any questions, please contact the author of this message via ITS. Dr. Stephanie Singh Per DCS diagnosis NSTEMI likely due to Covid 19 per cardilogy. In Hospital Course of DCS "Per cardiology the elevated troponins are likely due to NSTEMI. Please clarify if patient had an NSTEMI was it a Type II MD, NSTEMI or only elevated troponins. Additional clarification regarding the type of MD is requested. History/Risk Factors: previous history of MD, family history of MD, CAD, CABG, HTN, HLD Clinical Indicators: Troponin: .060, .258, .298 EKG Results: Atrial fib, abnormal EKG Treatment: Heparin drip Please clarify the type of MD, if known: [ ] Elevated troponins NSTEMI ruled out [ ] NSTEMI (type 1) [ X ] Type II MD due to Covid 19 [ ] Unable to determine [ ] Other Condition, please specify MTDD
== END 2022-04-21 15:49 | disposition home or self-care (01) | DRG 177 ==
LOC: EC 10:22 → 3SCARD 13:40 → OBSVTOIN 18:20
PROVIDERS: ADMIT Internal Medicine; ATTEND Internal Medicine
DX: U07.1 COVID-19 (principal); I21.A1 Myocardial infarction type 2; I10 Essential (primary) hypertension; I25.2 Old myocardial infarction; I25.118 Atherosclerotic heart disease of native coronary artery with other forms of angina pectoris; E78.5 Hyperlipidemia, unspecified; F17.210 Nicotine dependence, cigarettes, uncomplicated; F32.A Depression, unspecified; F41.9 Anxiety disorder, unspecified; G40.909 Epilepsy, unspecified, not intractable, without status epilepticus; I49.3 Ventricular premature depolarization; M06.9 Rheumatoid arthritis, unspecified; Z79.02 Long term (current) use of antithrombotics/antiplatelets; Z79.52 Long term (current) use of systemic steroids; Z79.82 Long term (current) use of aspirin; Z79.899 Other long term (current) drug therapy; Z82.49 Family history of ischemic heart disease and other diseases of the circulatory system; Z95.1 Presence of aortocoronary bypass graft; R19.7 Diarrhea, unspecified; R41.3 Other amnesia; Z88.5 Allergy status to narcotic agent
CPT/HCPCS: 36415; 71046; 80048; 80053; 80061; 80306; 81001; 84484; 85025; 85610; 85730; 87635; 93005; 93306; 96361; 96365; 96366; 96375; 99291

== ENCOUNTER → 2022-07-15 | Outpatient (CLI) | payer MEDICARE ==
--- NOTE | 2022-07-15 13:32 | XR ---
EXAMINATION TYPE: XR ribs bilat w pa chest xray DATE OF EXAM: 07/15/2022 COMPARISON: NONE HISTORY: Pain TECHNIQUE: PA view of the chest and 8 views of the rib cage were obtained bilaterally FINDINGS: Postsurgical changes are seen involving the mediastinum and heart size is normal. Biapical pleural th ickening. Diffuse osteoarthropathy or shoulders. Hyperinflation suggests COPD and there is hypertroph ic and degenerative changes of the spine. No focal pneumonia or interstitial edema. Partial eventrati on right hemidiaphragm. No pneumothorax. Surgical clips gallbladder fossa. A chronic appearing deformity of the anterior late ral margin of the right 10th rib. No acute displaced rib fracture bilaterally. IMPRESSION: 1. No diagnostic evidence of acute displaced rib fracture.
== END | disposition home or self-care (01) ==
LOC: RADXRMAIN 12:55
PROVIDERS: ATTEND Physician Assistant
DX: R06.02 Shortness of breath (principal)
CPT/HCPCS: 71111

== ENCOUNTER → 2022-08-04 | Outpatient (CLI) | payer MEDICARE ==
--- NOTE | 2022-08-04 08:13 | US ---
EXAMINATION TYPE: US abdomen complete DATE OF EXAM: 08/04/2022 COMPARISON: NONE CLINICAL HISTORY: R94.5 ABNORMAL RESULTS OF LIVER FUNCTION STUDIES. Elevated liver enzymes, cholecyst ectomy TECHNIQUE: Multiple sonographic images of the abdomen are obtained. FINDINGS: EXAM MEASUREMENTS: Liver Length: 12.1 cm Gallbladder Wall: Surgically absent CBD: 0.4 cm Spleen: 9.6 cm Right Kidney: 10.9 x 5.0 x 4.8 cm Left Kidney: 10.8 x 4.0 x 5.6 cm ENTRY LEVEL ACCOUNTANT NOTES: Limitations due to large amount of overlying bowel content Pancreas: Tail obscured by overlying bowel gas Liver: slightly heterogeneous Gallbladder: Surgically absent Evidence for sonographic Rodriguez's sign: no CBD: wnl Spleen: wnl Right Kidney: multiple cystic areas noted, largest = 3.1 x 2.5 x 2.9cm Left Kidney: multiple cystic areas noted, largest = 5.5 x 4.8 x 5.3cm. dense echogenic focus = 0.8cm, probable stone Upper IVC: wnl Abd Aorta: wnl The visualized liver slightly heterogeneous without worrisome mass or ductal dilatation. The intrahe patic portion of the IVC and proximal abdominal aorta are within normal limits. Gallbladder surgicall y absent. Common bile duct is unremarkable. The visualized portions of the pancreas are homogenous. The spleen is unremarkable. Kidneys are symmetric and free of hydronephrosis. Simple-appearing thi n-walled cysts are noted throughout the visualized portion of both kidneys. IMPRESSION: No suspicious intrahepatic mass or intrahepatic ductal dilatation.
== END | disposition home or self-care (01) ==
LOC: RADUSWWP 07:25
PROVIDERS: ATTEND Internal Medicine Geriatric Medicine
DX: R94.5 Abnormal results of liver function studies (principal)
CPT/HCPCS: 76700

== ENCOUNTER → 2022-08-05 | Outpatient (CLI) | payer MEDICARE ==
--- NOTE | 2022-08-05 10:09 | BD ---
EXAMINATION TYPE: Axial Bone Density DATE OF EXAM: 08/05/2022 COMPARISON: 11/05/2015 CLINICAL HISTORY: 72 years old Female. ICD-10 CODE: M81.0 OSTEOPOROSIS Height: 63.5 Weight: 119 FRAX RISK QUESTIONS: Alcohol (3 or more units per day): NO Family History (Parent hip fracture): NO History of Fracture in Adulthood: YES RT WRIST Secondary Osteoporosis: NO Rheumatoid Arthritis: YES Current Tobacco Use: NO RISK FACTORS HISTORY OF: History of Wrist Fracture: YES RT When: 2019 Family History of Osteoporosis: NO Active: YES Diet low in dairy products/other sources of calcium: YES Postmenopausal woman: YES Lost more than 2 inches in height since high school: YES WAS 69 Frequent falls: NO Poor Health: NO Hyperparathyroidism: NO Adrenal Insufficiency: NO MEDICATIONS: Prednisone or other steroids: YES How Lon NATASHA Additional Medications: YES HYPERTENSION , PAXIL , VIT D , CRESTOR , LISINOPRIL , ZETIA , METHOTREXATE EXAM MEASUREMENTS: Bone mineral densitometry was performed using the PHRQL System. Bone mineral density as measured about the Lumbar spine is: ----- L1-L4(G/cm2): 1.060 T Score Values are as follows: ----- L1: -1.4 ----- L2: -2.0 ----- L3: -1.2 ----- L4: -0.1 ----- L1-L4: -1.0 Bone mineral density has: Decreased -11.8% since study of: 11/05/2015 Bone mineral density about the R hip (g/cm2): 0.675 Bone mineral density about the L hip (g/cm2): 0.661 T Score values are as follows: -----R Neck: -3.2 -----L Neck: -2.7 -----R Total: -2.6 -----L Total: -2.8 Bone mineral density has: Decreased -15.4% since study of: 11/05/2015 FRAX%s: The graph provided illustrates a 36.7% chance for a major osteoporotic fx and a 15.9% chance for the hips probability for fx in 10 years time. IMPRESSION: Osteoporosis (T Score less than -2.5). There is increased fracture risk and therapy is usually indicated based on age. Re-Screen 1-2 years. NOTE: T-SCORE=SD OF THE YOUNG ADULT MEAN.
--- NOTE | 2022-08-05 19:10 | MM ---
Reason for Exam: Screening (asymptomatic). Last mammogram was performed 21 year(s) and 1 month(s) ago. Patient History: Menarche at age 14. First Full-Term at age 28. Postmenopausal. Maternal aunt had breast cancer, age 35. Risk Values: Navya 5 year model risk: 1.9%. NCI Lifetime model risk: 5.6%. Prior Study Comparison: 05/31/1999 Left Special View Mammogram, [facility]. 07/21/2000 Bilateral Screening Mammogram, [facility]. 07/26/2001 Bilateral Screening Mammogram, [facility]. Tissue Density: The breast tissue is heterogeneously dense. This may lower the sensitivity of mammography. Findings: Analyzed By CAD. A few benign oil cysts/round calcifications are noted. Areas of asymmetric density, for example, central right MLO view in the middle depth did not persist on 3-D images. No significant mass, suspicious microcalcification, or other discrete abnormality seen. Overall Assessment: Benign, BI-RAD 2 Management: Screening Mammogram of both breasts in 1 year. 1. Patient should continue monthly self breast exams. 2. A clinical breast exam by your physician is recommended on an annual basis. 3. This exam should not preclude additional follow-up of suspicious palpable abnormalities. Electronically signed and approved by: Darlyn Romero M.D. Radiologist
== END | disposition home or self-care (01) ==
LOC: RADMAMWWP 07:15
PROVIDERS: ATTEND Internal Medicine Geriatric Medicine
DX: Z12.31 Encounter for screening mammogram for malignant neoplasm of breast (principal); M81.0 Age-related osteoporosis without current pathological fracture; M85.88 Other specified disorders of bone density and structure, other site; Z78.0 Asymptomatic menopausal state; Z80.3 Family history of malignant neoplasm of breast
CPT/HCPCS: 77063; 77067; 77080

== ENCOUNTER → 2023-05-22 | Outpatient (CLI) | payer MEDICARE ==
[2023-05-22 11:46] LABS: % Iron Saturation 34.01 (12.00-45.00); ALT 19 U/L (8-44); AST 21 U/L (13-35); Albumin 4.3 d/dL (3.8-4.9); Albumin/Globulin Ratio 1.87 Ratio (1.60-3.17); Alkaline Phosphatase 59 U/L (41-126); BUN/Creat Ratio 12.44 Ratio (12.00-20.00); Blood Urea Nitrogen 11.2 mg/dL (9.0-27.0); Carbon Dioxide 29.5 mmol/L (21.6-31.8); Chloride 107 mmol/L (96-109); Globulin 2.3 d/dL (1.6-3.3); Glucose 89 mg/dL (70-110); Iron 101 UG/DL (50-170); LDL Cholesterol,Calculated 56.6 mg/dL (0.0-131.0); Potassium 4.2 mmol/L (3.5-5.5); Sodium 144 mmol/L (135-145); Total Bilirubin 0.3 mg/dL (0.3-1.2); Total Iron Binding Capacity 297 UG/DL (228-460); Total Protein 6.6 d/dL (6.2-8.2)
== END | disposition home or self-care (01) ==
LOC: LABWHC1 07:05
PROVIDERS: ATTEND Internal Medicine Geriatric Medicine
DX: I25.10 Atherosclerotic heart disease of native coronary artery without angina pectoris (principal); D64.9 Anemia, unspecified; R73.9 Hyperglycemia, unspecified
CPT/HCPCS: 36415; 80053; 80061; 82607; 82746; 83036; 83540; 83550; 84443

== ENCOUNTER → 2023-10-26 | Outpatient (CLI) | payer MEDICARE ==
[2023-10-26 12:10] LABS: ALT 12 U/L (8-44); AST 19 U/L (13-35); Chol/HDL Ratio 2.87 Ratio; LDL Cholesterol,Calculated 60.5 mg/dL (0.0-131.0)
== END | disposition home or self-care (01) ==
LOC: LABWHC1 06:55
PROVIDERS: ATTEND Nurse Practitioner Adult Health
DX: E78.2 Mixed hyperlipidemia (principal)
CPT/HCPCS: 36415; 80061; 84450; 84460

== ENCOUNTER → 2024-05-17 | Outpatient (CLI) | payer MEDICARE ==
--- NOTE | 2024-05-18 19:11 | MM ---
Reason for Exam: Screening (asymptomatic). Last mammogram was performed 1 year(s) and 9 month(s) ago. Patient History: Menarche at age 14. First Full-Term at age 28. Postmenopausal. Maternal aunt had breast cancer, age 35. Risk Values: Navya 5 year model risk: 1.9%. NCI Lifetime model risk: 5.4%. Prior Study Comparison: 07/21/2000 Bilateral Screening Mammogram, [facility]. 07/26/2001 Bilateral Screening Mammogram, [facility]. 08/05/2022 Bilateral MG 3D screening mammo w/cad, [facility]. Tissue Density: The breasts are heterogeneously dense, which may obscure small masses. Findings: Analyzed By CAD. There is no suspicious group of microcalcifications or new suspicious mass in either breast. Overall Assessment: Negative, BI-RAD 1 Management: Screening Mammogram of both breasts in 1 year. . Patient should continue monthly self-breast exams. A clinical breast exam by your physician is recommended on an annual basis. This exam should not preclude additional follow-up of suspicious palpable abnormalities. Note on Navya scores and lifetime risk: 1. A Navya score greater than 3% is considered moderate risk. If this is the case, consider specialist referral to assess eligibility for a risk reducing agent. 2. If overall lifetime risk for the development of breast cancer is 20% or higher, the patient may qualify for future screening with alternating mammogram and breast MRI. [facility], , 05/18/2024 7:08 PM. Electronically signed and approved by: Darlyn Romero M.D. Radiologist
== END | disposition home or self-care (01) ==
LOC: RADMAMWWP 06:50
PROVIDERS: ATTEND Internal Medicine Geriatric Medicine
CPT/HCPCS: 77063; 77067